=== PATIENT | female | born 2000 | race Caucasian/White ===

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

== ENCOUNTER → 2024-04-28 | Outpatient (CLI) | payer BC, SELFPAY ==
[2024-05-02 03:07] LABS: Alternaria tenuis <0.10 kU/L (Class 0); Ash, White <0.10 kU/L (Class 0); Aspergillus fumigatus <0.10 kU/L (Class 0); Bermuda Grass <0.10 kU/L (Class 0); Birch <0.10 kU/L (Class 0); Black Walnut <0.10 kU/L (Class 0); Cat Hair / Dander,Stand 0.46 kU/L (Class I); Cedar, Mountain <0.10 kU/L (Class 0); Cladosporium herbarum <0.10 kU/L (Class 0); Clam <0.10 kU/L (Class 0); Cockroach, American <0.10 kU/L (Class 0); Codfish <0.10 kU/L (Class 0); Corn <0.10 kU/L (Class 0); Cottonwood <0.10 kU/L (Class 0); Dog Epithelia 2.85 kU/L (Class III); Egg, White <0.10 kU/L (Class 0); Elm, American White <0.10 kU/L (Class 0); Immunoglobulin E 159 IU/mL (6-495); Maple/Box Elder 0.21 kU/L (Class 0/I); Milk (Cow) <0.10 kU/L (Class 0); Mouse Urine <0.10 kU/L (Class 0); Mulberry, White <0.10 kU/L (Class 0); Oak, White 0.17 kU/L (Class 0/I); Peanut <0.10 kU/L (Class 0); Pecan <0.10 kU/L (Class 0); Penicillium Notatum <0.10 kU/L (Class 0); Pigweed, Rough <0.10 kU/L (Class 0); Ragweed, Short/Common <0.10 kU/L (Class 0); Russian Thistle <0.10 kU/L (Class 0); SCALLOP <0.10 kU/L (Class 0); SESAME SEED <0.10 kU/L (Class 0); Sheep Sorrel <0.10 kU/L (Class 0); Shrimp <0.10 kU/L (Class 0); Soybean <0.10 kU/L (Class 0); Sycamore, American <0.10 kU/L (Class 0); Timothy Grass <0.10 kU/L (Class 0); Walnut, (Food) <0.10 kU/L (Class 0); Wheat <0.10 kU/L (Class 0)
== END | disposition home or self-care (01) ==
PROVIDERS: PCP Physician Assistant Medical; Referring Provider Otolaryngology; Visit Provider Otolaryngology
DX: T78.40XA Allergy, unspecified, initial encounter (principal)
CPT/HCPCS: 36415; 82785; 86003

== ENCOUNTER → 2024-09-18 | Outpatient (CLI) | payer BC, SELFPAY ==
[2024-09-18 09:37] LABS: Absolute Lymphocyte Count 4.22 X10^3/uL (0.83-4.51); Absolute Neutrophil Count 5.7 X10^3/uL (2.0-7.7); Basophil# 0.04 X10^3/uL; Basophil% 0.4 % (0-1); Eosinophil# 0.19 X10^3/uL; Eosinophils% 1.7 % (0-5); Hematocrit 37.6 % (37-47); Hemoglobin 12.6 g/dL (12.0-15.0); Lymphocyte # 4.22 X10^3/ul (0.83-4.51); Lymphocyte % 38.2 % (19-41); Mean Corp Hgb Conc 33.5 g/dL (32-36); Mean Corpuscular Hgb 28.1 pg (27.0-32.0); Mean Corpuscular Volume 83.7 fL (81-99); Monocyte# 0.88 X10^3/uL; NRBC Flagged by Analyzer 0 % (0-5); Neutrophil # 5.69 X10^3/uL (2.7-7.7); Neutrophil % 51.3 % (47-70); Platelet Count 573 K/mm3 (150-450); RBC Distribution Width CV 13.2 % (11.6-14.6); RBC Distribution Width SD 40.6 fl (35.1-43.9); Red Blood Count 4.49 M/mm3 (4.2-5.4); White Blood Count 11.1 K/mm3 (4.4-11.0)
[2024-09-18 09:47] LABS: Prothrombin Time (Protime)PT. 13.1 SECONDS (11.7-14.9)
[2024-09-18 09:58] LABS: Erythrocyte Sedimentation Rate 37 mm/hr (0-30)
[2024-09-18 10:10] LABS: ALB/GLOB Ratio 1.4 RATIO (0.9-2.4); AST(SGOT) 22 U/L (<=31); Alanine Aminotransfer ALT/SGPT 22 U/L (<=34); Albumin, Serum 4.3 g/dL (3.5-5.0); Alkaline Phosphatase 82 U/L (35-104); Anion Gap 13 (5-15); BUN 11 mg/dL (4-19); BUN/Creat Ratio 14.8 RATIO (10-20); Calcium,Total 9.1 mg/dL (7.6-11.0); Carbon Dioxide 21.9 mmol/L (21.0-32.0); Chloride 102 mmol/L (98-108); Creatinine, Serum 0.74 mg/dL (0.70-1.20); EST Glomerular Filtration Rate 117 (>60); Globulin 3.1 g/dL (2.2-4.2); Glucose 92 mg/dL (70-99); Potassium 3.6 mmol/L (3.3-5.1); Protein, Total 7.3 g/dL (5.9-8.4); Sodium Level 138 mmol/L (133-145); Total Bilirubin 0.21 mg/dL (0.00-1.30)
[2024-09-18 10:18] LABS: CRP 8.28 mg/L (0.0-3.0); Rheumatoid Factor 11.9 IU/mL (<15)
[2024-09-18 10:30] LABS: LDH 221 U/L (84-246)
[2024-09-23 18:08] LABS: ACCA 41 units (0-90); ALCA 7 units (0-60); AMCA 57 units (0-100); CCP IgG Antibodies 8 units (0-19); Chromogranin A 72.7 ng/mL (0.0-101.8); Cytoplasmic Ab (C-ANCA) <1:20 titer (Neg:<1:20); Endomysial Antibody IgA Negative (Negative); Gastrin, Serum 87 pg/mL (0-115); Immunoglobulin A 273 mg/dL (87-352); Immunoglobulin E 147 IU/mL (6-495); Immunoglobulin G 853 mg/dL (586-1602); Immunoglobulin M 201 mg/dL (26-217); Perinuclear Ab (P-ANCA) <1:20 titer (Neg:<1:20); gASCA 7 units (0-50); t-Transglutaminase IgA <2 U/mL (0-3)
[2024-09-24 13:08] LABS: Anti-Centromere B Ab <0.2 AI (0.0-0.9); Anti-Chromatin <0.2 AI (0.0-0.9); Anti-Jo <0.2 AI (0.0-0.9); Anti-Scleroderma-70 AB <0.2 AI (0.0-0.9); Anti-dsDNA Ab 1 IU/mL (0-9); Beef <0.10 kU/L (Class 0); Clam <0.10 kU/L (Class 0); Codfish <0.10 kU/L (Class 0); Corn <0.10 kU/L (Class 0); Egg, White <0.10 kU/L (Class 0); Egg, Whole <0.10 kU/L (Class 0); Milk (Cow) 0.25 kU/L (Class 0/I); Mussels <0.10 kU/L (Class 0); Peanut <0.10 kU/L (Class 0); Pork <0.10 kU/L (Class 0); RNP Ab <0.2 AI (0.0-0.9); SCALLOP <0.10 kU/L (Class 0); SESAME SEED 0.11 kU/L (Class 0/I); SJOGREN'S Anti-SS-A test < 0.2 AI (0.0-0.9); SJOGREN'S Anti-SS-B test < 0.2 AI (0.0-0.9); Salmon <0.10 kU/L (Class 0); Shrimp <0.10 kU/L (Class 0); Smith Ab <0.2 AI (0.0-0.9); Soybean <0.10 kU/L (Class 0); Tuna <0.10 kU/L (Class 0); Walnut, (Food) <0.10 kU/L (Class 0); Wheat <0.10 kU/L (Class 0)
== END | disposition home or self-care (01) ==
PROVIDERS: PCP Physician Assistant Medical; Referring Provider Internal Medicine Gastroenterology; Visit Provider Internal Medicine Gastroenterology
DX: R10.9 Unspecified abdominal pain (principal)
CPT/HCPCS: 36415; 80053; 82784; 82785; 82941; 83516; 83615; 85025; 85610; 85652; 86003; 86005; 86036; 86037; 86140; 86200; 86225; 86235; 86255; 86316; 86431; 86671

== ENCOUNTER → 2024-10-08 | Outpatient (CLI) | payer BC, SELFPAY ==
--- NOTE | 2024-10-08 12:51 | NM_ITS ---
PROCEDURE: GASTRIC EMPTYING STUDY 10/08/2024 REASON FOR EXAM: ABDOMINAL PAIN TECHNIQUE: The patient ingested a standard meal of oatmeal and 1.1 mCi of technetium labeled sulfur colloid and water. There was no vomiting postprandially. Anterior and posterior planar images of the upper abdomen were obtained for 1 minute immediately following the meal at 1h, 2h and 4h if more than 10% of the activity persisted within the stomach. Regions of interest were drawn, and a geometric mean was used to calculate a [id number]. RADIOPHARMACEUTICAL: Technetium labeled sulfur colloid DOSE 1.1mCi FINDINGS: Percent activity remaining in stomach: 1 hour 42% % (normal 37-90%) NM/Gastric Emptying Study IMPRESSION: Normal gastric emptying study. Reading Location: [place] [id number]
== END | disposition home or self-care (01) ==
LOC: NM 12:50
PROVIDERS: PCP Physician Assistant Medical; Referring Provider Internal Medicine Gastroenterology; Visit Provider Internal Medicine Gastroenterology
DX: R10.9 Unspecified abdominal pain (principal)
CPT/HCPCS: 78264; A9541

== ENCOUNTER 2024-12-01 11:43 | Emergency (ER) | payer BC, SELFPAY ==
[2024-12-01 11:44] VITALS: BP 120/53; PULSE 64; RESP 18; TEMP 36.6; O2SAT 98; BMI 36.7
--- NOTE | 2024-12-01 11:51 | ED.RN ---
PT STARTED A NEW CONTROL MEDICATION PATCH YESTERDAY AND HAS REDNESS TO THE ARM AND FACE, VOMITING THIS MORNING TWICE. DENIES ANY ISSUE WITH THROAT, TONGUE, OR BREATHING. FACE APPEARS TO HAVE SOME PETECHIAE POSSIBLY FROM THE VOMITING
[2024-12-01] MEDS: 0.9% Normal Saline (1000mL) 1,000 ML 1000 ML IV (12:18)
[2024-12-01 12:32] LABS: Hematocrit 39.0 % (37-47); Hemoglobin 12.6 g/dL (12.0-15.0); Immature Granulocytes Count 0.090 X10^3/uL (0.0-0.0); Mean Corp Hgb Conc 32.3 g/dL (32-36); Mean Corpuscular Volume 86.1 fL (81-99); Mean Platelet Vol. 9.3 fl (6.2-12.0); NRBC Flagged by Analyzer 0 % (0-5); Platelet Count 467 K/mm3 (150-450); RBC Distribution Width CV 13.8 % (11.6-14.6); RBC Distribution Width SD 43.1 fl (35.1-43.9); Red Blood Count 4.53 M/mm3 (4.2-5.4); White Blood Count 12.3 K/mm3 (4.4-11.0)
[2024-12-01 13:15] LABS: Anion Gap 12 (5-15); BUN 12 mg/dL (4-19); BUN/Creat Ratio 17.7 RATIO (10-20); Calcium,Total 9.1 mg/dL (7.6-11.0); Carbon Dioxide 22.2 mmol/L (21.0-32.0); Chloride 106 mmol/L (98-108); Estimated Creatinine Clearance 137.04 ml/min (50-250); Glucose 115 mg/dL (70-99); Potassium 3.8 mmol/L (3.3-5.1)
--- NOTE | 2024-12-01 13:42 | EX.ED.DYSGE1 ---
HPI History of Present Illness Chief Complaint: Allergic Reaction Informant: patient and spouse/S.O. Narrative Narrative: Presents to the ED vomiting this morning after starting a new control method patch yesterday. She is followed by Dr. Vega. She has a Mirena is working on taking it out. She was started on Xulane patches. She states its place once a week. Yesterday placed this on. Today nausea and vomiting x 2 heavy retching. This is typical for her. She noted petechia spots on her face and neck secondary to vomiting. No hematemesis. She states with her vomiting this has happened in the past. Denies abdominal pain. Currently nauseated. No anticoagulants or antiplatelets. Prior similar symptoms: Yes PFSH PFSH Medical History Hypercholesteremia Thrombocytosis Low vitamin B12 level Depression Abdominal pain Gallbladder polyp Peptic ulcer MONET (generalized anxiety disorder) GERD (gastroesophageal reflux disease) Home Medications ?Medication ?Instructions ?Recorded ?Last Taken ?Type cholecalciferol (vitamin D3) 25 25 mcg PO QDAY 09/18/24 11/30/24 History mcg (1,000 unit) capsule citalopram 20 mg tablet (Celexa) 20 mg PO QDAY 09/18/24 Unknown History Held on 12/01/24. Instructions: PHARMACY ISSUE fexofenadine 60 mg capsule 60 mg PO Q12H 09/18/24 11/30/24 History mecobalamin (vitamin B12) 1,000 1,000 mcg PO QDAY 09/18/24 11/30/24 History mcg chewable tablet omeprazole 20 mg capsule,delayed 20 mg PO QDAY 09/18/24 Unknown History release Held on 12/01/24. Instructions: PHARMACY ISSUE ondansetron 4 mg disintegrating 4 mg PO Q8H PRN PRN Nausea #10 tabs 12/01/24 Unknown Rx tablet Allergy/AdvReac Type Severity Reaction Status Date / Time peanut (peanuts) Allergy Anaphylaxis Verified 12/01/24 11:52 Family History Mother Cholelithiasis Father Heart disease Hypertension Grandfather Rectal cancer Colon cancer Grandmother Colon cancer Surgical History H/O adenoidectomy Hx laparoscopic cholecystectomy Social History Smoking Status: Never smoker alcohol intake: current alcohol intake frequency: holidays/special occasions only Alcohol type: wine ROS ROS ED Constitutional Constitutional ED: Denies fever(s) Cardiovascular Cardiovascular: Denies chest pain Respiratory/Chest Respiratory/Chest: Denies cough Gastrointestinal Gastrointestinal: Reports nausea and vomiting; Denies diarrhea Musculoskeletal Musculoskeletal: Denies none Integumentary Reports other Details: Petechial lesions face and neck ; Denies rash or wounds Neurologic Neurologic: Denies weakness EXAM Physical Exam Const Vital Signs: 12/01/24 11:44 12/01/24 13:43 Temperature 98 F Temperature Source Oral Pulse Rate 64 59 L Respiratory Rate 18 16 Blood Pressure 120/53 L 123/69 H Blood Pressure Mean 75 87 Pulse Ox 98 96 Oxygen Delivery Method Room Air Room Air Positive well nourished and well developed General Appearance ED: well developed and NAD HEENT Reports moist mucous membranes HEENT Narrative: Scattered petechia to the face anterior neck. normocephalic Eyes Eyes Narrative: No subconjunctival hemorrhage General Eye ED: Yes normal appearance of both eyes Neck full ROM Chest Wall Chest: Negative for tenderness Resp normal respiratory effort and normal air movement Effort and Inspection: symmetric chest movement; Negative for respiratory distress Cardio regular rate, regular rhythm and no murmurs Peripheral Pulses: pulses 2+ throughout GI normal to inspection, nondistended, normoactive bowel sounds and non-tender GI Narrative: Negative Estrada's or McBurney's tenderness. Palpation: Negative for guarding or rebound tenderness present Extremity normal to inspection General Extremety ED: Negative for edema or tenderness General Extremity: Negative for edema Neuro oriented x3 and no sensory deficits noted Sensorium / Orientation: awake and alert Skin Skin Narrative: See above MDM MDM MDM Narrative Medical decision making narrative: Interventions / MDM: Differential diagnosis: Nausea and vomiting, traumatic petechiae Diagnosis considered but do not suspect: N/A My EKG interpretation: N/A Imaging independently reviewed and interpreted by myself: N/A External documents reviewed: N/A Test considered but not ordered:N/A ED course: Patient with petechial lesions after vomiting. No hematemesis. Currently nauseated. She has removed her patch. IV established for fluids will check labs, IV Zofran. Will reevaluate. 1407: Clinically feeling better. Labs stable slight leukocytosis, likely reactive. Electrolytes normal. Platelets normal. Prescription Zofran to her pharmacy. Patient traumatic PTCA, this will resolve with time. She has been through this before. She will discuss with her chief service observer other control options. All questions were answered. Re-evaluation: stable Disposition discussed with patient/family/significant other: Patient and significant other Case discussed with consulting clinician: N/A This note was generated with [employer] dictation software. It may contain incorrect words, spelling, and punctuation that were not noted in checking the note before signing. Lab Data Attestation: I reviewed the patient's lab results. Labs: Laboratory Results - last 24 hr 12/01/24 12:20 WBC 12.3 H RBC 4.53 Hgb 12.6 Hct 39.0 MCV 86.1 MCH 27.8 MCHC 32.3 RDW Std Deviation 43.1 RDW Coeff of Ha 13.8 Plt Count 467 H MPV 9.3 Immature Gran % (Auto) 0.700 Neut % (Auto) 71.0 H Lymph % (Auto) 18.3 L [place] % (Auto) 7.1 Eos % (Auto) 2.2 Baso % (Auto) 0.7 Absolute Neuts (auto) 8.7 H Absolute Lymphs (auto) 2.25 Nucleated RBC % 0 Sodium 140 Potassium 3.8 Chloride 106 Carbon Dioxide 22.2 Anion Gap 12 BUN 12 Creatinine 0.67 L Estim Creat Clear Calc 137.04 Est GFR (MDRD) Non-Af 126 BUN/Creatinine Ratio 17.7 Glucose 115 H Calcium 9.1 Discharge Plan Triage Chief Complaint: Allergic Reaction ED Provider: Phillip Richardson Dx/Rx/DC Orders Clinical Impression: Nausea and vomiting, Traumatic petechiae Instructions: ED Vomiting (Adult), ED Petechiae Prescriptions: New ondansetron 4 mg tablet,disintegrating 4 mg PO Q8H PRN PRN (Reason: Nausea) Qty: 10 0RF No Action citalopram [Celexa] 20 mg tablet 20 mg PO QDAY fexofenadine 60 mg capsule 60 mg PO Q12H mecobalamin (vitamin B12) 1,000 mcg tablet,chewable 1,000 mcg PO QDAY cholecalciferol (vitamin D3) 25 mcg (1,000 unit) capsule 25 mcg PO QDAY omeprazole 20 mg capsule,delayed release(DR/EC) 20 mg PO QDAY Primary Care Provider: Jenni Matthews Referrals: Jenni Matthews, FATIMAH [Primary Care Provider] - Activity Restrictions/Additional Instructions: Your labs and platelets are stable and normal. Your petechiae caused from your vomiting. This will resolve with time. Use Zofran as needed. Continue oral fluids for hydration. Discussed with your chief service observer other control options. Print Language: [place] Leonean Disposition Disposition: Home, Self Care
[2024-12-01 13:43] VITALS: BP 123/69; PULSE 59; RESP 16; O2SAT 96
[2024-12-01 14:18] VITALS: BP 112/59; PULSE 58; RESP 17; TEMP 36.6; O2SAT 98
== END 2024-12-01 14:21 | disposition home or self-care (01) ==
PROVIDERS: Emergency Provider Emergency Medicine; PCP Physician Assistant Medical; Visit Provider Emergency Medicine
DX: R11.2 Nausea with vomiting, unspecified (principal); E78.00 Pure hypercholesterolemia, unspecified; R23.3 Spontaneous ecchymoses; F32.A Depression, unspecified; Z79.899 Other long term (current) drug therapy; K21.9 Gastro-esophageal reflux disease without esophagitis; F41.1 Generalized anxiety disorder; Z90.49 Acquired absence of other specified parts of digestive tract
CPT/HCPCS: 80048; 85025; 96361; 96374; 99283; J2405

== ENCOUNTER 2024-12-02 08:44 | Emergency (ER) | payer BC, SELFPAY ==
[2024-12-02 08:44] VITALS: BP 130/65; PULSE 63; RESP 18; TEMP 37.2; O2SAT 99; BMI 36.5
--- NOTE | 2024-12-02 09:10 | EX.ED.DYSGE1 ---
HPI History of Present Illness Chief Complaint: Nausea/Vomiting Detail of Chief Complaint: Nausea and vomiting since discharge from the emergency room Informant: patient Onset/Context/Timing Onset: Yesterday Context: Sudden Onset Timing: Intermittent and Waxes and wanes Quality: Nausea and vomiting Location: GI Current Severity: Mild Maximum Severity: Moderate Worsened by: Thought yesterday was due to new control patch. She also admits to d Relieved by: Initially Zofran. She states the Zofran and ODT tablets she was prescribed Associated Symptoms Associated Symptoms: Thirst, dry mouth, lightheadedness Narrative Narrative: Patient is a 24-year-old female. She was seen yesterday for presumed adverse reaction to medication. She was treated with IV Zofran. Her symptoms resolved. She was discharged home with prescription for Zofran ODT. She states and spite of taking the Zofran she continues to have nausea and vomiting. She has had several episodes in and I heaves as well. Predominantly dry heaves now. She denies tobacco use however she commented I do not smoke cigarettes . Asked if she smokes marijuana. She does smoke marijuana daily. Last use was 2 days ago. She has had no ill contacts. She denies headache, visual, ocular auditory symptoms. She denies cardiac or respiratory symptoms. She does report diffuse abdominal discomfort with nausea and dry heaves. She states she did have diarrhea the other day. She has had no diarrhea since discharge. She endorses decreased urine output as well. She denies dysuria or hematuria. She did not have a test yesterday. She believes her last normal menstrual period was beginning of this month. She has not noted any rash or lesions on her extremities or torso. Prior similar symptoms: Yes Recent Illness/Hospitalization: Yes [facility] Medical History Hypercholesteremia Thrombocytosis Low vitamin B12 level Depression Abdominal pain Gallbladder polyp Peptic ulcer MONET (generalized anxiety disorder) GERD (gastroesophageal reflux disease) Home Medications ?Medication ?Instructions ?Recorded ?Last Taken ?Type cholecalciferol (vitamin D3) 25 25 mcg PO QDAY 09/18/24 11/30/24 History mcg (1,000 unit) capsule citalopram 20 mg tablet (Celexa) 20 mg PO QDAY 09/18/24 Unknown History Held on 12/01/24. Instructions: PHARMACY ISSUE fexofenadine 60 mg capsule 60 mg PO Q12H 09/18/24 11/30/24 History mecobalamin (vitamin B12) 1,000 1,000 mcg PO QDAY 09/18/24 11/30/24 History mcg chewable tablet omeprazole 20 mg capsule,delayed 20 mg PO QDAY 09/18/24 Unknown History release Held on 12/01/24. Instructions: PHARMACY ISSUE ondansetron 4 mg disintegrating 4 mg PO Q8H PRN PRN Nausea #10 tabs 12/01/24 Unknown Rx tablet Allergy/AdvReac Type Severity Reaction Status Date / Time peanut (peanuts) Allergy Anaphylaxis Verified 12/02/24 08:46 Family History Mother Cholelithiasis Father Heart disease Hypertension Grandfather Rectal cancer Colon cancer Grandmother Colon cancer Surgical History H/O adenoidectomy Hx laparoscopic cholecystectomy Social History Smoking Status: Current every day smoker tobacco type: e-cigarettes alcohol intake: current alcohol intake frequency: holidays/special occasions only Alcohol type: wine ROS ROS ED Constitutional Constitutional ED: Reports sweats; Denies chills, fever(s) or subjective Eyes Eyes: Denies blurry vision, change in vision or diplopia ENT ENT ED: Denies ear pain, rhinorrhea or sore throat Cardiovascular Cardiovascular: Denies chest pain, orthopnea, palpitations, paroxysmal nocturnal dyspnea or racing heartbeat Respiratory/Chest Respiratory/Chest: Denies cough, dyspnea, dyspnea on exertion, orthopnea or paroxysmal nocturnal dyspnea Gastrointestinal Gastrointestinal: Reports abdominal pain, nausea and vomiting; Denies constipation, diarrhea or melena Genitourinary Genitourinary ED: Reports other Details: Decreased urine output ; Denies dysuria, hematuria or urinary frequency Musculoskeletal Musculoskeletal: Denies arthralgias or myalgias Integumentary Denies rash Neurologic Neurologic: Reports weakness; Denies headache(s) or paresthesias Hematologic/Lymphatic Hematologic/Lymphatic: Reports systems reviewed and no addt'l complaints, except as documented EXAM Physical Exam Const Vital Signs: 12/02/24 08:44 Temperature 99.0 F Temperature Source Oral Pulse Rate 63 Respiratory Rate 18 Blood Pressure 130/65 H Blood Pressure Mean 86 Pulse Ox 99 Oxygen Delivery Method Room Air Positive well nourished and well developed Constitutional Narrative: Vital signs reveal slight elevation in blood pressure. She is not tachycardic. She appears ill but nontoxic. General Appearance ED: well developed HEENT Reports dry mucous membranes HEENT Narrative: Head is atraumatic and normocephalic. Ears normal. Nares patent without discharge. Posterior pharynx is normal. Uvula is midline. Mouth ED: Yes dry mucous membranes Mouth: dry mucous membranes Eyes PERRL and EOMs intact bilaterally Eyes Narrative: There is no nystagmus. General Eye ED: Negative for pale conjunctiva or scleral icterus Neck no lymphadenopathy, supple and no JVD Resp normal respiratory effort and clear to auscultation bilaterally Cardio regular rate, regular rhythm, S1 normal heart sound, S2 normal heart sound and no murmurs GI non-distended and no masses; Negative for normal to inspection, nondistended, normoactive bowel sounds, non-tender or hepatosplenomegaly Auscultation: hypoactive bowel sounds Palpation: soft and tender other (Diffuse. Patient has scar secondary to cholecystectomy.); Negative for guarding or splenomegaly Back/Spine no CVA tenderness Extremity normal to inspection General Extremety ED: Negative for edema or tenderness General Extremity: Negative for edema Neuro oriented x3 and CN's II-XII intact bilaterally Sensorium / Orientation: alert Psych Psych Narrative: Affect is flat. MDM MDM MDM Narrative Medical decision making narrative: Clinically patient is dehydrated. 1 L of normal saline was ordered. In light of her admitted marijuana use daily will initiate the cyclic vomiting order set since the Zofran ODT is not helping. Will obtain BMP and assess BUN to creatinine ratio as well as renal function. test was ordered since this was not ordered yesterday or recently. In my opinion imaging is not needed. She does have some tenderness but has medically a benign History & Record Review Additional record(s) reviewed:: Prior ED visit and Prior labs Lab Data Attestation: I reviewed the patient's lab results. Lab results narrative: Serum test is negative. Labs: Laboratory Results - last 24 hr 12/02/24 09:06 Sodium 139 Potassium 3.7 Chloride 104 Carbon Dioxide 22.8 Anion Gap 13 BUN 10 Creatinine 0.79 Estim Creat Clear Calc 115.91 Est GFR (MDRD) Non-Af 109 BUN/Creatinine Ratio 12.5 Glucose 111 H Calcium 9.0 Serum , Qual NEGATIVE Treatment and Re-Evaluation :: Patient was reassessed at 1124. She passed p.o. challenge. She feels better. Will discharge to home. She was informed I believe this is due to cannabis hyperemesis syndrome. Discharge Plan Triage Chief Complaint: Nausea/Vomiting ED Provider: Toby Rodriguez Dx/Rx/DC Orders Clinical Impression: Cannabis hyperemesis syndrome concurrent with and due to cannabis abuse, Abdominal pain, Acute dehydration Instructions: ED Cyclic Vomiting Syndrome Prescriptions: No Action citalopram [Celexa] 20 mg tablet 20 mg PO QDAY fexofenadine 60 mg capsule 60 mg PO Q12H mecobalamin (vitamin B12) 1,000 mcg tablet,chewable 1,000 mcg PO QDAY cholecalciferol (vitamin D3) 25 mcg (1,000 unit) capsule 25 mcg PO QDAY omeprazole 20 mg capsule,delayed release(DR/EC) 20 mg PO QDAY ondansetron 4 mg tablet,disintegrating 4 mg PO Q8H PRN PRN (Reason: Nausea) Qty: 10 0RF Primary Care Provider: Jenni Matthews Referrals: Jenni Matthews, PA [Primary Care Provider] - As Needed Print Language: Tajik Disposition Disposition: Home, Self Care
[2024-12-02] MEDS: Famotidine 200 MG/20 ML MDV 20 MG in 0.9% Normal Saline (Pres. free 8 ML 300 MG IV (09:13)
[2024-12-02] MEDS: Lorazepam 2 MG/ML WCH Syringe 0.5 MG IV (09:13)
[2024-12-02 09:44] LABS: Internal QC Validated? YES +Cl - CLEAR BKGD; Pregnancy, Serum, hCG Quali. NEGATIVE Negative; Record Kit Lot#, Serum Preg. 0000962302
[2024-12-02] MEDS: DiphenhydrAMINE 25 MG, ChlorproMAZINE 25 MG in 0.9% Normal Saline (100mL Bag) 98.5 ML 200 MG IV (09:49)
[2024-12-02 09:53] LABS: Anion Gap 13 (5-15); BUN 10 mg/dL (4-19); BUN/Creat Ratio 12.5 RATIO (10-20); Calcium,Total 9.0 mg/dL (7.6-11.0); Carbon Dioxide 22.8 mmol/L (21.0-32.0); Chloride 104 mmol/L (98-108); Estimated Creatinine Clearance 115.91 ml/min (50-250); Glucose 111 mg/dL (70-99); Potassium 3.7 mmol/L (3.3-5.1)
[2024-12-02 10:44] VITALS: BP 121/47; PULSE 57
[2024-12-02 12:01] VITALS: BP 114/59; PULSE 60; RESP 19; TEMP 36.6; O2SAT 100
== END 2024-12-02 12:02 | disposition home or self-care (01) ==
PROVIDERS: Emergency Provider Emergency Medicine; PCP Physician Assistant Medical; Visit Provider Emergency Medicine
DX: R11.2 Nausea with vomiting, unspecified (principal); F12.188 Cannabis abuse with other cannabis-induced disorder; E86.0 Dehydration; E78.00 Pure hypercholesterolemia, unspecified; R10.9 Unspecified abdominal pain; F41.1 Generalized anxiety disorder; K21.9 Gastro-esophageal reflux disease without esophagitis; Z79.899 Other long term (current) drug therapy; F17.290 Nicotine dependence, other tobacco product, uncomplicated
CPT/HCPCS: 80048; 84703; 96365; 96368; 96375; 99282; J2405

== ENCOUNTER 2025-01-05 08:24 | Emergency (ER) | payer BC, SELFPAY ==
[2025-01-05 08:25] VITALS: BP 134/62; PULSE 53; RESP 16; TEMP 36.4; O2SAT 97; BMI 35.2
--- NOTE | 2025-01-05 08:31 | ED.VIS.GI ---
HPI HPI - GI History of Present Illness Chief Complaint: Nausea/Vomiting Informant: patient Abdominal Pain/Flank Pain Onset: Today Context: Sudden Onset Timing: Continuous Quality: Cramping Location: Epigastric Worsened by: Food Relieved by: Nothing Nausea/Vomiting/Emesis GI Symptom: Positive for Nausea and Vomiting Quality: Positive for Nonbilious; Negative for Blood streaks, Coffee ground or Hematemesis Diarrhea/Melena/Hematochezia GI Symptom: Positive for Diarrhea; Negative for Melena or Hematochezia Associated Symptoms Associated Symptoms: Negative for Dysuria, Frequency or Hematuria LMP: 2 weeks ago Narrative Narrative: Patient presents with abdominal pain, nausea, vomiting, and diarrhea that began this morning. Patient states began rather suddenly this morning. Patient states it has been constant. Patient describes her pain as cramping. Patient states it is over the epigastric area. Patient states her pain radiates up into her chest. Patient states it is worse with eating or drinking anything. Patient states nothing makes it better. Patient denies any hematemesis or coffee-ground emesis. Patient admits to some diarrhea but denies any melena or hematochezia. Patient denies any dysuria, frequency, or hematuria. Patient states her last menstrual period was 2 weeks ago. Patient has a history of cholecystectomy. [facility] Medical History Hypercholesteremia Thrombocytosis Low vitamin B12 level Depression Abdominal pain Gallbladder polyp Peptic ulcer MONET (generalized anxiety disorder) GERD (gastroesophageal reflux disease) Home Medications ?Medication ?Instructions ?Recorded ?Last Taken ?Type citalopram 20 mg tablet (Celexa) 20 mg PO QDAY 09/18/24 01/04/25 History Held on 12/01/24. Instructions: PHARMACY ISSUE omeprazole 20 mg capsule,delayed 20 mg PO QDAY 09/18/24 01/04/25 History release Held on 12/01/24. Instructions: PHARMACY ISSUE scopolamine base 1 mg over 3 days 1 patch transdermal Q72H 30 days 12/19/24 01/05/25 Rx transdermal patch #10 ea amoxicillin 875 mg-potassium 875 mg PO Q12H #20 TABLETS 01/05/25 Unknown Rx clavulanate 125 mg tablet cetirizine 10 mg tablet (24Hour 10 mg PO DAILY PRN allergy symptoms 01/05/25 01/04/25 History Allergy) diphenhydramine HCl 25 mg capsule 50 mg PO Q8H PRN nausea and 01/05/25 01/05/25 History (Aler-Cap) vomiting ferrous sulfate 325 mg (65 mg 325 mg PO QDAY SUPPLEMENT 01/05/25 01/04/25 History iron) tablet (FeroSul) Allergy/AdvReac Type Severity Reaction Status Date / Time peanut (peanuts) Allergy Anaphylaxis Verified 01/05/25 08:25 Family History Mother Cholelithiasis Father Heart disease Hypertension Grandfather Rectal cancer Colon cancer Grandmother Colon cancer Surgical History H/O adenoidectomy Hx laparoscopic cholecystectomy Social History Smoking Status: Current every day smoker tobacco type: e-cigarettes alcohol intake: current alcohol intake frequency: holidays/special occasions only Alcohol type: wine ROS ROS ED Constitutional Constitutional ED: Reports chills, fever(s) and subjective Eyes Eyes: Denies blurry vision or change in vision ENT ENT ED: Reports rhinorrhea and sore throat Cardiovascular Cardiovascular: Reports chest pain; Denies palpitations Respiratory/Chest Respiratory/Chest: Reports cough; Denies dyspnea Gastrointestinal Gastrointestinal: Reports abdominal pain, diarrhea, nausea and vomiting Genitourinary Genitourinary ED: Denies dysuria or hematuria Musculoskeletal Musculoskeletal: Denies back pain or neck pain Integumentary Denies abscess or rash Neurologic Neurologic: Reports headache(s); Denies weakness Allergic/Immunologic Allergic/Immunologic ED: Denies mouth swelling or urticaria EXAM Physical Exam Const Vital Signs: 01/05/25 08:25 01/05/25 10:25 Temperature 97.6 F L Temperature Source Temporal Pulse Rate 53 L 59 L Respiratory Rate 16 Blood Pressure 134/62 H Blood Pressure Mean 86 Pulse Ox 97 96 Oxygen Delivery Method Room Air Positive well nourished and well developed General Appearance ED: well developed and NAD HEENT Reports moist mucous membranes Neck supple and no JVD Resp normal respiratory effort and clear to auscultation bilaterally Cardio regular rate and regular rhythm GI non-distended Palpation: soft and tender epigastric Extremity full ROM General Extremety ED: Negative for edema or tenderness General Extremity: Negative for edema Neuro CN's II-XII intact bilaterally, moves all extremities and no sensory deficits noted Sensorium / Orientation: alert Motor Exam: strength 5/5 throughout Psych mental status grossly normal MDM MDM MDM Narrative Medical decision making narrative: Differential diagnosis includes gastritis, peptic ulcer disease, duodenal ulcer, pancreatitis, gastroesophageal reflux disease, gastroparesis, and gastroenteritis. CBC will be obtained to assess for leukocytosis and anemia. Comprehensive metabolic profile will be obtained to assess for hepatic function, renal function, and electrolyte abnormality. Lipase will be obtained to assess for pancreatitis. Urinalysis will be obtained to assess for urinary tract infection. Serum hCG will be obtained to assess for . History & Record Review Additional record(s) reviewed:: Prior outpatient record, Prior ED visit and Prior labs Lab Data Attestation: I reviewed the patient's lab results. Lab results narrative: CBC was reviewed and showed a leukocytosis of 18.2. This is increased from previous results. Platelets were slightly elevated at 529. This was consistent with previous results. Comprehensive metabolic profile was reviewed and was essentially within normal limits. Serum hCG was reviewed and was negative. Lipase was reviewed and was normal at 23. Urinalysis was reviewed. There is no evidence of urinary tract infection or hematuria. Labs: Laboratory Results - last 24 hr 01/05/25 01/05/25 08:41 08:46 WBC 18.2 H RBC 5.00 Hgb 14.1 Hct 42.7 MCV 85.4 MCH 28.2 MCHC 33.0 RDW Std Deviation 42.5 RDW Coeff of Ha 13.7 Plt Count 529 H MPV 9.4 Immature Gran % (Auto) 0.500 Neut % (Auto) 69.6 Lymph % (Auto) 18.4 L [place] % (Auto) 8.0 Eos % (Auto) 3.1 Baso % (Auto) 0.4 Absolute Neuts (auto) 12.7 H Absolute Lymphs (auto) 3.36 Nucleated RBC % 0 Sodium 140 Potassium 4.1 Chloride 103 Carbon Dioxide 22.2 Anion Gap 15 BUN 8 Creatinine 0.69 L Estim Creat Clear Calc 130.16 Est GFR (MDRD) Non-Af 125 BUN/Creatinine Ratio 12.2 Glucose 103 H Calcium 9.7 Total Bilirubin 0.36 AST 26 ALT 38 H Alkaline Phosphatase 73 Total Protein 7.6 Albumin 4.5 Globulin 3.0 Albumin/Globulin Ratio 1.5 Lipase 23 Serum , Qual NEGATIVE Urine Color Yellow Urine Clarity Sl. Cloudy Urine pH 8.0 Ur Specific [place] 1.015 Urine Protein 15 H Urine Glucose (UA) Normal Urine Ketones Negative Urine Occult Blood 10 H Urine Nitrite Negative Urine Bilirubin Negative Urine Urobilinogen Normal Ur Leukocyte Esterase Negative Urine RBC 0-5 SEEN Urine WBC 0-5 SEEN Ur Squamous Epith Cells 5-10 SEEN Amorphous Sediment 2+ PHOS Urine Bacteria 0 SEEN Urine Mucus 0 SEEN Radiography Diagnostic Testing: Clinical Impression(s) from Imaging Studies Abdomen/Pelvis CT 01/05/25 10:30 IMPRESSION: Submucosal thickening and edema noted in the majority of the colon suggesting a diffuse colitis.. This is likely infectious or inflammatory and can be seen with Crohn's or ulcerative colitis. No pericolonic inflammatory stranding, no perforation or abscess. These changes were not seen on the previous study of 2018 No free intraperitoneal fluid, air, or suspicious adenopathy, normal appendix visualized IUD noted in the uterus, there are physiologic ovarian cysts present, no suspicious enlarged cystic mass or free fluid in the pelvis Reading Location: [facility] Because of the leukocytosis, CT scan of the abdomen and pelvis was obtained. There is colitis noted in the majority of the colon. There is no evidence of perforation or abscess. There is no inflammatory stranding. There is no free air or free fluid. This was interpreted by the radiologist and was also independently reviewed by myself. Treatment and Re-Evaluation :: Patient was given IV fluids, morphine, and Zofran initially. Patient states this made her pain worse. Patient was given Pepcid and Benadryl. Patient was also given a dose of Ativan. Patient was feeling better on reevaluation. Patient was advised of her findings. Patient was started on a course of Augmentin. Patient was instructed to follow-up with her primary care physician in 5 to 7 days. Patient understood and was agreeable with the plan. All questions were answered. Discharge Plan Triage Chief Complaint: Nausea/Vomiting ED Provider: Raza Camacho Dx/Rx/DC Orders Clinical Impression: Colitis, Abdominal pain Instructions: ED Understanding Colitis Prescriptions: New amoxicillin-pot clavulanate 875-125 mg tablet 875 mg PO Q12H Qty: 20 0RF No Action citalopram [Celexa] 20 mg tablet 20 mg PO QDAY omeprazole 20 mg capsule,delayed release(DR/EC) 20 mg PO QDAY scopolamine base 1 mg over 3 days patch 3 day 1 patch transdermal Q72H 30 Days Qty: 10 2RF ferrous sulfate [FeroSul] 325 mg (65 mg iron) tablet 325 mg PO QDAY cetirizine [24Hour Allergy] 10 mg tablet 10 mg PO DAILY PRN (Reason: allergy symptoms) diphenhydramine HCl [Aler-Cap] 25 mg capsule 50 mg PO Q8H PRN (Reason: nausea and vomiting) Primary Care Provider: Jenni Matthews Referrals: Jenni Matthews PA [Primary Care Provider] - 5-7 Days Print Language: Monegasque Disposition Disposition: Home, Self Care
[2025-01-05] MEDS: 0.9% Normal Saline (1000mL) 1,000 ML 999 ML IV (09:04)
[2025-01-05 09:07] LABS: Mucous, Urine 0 SEEN /hpf (<or=2+)
[2025-01-05 09:12] LABS: Hematocrit 42.7 % (37-47); Hemoglobin 14.1 g/dL (12.0-15.0); Immature Granulocytes Count 0.100 X10^3/uL (0.0-0.0); Mean Corp Hgb Conc 33.0 g/dL (32-36); Mean Corpuscular Volume 85.4 fL (81-99); Mean Platelet Vol. 9.4 fl (6.2-12.0); NRBC Flagged by Analyzer 0 % (0-5); Platelet Count 529 K/mm3 (150-450); RBC Distribution Width CV 13.7 % (11.6-14.6); RBC Distribution Width SD 42.5 fl (35.1-43.9); Red Blood Count 5.00 M/mm3 (4.2-5.4); White Blood Count 18.2 K/mm3 (4.4-11.0)
[2025-01-05 09:13] LABS: Color, Urine Yellow (Yellow); Glucose, Dipstick Normal (Normal); Ketone-Dipstick Negative (Negative); Leukocyte Esterase-Dipstick Negative /ul (Negative); Nitrite-Dipstick Negative (Negative); Occult Blood-Urine 10 /ul (Negative); Protein-Dipstick 15 mg/dl (Negative); Specific Gravity, Urine 1.015 (1.002-1.030); Urine Bilirubin Dipstick Negative (Negative)
[2025-01-05 09:21] LABS: Red Blood Cells-Urine 0-5 SEEN /hpf (0-5); Squamous Epithelial Cells - UA 5-10 SEEN /hpf (5-10)
[2025-01-05] MEDS: Famotidine 200 MG/20 ML MDV 20 MG in 0.9% Normal Saline (Pres. free 8 ML 300 MG IV (09:37)
[2025-01-05 09:52] LABS: Internal QC Validated? YES +Cl - CLEAR BKGD; Pregnancy, Serum, hCG Quali. NEGATIVE Negative; Record Kit Lot#, Serum Preg. 0000962302
[2025-01-05 09:58] LABS: AST(SGOT) 26 U/L (<=31); Alanine Aminotransfer ALT/SGPT 38 U/L (<=34); Albumin, Serum 4.5 g/dL (3.5-5.0); Alkaline Phosphatase 73 U/L (35-104); Anion Gap 15 (5-15); BUN 8 mg/dL (4-19); BUN/Creat Ratio 12.2 RATIO (10-20); Calcium,Total 9.7 mg/dL (7.6-11.0); Carbon Dioxide 22.2 mmol/L (21.0-32.0); Chloride 103 mmol/L (98-108); Estimated Creatinine Clearance 130.16 ml/min (50-250); Globulin 3.0 g/dL (2.2-4.2); Glucose 103 mg/dL (70-99); Lipase 23 U/L (13-75); Potassium 4.1 mmol/L (3.3-5.1)
[2025-01-05] MEDS: DiphenhydrAMINE 25 MG, ChlorproMAZINE 25 MG in 0.9% Normal Saline (100mL Bag) 98.5 ML 200 MG IV (10:08)
[2025-01-05 10:25] VITALS: PULSE 59; O2SAT 96
--- NOTE | 2025-01-05 10:30 | CT_ITS ---
PROCEDURE: ABDOMEN/PELVIS W IV CONT ONLY 01/05/2025 REASON FOR EXAM: ABDOMINAL PAIN TECHNIQUE: ABDOMEN/PELVIS W IV CONT ONLY Coronal and Sagittal reconstruction series were provided. CONTRAST: Isovue 370 VOLUME: 100 mL One or more dose reduction techniques were used (e.g., Automated exposure control, adjustment of the mA and/or kV according to patient size, use of iterative reconstruction technique. RADIATION DOSE SUMMARY: CTDlvol: 35.99 mGy DLP: 1080.30 mGycm COMPARISON: 2019 FINDINGS: Lung bases: Clear Liver: Normal size. No suspicious mass there is subtle hypoattenuation along the falciform ligament which I suspect is simply developmental Gallbladder: Surgically absent. Spleen: Normal size. Pancreas: Normal size without evidence of mass surrounding inflammation or ductal dilation. Adrenals: Unremarkable Kidneys: No obstructive uropathy or suspicious solid renal lesion. Bladder: Unremarkable Reproductive Organs: IUD noted within the uterus. Physiologic ovarian cysts are noted, no suspicious enlarged cystic mass or free fluid in the pelvis Bowel: Although the bowel loops are not distended with oral contrast, there is some evidence of submucosal thickening in the transverse and descending colon suggestive of a diffuse colitis. No pericolonic inflammatory stranding, evidence of abscess or perforation. Appendix: Normal appendix seen on coronal recon images 52 through 55. Lymph nodes: No suspicious enlarged mesenteric or retroperitoneal lymph nodes Vasculature: Normal Peritoneum / Retroperitoneum: No free fluid or air Bones: Normal CT/Abdomen/Pelvis W IV Cont ONLY IMPRESSION: Submucosal thickening and edema noted in the majority of the colon suggesting a diffuse colitis.. This is likely infectious or inflammatory and can be seen with Crohn's or ulcerative colitis. No pericoloni c inflammatory stranding, no perforation or abscess. These changes were not seen on the previous study of 2019 No free intraperitoneal fluid, air, or suspicious adenopathy, normal appendix v isualized IUD noted in the uterus, there are physiologic ovarian cysts present, no suspic ious enlarged cystic mass or free fluid in the pelvis Reading Location: [id number]
[2025-01-05 12:31] VITALS: BP 122/74; PULSE 50; RESP 14; TEMP 36.6; O2SAT 100
== END 2025-01-05 12:31 | disposition home or self-care (01) ==
PROVIDERS: Emergency Provider Emergency Medicine; PCP Physician Assistant Medical; Visit Provider Emergency Medicine
DX: K52.9 Noninfective gastroenteritis and colitis, unspecified (principal); E78.00 Pure hypercholesterolemia, unspecified; R11.2 Nausea with vomiting, unspecified; Z79.899 Other long term (current) drug therapy; F41.1 Generalized anxiety disorder; K21.9 Gastro-esophageal reflux disease without esophagitis; Z90.49 Acquired absence of other specified parts of digestive tract; F17.290 Nicotine dependence, other tobacco product, uncomplicated; R10.13 Epigastric pain
CPT/HCPCS: 74177; 80053; 81001; 83690; 84703; 85025; 96365; 96368; 96375; 99283; Q9967; A4216; J2405

== ENCOUNTER → 2025-03-20 | Outpatient (CLI) | payer OTHER, SELFPAY ==
[2025-03-20 15:31] LABS: Hematocrit 43.0 % (37-47); Hemoglobin 13.5 g/dL (12.0-15.0); Immature Granulocytes Count 0.050 X10^3/uL (0.0-0.0); Mean Corp Hgb Conc 31.4 g/dL (32-36); Mean Corpuscular Volume 88.3 fL (81-99); Mean Platelet Vol. 9.9 fl (6.2-12.0); NRBC Flagged by Analyzer 0 % (0-5); Platelet Count 524 K/mm3 (150-450); RBC Distribution Width CV 14.3 % (11.6-14.6); RBC Distribution Width SD 46.1 fl (35.1-43.9); Red Blood Count 4.87 M/mm3 (4.2-5.4); White Blood Count 10.8 K/mm3 (4.4-11.0)
[2025-03-20 16:07] LABS: AST(SGOT) 19 U/L (<=31); Alanine Aminotransfer ALT/SGPT 24 U/L (<=34); Albumin, Serum 4.3 g/dL (3.5-5.0); Alkaline Phosphatase 60 U/L (35-104); Anion Gap 10 (5-15); BUN 8 mg/dL (4-19); BUN/Creat Ratio 10.4 RATIO (10-20); CRP 8.09 mg/L (0.0-3.0); Calcium,Total 9.5 mg/dL (7.6-11.0); Carbon Dioxide 23.9 mmol/L (21.0-32.0); Chloride 105 mmol/L (98-108); Globulin 2.9 g/dL (2.2-4.2); Glucose 97 mg/dL (70-99); Potassium 4.2 mmol/L (3.3-5.1)
== END | disposition home or self-care (01) ==
PROVIDERS: PCP Physician Assistant Medical; Referring Provider Internal Medicine Gastroenterology; Visit Provider Internal Medicine Gastroenterology
DX: R10.9 Unspecified abdominal pain (principal)
CPT/HCPCS: 36415; 80053; 85025; 85652; 86140

== ENCOUNTER 2025-04-25 09:45 | Emergency (ER) | payer OTHER, SELFPAY ==
[2025-04-25 09:46] VITALS: BP 123/90; PULSE 68; RESP 16; TEMP 36.8; O2SAT 100; BMI 32.4
--- NOTE | 2025-04-25 09:52 | EX.ED.DYSGE1 ---
HPI History of Present Illness Chief Complaint: Abd Pain [facility] Medical History Hypercholesteremia Thrombocytosis Low vitamin B12 level Depression Abdominal pain Gallbladder polyp Peptic ulcer MONET (generalized anxiety disorder) GERD (gastroesophageal reflux disease) Home Medications ?Medication ?Instructions ?Recorded ?Last Taken ?Type citalopram 20 mg tablet (Celexa) 20 mg PO QDAY 09/18/24 01/04/25 History Held on 12/01/24. Instructions: PHARMACY ISSUE omeprazole 20 mg capsule,delayed 20 mg PO QDAY 09/18/24 01/04/25 History release Held on 12/01/24. Instructions: PHARMACY ISSUE cetirizine 10 mg tablet (24Hour 10 mg PO DAILY PRN allergy symptoms 01/05/25 01/04/25 History Allergy) diphenhydramine HCl 25 mg capsule 50 mg PO Q8H PRN nausea and 01/05/25 01/05/25 History (Aler-Cap) vomiting ferrous sulfate 325 mg (65 mg 325 mg PO QDAY SUPPLEMENT 01/05/25 01/04/25 History iron) tablet (FeroSul) dicyclomine 20 mg tablet 20 mg PO TID PRN abdominal pain 04/25/25 Unknown Rx #20 tabs ondansetron 4 mg disintegrating 4 mg PO Q8H PRN PRN Nausea #10 tabs 04/25/25 Unknown Rx tablet prednisone 50 mg tablet 50 mg PO DAILY 5 days #5 tabs 04/25/25 Unknown Rx Allergy/AdvReac Type Severity Reaction Status Date / Time peanut (peanuts) Allergy Anaphylaxis Verified 04/25/25 09:48 morphine AdvReac Intermediate Other Verified 04/25/25 10:41 Family History Mother Cholelithiasis Father Heart disease Hypertension Grandfather Rectal cancer Colon cancer Grandmother Colon cancer Surgical History H/O adenoidectomy Hx laparoscopic cholecystectomy Social History Smoking Status: Current every day smoker tobacco type: e-cigarettes alcohol intake: current alcohol intake frequency: holidays/special occasions only Alcohol type: wine EXAM Physical Exam Const Vital Signs: 04/25/25 09:46 04/25/25 10:39 04/25/25 10:45 Temperature 98.2 F 97.8 F Temperature Source Oral Oral Pulse Rate 68 57 L Respiratory Rate 16 16 Blood Pressure 123/90 H 123/72 H Blood Pressure Mean 101 89 Pulse Ox 100 98 Oxygen Delivery Method Room Air Room Air 04/25/25 12:00 Temperature Temperature Source Pulse Rate 90 Respiratory Rate 16 Blood Pressure 140/75 H Blood Pressure Mean 96 Pulse Ox 99 Oxygen Delivery Method [facility] MDM Narrative Medical decision making narrative: HISTORY OF PRESENT ILLNESS: Chief complaint: Abdominal pain 24-year-old female history of GERD, peptic ulcer disease presents concern for colitis. She states she has had nausea vomiting diarrhea. This began overnight. Notes improved pain in the past with Bentyl but note has been full. Notes no association with food. No recent travel or sick contacts. No recent antibiotics. No blood in the vomit or stool. No urinary complaints. Last period was 1 month ago. No vaginal bleeding or discharge. REVIEW OF SYSTEMS: Pertinent positives: Abdominal pain, nausea vomiting and diarrhea Pertinent negatives: Fever, sick contact PHYSICAL EXAM: Nursing triage notes reviewed, Vital signs reviewed Constitutional: please see mdm HENT: MMM Eyes: Pupils equal round and reactive to light, Extraocular muscles intact Neck: No stridor, no JVD, full neck ROM Lungs: Clear to auscultation, No wheezing or rales. No increased work of breathing, no conversational dyspnea, no accessory muscle use, no nasal flaring. No respiratory distress noted Heart: Regular rate and rhythm, No murmurs, No rubs and No gallops, 2+ distal pulses (radial, femoral, posterior tibial) in all extremities Abdomen: [] Soft, there is no tenderness, rigidity, rebound or guarding, no obvious peritoneal signs, no palpable pulsatile abdominal masses, no auscultated abdominal bruit : No CVAT Extremities: No edema Neuro: No new focal neurological deficits, cranial nerves II through XII intact, 5/5 strength in all present extremities. Intact sensation to light touch in all present extremities, 2+ reflexes bilateral patella tendons. Skin: No rash or lesions noted MEDICAL DECISION MAKING: Chief Complaint: please see HPI External records reviewed: Reviewed prior imaging studies: Reviewed CT scan of the abdomen pelvis from December 2024 which showed evidence of colitis. Reviewed recent GI visit from March 2025. Factors affecting care: history of cholecystectomy Social determinants of health: denies illicit drug use, denies marijuana use History obtained from others: none Consults: none MDM Narrative: The patient was initially hemodynamically stable, afebrile and nontoxic-appearing. Exam overall benign. I considered the following differential diagnosis: AAA, small bowel obstruction, abdominal perforation, appendicitis, pancreatitis, hepatobiliary pathology (acute cholecystitis), mesenteric ischemia, pathology (ie nephrolithiasis, pyelonephritis), colitis, , hyperemesis syndrome. I obtained a broad lab evaluation to further determine if the patient was suffering from a life-threatening etiology. Patient's abdominal exam was benign not consistent with acute surgical process such as bowel obstruction, perforation, acute appendicitis. She is status postcholecystectomy. Not concerned about hepatobiliary pathology based on initial exam. Will continue to assess. Initially treated patient IV fluids, Zofran and Bentyl for symptomatic control of pain. ALL IMAGES (IF OBTAINED) HAVE BEEN PERSONALLY REVIEWED AND INTERPRETED BY MYSELF. CBC with leukocytosis suggestive of systemic inflammation, no anemia or thrombocytopenia noted BMP without evidence of significant electrolyte abnormalities, no anion gap, no acute kidney injury. Lipase is wnl indicating no pancreatic inflammation. Urinalysis shows no evidence of urinary inflammation suggestive of UTI Urine After patient continued to have abdominal pain and white blood cell count chemic elevated decided pursue a CT scan CT scan abdomen pelvis showed no evidence of acute surgical abnormalities. Repeat abdominal exam remains benign. The synthesis of the patient's history, physical exam, lab test suggest no acute life-limiting etiology. I suspect possible colitis flare. Will give prescription for Bentyl, steroids and give close GI follow-up. Strict return precautions were discussed. The patient and/or family, caregivers express understanding. The patient and/or family, caregivers agrees with the plan. Shared decision making: I will have a discussion with the patient and or visitors regarding risk/benefits of further testing or admission. They will be made aware of of the risk/benefits inherent in this decision they will be given the opportunity to voice understanding. Total critical care time today provided was at least 0 minutes. This excludes separately billable procedures. Critical care time (if documented) is secondary to the patient having high probability of clinically significant/life threatening deterioration in the patient's condition which required my urgent intervention. Impression: 1. Acute on chronic abdominal pain 2. Nausea vomiting diarrhea Dispo: Discharge This note was generated with [employer] dictation software. It may contain incorrect words, spelling, and punctuation that were not noted in review of the chart prior to signing. Lab Data Labs: Laboratory Results - last 24 hr 04/25/25 04/25/25 04/25/25 10:12 10:13 11:00 WBC 15.6 H RBC 4.33 Hgb 12.1 Hct 38.1 MCV 88.0 MCH 27.9 MCHC 31.8 L RDW Std Deviation 44.1 H RDW Coeff of Ha 13.7 Plt Count 479 H MPV 9.4 Immature Gran % (Auto) 0.400 Neut % (Auto) 71.4 H Lymph % (Auto) 17.9 L [place] % (Auto) 8.0 Eos % (Auto) 2.0 Baso % (Auto) 0.3 Absolute Neuts (auto) 11.1 H Absolute Lymphs (auto) 2.80 Nucleated RBC % 0 Sodium 138 Potassium 3.7 Chloride 101 Carbon Dioxide 24.7 Anion Gap 13 BUN 10 Creatinine 0.83 Estim Creat Clear Calc 103.56 Est GFR (MDRD) Non-Af 101 BUN/Creatinine Ratio 11.7 Glucose 113 H Calcium 9.4 Lipase 28 Urine Color Yellow Urine Clarity Clear Urine pH 6.0 Ur Specific [place] 1.025 Urine Protein 30 H Urine Glucose (UA) Normal Urine Ketones 5 H Urine Occult Blood 25 H Urine Nitrite Negative Urine Bilirubin Negative Urine Urobilinogen Normal Ur Leukocyte Esterase 25 H Urine RBC 0 SEEN Urine WBC 0-5 SEEN Ur Squamous Epith Cells 10-25 SEEN Urine Bacteria 2+ Urine Mucus 0 SEEN Urine Test Negative Radiography Diagnostic Testing: Clinical Impression(s) from Imaging Studies Abdomen/Pelvis CT 04/25/25 11:30 IMPRESSION: No acute abdominopelvic abnormalities. Reading Location: [facility] Discharge Plan Triage Chief Complaint: Abd Pain ED Provider: Brady Nation Dx/Rx/DC Orders Instructions: ED Abdominal Pain Unkn Cause Fem Prescriptions: New dicyclomine 20 mg tablet 20 mg PO TID PRN (Reason: abdominal pain) Qty: 20 0RF prednisone 50 mg tablet 50 mg PO DAILY 5 Days Qty: 5 0RF ondansetron 4 mg tablet,disintegrating 4 mg PO Q8H PRN PRN (Reason: Nausea) Qty: 10 0RF No Action citalopram [Celexa] 20 mg tablet 20 mg PO QDAY omeprazole 20 mg capsule,delayed release(DR/EC) 20 mg PO QDAY ferrous sulfate [FeroSul] 325 mg (65 mg iron) tablet 325 mg PO QDAY cetirizine [24Hour Allergy] 10 mg tablet 10 mg PO DAILY PRN (Reason: allergy symptoms) diphenhydramine HCl [Aler-Cap] 25 mg capsule 50 mg PO Q8H PRN (Reason: nausea and vomiting) Primary Care Provider: Jenni Matthews Referrals: Jenni Matthews PA [Primary Care Provider, Medical] Print Language: New Zealander
[2025-04-25] MEDS: 0.9% Normal Saline (1000mL) 1,000 ML 999 ML IV (10:16)
[2025-04-25 10:21] LABS: Mucous, Urine 0 SEEN /hpf (<or=2+); Red Blood Cells-Urine 0 SEEN /hpf (0-5)
[2025-04-25 10:24] LABS: Color, Urine Yellow (Yellow); Glucose, Dipstick Normal (Normal); Ketone-Dipstick 5 mg/dl (Negative); Leukocyte Esterase-Dipstick 25 /ul (Negative); Nitrite-Dipstick Negative (Negative); Occult Blood-Urine 25 /ul (Negative); Protein-Dipstick 30 mg/dl (Negative); Specific Gravity, Urine 1.025 (1.002-1.030); Urine Bilirubin Dipstick Negative (Negative)
[2025-04-25 10:34] LABS: Internal QC Validated? YES +Cl - CLEAR BKGD; Pregnancy, Urine Negative Negative; Squamous Epithelial Cells - UA 10-25 SEEN /hpf (5-10)
[2025-04-25 10:39] VITALS: BP 123/72; PULSE 57; RESP 16; O2SAT 98
--- NOTE | 2025-04-25 10:40 | NURSING ---
pt called out c/o worsening stomach pain after morphine and overall body redness, vomiting- thinks d/t morphine. pt has had adverse reaction to morphine in past similar. will add to allergy list. vss
[2025-04-25 10:41] LABS: Anion Gap 13 (5-15); BUN 10 mg/dL (4-19); BUN/Creat Ratio 11.7 RATIO (10-20); Calcium,Total 9.4 mg/dL (7.6-11.0); Carbon Dioxide 24.7 mmol/L (21.0-32.0); Chloride 101 mmol/L (98-108); Estimated Creatinine Clearance 103.56 ml/min (50-250); Glucose 113 mg/dL (70-99); Lipase 28 U/L (13-75); Potassium 3.7 mmol/L (3.3-5.1)
[2025-04-25 10:45] VITALS: TEMP 36.6
[2025-04-25 11:06] LABS: Hematocrit 38.1 % (37-47); Hemoglobin 12.1 g/dL (12.0-15.0); Immature Granulocytes Count 0.070 X10^3/uL (0.0-0.0); Mean Corp Hgb Conc 31.8 g/dL (32-36); Mean Corpuscular Volume 88.0 fL (81-99); Mean Platelet Vol. 9.4 fl (6.2-12.0); NRBC Flagged by Analyzer 0 % (0-5); Platelet Count 479 K/mm3 (150-450); RBC Distribution Width CV 13.7 % (11.6-14.6); RBC Distribution Width SD 44.1 fl (35.1-43.9); Red Blood Count 4.33 M/mm3 (4.2-5.4); White Blood Count 15.6 K/mm3 (4.4-11.0)
--- OUTSIDE RECORDS SUMMARY | 2025-04-25 11:26 | XMS RPT_ITS | CCD ---
Author Organization [facility] Care Team Providers Care Handle Rounder Operator Name Role Phone Amor Montalvo Primary Care Provider PROVIDER, UNKNOWN Admitting Unavailable PROVIDER, UNKNOWN Attending Unavailable Amor Montalvo Primary Care Provider [phone] Free, Text Entry Unavailable Unavailable Katiana Mendez Unavailable Unavailable SANGEETA RUANO Primary Care Unavailable Sangeeta Ruano PA-C Primary Care Provider Sangeeta Acuña Primary Care Provider Sangeeta Ruano PA-C Primary Care Provider Carolynn Mendoza MD Unavailable Sangeeta Ruano PA-C Primary Care Provider Sangeeta Acuña Primary Care Provider Sangeeta Acuña Referring Provider Dr. Denton Taylor DO Attending Provider Dr. Denton Taylor DO Referring Provider Dr. Phillip Richardson DO Emergency Provider Dr. Toby Rodriguez MD Emergency Provider Dr. Phillip Richardson DO Attending Provider [phone] Toby Rodriguez MD Attending Provider [phone] SANGEETA RUANO Primary Care Unavaila YASMINE Alfaro Attending Unavailable SANGEETA RUANO Primary Care Unavailnadine Camacho DO, Dr. Person Emergency Provider Bindu SADLER, Sangeeta Agustin Primary Care Provider BINDU SANGEETA B Attending Unavailable BNIDU, SANGEETA B Primary Care Unavailable BINDU, SANGEETA B Attending Unavailable BINDU, SANGEETA B Primary Care Unavailable BINDU, SANGEETA B Attending Unavailable BINDU, SANGEETA B Primary Care Unavailable SIPPEY, CAROLYNN Attending Unavailable BINDU, SANGEETA B Primary Care Unavailable SIPPEY, CAROLYNN Attending Unavailable BINDU, SANGEETA B Primary Care Unavailable BINDU, SANGEETA B Attending Unavailable BINDU, SANGEETA B Primary Care Unavailable Bindualice SADLER, Sangeeta B Primary Care Provider SIPPEDonovan, CAROLYNN Admitting Unavailable SIPPEY, CAROLYNN Attending Unavailable BINDU, SANGEETA B Primary Care Unavailable YASIR SANGEETA S Attending Unavailable BINDU, SANGEETA B Referring Unavailable BINDU, SANGEETA B Primary Care Unavailable YASIR, SANGEETA S Referring Unavailable BINDU, SANGEETA B Primary Care Unavailable YASIR, SANGEETA S Attending Unavailable YASIR, SANGEETA S Referring Unavailable BINDU, SANGEETA B Primary Care Unavailable BINDU, SANGEETA B Primary Care Unavailable YASIR, SANGEETA S Attending Unavailable YASIR, SANGEETA S Referring Unavailable BINDU, SANGEETA B Primary Care Unavailable BINDU, SANGEETA B Primary Care Unavailable YASIR, SANGEETA S Attending Unavailable YASIR, SANGEETA S Referring Unavailable BINDU, SANGEETA B Primary Care Unavailable Bindu PA, Sangeeta Referring Unavailabl e Bindu PA, Sangeeta Primary Care Unavailabl e Friend, Denton Attending Unavailable Friend, Denton Referring Unavailable Jefferson PA, Sangeeta Primary Care Unavailabl e Friend, Denton Attending Unavailable Bindu PA, Sangeeta Primary Care Unavailabl e Amor Lindsay Referring Unavailabl e Amor Lindsay Attending Unavailabl e Bindu PA, Sangeeta Primary Care Unavailabl e Friend, Denton Referring Unavailable Friend, Denton Attending Unavailable Bindu PA, Sangeeta Primary Care Unavailabl e Friend, Denton Referring Unavailable Friend, Denton Attending Unavailable Bindu PA, Sangeeta Primary Care Unavailabl e Schwiger, Raza Attending Unavailable Bindu SHERIDAN, Sangeeta Primary Care Unavailabl e Toby Rodriguez Attending Unavailable Bindu SHERIDAN, Sangeeta Primary Care Unavailabl e Phillip Richardson Attending Unavailable Bindu SHERIDAN, Sangeeta Referring Unavailabl e Sangeeta Acuña Primary Care Unavailabl e Friend, Denton Attending Unavailable Bindu SHERIDAN, Sangeeta Referring Unavailabl e Friend, Denton Attending Unavailable Bindu SHERIDAN, Sangeeta Primary Care Unavailabl e Allergies Allergy Classification Reported Allergen(s) Allergy Type Date of Onset Reaction(s) Facility (1 source) peanut Other [facility] Comment on above: My throat gets itch y (20 sources) peanut allergenic extract; Translations: [PEANUT] Drug Allergy 4 Itching, Hives [facility] Repository (12 sources) house dust allergenic extract; Translations: [HOUSE DUST] Drug Allergy 5 Cough, Hives, Itching, Swelling [facility] Medications Current Medications Medication Drug Class(es) Dates Sig (Normalized) Sig (Original) busPIRone hydrochloride 5 mg oral tablet (20 sources) Start: 12-27-2023 End: 01-14-2026 take 1 tablet by mouth three times daily as needed for anxiety busPIRone (Buspar) 5 mg tablet Indications: MONET (generalized anxiety disorder) Take 1 tablet (5 mg) by mouth 3 times a day as needed (anxiety). 270 tablet 1 01/16/2025 2:17 PM EDT 01/14/2025 01/14/2026 Active cetirizine hydrochloride 10 mg oral tablet (7 sources) Histamine-1 Receptor Antagonist Start: 01-05-2025 take 1 tablet by mouth once daily cetirizine (ZyrTEC) 10 mg tablet Take 1 tablet (10 mg) by mouth once daily. 01/05/2025 Active cetirizine HCl ( ZYRTEC ORAL) Take by mouth. Active cholecalciferol 0.025 mg oral capsule (11 sources) Vitamin D Start: 09-18-2024 take 1 capsule by mouth once daily Cholecalciferol (Vitamin D3) 25 mcg (1,000 unit) capsule Active 25 ug PO daily September 18, 2024 12:00am Start: 09-11-2024 take 1 dose by mouth once daily cholecalciferol, vitamin D3, 25 mcg (1,000 unit) chewable gummy Indications: Vitamin D deficiency Take 1 each (1,000 Units) by mouth once daily. 90 each 3 09/11/2024 Active citalopram 40 mg oral tablet (20 sources) Serotonin Reuptake Inhibitor Start: 01-14-2025 take 1 tablet by mouth once daily in the evening citalopram (CeleXA) 40 mg tablet Indications: MONET (generalized anxiety disorder) , Depression, major, recurrent, mild Take 1 tablet (40 mg) by mouth once daily. 90 tablet 3 01/16/2025 2:17 PM EDT 01/14/2025 Active Start: 12-27-2023 End: 01-14-2025 take 1 tablet by mouth once daily citalopram (CeleXA) 20 mg tablet Indications: MONET (generalized anxiety disorder) , Depression, major, recurrent, mild Take 1 tablet (20 mg) by mouth once daily. 90 tablet 2 11/28/2024 10:53 AM EDT 11/27/2024 01/14/2025 Discontinued (Reorder) dicyclomine hydrochloride 20 mg oral tablet (6 sources) Anticholinergic Start: 01-06-2025 End: 01-06-2025 take 20 mg by mouth once 20 mg, oral, Once, On Sun01/06/25 at 2054, For 1 dose Start: 01-06-2025 End: 01-14-2025 take 1 tablet by mouth four times daily before mealtime dicyclomine (Bentyl) 20 mg tablet Indications: Nausea and vomiting, unspecified vomiting type Take 1 tablet (20 mg) by mouth 4 times a day before meals. 40 tablet 01/16/2025 2:17 PM EDT 01/14/2025 Active 168 hr ethinyl estradiol 0.30417 mg/hr / norelgestromin 0.85006 mg/hr transdermal system (2 sources) Progestin, Estrogen Start: 11-27-2024 apply 1 dose transdermal route every week Ethinyl Estradiol-Norelgestrom 150-35 mcg/24 hr patch Apply 1 patch as directed one time a week. 3 patch 14 11/27/2024 Active ferrous sulfate 325 mg oral tablet (1 source) Start: 01-05-2025 take 1 tablet by mouth once daily Ferrous Sulfate (Ferosul) 325 mg (65 mg iron) tablet Active 325 mg PO daily January 05, 2025 12:00am SUPPLEMENT ibuprofen 200 mg oral tablet (4 sources) Nonsteroidal Anti-inflammato ry Drug take 1 tablet by mouth every six hours as needed ibuprofen (MOTRIN) 200 mg tablet Take 200 mg by mouth every 6 hours as needed. Active levonorgestrel 0.985342 mg/hr intrauterine system (20 sources) Progestin, Progestin-conta ining Intrauterine Device Start: 07-31-2019 levonorgestrel (Mirena) 21 mcg/24 hr (8 yrs) 52 mg IUD by intrauterine route once daily. 07/31/2019 Active Start: 07-31-2019 End: 07-30-2024 levonorgestrel (MIRENA) 20 m cg/24 hours (5 yrs) 52 mg IUD 1 Each by INTRAUTERINE route continuous. 07/31/2019 07/30/2024 Active levonorgestrel ( MIRENA) 21 mcg/24hr (up to 8 yrs) 52 mg IUD 1 each by INTRAUTERINE route one time only. Active levonorgestrel 5 2 mg intrauterine device ; 1 each intrauterine once Quantity: 0 Refills: 0 Ordered: 23-Aug-2021 Karan Lynch Generic Substitution Allowed methylPREDNISolone (1 source) Corticosteroid Start: 04-01-2024 End: 04-08-2024 methylPREDNISolone (Medrol Dospak) 4 mg tablets Indications: Food allergy Take as directed on package. 21 tablet 04/01/2024 04/08/2024 Active naproxen sodium 220 mg oral tablet (1 source) Nonsteroidal Anti-inflammatory Drug take 1 tablet by mouth every twelve hours as needed naproxen sodium 220 mg oral tablet ; 1 tab(s) orally every 12 hours, As Needed Quantity: 0 Refills: 0 Ordered: 23-Aug-2021 Karan Lynch Generic Substitution Allowed omeprazole 20 mg delayed release oral capsule (20 sources) Proton Pump Inhibitor Start: 09-18-2024 take 1 capsule by mouth once daily Omeprazole 20 mg capsule,delayed release(DR/EC) Active 20 mg PO daily September 18, 2024 12:00am On Hold: PHARMACY ISSUE Start: 02-26-2024 End: 03-27-2024 take 1 capsule by mouth twice daily before mealtime omeprazole (PriLOSEC) [address] capsule Indications: Gastroesophageal reflux disease without esophagitis , History of peptic ulcer Take 1 capsule (40 mg) by mouth 2 times a day before meals. 60 capsule 02/26/2024 Active Start: 12-27-2023 End: 02-26-2024 take 1 capsule by mouth once daily before mealtime omeprazole (PriLOSEC) [address] capsule Indications: Gastroesophageal reflux disease without esophagitis , History of peptic ulcer Take 1 capsule (40 mg) by mouth once daily in the morning. Take before meals. 30 capsule 5 12/27/2023 02/26/2024 Discontinued prochlorperazine 5 mg oral tablet (4 sources) Phenothiazine Start: 01-06-2025 take 1 tablet by mouth every six hours for nausea prochlorperazine (Compazine) 5 mg tablet Indications: Nausea and vomiting, unspecified vomiting type Take 1 tablet (5 mg) by mouth every 6 hours if needed for nausea or vomiting for up to 20 doses. 20 tablet 01/06/2025 Active Scopolamine Base 1 mg over 3 days patch 3 day (1 source) Start: 12-19-2024 Scopolamine Base 1 mg over 3 days patch 3 day Active 1 NMA TD Q72H December 19, 2024 12:00am tranexamic acid 650 mg oral tablet (1 source) Antifibrinolytic Agent Start: 03-12-2025 take 2 tablets by mouth three times daily tranexamic acid (Lysteda) 650 mg tablet Indications: Thrombocytosis , Vitamin B12 deficiency , Vitamin D deficiency Take 2 tablets (1,300 mg) by mouth 3 times a day. 60 tablet 1 03/12/2025 Active Completed/Discontinued Medications Medication Drug Class(es) Dates Sig (Normalized) Sig (Original) amoxicillin 875 mg / clavulanate 125 mg oral tablet (4 sources) Penicillin-class Antibacterial Start: 01-05-2025 End: 02-23-2025 take 1 tablet by mouth twice daily amoxicillin-clavul anate (Augmentin) 875-125 mg tablet Take 1 tablet (875 mg of amoxicillin) by mouth 2 times a day. 01/05/2025 02/23/2025 Discontinued (Therapy completed) Start: 01-05-2025 take 1 tablet by simba every twelve hours Amoxicillin-Pot Clavulanate 875-125 mg tablet Active 875 mg PO Q12H 20 0 January 05, 2025 12:00am Start: 07-07-2024 End: 07-14-2024 take 1 tablet by mouth twice daily amoxicillin-clavulanate potassium (AUGMENTIN) 875-125 mg per tablet Take 1 tablet by mouth two times a day for 7 days. 14 tablet 07/07/2024 07/14/2024 Active benzocaine 140 mg/ml / butamben 20 mg/ml / tetracaine 20 mg/ml mucosal spray (2 sources) Fanny Local Anesthetic, Standardized Chemical Allergen Start: 02-26-2024 End: 02-26-2024 Topical, As needed, Starting on Sun02/26/24 at 1541, Intraprocedure cefTRIAXone 1000 mg injection (1 source) Cephalosporin Antibacterial Start: 01-06-2025 End: 01-06-2025 1 g, intravenous, at 100 mL/hr, Administer over 30 Minutes, Once, On Sun01/06/25 at 2220, For 1 dose, premix bag, Suspected Indication (Select all that apply): Urinary Tract Infection, Type of Therapy: Definitive, No Cultures, Type of Urinary Tract Infection: Uncomplicated, Indications: Urinary Tract Infection sugar-free cholestyramine resin 4000 mg powder for oral suspension (5 sources) Bile Acid Sequestrant Start: 12-19-2024 End: 02-23-2025 take 1 dose by mouth once daily Cholestyramine Light 4 gram packet Take 1 packet (4 g) by mouth once daily. 12/19/2024 02/23/2025 Discontinued (Therapy completed) Start: 12-19-2024 End: 01-05-2025 Cholestyramine (Cholestyrami ne Light) 4 gram powder Discontinued 4 g PO daily 239.4 2 December 19, 2024 12:00am January 05, 2025 10:04am administer w/meal; avoid other meds within 1hr before or 4-6hr after dose 1 ml dexamethasone phosphate 10 mg/ml injection (2 sources) Corticosteroid Start: 02-26-2024 End: 02-26-2024 10 mg, intravenous, Once, On Sun02/26/24 at 1530, For 1 dose Start: 02-26-2024 End: 02-26-2024 10 mg, intravenous, Once, On Sun02/26/24 at 1530, For 1 dose diphenhydrAMINE hydrochloride 25 mg oral capsule (2 sources) Histamine-1 Receptor Antagonist Start: 01-05-2025 End: 01-14-2025 take 2 capsules by mouth every four hours as needed diphenhydrAMINE (BENADryl) 25 mg capsule Take 2 capsules (50 mg) by mouth every 4 hours if needed. 01/05/2025 01/14/2025 Discontinued (Med List Cleanup) Start: 01-05-2025 take 2 capsules by m outh every eight hours as needed for nausea and vomiting Diphenhydramine Hcl (Aler-Cap) 25 mg capsule Active 50 mg PO Q8H as needed for nausea and vomiting January 05, 2025 12:00am famotidine 20 mg oral tablet (3 sources) Histamine-2 Receptor Antagonist Start: 01-06-2025 End: 01-06-2025 take 40 mg by mouth once 40 mg, oral, Once, On Sun01/06/25 at 2330, For 1 dose Start: 02-26-2024 End: 02-26-2024 20 mg, intravenous, Administ er over 2 Minutes, Once, On Sun02/26/24 at 1530, For 1 dose, Preprocedure Start: 02-26-2024 End: 02-26-2024 20 mg, intravenous, Administ er over 2 Minutes, Once, On Sun02/26/24 at 1530, For 1 dose, Preprocedure fexofenadine hydrochloride 60 mg oral tablet (20 sources) Histamine-1 Receptor Antagonist Start: 09-18-2024 End: 01-05-2025 take 1 capsule by mouth every twelve hours Fexofenadine 60 mg capsule Discontinued 60 mg PO Q12H September 18, 2024 12:00am January 05, 2025 10:04am take 1 tablet by mouth once jaycob y fexofenadine ODT (Haydee ODT) 30 mg disintegrating tablet Dissolve 1 tablet (30 mg) in the mouth once daily. Active fluconazole 150 mg oral tablet (2 sources) Azole Antifungal Start: 01-14-2025 End: 02-23-2025 take 1 tablet by mouth once in the evening fluconazole (Diflucan) 150 mg tablet Indications: Vulvovaginal candidiasis Take 1 tablet (150 mg) by mouth every 3rd day. 3 tablet 01/16/2025 2:17 PM EDT 01/14/2025 02/23/2025 Discontinued (Therapy completed) iohexol (OMNIPaque) 350 mg iodine/mL solution 69 mL (1 source) Start: 01-06-2025 End: 01-06-2025 69 mL, intravenous, Once in imaging, Starting on Sun01/06/25 at 2138, For 1 dose iohexol (OMNIPaque) 350 mg iodine/mL solution 70 mL (1 source) Start: 09-08-2024 End: 09-08-2024 70 mL, intravenous, Once in imaging, Starting on Sun09/08/24 at 1628, For 1 dose 1 ml ketorolac tromethamine 30 mg/ml injection (1 source) Nonsteroidal Anti-inflammatory Drug, Cyclooxygenase Inhibitor Start: 01-06-2025 End: 01-06-2025 15 mg, intravenous, Once, On Sun01/06/25 at 2045, For 1 dose mecobalamin 1 mg chewable tablet (6 sources) Start: 09-18-2024 End: 01-05-2025 take 1 tablet by mouth once daily Mecobalamin (Vitamin B12) 1,000 mcg tablet,chewable Discontinued 1000 ug PO daily September 18, 2024 12:00am January 05, 2025 10:04am 5 ml midazolam 1 mg/ml injection (2 sources) Benzodiazepine Start: 02-26-2024 End: 02-26-2024 2 mg, intravenous, Once, On Sun02/26/24 at 1530, For 1 dose, Preprocedure nitrofurantoin, macrocrystals 25 mg / nitrofurantoin, monohydrate 75 mg oral capsule (2 sources) Nitrofuran Antibacterial Start: 07-01-2024 End: 08-21-2024 nitrofurantoin, macrocrystal-mono hydrate, (Macrobid) 100 mg capsule 07/01/2024 08/21/2024 Discontinued (Therapy completed) Start: 02-14-2024 End: 02-21-2024 take 1 capsule by mouth twice daily nitrofurantoin, macrocrystal-monohydrate , (Macrobid) 100 mg capsule Indications: Acute UTI Take 1 capsule (100 mg) by mouth 2 times a day for 7 days. 14 capsule 02/14/2024 02/21/2024 Active ondansetron 4 mg disintegrating oral tablet (8 sources) Serotonin-3 Receptor Antagonist Start: 01-06-2025 End: 01-06-2025 take 1 tablet by mouth every eight hours as needed for nausea 4 mg, oral, Once, On Sun01/06/25 at 2330, For 1 dose, Please dispense 2 tablets as a home pack. May take 1 tablet every 8 hours as needed for nausea. Start: 01-06-2025 End: 01-06-2025 4 mg, intravenous, Once, On Sun01/06/25 at 2045, For 1 dose, When administering via IV Push, administer over 3-5 minutes. Start: 12-01-2024 End: 01-05-2025 take 1 tablet by mouth every eight hours as needed for nausea Ondansetron 4 mg tablet,disintegrating Discontinued 4 mg PO EVERY 8 HOURS NEEDED as needed for Nausea 10 0 December 01, 2024 12:00am January 05, 2025 10:04am Start: 02-26-2024 End: 02-26-2024 4 mg, intravenous, Once, On Sun02/26/24 at 1530, For 1 dose, Preprocedure, When administering via IV Push, administer over 3-5 minutes. Start: 02-26-2024 End: 02-26-2024 4 mg, intravenous, Once, On Sun02/26/24 at 1530, For 1 dose, Preprocedure, When administering via IV Push, administer over 3-5 minutes. polymyxin b 34367 unt/ml / trimethoprim 1 mg/ml ophthalmic solution (2 sources) Dihydrofolate Reductase Inhibitor Antibacterial, Polymyxin-class Antibacterial Start: 07-07-2024 End: 08-21-2024 take 1 drop(s) into the eye(s) every four hours polymyxin B sulf-trimethoprim (Polytrim) ophthalmic solution INSTILL 1 DROP INTO EACH EYE EVERY 4 HOURS FOR 7 DAYS 07/07/2024 08/21/2024 Discontinued (Therapy completed) Start: 07-07-2024 End: 07-14-2024 take 1 drop(s) into the eye(s) every four hours polymyxin B-trimethoprim (POLYTRIM) 10,000 unit- 1 mg/mL ophthalmic solution Use 1 Drop in both eyes every 4 hours for 7 days. 5 mL 07/07/2024 07/14/2024 Active promethazine (Phenergan) 12.5 mg in sodium chloride 0.9% 50 mL IV (1 source) Start: 01-06-2025 End: 01-06-2025 12.5 mg, intravenous, Administer over 15 Minutes, Once, On Sun01/06/25 at 2230, For 1 dose 72 hr scopolamine 0.0139 mg/hr transdermal system (4 sources) Anticholinergic Start: 12-19-2024 End: 02-23-2025 scopolamine (Transderm-Scop) 1 mg over 3 days patch [address] 1 patch on the skin every 3rd day. 12/19/2024 02/23/2025 Discontinued (Therapy completed) 1000 ml sodium chloride 9 mg/ml injection (2 sources) Start: 01-06-2025 End: 01-07-2025 1,000 mL, intravenous, at 999 mL/hr, Administer over 1 Hours, Once, On Sun01/06/25 at 2225, For 1 dose sucralfate 1000 mg oral tablet (3 sources) Aluminum Complex Start: 02-26-2024 End: 03-07-2024 take 1 tablet by mouth four times daily at bedtime sucralfate (Carafate) 1 gram tablet Indications: Upper abdominal pain Take 1 tablet (1 g) by mouth 4 times a day before meals for 10 days. Crush tablet and dissolve in small amount of water. Drink the slurry 30-45 minutes before meals and at bedtime. 40 tablet 02/26/2024 03/07/2024 Start: 08-23-2021 take 10 mL by mouth four times daily at bedtime Carafate 1 g/10 mL oral suspension ; 10 milliliter(s) orally 4 times a day (before meals and at bedtime) Quantity: 600 Refills: 0 Ordered: 23-Aug-2021 Katiana Mendez Start: 23-Aug-2021 Generic Substitution Allowed Comments: Do not take dairy products, antacids, or iron preparations within one hour of this medication.It is very important that you take or use this exactly as directed. Do not skip doses or discontinue unless directed by your doctor.Shake well before use.Take medication on an empty stomach 1 hour before or 2 to 3 hours after a meal unless otherwise directed by your doctor. Comment on above: Do not take dairy pr oducts, antacids, or iron preparations within one hour of this medication.It is very important that you take or use this exactly as directed. Do not skip doses or discontinue unless directed by your doctor.Shake well before use.Take medication on an empty stomach 1 hour before or 2 to 3 hours after a meal unless otherwise directed by your doctor. tirzepatide, weight loss, (Zepbound) 2.5 mg/0.5 mL injection (3 sources) Start: 05-19-2024 End: 08-21-2024 tirzepatide, weight loss, (Zepbound) 2.5 mg/0.5 mL injection Indications: Class 2 severe obesity due to excess calories with serious comorbidity and body mass index (BMI) of 35.0 to 35.9 in adult Inject 2.5 mg under the skin every 7 days. 4 each 05/19/2024 08/21/2024 Discontinued (Cost of medication) Start: 05-19-2024 tirzepatide, w eight loss, (Zepbound) 2.5 mg/0.5 mL injection Indications: Class 2 severe obesity due to excess calories with serious comorbidity and body mass index (BMI) of 35.0 to 35.9 in adult Inject 2.5 mg under the skin every 7 days. 4 each 05/19/2024 Active vitamin b12 1 mg oral tablet (16 sources) Vitamin B12 Start: 02-11-2024 End: 11-27-2025 take 1 tablet by mouth once daily cyanocobalamin (Vitamin B-12) 1,000 mcg tablet Indications: Low vitamin B12 level Take 1 tablet (1,000 mcg) by mouth once daily. 90 tablet 3 11/28/2024 10:53 AM EDT 11/27/2024 02/23/2025 Discontinued (Therapy completed) Problems Active Problems Problem Classification Problem Date Documented Date Episodic/Chronic Abdominal pain (20 sources) Abdominal pain; Translations: [Abdominal pain, unspecified site] Onset: 12-27-2023 08-23-2021 Episodic Anxiety disorders (20 sources) Generalized anxiety disorder; Translations: [Generalized anxiety disorder] Onset: 12-27-2023 Chronic Coagulation and hemorrhagic disorders (8 sources) Traumatic petechiae; Translations: [Spontaneous ecchymoses] Onset: 01-14-2025 12-01-2024 Episodic Contraceptive and procreative management (1 source) Encounter for removal of intrauterine contraceptive device; Translations: [Encounter for removal of intrauterine contraceptive device] Onset: 11-27-2024 Episodic Disorders of lipid metabolism (20 sources) Hypercholesterolemia; Translations: [Pure hypercholesterolemia, unspecified] Onset: 02-11-2024 02-11-2024 Chronic Esophageal disorders (20 sources) Gastro-esophageal reflux disease without esophagitis; Translations: [Gastroesophageal reflux disease without esophagitis] Onset: 12-27-2023 Chronic Fluid and electrolyte disorders (7 sources) Dehydration; Translations: [Dehydration] Onset: 01-14-2025 12-02-2024 Episodic Genitourinary symptoms and ill-defined conditions (3 sources) Dysuria; Translations: [Dysuria] Onset: 01-06-2025 02-14-2024 Episodic Immunizations and screening for infectious disease (10 sources) Patient encounter status; Translations: [Encounter for screening for human papillomavirus (HPV)] Onset: 11-27-2024 11-27-2024 Episodic Inflammation; infection of eye (except that caused by tuberculosis or sexually transmitteddisease) (1 source) Acute conjunctivitis of bilateral eyes; Translations: [Unspecified acute conjunctivitis, bilateral] 07-07-2024 Episodic Mood disorders (20 sources) Major depressive disorder, recurrent, mild; Translations: [Recurrent major depressive episodes, mild ] Onset: 12-27-2023 Chronic Mycoses (1 source) Candidal vulvovaginitis; Translations: [Vulvovaginal candidiasis] 01-14-2025 Episodic Nausea and vomiting (16 sources) Nausea and vomiting; Translations: [Nausea with vomiting, unspecified] Onset: 12-08-2024 12-01-2024 Episodic Neoplasms of unspecified nature or uncertain behavior (3 sources) Thrombocytosis 08-21-2024 Chronic Neoplasms of unspecified nature or uncertain behavior (20 sources) Thrombocytosis; Translations: [Thrombocytosis] Onset: 02-11-2024 02-11-2024 Episodic Noninfectious gastroenteritis (5 sources) Colitis; Translations: [Noninfective gastroenteritis and colitis, unspecified] Onset: 01-14-2025 01-05-2025 Episodic Nutritional deficiencies (5 sources) Vitamin D deficiency; Translations: [Vitamin D deficiency, unspecified] Onset: 09-11-2024 09-11-2024 Chronic Other aftercare (1 source) Postoperative visit; Translations: [Encounter for other specified surgical aftercare] 08-14-2024 Episodic Other inflammatory condition of skin (2 sources) Pruritus ani; Translations: [Pruritus ani] 04-01-2024 Episodic Other nutritional; endocrine; and metabolic disorders (2 sources) Morbid (severe) obesity due to excess calories; Translations: [Morbid (severe) obesity due to excess calories (Multi)] Onset: 12-27-2023 Chronic Other nutritional; endocrine; and metabolic disorders (2 sources) Body mass index (BMI) 35.0-35.9, adult; Translations: [Body mass index (BMI) 35.0-35.9, adult] Onset: 12-27-2023 Chronic Other nutritional; endocrine; and metabolic disorders (6 sources) Obesity caused by energy imbalance; Translations: [Class 1 obesity due to excess calories with serious comorbidity and body mass index (BMI) of 34.0 to 34.9 in adult] Onset: 01-14-2025 01-14-2025 Chronic Other upper respiratory infections (1 source) Chronic sinusitis, unspecified; Translations: [Unspecified sinusitis (chronic)] 07-07-2024 Chronic Otitis media and related conditions (1 source) Acute left otitis media; Translations: [Otitis media, unspecified, left ear] 07-07-2024 Episodic Unclassified (2 sources) ABD PAIN., NAUSEA, BLOATED 08-23-2021 Comment on above: ABD PAIN., NAUSEA, B LOATED Unclassified (1 source) Patient encounter status 11-27-2024 Unclassified (2 sources) Thrombocytosis, unspecified; Translations: [Thrombocytosis, unspecified] Onset: 02-11-2024 Unclassified (1 source) Acute candidiasis of vulva and vagina; Translations: [Acute candidiasis of vulva and vagina] Onset: 01-14-2025 Urinary tract infections (4 sources) Acute urinary tract infection; Translations: [Urinary tract infection, site not specified] Onset: 01-06-2025 02-14-2024 Episodic Past or Other Problems Problem Classification Problem Date Documented Date Episodic/Chronic Allergic reactions (5 sources) Allergy to food; Translations: [Allergy to other foods] Onset: 04-01-2024 04-01-2024 Episodic Biliary tract disease (20 sources) Polyp of gallbladder; Translations: [Cholesterolosis of gallbladder] Onset: 12-27-2023 12-27-2023 Episodic Gastroduodenal ulcer (except hemorrhage) (20 sources) Personal history of peptic ulcer disease; Translations: [H/O: peptic ulcer] Onset: 12-27-2023 Episodic Mood disorders (3 sources) Mood disorders Onset: 01-14-2025 01-14-2025 Nonmalignant breast conditions (20 sources) Breasts asymmetrical; Translations: [Other specified disorders of breast] Onset: 08-30-2020 12-27-2023 Episodic Nutritional deficiencies (5 sources) Cobalamin deficiency; Translations: [Deficiency of other specified B group vitamins] Onset: 09-11-2024 09-11-2024 Episodic Other aftercare (2 sources) Encounter for other specified surgical aftercare; Translations: [Encounter for other specified surgical aftercare] Onset: 08-14-2024 Episodic Other disorders of stomach and duodenum (3 sources) 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; Translations: [Cannabis hyperemesis syndrome concurrent with and due to cannabis abuse] Onset: 01-14-2025 Resolved: 01-14-2025 01-14-2025 Episodic Other inflammatory condition of skin (2 sources) Pruritus ani; Translations: [Pruritus ani] Onset: 04-01-2024 Episodic Other nervous system disorders (11 sources) Postoperative pain ; Translations: [Other acute postprocedural pain] Onset: 07-30-2024 07-30-2024 Episodic Other nutritional; endocrine; and metabolic disorders (20 sources) Severe obesity; Translations: [Class 2 severe obesity due to excess calories with serious comorbidity and body mass index (BMI) of 35.0 to 35.9 in adult] Onset: 02-14-2024 Resolved: 01-14-2025 02-14-2024 Chronic Other screening for suspected conditions (not mental disorders or infectious disease) (20 sources) Decreased vitamin B12 level; Translations: [Other specified abnormal findings of blood chemistry] Onset: 02-11-2024 02-11-2024 Episodic Skin and subcutaneous tissue infections (20 sources) Pyoderma; Translations: [Pyoderma] Onset: 09-27-2005 Resolved: 08-21-2024 12-27-2023 Episodic Substance-related disorders (4 sources) 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; Translations: [Cannabis abuse with other cannabis-induced disorder] Onset: 01-14-2025 Resolved: 01-14-2025 12-02-2024 Chronic Unclassified (19 sources) Onset: 02-14-2024 Resolved: 02-23-2025 02-14-2024 Unclassified (2 sources) Thrombocytosis, unspecified; Translations: [Thrombocytosis, unspecified] Onset: 09-01-2024 Unclassified (1 source) Acute candidiasis of vulva and vagina; Translations: [Acute candidiasis of vulva and vagina] Onset: 01-14-2025 Results Test Name Value Interpretation Reference Range Facility CBC W/Diff, Automatedon 11-0 Absolute Lymph 3.56 X10 3/uL Normal 0.83-4.51 [facility] Comment on above: Performed By: #### L 501.2450, L500.4050, L100.0100, L700.6800 #### [facility] [address] [facility] [place], [address] Absolute Neut 5.4 X10 3/uL Normal 2.0-7.7 [facility] Comment on above: Performed By: #### L 501.2450, L500.4050, L100.0100, L700.6800 #### [facility] [address] [place], [address] Basophils/100 WBC (Bld) 0.6 % Normal 0-1 [facility] Comment on above: Performed By: #### L 501.2450, L500.4050, L100.0100, L700.6800 #### [facility] [address] [place], [address] Eosinophils/100 WBC (Bld) 5.0 % Normal 0-5 [facility] Comment on above: Performed By: #### L 501.2450, L500.4050, L100.0100, L700.6800 #### [facility] [address] [place] [place], [address] Erythrocyte distribution width (RBC) [Ratio] 14.3 % Normal 11.6-14.6 [facility] Comment on above: Performed By: #### L 501.2450, L500.4050, L100.0100, L700.6800 #### [facility] [address] [place], [address] Hematocrit (Bld) [Volume fraction] 43.0 % Normal 37-47 [facility] Comment on above: Performed By: #### L 501.2450, L500.4050, L100.0100, L700.6800 #### [facility] [address] [place], [address] Hemoglobin (Bld) [Mass/Vol] 13.5 g/dL Normal 12.0-15.0 [facility] Comment on above: Performed By: #### L 501.2450, L500.4050, L100.0100, L700.6800 #### [facility] [address] [place], [address] IG% 0.500 Normal 0.0-0.9 [facility] Comment on above: Result Comment: IG% - Immature Granulocytes (promyelocytes, myelocytes and metamyelocytes) > 1% indicates that a LEFT SHIFT is Present. Performed By: #### L 501.2450, L500.4050, L100.0100, L700.6800 #### [facility] [address] [place], [address] Lymphocytes/100 WBC (Bld) 33.0 % Normal 19-41 [facility] Comment on above: Performed By: #### L 501.2450, L500.4050, L100.0100, L700.6800 #### [facility] [address] [place], [address] MCH (RBC) [Entitic mass] 27.7 pg Normal 27.0-32.0 [facility] Comment on above: Performed By: #### L 501.2450, L500.4050, L100.0100, L700.6800 #### [facility] [address] [place], [address] MCHC (RBC) [Mass/Vol] 31.4 g/dL Low 32-36 [facility] Comment on above: Performed By: #### L 501.2450, L500.4050, L100.0100, L700.6800 #### [facility] [address] [place], [address] MCV (RBC) [Entitic vol] 88.3 fL Normal 81-99 [facility] Comment on above: Performed By: #### L 501.2450, L500.4050, L100.0100, L700.6800 #### [facility] [address] [place], [address] Monocytes/100 WBC (Bld) 10.6 % High 0-10 [facility] Comment on above: Performed By: #### L 501.2450, L500.4050, L100.0100, L700.6800 #### [facility] [address] [place], [address] Neutrophils/100 WBC (Bld) 50.3 % Normal 47-70 [facility] Comment on above: Performed By: #### L 501.2450, L500.4050, L100.0100, L700.6800 #### [facility] [address] [place], [address] Nucleated RBC (Bld) [#/Vol] 0 10*3/uL Normal 0-5 [facility] Comment on above: Performed By: #### L 501.2450, L500.4050, L100.0100, L700.6800 #### [facility] [address] [place], [address] Platelet mean volume (Bld) [Entitic vol] 9.9 fL Normal 6.2-12.0 [facility] Comment on above: Performed By: #### L 501.2450, L500.4050, L100.0100, L700.6800 #### [facility] [address] [place], [address] Platelets (Bld) [#/Vol] 524 10*3/uL High 150-450 [facility] Comment on above: Performed By: #### L 501.2450, L500.4050, L100.0100, L700.6800 #### [facility] [address] [place], [address] RBC (Bld) [#/Vol] 4.87 10*6/uL Normal 4.2-5.4 [facility] Comment on above: Performed By: #### L 501.2450, L500.4050, L100.0100, L700.6800 #### [facility] [address] [place], [address] RDW SD 46.1 fl High 35.1-43.9 [facility] Comment on above: Performed By: #### L 501.2450, L500.4050, L100.0100, L700.6800 #### [facility] [address] [place], [address] WBC (Bld) [#/Vol] 10.8 10*3/uL Normal 4.4-11.0 [facility] Comment on above: Performed By: #### L 501.2450, L500.4050, L100.0100, L700.6800 #### [facility] [address] [place], [address] CRPon 03-20-2025 C-REACTIVE PROT 8.09 mg/L High 0.0-3.0 [facility] Comment on above: Performed By: #### L 501.2450, L500.4050, L100.0100, L700.6800 #### [facility] [address] [place], [address] Comprehensive Metabolic Prof ilon 03-20-2025 Albumin [Mass/Vol] 4.3 g/dL Normal 3.5-5.0 [facility] Comment on above: Performed By: #### L 501.2450, L500.4050, L100.0100, L700.6800 #### [facility] [address] [place], [address] Albumin/Globulin [Mass ratio] 1.4 {ratio} Normal 0.9-2.4 [facility] Comment on above: Performed By: #### L 501.2450, L500.4050, L100.0100, L700.6800 #### [facility] [address] [place], [address] ALK PHOS 60 U/L Normal 35-104 [facility] Comment on above: Performed By: #### L 501.2450, L500.4050, L100.0100, L700.6800 #### [facility] [address] [place], [address] ALT [Catalytic activity/Vol] 24 U/L Normal <=34 [facility] Comment on above: Performed By: #### L 501.2450, L500.4050, L100.0100, L700.6800 #### [facility] [address] [place], [address] AST [Catalytic activity/Vol] 19 U/L Normal <=31 [facility] Comment on above: Performed By: #### L 501.2450, L500.4050, L100.0100, L700.6800 #### [facility] [address] [place], [address] Bilirubin [Mass/Vol] 0.19 mg/dL Normal 0.00-1.30 [facility] Comment on above: Performed By: #### L 501.2450, L500.4050, L100.0100, L700.6800 #### [facility] [address] [place], [address] BUN/CRE 10.4 RATIO Normal 10-20 [facility] Comment on above: Performed By: #### L 501.2450, L500.4050, L100.0100, L700.6800 #### [facility] [address] [place], [address] Calcium [Mass/Vol] 9.5 mg/dL Normal 7.6-11.0 [facility] Comment on above: Performed By: #### L 501.2450, L500.4050, L100.0100, L700.6800 #### [facility] [address] [place], [address] Chloride [Moles/Vol] 105 mmol/L Normal 98-108 [facility] Comment on above: Performed By: #### L 501.2450, L500.4050, L100.0100, L700.6800 #### [facility] [address] [place], [address] CO2 [Moles/Vol] 23.9 mmol/L Normal 21.0-32.0 [facility] Comment on above: Performed By: #### L 501.2450, L500.4050, L100.0100, L700.6800 #### [facility] [address] [place], [address] Creatinine [Mass/Vol] 0.75 mg/dL Normal 0.70-1.20 [facility] Comment on above: Performed By: #### L 501.2450, L500.4050, L100.0100, L700.6800 #### [facility] [address] [place], [address] GAP 10 Normal 5-15 [facility] Comment on above: Performed By: #### L 501.2450, L500.4050, L100.0100, L700.6800 #### [facility] [address] [place], [address] GFR/1.73 sq M.predicted among non-blacks MDRD (S/P/Bld) [Vol rate/Area] 115 mL/min/{1.73_m2} Normal >60 [facility] Comment on above: Result Comment: mL/m in/1.73m2 CKD-EPI Creatinine Equation (2020) Performed By: #### L 501.2450, L500.4050, L100.0100, L700.6800 #### [facility] [address] [place], [address] Globulin (S) [Mass/Vol] 2.9 g/dL Normal 2.2-4.2 [facility] Comment on above: Performed By: #### L 501.2450, L500.4050, L100.0100, L700.6800 #### [facility] [address] [place], [address] Glucose [Mass/Vol] 97 mg/dL Normal 70-99 [facility] Comment on above: Performed By: #### L 501.2450, L500.4050, L100.0100, L700.6800 #### [facility] [address] [place], [address] Potassium [Moles/Vol] 4.2 mmol/L Normal 3.3-5.1 [facility] Comment on above: Performed By: #### L 501.2450, L500.4050, L100.0100, L700.6800 #### [facility] [address] [place], [address] Sodium [Moles/Vol] 139 mmol/L Normal 133-145 [facility] Comment on above: Performed By: #### L 501.2450, L500.4050, L100.0100, L700.6800 #### [facility] [address] [place], [address] T PROT 7.2 g/dL Normal 5.9-8.4 [facility] Comment on above: Performed By: #### L 501.2450, L500.4050, L100.0100, L700.6800 #### [facility] [address] [place], [address] Urea nitrogen [Mass/Vol] 8 mg/dL Normal 4-19 [facility] Comment on above: Performed By: #### L 501.2450, L500.4050, L100.0100, L700.6800 #### [facility] [address] [place], [address] Erythrocyte Sed Rateon 03-20 SED RATE 31 mm/hr High 0-30 [facility] Comment on above: Performed By: #### L 501.2450, L500.4050, L100.0100, L700.6800 #### [facility] [address] [place], [address] Gastroenterology Visit Repor ton 03-20-2025 Gastroenterology Visit Report [facility] [address] [place] [address] OFFICE VISIT Date of Service: 03/20/25 MR#: [id number] Acct: [id number] Name: YVETTE WADE Rep #: [id number] : 2000 Provider: Denton Taylor DO Age/Sex: 24/F Location: [facility] [place] Status: Signed Intake Vital Signs 12/02/24 08:44 01/05/25 08:25 Height 5 ft 2 in 5 ft 2 in Intake Visit Reasons: 3 M FU Chief Complaint: Abdominal pain Allergies peanut (peanuts) Allergy (Verified 01/05/25 08:25) Anaphylaxis Medications ???Medication ???Instructions ???Recorded ???Confirmed ???Type citalopram 20 mg tablet (Celexa) 20 mg PO QDAY 09/18/24 03/20/25 Hi story Held on 12/01/24. Instructions: PHARMACY ISSUE omeprazole 20 mg capsule,delayed 20 mg PO QDAY 09/18/24 03/20/25 Hi story release Held on 12/01/24. Instructions: PHARMACY ISSUE cetirizine 10 mg tablet (24Hour 10 mg PO DAILY PRN allergy symptom s 01/05/25 03/20/25 History Allergy) diphenhydramine HCl 25 mg capsule 50 mg PO Q8H PRN nausea and 01/0503/20/25 History (Aler-Cap) vomiting ferrous sulfate 325 mg (65 mg 325 mg PO QDAY SUPPLEMENT 01/05/25 03/20/25 History iron) tablet (FeroSul) PFSH Medical History Hypercholesteremia Thrombocytosis Low vitamin B12 level Depression Abdominal pain Gallbladder polyp Peptic ulcer MONET (generalized anxiety disorder) GERD (gastroesophageal reflux disease) Surgical History H/O adenoidectomy Hx laparoscopic cholecystectomy Family History Mother Cholelithiasis Father Heart disease Hypertension Grandfather Rectal cancer Colon cancer Grandmother Colon cancer Social History Smoking Status: Current every day smoker tobacco type: e-cigarettes alcohol intake: current alcohol intake frequency: holidays/special occasions only Alcohol type: wine HPI HPI Chief Complaint: Abdominal pain Details: YVETTE WADE, is a 24 F who presents to the office today for follow up. *I established ..25 PCP referred for abdominal pain. Pt underwent lap cholecystectomy at [facility] 07.30.24 due to a gallbladder polyp. Path report read mild chronic cholecystitis and cholesterol polyp formation. Per referral, pt has hx of bleeding peptic ulcers and is currently taking Omeprazole. Last EGD was performed 02/2024 that showed small area of focal gastritis and a benign gastric polyp. Pt was recently referred to hematology for thrombocytosis. Pt reports intermittent epigastric pain over the last 10 years. States the Omeprazole is somewhat helpful. Denies nausea or vomiting. BM are spondaic and she has occasional diarrhea. GET 5..25 WNL OV 8..25 pt reports continued symptoms from previous visit. Continues to have occasional diarrhea. Pt continues with Omeprazole; states this is effective for her HB. States she is here to follow up. [facility] ED 01.05.25 pt presents with N/V/D abd/pelvis CT 01.05.25 Submucosal thickening and edema noted in the majority of the colon suggesting a diffuse colitis.. This is likely infectious or inflammatory and can be seen with Crohn's or ulcerative colitis. No pericolonic inflammatory stranding, no perforation or abscess. These changes were not seen on the previous study of 2018. No free intraperitoneal fluid, air, or suspicious adenopathy, normal appendix visualized IUD noted in the uterus, there are physiologic ovarian cysts present, no suspicious enlarged cystic mass or free fluid in the pelvis. OV 11.7.25 pt reports that she is feeling well, reports intermittent abd pain. Denies other GI symptoms of concern at this time. States she is here to follow up. ROS Const Constitutional: No fatigue, fever(s) or weight change ENT ENT: No difficulty swallowing Gastro GI: Positive for abdominal pain; No belching, bloating, change in bowel habits, change in stool character, coffee ground emesis, constipation, cramping, diarrhea, heartburn, difficulty swallowing, feeling full early, excessive flatus, incontinent of stools, Vomiting blood/hematemesis, Blood in stool, loose stools, Black,tarry stools, nausea/dyspepsia, pain with swallowing, vomiting or other Musc Musculoskeletal: No joint pain Skin Skin: No yellowing of the eye or itchy eyes Psych Psychiatric: Positive for anxiety and Positive for depression Endo Endocrine: No fatigue or weight change Aller/Imm Allergy/Immunologic: No itchy eyes Buzz/Lymp Hematologic/Lymphatic: No easy bleeding or easy bruising Exam Const General: cooperative, healthy appearing, comfortable and no acute distress Nutritional Appearance: well nourished (more content not included)... Normal [facility] 03-12-2025 Cobalamin (Vitamin B12) [Mass/Vol] 504 pg/mL Normal 211-911 [facility] Comment on above: Performed By: #### 1 988-5 #### RILEY SCHWARTZ ([id number]) [facility] ([facility]) [address] [place] [address] Ferritinon 03-12-2025 Ferritin [Mass/Vol] 98 ng/mL 8 - 150 ng/mL [facility] Ferritin [Mass/Vol] 98 ng/mL Normal 8-150 [facility] Comment on above: Performed By: #### 1 988-5 #### RILEY SCHWARTZ ([id number]) [facility] ([facility]) [address] [place] [address] Ferritin [Mass/Vol]on 2024 Interpretation and review of laboratory results Normal [facility] Folateon 03-12-2025 Folate [Mass/Vol] 4.2 ng/mL Low >5.0 [facility] Comment on above: Order Comment: Low < 3.4Borderline 3.4-5.0Normal >5.0Patients receiving more than 5 mg/day of biotin may have interference in test results. A sample should be taken no sooner than eight hours after previous dose. Contact the testing laboratory for additional information. Performed By: #### 1 988-5 #### RILEY SCHWARTZ ([id number]) [facility] ([facility]) [address] [place] [address] Iron and Iron binding capaci ty panelon 03-12-2025 Interpretation and review of laboratory results Abnormal [facility] Iron [Mass/Vol] 32 ug/dL Low 35 - 150 ug/dL [facility] Comment on above: MILD HEMOLYSIS DETEC JAQUELINE. The result may be falsely elevated due to hemolysis or other interferents. Clinical correlation is recommended. Repeat testing may be considered. Iron binding capacity [Mass/Vol] 296 ug/dL 240 - 445 ug/dL [facility] Iron binding capacity.unsaturated [Mass/Vol] 264 ug/dL 110 - 370 ug/dL [facility] Iron saturation [Mass fraction] 11 % Low 25 - 45 % [facility] Iron [Mass/Vol] 32 ug/dL Low 35-150 [facility] Comment on above: Result Comment: MILD HEMOLYSIS DETECTED. The result may be falsely elevated due to hemolysis or other interferents. Clinical correlation is recommended. Repeat testing may be considered. Performed By: #### 1 988-5 #### RILEY SCHWARTZ ([id number]) [facility] ([facility]) [address] [place] [address] Iron binding capacity [Mass/Vol] 296 ug/dL Normal 240-445 [facility] Comment on above: Performed By: #### 1 988-5 #### RILEY SCHWARTZ ([id number]) [facility] ([facility]) [address] [place] [address] Iron binding capacity.unsaturated [Mass/Vol] 264 ug/dL Normal 110-370 [facility] Comment on above: Performed By: #### 1 988-5 #### RILEY SCHWARTZ ([id number]) [facility] ([facility]) [address] [place] [address] Iron saturation [Mass fraction] 11 % Low 25-45 [facility] Comment on above: Performed By: #### 1 988-5 #### RILEY SCHWARTZ ([id number]) [facility] ([facility]) [address] [place] [address] No Panel Informationon 03-12 [facility] CBC (INCLUDES DIFF/PLT)on Basophils (Bld) [#/Vol] 0.06 10*3/uL Normal 0-200 [facility] Comment on above: Performed By: #### 9 6685, 899, 0670, 5599 #### [facility] of [address], [address] [place] [address] Coupling Machine Operator: Mode Thomas MD Basophils/100 WBC (Bld) 0.6 % Normal [facility] Comment on above: Performed By: #### 9 8085, 899, 7600, 6399 #### [facility] of [address], [address] [place] [address] Coupling Machine Operator: Mode Thomas MD Eosinophils (Bld) [#/Vol] 0.51 10*3/uL High 15-500 [facility] Comment on above: Performed By: #### 9 1465, 899, 7600, 6399 #### [facility] of [address], [address] [place] [address] Coupling Machine Operator: Mode Thomas MD Eosinophils/100 WBC (Bld) 5.1 % Normal [facility] Comment on above: Performed By: #### 9 644, 89, 7600, 6399 #### [facility] of [address], [address] [place] [address] Coupling Machine Operator: Mode Thomas MD Erythrocyte distribution width (RBC) [Ratio] 13.9 % Normal 11.0-15.0 [facility] Comment on above: Performed By: #### 9 7685, 899, 7600, 6399 #### [facility] of [address], [address] [place] [address] Coupling Machine Operator: Mode Thomas MD Hematocrit (Bld) [Volume fraction] 42.0 % Normal 35.0-45.0 [facility] Comment on above: Performed By: #### 9 3775, 899, 7600, 6399 #### [facility] of [address], [address] [place] [address] Coupling Machine Operator: Mode Thomas MD Hemoglobin (Bld) [Mass/Vol] 13.5 g/dL Normal 11.7-15.5 [facility] Comment on above: Performed By: #### 9 7095, 899, 7600, 6399 #### [facility] of [address], [address] [place] [address] Coupling Machine Operator: Mode Thomas MD Lymphocytes (Bld) [#/Vol] 2.86 10*3/uL Normal 850-3900 [facility] Comment on above: Performed By: #### 9 995, 89, 7600, 6399 #### [facility] [address], [address] [place] [address] Coupling Machine Operator: Mode Thomas MD Lymphocytes/100 WBC (Bld) 28.6 % Normal [facility] Comment on above: Performed By: #### 9 837, 89, 7600, 6399 #### [facility] [place] [address] Coupling Machine Operator: Mode Thomas MD MCH (RBC) [Entitic mass] 28.3 pg Normal 27.0-33.0 [facility] Comment on above: Performed By: #### 9 896, 64, 7600, 6399 #### [facility] [address], [address] [place] [address] Coupling Machine Operator: Mode Thomas MD MCHC (RBC) [Mass/Vol] 32.1 g/dL Normal 32.0-36.[address] [facility] Comment on above: Result Comment: For adults, a slight decrease in the calculated MCHC value (in the range of 30 to 32 g/dL) is most likely not clinically significant; however, it should be interpreted with caution in correlation with other red cell parameters and the patient's clinical condition. Performed By: #### 9 920, 89, 7600, 6399 #### [facility] [place] [address] Coupling Machine Operator: Mode Thomas MD MCV (RBC) [Entitic vol] 88.1 fL Normal 80.0-100.0 [facility] Comment on above: Performed By: #### 9 079, 89, 7600, 6399 #### [facility] [address], [address] [place] [address] Coupling Machine Operator: Mode Thomas MD Monocytes (Bld) [#/Vol] 0.84 10*3/uL Normal 200-950 [facility] Comment on above: Performed By: #### 9 266, 89, 7600, 6399 #### [facility] of [address], [address] [place] [address] Coupling Machine Operator: Mode Thomas MD Monocytes/100 WBC (Bld) 8.4 % Normal [facility] Comment on above: Performed By: #### 9 2664, 89, 7600, 6399 #### [facility] of [address], [address] [place] [address] Coupling Machine Operator: Mode Thomas MD Neutrophils (Bld) [#/Vol] 5.73 10*3/uL Normal 1166-1588 [facility] Comment on above: Performed By: #### 9 266, 89, 7600, 6399 #### [facility] of [address], [address] [place] [address] Coupling Machine Operator: Mode Thomas MD Neutrophils/100 WBC (Bld) 57.3 % Normal [facility] Comment on above: Performed By: #### 9 266, 89, 7600, 6399 #### [facility] of [place] [address] Coupling Machine Operator: Mode Thomas MD Platelet mean volume (Bld) [Entitic vol] 9.8 fL Normal 7.5-12.5 [facility] Comment on above: Performed By: #### 9 266, 89, 7600, 6399 #### [facility] of [address], [address] [place] [address] Coupling Machine Operator: Mode Thomas MD Platelets (Bld) [#/Vol] 498 10*3/uL High 140-400 [facility] Comment on above: Performed By: #### 9 266, 899, 7600, 6399 #### [facility] of [address], [address] [place] [address] Coupling Machine Operator: Mode Thomas MD RBC (Bld) [#/Vol] 4.77 10*6/uL Normal 3.80-5.10 [facility] Comment on above: Performed By: #### 9 2665, 899, 7600, 6399 #### [facility] of [address], [address] [place] [address] Coupling Machine Operator: Mode Thomas MD WBC (Bld) [#/Vol] 10.0 10*3/uL Normal 3.8-10.8 [facility] Comment on above: Performed By: #### 9 2665, 899, 7600, 6399 #### [facility] of [address], [address] [place] [address] Coupling Machine Operator: Mode Thomas MD COMPREHENSIVE METABOLIC PANE L W/ANION GAPon 02-21-2025 Albumin [Mass/Vol] 4.3 g/dL Normal 3.6-5.1 [facility] Comment on above: Performed By: #### 9 2665, 89, 7600, 6399 #### [facility] of [address], [address] [place] [address] Coupling Machine Operator: Mode Thomas MD ALP [Catalytic activity/Vol] 60 U/L Normal 31-125 [facility] Comment on above: Performed By: #### 9 2665, 899, 7600, 6399 #### [facility] of [address], [address] [place] [address] Coupling Machine Operator: Mode Thomas MD ALT [Catalytic activity/Vol] 21 U/L Normal 6-29 [facility] Comment on above: Performed By: #### 9 2665, 899, 7600, 6399 #### [facility] of [address], [address] [place] [address] Coupling Machine Operator: Mode Thomas MD AST [Catalytic activity/Vol] 18 U/L Normal 10-30 [facility] Comment on above: Performed By: #### 9 2665, 899, 7600, 6399 #### [facility] of [address], [address] [place] [address] Coupling Machine Operator: Mode Thomas MD Bilirubin [Mass/Vol] 0.4 mg/dL Normal 0.2-1.2 [facility] t [facility] Comment on above: Performed By: #### 9 737, 89, 7600, 6399 #### [facility] of [address], [address] [place] [address] Coupling Machine Operator: Mode Thomas MD Calcium [Mass/Vol] 9.3 mg/dL Normal 8.6-10.2 [facility] Comment on above: Performed By: #### 9 266, 89, 7600, 6399 #### [facility] of [place] [address] Coupling Machine Operator: Mode Thomas MD Chloride [Moles/Vol] 104 mmol/L Normal 98-110 [facility] Comment on above: Performed By: #### 9 266, 99, 7600, 6399 #### [facility] of [place] [address] Coupling Machine Operator: Mode Thomas MD CO2 [Moles/Vol] 24 mmol/L Normal 20-32 [facility] Comment on above: Performed By: #### 9 266, 26, 7600, 6399 #### [facility] of [place] [address] Coupling Machine Operator: Mode Thomas MD Creatinine [Mass/Vol] 0.71 mg/dL Normal 0.50-0.96 [facility], [facility] Comment on above: Performed By: #### 9 266, 62, 7600, 6399 #### [facility] of [place] [address] Coupling Machine Operator: Mode Thomas MD ELECTROLYTE BALANCE 9 mmol/L (calc) Normal 7-17 [facility] Comment on above: Performed By: #### 9 2665, 89, 7600, 6399 #### [facility] of [place] [address] Coupling Machine Operator: Mode Thomas MD GFR/1.73 sq M.predicted among non-blacks MDRD (S/P/Bld) [Vol rate/Area] 122 mL/min/{1.73_m2} Normal > OR = 60 [facility] Comment on above: Performed By: #### 9 662, 89, 7600, 6399 #### [facility] of [address], [address] [place] [address] Coupling Machine Operator: Mode Thomas MD Glucose [Mass/Vol] 83 mg/dL Normal 65-99 [facility] Comment on above: Result Comment: Fasting reference interval Performed By: #### 9 4705, 89, 7600, 6399 #### [facility] of [address], [address] [place] [address] Coupling Machine Operator: Mode Thomas MD Potassium [Moles/Vol] 4.4 mmol/L Normal 3.5-5.3 [facility], [facility] Comment on above: Performed By: #### 9 745, 89, 7600, 6399 #### [facility] of [address], [address] [place] [address] Coupling Machine Operator: Mode Thomas MD Protein [Mass/Vol] 6.9 g/dL Normal 6.1-8.1 [facility] Comment on above: Performed By: #### 9 257, 89, 7600, 6399 #### [facility] of [address], [address] [place] [address] Coupling Machine Operator: Mode Thomas MD Sodium [Moles/Vol] 137 mmol/L Normal 135-146 [facility] Comment on above: Performed By: #### 9 172, 89, 7600, 6399 #### [facility] of [address], [address] [place] [address] Coupling Machine Operator: Mode Thomas MD Urea nitrogen [Mass/Vol] 12 mg/dL Normal 7-25 [facility] Comment on above: Performed By: #### 9 699, 899, 7600, 6399 #### [facility] of [address], [address] [place] [address] Coupling Machine Operator: Mode Thomas MD LIPID PANEL, [facility] 10- Cholesterol [Mass/Vol] 194 mg/dL Normal <200 [facility] Comment on above: Order Comment: FASTI NG:YES FASTING: YES Performed By: #### 9 5845, 899, 7600, 6399 #### [facility] [address], [address] [place] [address] Coupling Machine Operator: Mode Thomas MD Cholesterol in HDL [Mass/Vol] 45 mg/dL Low > OR = 50 [facility] Comment on above: Order Comment: FASTI NG:YES FASTING: YES Performed By: #### 9 0715, 899, 7600, 6399 #### [facility] [address], [address] [place] [address] Coupling Machine Operator: Mode Thomas MD Cholesterol in LDL [Mass/Vol] 131 mg/dL High [facility] Comment on above: Order Comment: FASTI NG:YES FASTING: YES Result Comment: Refe rence range: <100 Desirable range <100 mg/dL for primary prevention; <70 mg/dL for patients with CHD or diabetic patients with > or = 2 CHD risk factors. LDL-C is now calculated using the Emil-Channing calculation, which is a validated novel method providing better accuracy than the Friedewald equation in the estimation of LDL-C. Emil ELLIS et al. JOSEPHINE. 2013;310(19): 3376-8241 (http://education.Sparkbrowser.Wan Shidao management/faq/QHT963) Performed By: #### 9 9375, 899, 7600, 6399 #### [facility] [address], [address] [place] [address] Coupling Machine Operator: Mode Thomas MD Cholesterol.total/Loreta sterol in HDL [Mass ratio] 4.3 {ratio} Normal <5.0 [facility] Comment on above: Order Comment: FASTI NG:YES FASTING: YES Performed By: #### 9 4985, 899, 7600, 6399 #### [facility] [address], [address] [place] [address] Coupling Machine Operator: Mode Thomas MD NON HDL CHOLESTEROL 149 mg/dL (calc) High <130 [facility] Comment on above: Order Comment: FASTI NG:YES FASTING: YES Result Comment: For patients with diabetes plus 1 major ASCVD risk factor, treating to a non-HDL-C goal of <100 mg/dL (LDL-C of <70 mg/dL) is considered a therapeutic option. Performed By: #### 9 3815, 899, 7600, 6399 #### [facility] [address], [address] [place] [address] Coupling Machine Operator: Mode Thomas MD Triglyceride [Mass/Vol] 84 mg/dL Normal <150 [facility] Comment on above: Order Comment: FASTI NG:YES FASTING: YES Performed By: #### 9 3285, 899, 7600, 6399 #### [facility] [place] [address] Coupling Machine Operator: Mode Thomas MD T4, FREEon 02-21-2025 Free T4 [Mass/Vol] 1.2 ng/dL Normal 0.8-1.8 [facility] Comment on above: Performed By: #### 9 4715, 899, 7600, 6399 #### [facility] [place] [address] Coupling Machine Operator: Mode Thomas MD TSHon 02-21-2025 TSH Qn 0.85 m[IU]/L Normal [facility] Comment on above: Result Comment: Refe rence Range > or = 20 Years 0.40-4.50 Ranges First trimester 0.26-2.66 Second trimester 0.55-2.73 Third trimester 0.43-2.91 Performed By: #### 9 9495, 899, 7600, 6399 #### [facility] [place] [address] Coupling Machine Operator: Mode Thomas MD Bacteriaon 01-06-2025 Bacteria identified Cx Nom (U) Test: Urine Culture Specimen Source: Clean Catch/Voided Specimen Type: Urine Specimen Date: 01/06/20252124 Result Date: 01/08/2025 1359 Result Status: Final result Abnormal: No Resulting Lab: [facility] [address] [facility] [address] CULTURE No growth Normal [facility] Comment on above: Performed By: #### 4 537-7 #### LIN EFREN ([id number]) [facility] ([facility]) [address] [place] [address] CBC W Auto Differential pane l (Bld)on 01-06-2025 Basophils (Bld) [#/Vol] 0.07 10*3/uL [facility] Basophils/100 WBC (Bld) 0.4 % 0.0 - 2.0 % [facility] Eosinophils (Bld) [#/Vol] 0.24 10*3/uL [facility] Eosinophils/100 WBC (Bld) 1.5 % 0.0 - 6.0 % [facility] Erythrocyte distribution width (RBC) [Ratio] 13.7 % 11.5 - 14.5 % [facility] Hematocrit (Bld) [Volume fraction] 42.1 % 36.0 - 46.0 % [facility] Hemoglobin (Bld) [Mass/Vol] 13.3 g/dL 12.0 - 16.0 g/dL [facility] Immature granulocytes (Bld) [#/Vol] 0.09 10*3/uL [facility] Immature granulocytes/100 WBC (Bld) 0.6 % 0.0 - 0.9 % [facility] Comment on above: Immature Granulocyte Count (IG) includes promyelocytes, myelocytes and metamyelocytes but does not include bands. Percent differential counts (%) should be interpreted in the context of the absolute cell counts (cells/UL). Interpretation and review of laboratory results Abnormal [facility] Lymphocytes (Bld) [#/Vol] 2.20 10*3/uL [facility] Lymphocytes/100 WBC (Bld) 14.1 % 13.0 - 44.0 % [facility] MCH (RBC) [Entitic mass] 27.7 pg 26.0 - 34.0 pg [facility] MCHC (RBC) [Mass/Vol] 31.6 g/dL Low 32.0 - 36.0 g/dL [facility] MCV (RBC) [Entitic vol] 88 fL 80 - 100 fL [facility] Monocytes (Bld) [#/Vol] 1.03 10*3/uL [facility] Monocytes/100 WBC (Bld) 6.6 % 2.0 - 10.0 % [facility] Neutrophils (Bld) [#/Vol] 11.97 10*3/uL [facility] Comment on above: Percent differential counts (%) should be interpreted in the context of the absolute cell counts (cells/uL). Neutrophils/100 WBC (Bld) 76.8 % 40.0 - 80.0 % [facility] Nucleated RBC/100 WBC (Bld) [Ratio] 0.0 % [facility] Platelets (Bld) [#/Vol] 471 10*3/uL [facility] RBC (Bld) [#/Vol] 4.81 10*6/uL [facility] WBC (Bld) [#/Vol] 15.6 10*3/uL [facility] Basophils (Bld) [#/Vol] 0.07 x10*3/uL Normal 0.00-0.10 [facility] Comment on above: Performed By: #### 5 7021-8 #### RILEY SCHWARTZ ([id number]) [facility] ([facility]) [address] [place] [address] Basophils/100 WBC (Bld) 0.4 % Normal 0.0-2.0 [facility] Comment on above: Performed By: #### 5 7021-8 #### RILEY SCHWARTZ ([id number]) [facility] ([facility]) [address] [place] [address] Eosinophils (Bld) [#/Vol] 0.24 x10*3/uL Normal 0.00-0.70 [facility] Comment on above: Performed By: #### 5 7021-8 #### RILEY SCHWARTZ ([id number]) [facility] ([facility]) [address] [place] [address] Eosinophils/100 WBC (Bld) 1.5 % Normal 0.0-6.0 [facility] Comment on above: Performed By: #### 5 7021-8 #### RILEY SCHWARTZ ([id number]) [facility] ([facility]) [address] [place] [address] Erythrocyte distribution width (RBC) [Ratio] 13.7 % Normal 11.5-14.5 [facility] Comment on above: Performed By: #### 5 7021-8 #### RILEY SCHWARTZ ([id number]) [facility] ([facility]) [address] [place] [address] Hematocrit (Bld) [Volume fraction] 42.1 % Normal 36.0-46.0 [facility] Comment on above: Performed By: #### 5 7021-8 #### RILEY SCHWARTZ ([id number]) [facility] ([facility]) [address] [place], [place] [address] Hemoglobin (Bld) [Mass/Vol] 13.3 g/dL Normal 12.0-16.0 [facility] Comment on above: Performed By: #### 5 7021-8 #### RILEY SCHWARTZ ([id number]) [facility] ([facility]) [address] [place] [address] Immature granulocytes (Bld) [#/Vol] 0.09 x10*3/uL Normal 0.00-0.70 [facility] Comment on above: Performed By: #### 5 7021-8 #### RILEY SCHWARTZ ([id number]) [facility] ([facility]) [address] [place] [address] Immature granulocytes/100 WBC (Bld) 0.6 % Normal 0.0-0.9 [facility] Comment on above: Result Comment: Yeni ture Granulocyte Count (IG) includes promyelocytes, myelocytes and metamyelocytes but does not include bands. Percent differential counts (%) should be interpreted in the context of the absolute cell counts (cells/UL). Performed By: #### 5 7021-8 #### RILEY SCHWARTZ ([id number]) [facility] ([facility]) [address] [place] [address] Lymphocytes (Bld) [#/Vol] 2.20 x10*3/uL Normal 1.20-4.80 [facility] Comment on above: Performed By: #### 5 7021-8 #### RILEY SCHWARTZ ([id number]) [facility] ([facility]) [address] [place] [address] Lymphocytes/100 WBC (Bld) 14.1 % Normal 13.0-44.0 [facility] Comment on above: Performed By: #### 5 7021-8 #### RILEY SCHWARTZ ([id number]) [facility] ([facility]) [address] [place] [address]859 MCH (RBC) [Entitic mass] 27.7 pg Normal 26.0-34.0 [facility] Comment on above: Performed By: #### 5 7021-8 #### RILEY SCHWARTZ ([id number]) [facility] ([facility]) [address] [place] [address] MCHC (RBC) [Mass/Vol] 31.6 g/dL Low 32.0-36.0 [facility] Comment on above: Performed By: #### 5 7021-8 #### RILEY SCHWARTZ ([id number]) [facility] ([facility]) [address] [place] [address] MCV (RBC) [Entitic vol] 88 fL Normal 80-100 U [facility] Comment on above: Performed By: #### 5 7021-8 #### RILEY SCHWARTZ ([id number]) [facility] ([facility]) [address] [place] [address]87 Monocytes (Bld) [#/Vol] 1.03 x10*3/uL High 0.10-1.00 [facility] Comment on above: Performed By: #### 5 7021-8 #### RILEY SCHWARTZ ([id number]) [facility] ([facility]) [address] [place] [address] Monocytes/100 WBC (Bld) 6.6 % Normal 2.0-10.0 [facility] Comment on above: Performed By: #### 5 7021-8 #### RILEY SCHWARTZ ([id number]) [facility] ([facility]) [address] [place] [address]145 Neutrophils (Bld) [#/Vol] 11.97 x10*3/uL High 1.20-7.70 [facility] Comment on above: Result Comment: Perc ent differential counts (%) should be interpreted in the context of the absolute cell counts (cells/uL). Performed By: #### 5 7021-8 #### RILEY SCHWARTZ ([id number]) [facility] ([facility]) [address] [place] [address]70 Neutrophils/100 WBC (Bld) 76.8 % Normal 40.0-80.0 [facility] Comment on above: Performed By: #### 5 7021-8 #### RILEY SCHWARTZ ([id number]) [facility] ([facility]) [address] [place] [address] Nucleated RBC/100 WBC (Bld) [Ratio] 0.0 /100 WBCs Normal 0.0-0.0 [facility] Comment on above: Performed By: #### 5 7021-8 #### RILEY SCHWARTZ ([id number]) [facility] ([facility]) [address] [place] [address] Platelets (Bld) [#/Vol] 471 x10*3/uL High 150-450 [facility] Comment on above: Performed By: #### 5 7021-8 #### RILEY SCHWARTZ ([id number]) [facility] ([facility]) [address] [place] [address]22 RBC (Bld) [#/Vol] 4.81 x10*6/uL Normal 4.00-5.20 [facility] Comment on above: Performed By: #### 5 7021-8 #### RILEY SCHWARTZ ([id number]) [facility] ([facility]) [address] [place] [address] WBC (Bld) [#/Vol] 15.6 x10*3/uL High 4.4-11.3 [facility] Comment on above: Performed By: #### 5 7021-8 #### LIN EFREN ([id number]) [facility] ([facility]) [facility] [place] [address] CT ABDOMEN PELVIS W IV CONTR Svetlana 01-06-2025 CT ABDOMEN PELVIS W IV CONTRAST Interpreted By: Constantin Falcon, STUDY: CT ABDOMEN PELVIS W IV CONTRAST; 01/06/2025 9:38 pm INDICATION: Signs/Symptoms:upper abd pain. COMPARISON: 09/08/2024 CT abdomen and pelvis ACCESSION NUMBER(S): [id number] ORDERING CLINICIAN: ANALY JAVIER TECHNIQUE: CT of the abdomen and pelvis was performed. Standard contiguous axial images were obtained at 3 mm slice thickness through the abdomen and pelvis. Coronal and sagittal reconstructions at 3 mm slice thickness were performed. 69 ML of Omnipaque 350 was administered intravenously without immediate complication. FINDINGS: LOWER CHEST: The visualized lung base is unremarkable. The heart is normal in size without pericardial effusion. No pleural effusion is present. Visualized distal esophagus appears normal. ABDOMEN: LIVER: The liver is normal in size without evidence of focal liver lesions. BILE DUCTS: The intrahepatic and extrahepatic ducts are not dilated. GALLBLADDER: Cholecystectomy PANCREAS: The pancreas appears unremarkable without evidence of ductal dilatation or masses. SPLEEN: The spleen is normal in size. ADRENAL GLANDS: Bilateral adrenal glands appear normal. KIDNEYS AND URETERS: The kidneys are normal in size and enhance symmetrically. No hydroureteronephrosis or nephroureterolithiasis is identified. PELVIS: BLADDER: Decompressed and not well evaluated. REPRODUCTIVE ORGANS: Normal uterus. IUD in place. Physiologic cystic ovarian changes. BOWEL: The stomach is unremarkable. The small and large bowel are normal in caliber and demonstrate no wall thickening. The appendix appears normal. VESSELS: There is no aneurysmal dilatation of the abdominal aorta. The IVC appears normal. PERITONEUM/RETROPERITON EUM/LYMPH NODES: There is no free or loculated fluid collection, no free intraperitoneal air. The retroperitoneum appears normal. No abdominopelvic lymphadenopathy is present. BONES AND ABDOMINAL WALL: No suspicious osseous lesions are identified. The abdominal wall soft tissues appear normal. IMPRESSION: 1. No acute intra-abdominal findings. MACRO: None Signed by: Constantin Falcon 01/06/2025 9:45 PM Dictation workstation: [id number] [facility] CT Abdomen and Pelvis W cont rast Izabela 01-06-2025 1. No acute intra-abdominal findings. MACRO: None Signed by: Constantin Falcon 01/06/2025 9:45 PM Dictation workstation: [id number] MMODAL Interpreted By: Constantin Falcon, STUDY: CT ABDOMEN PELVIS W IV CONTRAST; 01/06/2025 9:38 pm INDICATION: Signs/Symptoms:upper abd pain. COMPARISON: 09/08/2024 CT abdomen and pelvis ACCESSION NUMBER(S): [id number] ORDERING CLINICIAN: ANALY JAVIER TECHNIQUE: CT of the abdomen and pelvis was performed. Standard contiguous axial images were obtained at 3 mm slice thickness through the abdomen and pelvis. Coronal and sagittal reconstructions at 3 mm slice thickness were performed. 69 ML of Omnipaque 350 was administered intravenously without immediate complication. FINDINGS: LOWER CHEST: The visualized lung base is unremarkable. The heart is normal in size without pericardial effusion. No pleural effusion is present. Visualized distal esophagus appears normal. ABDOMEN: LIVER: The liver is normal in size without evidence of focal liver lesions. BILE DUCTS: The intrahepatic and extrahepatic ducts are not dilated. GALLBLADDER: Cholecystectomy PANCREAS: The pancreas appears unremarkable without evidence of ductal dilatation or masses. SPLEEN: The spleen is normal in size. ADRENAL GLANDS: Bilateral adrenal glands appear normal. KIDNEYS AND URETERS: The kidneys are normal in size and enhance symmetrically. No hydroureteronephrosis or nephroureterolithiasis is identified. PELVIS: BLADDER: Decompressed and not well evaluated. REPRODUCTIVE ORGANS: Normal uterus. IUD in place. Physiologic cystic ovarian changes. BOWEL: The stomach is unremarkable. The small and large bowel are normal in caliber and demonstrate no wall thickening. The appendix appears normal. VESSELS: There is no aneurysmal dilatation of the abdominal aorta. The IVC appears normal. PERITONEUM/RETROPERITON EUM/LYMPH NODES: There is no free or loculated fluid collection, no free intraperitoneal air. The retroperitoneum appears normal. No abdominopelvic lymphadenopathy is present. BONES AND ABDOMINAL WALL: No suspicious osseous lesions are identified. The abdominal wall soft tissues appear normal. [facility]AL Constantin Falcon , DO - 01/06/2025 Interpreted By: Constantin Falcon, STUDY: CT ABDOMEN PELVIS W IV CONTRAST; 01/06/2025 9:38 pm INDICATION: Signs/Symptoms:upper abd pain. COMPARISON: 09/08/2024 CT abdomen and pelvis ACCESSION NUMBER(S): [id number] ORDERING CLINICIAN: ANALY JAVIER TECHNIQUE: CT of the abdomen and pelvis was performed. Standard contiguous axial images were obtained at 3 mm slice thickness through the abdomen and pelvis. Coronal and sagittal reconstructions at 3 mm slice thickness were performed. 69 ML of Omnipaque 350 was administered intravenously without immediate complication. FINDINGS: LOWER CHEST: The visualized lung base is unremarkable. The heart is normal in size without pericardial effusion. No pleural effusion is present. Visualized distal esophagus appears normal. ABDOMEN: LIVER: The liver is normal in size without evidence of focal liver lesions. BILE DUCTS: The intrahepatic and extrahepatic ducts are not dilated. GALLBLADDER: Cholecystectomy PANCREAS: The pancreas appears unremarkable without evidence of ductal dilatation or masses. SPLEEN: The spleen is normal in size. ADRENAL GLANDS: Bilateral adrenal glands appear normal. KIDNEYS AND URETERS: The kidneys are normal in size and enhance symmetrically. No hydroureteronephrosis or nephroureterolithiasis is identified. PELVIS: BLADDER: Decompressed and not well evaluated. REPRODUCTIVE ORGANS: Normal uterus. IUD in place. Physiologic cystic ovarian changes. BOWEL: The stomach is unremarkable. The small and large bowel are normal in caliber and demonstrate no wall thickening. The appendix appears normal. VESSELS: There is no aneurysmal dilatation of the abdominal aorta. The IVC appears normal. PERITONEUM/RETROPERITON EUM/LYMPH NODES: There is no free or loculated fluid collection, no free intraperitoneal air. The retroperitoneum appears normal. No abdominopelvic lymphadenopathy is present. BONES AND ABDOMINAL WALL: No suspicious osseous lesions are identified. The abdominal wall soft tissues appear normal. IMPRESSION: 1. No acute intra-abdominal findings. MACRO: None Signed by: Constantin Falcon 01/06/2025 9:45 PM Dictation workstation: [id number] [facility] Work Phone: [facility] Work Phone: Radiology Study observation (narrative) [facility] Work Phone: Comprehensive metabolic 2000 panelon 01-06-2025 Albumin BCP dye [Mass/Vol] 4.6 g/dL 3.4 - 5.0 g/dL [facility] ALP [Catalytic activity/Vol] 62 U/L 33 - 110 U/L [facility] ALT With P-5'-P [Catalytic activity/Vol] 41 U/L 7 - 45 U/L [facility] Comment on above: Patients treated wit h Sulfasalazine may generate falsely decreased results for ALT. Anion gap [Moles/Vol] 15 mmol/L 10 - 2 0 mmol/L [facility] AST With P-5'-P [Catalytic activity/Vol] 28 U/L 9 - 39 U/L [facility] Bilirubin [Mass/Vol] 0.5 mg/dL 0.0 - 1 .2 mg/dL [facility] Calcium [Mass/Vol] 9.5 mg/dL 8.6 - 10. 3 mg/dL [facility] Chloride [Moles/Vol] 103 mmol/L 98 - 10 7 mmol/L [facility] CO2 [Moles/Vol] 22 mmol/L 21 - 32 mmol/L [facility] Creatinine [Mass/Vol] 0.70 mg/dL 0.50 - 1.05 mg/dL [facility] eGFR - PINF [facility] Comment on above: Calculations of elizabeth mated GFR are performed using the 2020 CKD-EPI Study Refit equation without the race variable for the IDMS-Traceable creatinine methods. https://jasn.asnjournals.org/content/early//ASN.2020 277282 Glucose [Mass/Vol] 94 mg/dL 74 - 99 mg/dL [facility] Interpretation and review of laboratory results Abnormal [facility] Potassium [Moles/Vol] 3.4 mmol/L Low 3.5 - 5.3 mmol/L [facility] Protein [Mass/Vol] 7.4 g/dL 6.4 - 8.2 g/dL [facility] Sodium [Moles/Vol] 137 mmol/L 136 - 145 mmol/L [facility] Urea nitrogen [Mass/Vol] 12 mg/dL 6 - 23 mg/dL [facility] Albumin BCP dye [Mass/Vol] 4.6 g/dL Normal 3.4-5.0 [facility] Comment on above: Performed By: #### 4 537-7 #### RILEY SCHWARTZ ([id number]) [facility] ([facility]) [address] [place] [address] ALP [Catalytic activity/Vol] 62 U/L Normal 33-110 [facility] Comment on above: Performed By: #### 4 537-7 #### RILEY SCHWARTZ ([id number]) [facility] ([facility]) [address] [place] [address] ALT With P-5'-P [Catalytic activity/Vol] 41 U/L Normal 7-45 [facility] Comment on above: Result Comment: Deloris ents treated with Sulfasalazine may generate falsely decreased results for ALT. Performed By: #### 4 537-7 #### RILEY SCHWARTZ ([id number]) [facility] ([facility]) [address] [place] [address] Anion gap [Moles/Vol] 15 mmol/L Normal 10-20 [facility] Comment on above: Performed By: #### 4 537-7 #### RILEY SCHWARTZ ([id number]) [facility] ([facility]) [address] [place] [address] AST With P-5'-P [Catalytic activity/Vol] 28 U/L Normal 9-39 [facility] Comment on above: Performed By: #### 4 537-7 #### RILEY SCHWARTZ ([id number]) [facility] ([facility]) [address] [place] [address] Bilirubin [Mass/Vol] 0.5 mg/dL Normal 0.0-1.2 [facility] Comment on above: Performed By: #### 4 537-7 #### RILEY SCHWARTZ ([id number]) [facility] ([facility]) [address] [place] [address] Calcium [Mass/Vol] 9.5 mg/dL Normal 8.6-10.3 [facility] Comment on above: Performed By: #### 4 537-7 #### RILEY SCHWARTZ ([id number]) [facility] ([facility]) [address] [place] [address] Chloride [Moles/Vol] 103 mmol/L Normal 98-107 [facility] Comment on above: Performed By: #### 4 537-7 #### RILEY SCHAWRTZ ([id number]) [facility] ([facility]) [address] [place] [address] CO2 [Moles/Vol] 22 mmol/L Normal 21-32 [facility] Comment on above: Performed By: #### 4 537-7 #### RILEY SCHWARTZ ([id number]) [facility] ([facility]) [address] [place] [address] 90285 Creatinine [Mass/Vol] 0.70 mg/dL Normal 0.50-1.05 [facility] Comment on above: Performed By: #### 4 537-7 #### RILEY SCHWARTZ ([id number]) [facility] ([facility]) [address] [place] [address] 07169 Glomerular filtration rate >90 Normal >60 [facility] Comment on above: Result Comment: Calc ulations of estimated GFR are performed using the 2020 CKD-EPI Study Refit equation without the race variable for the IDMS-Traceable creatinine methods. https://jasn.asnjournals.org/content/early//ASN.2020 959994 Performed By: #### 4 537-7 #### RILEY SCHWARTZ ([id number]) [facility] ([facility]) [address] [place] [address] Glucose [Mass/Vol] 94 mg/dL Normal 74-99 [facility] Comment on above: Performed By: #### 4 537-7 #### RILEY SCHWARTZ ([id number]) [facility] ([facility]) [address] [place] [address] 10472 Potassium [Moles/Vol] 3.4 mmol/L Low 3.5-5.3 [facility] Comment on above: Performed By: #### 4 537-7 #### RILEY SCHWARTZ ([id number]) [facility] ([facility]) [address] [place] [address] 57672 Protein [Mass/Vol] 7.4 g/dL Normal 6.4-8.2 [facility] Comment on above: Performed By: #### 4 537-7 #### RILEY SCHWARTZ ([id number]) [facility] ([facility]) [address] [place] [address] Sodium [Moles/Vol] 137 mmol/L Normal 136-145 [facility] Comment on above: Performed By: #### 4 537-7 #### RILEY SCHWARTZ ([id number]) [facility] ([facility]) [address] [place] [address] Urea nitrogen [Mass/Vol] 12 mg/dL Normal 6-23 [facility] Comment on above: Performed By: #### 4 537-7 #### RILEY SCHWARTZ ([id number]) [facility] ([facility]) [address] [place] [address] ECG 12-LEADon 01-06-2025 ECG 12-LEAD Ventricular Rate 59 Atrial Rate 59 P-R Interval 134 QRS Duration 94 Q-T Interval 418 QTC Calculation(Bazett) 413 P Dallas 65 R Dallas 53 T Dallas 33 QRS Count 10 Q Onset 215 P Onset 148 P Offset 202 T Offset 424 QTC Fredericia 415 Diagnosis Sinus bradycardia Nonspecific ST abnormality Abnormal ECG No previous ECGs available See ED provider note for full interpretation and clinical correlation Confirmed by Lynda Polanco ([id number]) on 01/08/2025 5:01:15 PM Normal [facility] HCG ( test) Kiersten rodriguez Ql (U)Ordered By: Greg Lim on 01-06-2025 HCG ( test) Ql (U) Negative NEGATIVE [facility] Interpretation and review of laboratory results Normal [facility] HCG ( test) IAgermán d Ql (U)on 01-06-2025 HCG ( test) Ql (U) Negative Normal NEGATIVE [facility] Comment on above: Performed By: #### 4 537-7 #### RILEY SCHWARTZ ([id number]) [facility] ([facility]) [address] [place] [address] Lactateon 01-06-2025 Lactate [Moles/Vol] 1.5 mmol/L 0.4 - 2. 0 mmol/L [facility] Lactate [Moles/Vol] 1.5 mmol/L Normal 0.4-2.0 [facility] Comment on above: Order Comment: Venip uncture immediately after or during the administration of Metamizole may lead to falsely low results. Testing should be performed immediately prior to Metamizole dosing. Performed By: #### 4 537-7 #### RILEY SCHWARTZ ([id number]) [facility] ([facility]) [address] [place] [address] Lactate [Moles/Vol]on 2024 Interpretation and review of laboratory results Normal [facility] Venipuncture immediately after or during the administration of Metamizole may lead to falsely low results. Testing should be performed immediately prior to Metamizole dosing. [facility] Lipaseon 01-06-2025 Lipase [Catalytic activity/Vol] 16 U/L 9 - 82 U/L [facility] Lipase [Catalytic activity/V ol]on 01-06-2025 Interpretation and review of laboratory results Normal [facility] Venipuncture immediately after or during the administration of Metamizole may lead to falsely low results. Testing should be performed immediately prior to Metamizole dosing. [facility] No Panel Informationon 01-06 Interpretation and review of laboratory results Abnormal [facility] Triacylglycerol lipaseon Lipase [Catalytic activity/Vol] 16 U/L Normal 9-82 [facility] Comment on above: Order Comment: Venip uncture immediately after or during the administration of Metamizole may lead to falsely low results. Testing should be performed immediately prior to Metamizole dosing. Performed By: #### 4 537-7 #### LIN EFREN ([id number]) [facility] ([facility]) [facility] [place] [address] Tropinin I.cardiac panel Hig h sensitivity methodon 01-06-2025 Interpretation and review of laboratory results Normal [facility] Less than 99th percentile of normal range cutoff- Female and children under 18 years old <14 ng/L; Male <21 ng/L: Negative Repeat testing should be performed if clinically indicated. Female and children under 18 years old 14-50 ng/L; Male 21-50 ng/L: Consistent with possible cardiac damage and possible increased clinical risk. Serial measurements may help to assess extent of myocardial damage. >50 ng/L: Consistent with cardiac damage, increased clinical risk and myocardial infarction. Serial measurements may help assess extent of myocardial damage. NOTE: Children less than 1 year old may have higher baseline troponin levels and results should be interpreted in conjunction with the overall clinical context. NOTE: Troponin I testing is performed using a different testing methodology at [facility] than at other [facility]. Direct result comparisons should only be made within the same method. [facility] Troponin I, High Sensitivity on 01-06-2025 Tropinin I.cardiac panel High sensitivity method 3 ng/L 0 - 13 ng/L [facility] Troponin I.cardiac panelon 0 01-06-2025 Tropinin I.cardiac panel High sensitivity method 3 ng/L Normal 0-13 [facility] Comment on above: Order Comment: Less than 99th percentile of normal range cutoff-Female and children under 18 years old <14 ng/L; Male <21 ng/L: NegativeRepeat testing should be performed if clinically indicated.Female and children under 18 years old 14-50 ng/L; Male 21-50 ng/L:Consistent with possible cardiac damage and possible increased clinicalrisk. Serial measurements may help to assess extent of myocardial damage.>50 ng/L: Consistent with cardiac damage, increased clinical risk andmyocardial infarction. Serial measurements may help assess extent ofmyocardial damage.NOTE: Children less than 1 year old may have higher baseline troponinlevels and results should be interpreted in conjunction with the overallclinical context.NOTE: Troponin I testing is performed using a differenttesting methodology at [facility] than at [facility]. Direct result comparisons should onlybe made within the same method. Performed By: #### 4 537-7 #### RILEY SCHWARTZ ([id number]) [facility] ([facility]) [address] [place] [address] Urinalysis complete W Reflex Culture panel (U)on 01-06-2025 Appearance (U) Turbid Abnormal Clear [facility] Bilirubin (U) [Mass/Vol] Negative NEGATIVE mg/dL [facility] Color (U) Yellow Light-Yellow , Yellow, Dark-Yellow [facility] Glucose Auto test strip (U) [Mass/Vol] Normal Normal mg/dL [facility] Ketones (U) [Mass/Vol] OVER (4+) Abnormal NEGAT KELLEY mg/dL [facility] Leukocyte esterase Auto test strip Ql (U) 250 Kalee/uL Abnormal NEGATIVE [facility] Nitrite Auto test strip Ql (U) Negative NEGATIVE [facility] pH (U) 6.0 [pH] 5.0, 5.5, 6.0, 6.5, 7.0, 7.5, 8.0 [facility] Protein (U) [Mass/Vol] 30 (1+) Abnormal NEGAT KELLEY, 10 (TRACE), 20 (TRACE) mg/dL [facility] RBC (U) [#/Vol] 0.2 (2+) Abnormal NEGATIVE mg/dL [facility] Specific gravity (U) [Rel density] 1.033 1.005 - 1.035 [facility] Urobilinogen (U) [Mass/Vol] 3 (1+) Abnormal Normal mg/dL [facility] Comment on above: Some pigments and me dications may cause a false positive urobilinogen. OVER is reported whe n the result is greater than the clinically reportable range. [facility] Appearance (U) Turbid Normal Clear [facility] Comment on above: Order Comment: OVER is reported when the result is greater than the clinically reportable range. Performed By: #### 4 537-7 #### RILEY SCHWARTZ ([id number]) [facility] ([facility]) [address] [place] [address] Bilirubin (U) [Mass/Vol] Negative Normal NEGATIVE [facility] Comment on above: Order Comment: OVER is reported when the result is greater than the clinically reportable range. Performed By: #### 4 537-7 #### RILEY SCHWARTZ ([id number]) [facility] ([facility]) [address] [place] [address] Color (U) Yellow Normal Light-Yellow , Yellow, Dark-Yellow [facility] Comment on above: Order Comment: OVER is reported when the result is greater than the clinically reportable range. Performed By: #### 4 537-7 #### RILEY SCHWARTZ ([id number]) [facility] ([facility]) [address] [place] [address] Glucose Auto test strip (U) [Mass/Vol] Normal Normal Normal [facility] Comment on above: Order Comment: OVER is reported when the result is greater than the clinically reportable range. Performed By: #### 4 537-7 #### RILEY SCHWARTZ ([id number]) [facility] ([facility]) [address] [place] [address] Ketones (U) [Mass/Vol] OVER (4+) Abnormal NEGATIVE [facility] Comment on above: Order Comment: OVER is reported when the result is greater than the clinically reportable range. Performed By: #### 4 537-7 #### RILEY SCHWARTZ ([id number]) [facility] ([facility]) [address] [place], [place] [address] Leukocyte esterase Auto test strip Ql (U) 250 Kalee/uL Abnormal NEGATIVE [facility] Comment on above: Order Comment: OVER is reported when the result is greater than the clinically reportable range. Performed By: #### 4 537-7 #### RILEY SCHWARTZ ([id number]) [facility] ([facility]) [address] [place] [address] 42150 Nitrite Auto test strip Ql (U) Negative Normal NEGATIVE [facility] Comment on above: Order Comment: OVER is reported when the result is greater than the clinically reportable range. Performed By: #### 4 537-7 #### RILEY SCHWARTZ ([id number]) [facility] ([facility]) [address] [place] [address] 31899 pH (U) 6.0 [pH] Normal 5.0, 5.5, 6.0, 6.5, 7.0, 7.5, 8.0 [facility] Comment on above: Order Comment: OVER is reported when the result is greater than the clinically reportable range. Performed By: #### 4 537-7 #### RILEY SCHWARTZ ([id number]) [facility] ([facility]) [address] [place] [address] Protein (U) [Mass/Vol] 30 (1+) Abnormal NEGAT KELLEY, 10 (TRACE), 20 (TRACE) [facility] Comment on above: Order Comment: OVER is reported when the result is greater than the clinically reportable range. Performed By: #### 4 537-7 #### RILEY SCHWARTZ ([id number]) [facility] ([facility]) [address] [place] [address] RBC (U) [#/Vol] 0.2 (2+) Abnormal NEGATIVE [facility] Comment on above: Order Comment: OVER is reported when the result is greater than the clinically reportable range. Performed By: #### 4 537-7 #### RILEY SCHWARTZ ([id number]) [facility] ([facility]) [address] [place] [address] Specific gravity (U) [Rel density] 1.033 Normal 1.005-1.035 [facility] Comment on above: Order Comment: OVER is reported when the result is greater than the clinically reportable range. Performed By: #### 4 537-7 #### RILEY SCHWARTZ ([id number]) [facility] ([facility]) [address] [place], [place] [address] Urobilinogen (U) [Mass/Vol] 3 (1+) Abnormal Normal [facility] Comment on above: Order Comment: OVER is reported when the result is greater than the clinically reportable range. Result Comment: Some pigments and medications may cause a false positive urobilinogen. Performed By: #### 4 537-7 #### RILEY SCHWARTZ ([id number]) [facility]) [facility] [place] [address] Urinalysis microscopic panel Auto Ql (U)on 01-06-2025 Bacteria Auto (Urine sed) [#/Area] 1+ Abnormal NONE SEEN /HPF [facility] Epithelial cells.squamous Auto (Urine sed) [#/Area] 10-25 (FEW) Reference range not established. /HPF [facility] Mucus Auto (Urine sed) [#/Area] FEW Reference range not established. /LPF [facility] RBC Auto (Urine sed) [#/Area] 3-5 NONE, 1-2, 3-5 /HPF [facility] WBC Auto (Urine sed) [#/Area] 11-20 Abnormal 1-5, NONE /HPF [facility] Bacteria Auto (Urine sed) [#/Area] 1+ /HPF Abnormal NONE SEEN [facility] Comment on above: Performed By: #### 4 537-7 #### RILEY SCHWARTZ ([id number]) [facility] ([facility]) [address] [place] [address] Epithelial cells.squamous Auto (Urine sed) [#/Area] 10-25 (FEW) Normal Reference range not established. [facility] Comment on above: Performed By: #### 4 537-7 #### RILEY SCHWARTZ ([id number]) [facility]) [address] [place] [address] Mucus Auto (Urine sed) [#/Area] FEW Normal Reference range not established. [facility] Comment on above: Performed By: #### 4 537-7 #### RILEY SCHWARTZ ([id number]) [facility]) [address] [place] [address] RBC Auto (Urine sed) [#/Area] 3-5 Normal NONE, 1-2, 3-5 [facility] Comment on above: Performed By: #### 4 537-7 #### RILEY SCHWARTZ ([id number]) [facility]) [address] [place] [address] WBC Auto (Urine sed) [#/Area] 11-20 Abnormal 1-5, NONE [facility] Comment on above: Performed By: #### 4 537-7 #### LIN EFREN ([id number]) [facility]) [address] [place] [address] XR CHEST 1 VIEWon 01-06-2025 XR CHEST 1 VIEW Interpreted By: Constantin Falcon, STUDY: XR CHEST 1 VIEW; 01/06/2025 9:25 pm INDICATION: Signs/Symptoms:chest pain/abd pain. COMPARISON: None. ACCESSION NUMBER(S): [id number] ORDERING CLINICIAN: ANALY JAVIER FINDINGS: AP radiograph of the chest was provided. CARDIOMEDIASTINAL SILHOUETTE: Cardiomediastinal silhouette is normal in size and configuration. LUNGS: Lungs are clear. ABDOMEN: No remarkable upper abdominal findings. BONES: No acute osseous changes. IMPRESSION: 1. No evidence of acute cardiopulmonary process. MACRO: None Signed by: Constantin Falcon 01/06/2025 9:43 PM Dictation workstation: [id number] Normal [facility] XR Chest Single viewon 01-06 1. No evidence of ac [place] cardiopulmonary process. MACRO: None Signed by: Constantin Falcon 01/06/2025 9:43 PM Dictation workstation: [id number] MMODAL Interpreted By: Constantin Falcon, STUDY: XR CHEST 1 VIEW; 01/06/2025 9:25 pm INDICATION: Signs/Symptoms:chest pain/abd pain. COMPARISON: None. ACCESSION NUMBER(S): [id number] ORDERING CLINICIAN: ANALY JAVIER FINDINGS: AP radiograph of the chest was provided. CARDIOMEDIASTINAL SILHOUETTE: Cardiomediastinal silhouette is normal in size and configuration. LUNGS: Lungs are clear. ABDOMEN: No remarkable upper abdominal findings. BONES: No acute osseous changes. [facility] MMODAL Constantin Falcon , DO - 01/06/2025 Interpreted By: Constantin Falcon, STUDY: XR CHEST 1 VIEW; 01/06/2025 9:25 pm INDICATION: Signs/Symptoms:chest pain/abd pain. COMPARISON: None. ACCESSION NUMBER(S): [id number] ORDERING CLINICIAN: ANALY JAVIER FINDINGS: AP radiograph of the chest was provided. CARDIOMEDIASTINAL SILHOUETTE: Cardiomediastinal silhouette is normal in size and configuration. LUNGS: Lungs are clear. ABDOMEN: No remarkable upper abdominal findings. BONES: No acute osseous changes. IMPRESSION: 1. No evidence of acute cardiopulmonary process. MACRO: None Signed by: Constantin Falcon 01/06/2025 9:43 PM Dictation workstation: [id number] [facility] Work Phone: Radiology Study observation (narrative) [facility] Work Phone: XR Chest Single viewOrdered By: Constantin Falcon on 01-06-2025 [facility] Work Phone: Abdomen/Pelvis W IV Cont ONL Yon 01-05-2025 Abdomen/Pelvis W IV Cont ONLY [facility] Imaging Services [address] [place] [address] [id number] Abdomen/Pelvis W IV Cont ONLY MR#: [id number] Acct: [id number] Name: YVETTE WADE Rep #: [id number] : 2000 F 24 From: Guy Ely MD PCP: FATIMAH Corbett Status: REG ER Study: Abdomen/Pelvis W IV Cont ONLY Date of Exam: Exam# [id number] Ordering Dr: Raza Camacho DO PROCEDURE: ABDOMEN/PELVIS W IV CONT ONLY 01/05/2025 REASON FOR EXAM: ABDOMINAL PAIN TECHNIQUE: ABDOMEN/PELVIS W IV CONT ONLY Coronal and Sagittal reconstruction series were provided. CONTRAST: Isovue 370 VOLUME: 100 mL One or more dose reduction techniques were used (e.g., Automated exposure control, adjustment of the mA and/or kV according to patient size, use of iterative reconstruction technique. RADIATION DOSE SUMMARY: CTDlvol: 35.99 mGy DLP: 1080.30 mGycm COMPARISON: 2019 FINDINGS: Lung bases: Clear Liver: Normal size. No suspicious mass there is subtle hypoattenuation along the falciform ligament which I suspect is simply developmental Gallbladder: Surgically absent. Spleen: Normal size. Pancreas: Normal size without evidence of mass surrounding inflammation or ductal dilation. Adrenals: Unremarkable Kidneys: No obstructive uropathy or suspicious solid renal lesion. Bladder: Unremarkable Reproductive Organs: IUD noted within the uterus. Physiologic ovarian cysts are noted, no suspicious enlarged cystic mass or free fluid in the pelvis Bowel: Although the bowel loops are not distended with oral contrast, there is some evidence of submucosal thickening in the transverse and descending colon suggestive of a diffuse colitis. No pericolonic inflammatory stranding, evidence of abscess or perforation. Appendix: Normal appendix seen on coronal recon images 52 through 55. Lymph nodes: No suspicious enlarged mesenteric or retroperitoneal lymph nodes Vasculature: Normal Peritoneum / Retroperitoneum: No free fluid or air Bones: Normal CT/Abdomen/Pelvis W IV Cont ONLY IMPRESSION: Submucosal thickening and edema noted in the majority of the colon suggesting a diffuse colitis.. This is likely infectious or inflammatory and can be seen with Crohn's or ulcerative colitis. No pericolonic inflammatory stranding, no perforation or abscess. These changes were not seen on the previous study of 2019 No free intraperitoneal fluid, air, or suspicious adenopathy, normal appendix visualized IUD noted in the uterus, there are physiologic ovarian cysts present, no suspicious enlarged cystic mass or free fluid in the pelvis Reading Location: [facility] CC: Dr. Raza Camacho, DO; FATIMAH Corbett [employer] [place] Type: Signed Normal [facility] Absolute lymphocyte countOrd ered By: Raza Camacho on 01-05-2025 Lymphocytes Auto (Unsp spec) [#/Vol] 3.36 10*3/uL 0.83-4.51 [facility] Absolute neutrophil countOrd ered By: Raza Camacho on 01-05-2025 Neutrophils (Bld) [#/Vol] 12.7 10*3/uL High 2.0-7.7 [facility] Amorphous sediment detection in urine sediment by light microscopyOrdered By: Raza Camacho on 01-05-2025 Amorphous sediment LM Ql (Urine sed) 2+ PHOS [facility] Anion gap in Serum or Plasma Ordered By: Raza Camacho on 01-05-2025 Anion gap [Moles/Vol] 15 mmol/L 5-15 [facility] Automated lymphocyte count a s percentage of total leukocytesOrdered By: Raza Camacho on 01-05-2025 Lymphocytes/100 WBC Auto (Unsp spec) 18.4 % Low 19-41 [facility] BUN/creatinine ratioOrdered By: Raza Camacho on 01-05-2025 Urea nitrogen/Creatinine [Mass ratio] 12.2 mg/mg 10-20 [facility] Basophil percentageOrdered B y: Raza Camacho on 01-05-2025 Basophils/100 WBC (Bld) 0.4 % 0-1 [facility] Bilirubin Test strip Ql (U)O rdered By: Raza Camacho on 01-05-2025 Bilirubin Ql (U) Negative Negative [facility] Bilirubin, totalOrdered By: Raza Camacho on 01-05-2025 Bilirubin [Mass/Vol] 0.36 mg/dL 0.00-1.30 [facility] CBC W/Diff, Automatedon 12-13 Absolute Lymph 3.36 X10 3/uL Normal 0.83-4.51 [facility] Comment on above: Performed By: #### L 501.2450, L500.4050, L100.0100, L700.6800 #### [facility] [address] [place], [address] Absolute Neut 12.7 X10 3/uL High 2.0-7.7 [facility] Comment on above: Performed By: #### L 501.2450, L500.4050, L100.0100, L700.6800 #### [facility] [address] [place], [address] Basophils/100 WBC (Bld) 0.4 % Normal 0-1 [facility] Comment on above: Performed By: #### L 501.2450, L500.4050, L100.0100, L700.6800 #### [facility] [address] [place], [address] Eosinophils/100 WBC (Bld) 3.1 % Normal 0-5 [facility] Comment on above: Performed By: #### L 501.2450, L500.4050, L100.0100, L700.6800 #### [facility] [address] [place], [address] Erythrocyte distribution width (RBC) [Ratio] 13.7 % Normal 11.6-14.6 [facility] Comment on above: Performed By: #### L 501.2450, L500.4050, L100.0100, L700.6800 #### [facility] [address] [place], [address] Hematocrit (Bld) [Volume fraction] 42.7 % Normal 37-47 [facility] Comment on above: Performed By: #### L 501.2450, L500.4050, L100.0100, L700.6800 #### [facility] [address] [place], [address] Hemoglobin (Bld) [Mass/Vol] 14.1 g/dL Normal 12.0-15.0 [facility] Comment on above: Performed By: #### L 501.2450, L500.4050, L100.0100, L700.6800 #### [facility] [address] [place], [address] IG% 0.500 Normal 0.0-0.9 [facility] Comment on above: Result Comment: IG% - Immature Granulocytes (promyelocytes, myelocytes and metamyelocytes) > 1% indicates that a LEFT SHIFT is Present. Performed By: #### L 501.2450, L500.4050, L100.0100, L700.6800 #### [facility] [address] [place], [address] Lymphocytes/100 WBC (Bld) 18.4 % Low 19-41 [facility] Comment on above: Performed By: #### L 501.2450, L500.4050, L100.0100, L700.6800 #### [facility] [address] [place], [address] MCH (RBC) [Entitic mass] 28.2 pg Normal 27.0-32.0 [facility] Comment on above: Performed By: #### L 501.2450, L500.4050, L100.0100, L700.6800 #### [facility] [address] [place], [address] MCHC (RBC) [Mass/Vol] 33.0 g/dL Normal 32-36 [facility] Comment on above: Performed By: #### L 501.2450, L500.4050, L100.0100, L700.6800 #### [facility] [address] [place], [address] MCV (RBC) [Entitic vol] 85.4 fL Normal 81-99 [facility] Comment on above: Performed By: #### L 501.2450, L500.4050, L100.0100, L700.6800 #### [facility] [address] [place], [address] Monocytes/100 WBC (Bld) 8.0 % Normal 0-10 [facility] Comment on above: Performed By: #### L 501.2450, L500.4050, L100.0100, L700.6800 #### [facility] [address] [place], [address] Neutrophils/100 WBC (Bld) 69.6 % Normal 47-70 [facility] Comment on above: Performed By: #### L 501.2450, L500.4050, L100.0100, L700.6800 #### [facility] [address] [place], [address] Nucleated RBC (Bld) [#/Vol] 0 10*3/uL Normal 0-5 [facility] Comment on above: Performed By: #### L 501.2450, L500.4050, L100.0100, L700.6800 #### [facility] [address] [place], [address] Platelet mean volume (Bld) [Entitic vol] 9.4 fL Normal 6.2-12.0 [facility] Comment on above: Performed By: #### L 501.2450, L500.4050, L100.0100, L700.6800 #### [facility] [address] [place], [address] Platelets (Bld) [#/Vol] 529 10*3/uL High 150-450 [facility] Comment on above: Performed By: #### L 501.2450, L500.4050, L100.0100, L700.6800 #### [facility] [address] [place], [address] RBC (Bld) [#/Vol] 5.00 10*6/uL Normal 4.2-5.4 [facility] Comment on above: Performed By: #### L 501.2450, L500.4050, L100.0100, L700.6800 #### [facility] [address] [place], [address] RDW SD 42.5 fl Normal 35.1-43.9 [facility] Comment on above: Performed By: #### L 501.2450, L500.4050, L100.0100, L700.6800 #### [facility] [address] [place], [address] WBC (Bld) [#/Vol] 18.2 10*3/uL High 4.4-11.0 [facility] Comment on above: Performed By: #### L 501.2450, L500.4050, L100.0100, L700.6800 #### [facility] [address] [place], [address] Carbon dioxide, total [Moles /volume] in Central venous bloodOrdered By: Raza Camacho on 01-05-2025 CO2 [Moles/Vol] 22.2 mmol/L 21.0-32.0 [facility] Chloride assayOrdered By: Huang Camacho on 01-05-2025 Chloride [Moles/Vol] 103 mmol/L 98-108 [facility] Comprehensive Metabolic Prof ilon 01-05-2025 Albumin [Mass/Vol] 4.5 g/dL Normal 3.5-5.0 [facility] Comment on above: Performed By: #### L 501.2450, L500.4050, L100.0100, L700.6800 #### [facility] [address] [place], [address] Albumin/Globulin [Mass ratio] 1.5 {ratio} Normal 0.9-2.4 [facility] Comment on above: Performed By: #### L 501.2450, L500.4050, L100.0100, L700.6800 #### [facility] [address] [place], [address] ALK PHOS 73 U/L Normal 35-104 [facility] Comment on above: Performed By: #### L 501.2450, L500.4050, L100.0100, L700.6800 #### [facility] [address] [place], [address] ALT [Catalytic activity/Vol] 38 U/L High <=34 [facility] Comment on above: Performed By: #### L 501.2450, L500.4050, L100.0100, L700.6800 #### [facility] [address] [place], [address] AST [Catalytic activity/Vol] 26 U/L Normal <=31 [facility] Comment on above: Performed By: #### L 501.2450, L500.4050, L100.0100, L700.6800 #### [facility] [address] [place], [address] Bilirubin [Mass/Vol] 0.36 mg/dL Normal 0.00-1.30 [facility] Comment on above: Performed By: #### L 501.2450, L500.4050, L100.0100, L700.6800 #### [facility] [address] [place], [address] BUN/CRE 12.2 RATIO Normal 10-20 [facility] Comment on above: Performed By: #### L 501.2450, L500.4050, L100.0100, L700.6800 #### [facility] [address] [place], [address] Calcium [Mass/Vol] 9.7 mg/dL Normal 7.6-11.0 [facility] Comment on above: Performed By: #### L 501.2450, L500.4050, L100.0100, L700.6800 #### [facility] [address] [place], [address] Chloride [Moles/Vol] 103 mmol/L Normal 98-108 [facility] Comment on above: Performed By: #### L 501.2450, L500.4050, L100.0100, L700.6800 #### [facility] [address] [place], [address] CO2 [Moles/Vol] 22.2 mmol/L Normal 21.0-32.0 [facility] Comment on above: Performed By: #### L 501.2450, L500.4050, L100.0100, L700.6800 #### [facility] [address] [place], [address] Creatinine [Mass/Vol] 0.69 mg/dL Low 0.70-1.20 [facility] Comment on above: Performed By: #### L 501.2450, L500.4050, L100.0100, L700.6800 #### [facility] [address] [place], [address] ECRCL 130.16 ml/min Normal 50-250 [facility] Comment on above: Performed By: #### L 501.2450, L500.4050, L100.0100, L700.6800 #### [facility] [address] [place], [address] GAP 15 Normal 5-15 [facility] Comment on above: Performed By: #### L 501.2450, L500.4050, L100.0100, L700.6800 #### [facility] [address] [place], [address] GFR/1.73 sq M.predicted among non-blacks MDRD (S/P/Bld) [Vol rate/Area] 125 mL/min/{1.73_m2} Normal >60 [facility] Comment on above: Result Comment: mL/m in/1.73m2 CKD-EPI Creatinine Equation (2020) Performed By: #### L 501.2450, L500.4050, L100.0100, L700.6800 #### [facility] [address] [place], [address] Globulin (S) [Mass/Vol] 3.0 g/dL Normal 2.2-4.2 [facility] Comment on above: Performed By: #### L 501.2450, L500.4050, L100.0100, L700.6800 #### [facility] [address] [place], [address] Glucose [Mass/Vol] 103 mg/dL High 70-99 [facility] Comment on above: Performed By: #### L 501.2450, L500.4050, L100.0100, L700.6800 #### [facility] [address] [place], [address] Potassium [Moles/Vol] 4.1 mmol/L Normal 3.3-5.1 [facility] Comment on above: Performed By: #### L 501.2450, L500.4050, L100.0100, L700.6800 #### [facility] [address] [place], [address] Sodium [Moles/Vol] 140 mmol/L Normal 133-145 [facility] Comment on above: Performed By: #### L 501.2450, L500.4050, L100.0100, L700.6800 #### [facility] [address] [place], [address] T PROT 7.6 g/dL Normal 5.9-8.4 [facility] Comment on above: Performed By: #### L 501.2450, L500.4050, L100.0100, L700.6800 #### [facility] [address] [place], [address] Urea nitrogen [Mass/Vol] 8 mg/dL Normal 4-19 [facility] Comment on above: Performed By: #### L 501.2450, L500.4050, L100.0100, L700.6800 #### [facility] [address] [place], [address] Emergency Department Summary on 01-05-2025 Emergency Department Summary [facility] Medical Records Department [address] [place] [address] Emergency Department Summary 01/05/25 MR#: [id number] Acct: [id number] Name: MAUROYVETTE HINKLEYLEIGH Rep #: [id number] : 2000 24 From: Raza Camacho DO PCP: FATIMAH Corbett Status:DEP ER Location: ED HPI HPI - GI History of Present Illness Chief Complaint: Nausea/Vomiting Informant: patient Abdominal Pain/Flank Pain Onset: Today Context: Sudden Onset Timing: Continuous Quality: Cramping Location: Epigastric Worsened by: Food Relieved by: Nothing Nausea/Vomiting/Emesis GI Symptom: Positive for Nausea and Vomiting Quality: Positive for Nonbilious; Negative for Blood streaks, Coffee ground or Hematemesis Diarrhea/Melena/Hematoc hezia GI Symptom: Positive for Diarrhea; Negative for Melena or Hematochezia Associated Symptoms Associated Symptoms: Negative for Dysuria, Frequency or Hematuria LMP: 2 weeks ago Narrative Narrative: Patient presents with abdominal pain, nausea, vomiting, and diarrhea that began this morning. Patient states began rather suddenly this morning. Patient states it has been constant. Patient describes her pain as cramping. Patient states it is over the epigastric area. Patient states her pain radiates up into her chest. Patient states it is worse with eating or drinking anything. Patient states nothing makes it better. Patient denies any hematemesis or coffee-ground emesis. Patient admits to some diarrhea but denies any melena or hematochezia. Patient denies any dysuria, frequency, or hematuria. Patient states her last menstrual period was 2 weeks ago. Patient has a history of cholecystectomy. [facility] Medical History Hypercholesteremia Thrombocytosis Low vitamin B12 level Depression Abdominal pain Gallbladder polyp Peptic ulcer MONET (generalized anxiety disorder) GERD (gastroesophageal reflux disease) Home Medications ???Medication ???Instructions ???Recorded ???Last Taken ???Type citalopram 20 mg tablet (Celexa) 20 mg PO QDAY 09/18/24 01/04/25 Hi story Held on 12/01/24. Instructions: PHARMACY ISSUE omeprazole 20 mg capsule,delayed 20 mg PO QDAY 09/18/24 01/04/25 Hi story release Held on 12/01/24. Instructions: PHARMACY ISSUE scopolamine base 1 mg over 3 days 1 patch transdermal Q72H 30 days 12/19/24 01/05/25 Rx transdermal patch #10 ea amoxicillin 875 mg-potassium 875 mg PO Q12H #20 TABLETS 5 Unknown Rx clavulanate 125 mg tablet cetirizine 10 mg tablet (24Hour 10 mg PO DAILY PRN allergy symptom s 01/05/25 01/04/25 History Allergy) diphenhydramine HCl 25 mg capsule 50 mg PO Q8H PRN nausea and 01/0501/05/25 History (Aler-Cap) vomiting ferrous sulfate 325 mg (65 mg 325 mg PO QDAY SUPPLEMENT 01/05/25 01/04/25 History iron) tablet (FeroSul) Allergy/AdvReac Type Severity Reaction Status Date / Time peanut (peanuts) Allergy Anaphylaxis Verified 01/05/25 08:25 Family History Mother Cholelithiasis Father Heart disease Hypertension Grandfather Rectal cancer Colon cancer Grandmother Colon cancer Surgical History H/O adenoidectomy Hx laparoscopic cholecystectomy Social History Smoking Status: Current every day smoker tobacco type: e-cigarettes alcohol intake: current alcohol intake frequency: holidays/special occasions only Alcohol type: wine ROS ROS ED Constitutional Constitutional ED: Reports chills, fever(s) and subjective Eyes Eyes: Denies blurry vision or change in vision ENT ENT ED: Reports rhinorrhea and sore throat Cardiovascular Cardiovascular: Reports chest pain; Denies palpitations Respiratory/Chest Respiratory/Chest: Reports cough; Denies dyspnea Gastrointestinal Gastrointestinal: Reports abdominal pain, diarrhea, nausea and vomiting Genitourinary Genitourinary ED: Denies dysuria or hematuria Musculoskeletal Musculoskeletal: Denies back pain or neck pain Integumentary Denies abscess or rash Neurologic Neurologic: Reports headache(s); Denies weakness Allergic/Immunologic Allergic/Immunologic ED: Denies mouth swelling or urticaria EXAM Physical Exam Const Vital Signs: 01/05/25 08:25 01/05/25 10:25 Temperature 97.6 F L Temperature Source Temporal Pulse Rate 53 L 59 L Respiratory Rate 16 Blood Pressure 134/62 H Blood Pressure Mean 86 Pulse Ox 97 96 Oxygen Delivery Method Room Air Positive well nourished and well developed General Appearance ED: well developed and NAD HEENT Reports moist mucous membranes Neck supple and no JVD Resp normal respiratory eff (more content not included)... Normal [facility] Eosinophil percentageOrdered By: Raza Camacho on 01-05-2025 Eosinophils/100 WBC (Bld) 3.1 % 0-5 [facility] Erythrocyte distribution wid th ratioOrdered By: Raza Camacho on 01-05-2025 Erythrocyte distribution width (RBC) [Ratio] 13.7 % 11.6-14.6 [facility] Erythrocyte distribution wid th standard deviationOrdered By: Raza Camacho on 01-05-2025 Erythrocyte distribution width (RBC) [Ratio] 42.5 fl 35.1-43.9 [facility] Glomerular filtration rate ( GFR) estimation/1.73 sq m using serum, plasma, or whole bOrdered By: Raza Camacho on 01-05-2025 GFR/1.73 sq M.predicted among non-blacks MDRD (S/P/Bld) [Vol rate/Area] 125 mL/min/{1.73_m2} >60 [facility] Comment on above: mL/min/1.73m2 CKD-EP I Creatinine Equation (2020) Hematocrit Auto (Bld) [Volum e fraction]Ordered By: Raza Camacho on 01-05-2025 Hematocrit (Bld) [Volume fraction] 42.7 % 37-47 [facility] Hemoglobin measurementOrdere d By: Raza Camacho on 01-05-2025 Hemoglobin (Bld) [Mass/Vol] 14.1 g/dL 12.0-15.0 [facility] Immature granulocytes/100 WB C Auto (Bld)Ordered By: Raza Camacho on 01-05-2025 Immature granulocytes/100 WBC (Bld) 0.500 % 0.0-0.9 [facility] Comment on above: IG% - Immature Granu locytes (promyelocytes, myelocytes and metamyelocytes) > 1% indicates that a LEFT SHIFT is Present. Ketones Test strip Ql (U)Ord ered By: Raza Camacho on 01-05-2025 Ketones Ql (U) Negative Negative [facility] - Chemistry and C hemistry - challengeOrdered By: Raza Camacho on 01-05-2025 AST [Catalytic activity/Vol] 26 U/L <32 [facility] Lipaseon 01-05-2025 Lipase [Catalytic activity/Vol] 23 U/L Normal 13-75 [facility] Comment on above: Result Comment: Jada cedillo note: LIPASE revised reference range effective 22. New Lipase methodology. Expected to produce lower values than the previous assay method. NEW Reference Range: 13 - 75 U/L Performed By: #### L 501.2450, L500.4050, L100.0100, L700.6800 #### [facility] [address] [place], [address] Lipase measurementOrdered By : Raza Camacho on 01-05-2025 Lipase [Catalytic activity/Vol] 23 U/L 13-75 [facility] Comment on above: Please note:LIPASE r evised reference range effective 22. New Lipase methodology. Expected to produce lower values than the previous assay method. NEW Reference Range: 13 - 75 U/L MCV (mean corpuscular volume ) determinationOrdered By: Raza Camacho on 01-05-2025 MCV (RBC) [Entitic vol] 85.4 fL 81-99 [facility] Mean corpuscular hemoglobin (MCH) determinationOrdered By: Raza Camacho on 01-05-2025 MCH (RBC) [Entitic mass] 28.2 pg 27.0-32.0 [facility] Mean corpuscular hemoglobin concentration (MCHC) determinationOrdered By: Raza Camacho on 01-05-2025 MCHC (RBC) [Mass/Vol] 33.0 g/dL 32-36 [facility] Mean platelet volume determi nationOrdered By: Raza Camacho on 01-05-2025 Platelet mean volume (Bld) [Entitic vol] 9.4 fL 6.2-12.0 [facility] Microscopic analysis of urin e for red blood cells (RBC)Ordered By: Raza Camacho on 01-05-2025 Microscopic analysis of urine for red blood cells (RBC) 0-5 SEEN /hpf 0-5 [facility] Monocyte percentageOrdered B y: Raza Camacho on 01-05-2025 Monocytes/100 WBC (Bld) 8.0 % 0-10 [facility] Mucus LM Ql (Urine sed)Order ed By: Raza Camacho on 01-05-2025 Mucus Ql (Urine sed) 0 SEEN /hpf [facility] Neutrophil percentageOrdered By: Raza Camacho on 01-05-2025 Neutrophils/100 WBC (Bld) 69.6 % 47-70 [facility] Nitrite Test strip Ql (U)Ord ered By: Raza Camacho on 01-05-2025 Nitrite Ql (U) Negative Negative [facility] Nucleated red blood cell per centageOrdered By: Raza Camacho on 01-05-2025 Nucleated RBC/100 WBC (Bld) [Ratio] 0 % 0-5 [facility] Platelet countOrdered By: Huang Camacho on 01-05-2025 Platelets (Bld) [#/Vol] 529 10*3/uL High 150-450 [facility] Potassium measurement (mass/ volume)Ordered By: Raza Camacho on 01-05-2025 Potassium (Unsp spec) [Mass/Vol] 4.1 mmol/L 3.3-5.1 [facility] ,Serum,hCG Quali.on 01-05-2025 HCG, SERUM QUAL Negative Normal [facility] Comment on above: Performed By: #### L 501.2450, L500.4050, L100.0100, L700.6800 #### [facility] [address] [place] [address], [address] Protein Test strip Ql (U)Ord ered By: Raza Camacho on 01-05-2025 Protein Ql (U) 15 mg/dl High Negative [facility] RBC Auto (Bld) [#/Vol]Ordere d By: Raza Camacho on 01-05-2025 RBC (Bld) [#/Vol] 5.00 10*6/uL 4.2-5.4 [facility] Serum beta-hCG test, qualita tiveOrdered By: Raza Camacho on 01-05-2025 Beta HCG ( test) Ql Negative [facility] Serum creatinine measurement (mass/volume)Ordered By: Raza Camacho on 01-05-2025 Creatinine [Mass/Vol] 0.69 mg/dL Low 0.70-1.20 [facility] Serum globulin measurementOr dered By: Raza Camacho on 01-05-2025 Globulin (S) [Mass/Vol] 3.0 g/dL 2.2-4.2 [facility] Serum glucose measurement (m ass/volume)Ordered By: Raza Camacho on 01-05-2025 Glucose [Mass/Vol] 103 mg/dL High 70-99 [facility] Serum or plasma alanine glez otransferase (ALT) measurementOrdered By: Raza Camacho on 01-05-2025 ALT [Catalytic activity/Vol] 38 U/L High <35 [facility] Serum or plasma albumin fatuma urement (mass/volume)Ordered By: Raza Camacho on 01-05-2025 Albumin [Mass/Vol] 4.5 g/dL 3.5-5.0 [facility] Serum or plasma albumin/glob ulin mass ratioOrdered By: Raza Camacho on 01-05-2025 Albumin/Globulin [Mass ratio] 1.5 {ratio} 0.9-2.4 [facility] Serum or plasma alkaline adeline sphatase measurementOrdered By: Raza Camacho on 01-05-2025 ALP [Catalytic activity/Vol] 73 U/L 35-104 [facility] Serum or plasma calcium fatuma urement (mass/volume)Ordered By: Raza Camacho on 01-05-2025 Calcium [Mass/Vol] 9.7 mg/dL 7.6-11.0 [facility] Serum or plasma urea nitroge n measurement (mass/volume)Ordered By: Raza Camacho on 01-05-2025 Urea nitrogen [Mass/Vol] 8 mg/dL 4-19 [facility] Sodium levelOrdered By: Raza Camacho on 01-05-2025 Sodium [Moles/Vol] 140 mmol/L 133-145 [facility] Squamous epithelial cells de tection in urine sediment by light microscopyOrdered By: Raza Camacho on 01-05-2025 Epithelial cells.squamous LM Ql (Urine sed) 5-10 SEEN /hpf 5-10 [facility] Total proteinOrdered By: Chika Camacho on 01-05-2025 Protein [Mass/Vol] 7.6 g/dL 5.9-8.4 [facility] Urinalysis, Completeon 01-05 AMORPHOUS 2+ PHOS Normal [facility] Comment on above: Order Comment: ADILIA CTOR TO SPECIFY Performed By: #### L 501.2450, L500.4050, L100.0100, L700.6800 #### [facility] [address] [place], [address] EPI,SQUAMOUS 5-10 SEEN Normal 5-10 [facility] Comment on above: Order Comment: ADILIA CTOR TO SPECIFY Performed By: #### L 501.2450, L500.4050, L100.0100, L700.6800 #### [facility] [address] [place], [address] RBC 0-5 SEEN Normal 0-5 [facility] Comment on above: Order Comment: ADILIA CTOR TO SPECIFY Performed By: #### L 501.2450, L500.4050, L100.0100, L700.6800 #### [facility] [address] [place], [address] WBC 0-5 SEEN Normal 0-5 [facility] Comment on above: Order Comment: ADILIA CTOR TO SPECIFY Performed By: #### L 501.2450, L500.4050, L100.0100, L700.6800 #### [facility] [address] [place], [address] BACTERIA 0 SEEN Normal None Seen [facility] Comment on above: Order Comment: ADILIA CTOR TO SPECIFY Performed By: #### L 501.2450, L500.4050, L100.0100, L700.6800 #### [facility] [address] [place], [address] Mucus Ql (Urine sed) 0 SEEN Normal [facility] Comment on above: Order Comment: ADILIA CTOR TO SPECIFY Performed By: #### L 501.2450, L500.4050, L100.0100, L700.6800 #### [facility] [place], [address] Urine clarityOrdered By: Chika Camacho on 01-05-2025 Clarity (U) Sl. Cloudy Clear [facility] Urine color determinationOrd ered By: Raza Camacho on 01-05-2025 Color (U) Yellow Yellow [facility] Urine glucose detectionOrder ed By: Raza Camacho on 01-05-2025 Glucose Ql (U) Normal mg/dl Normal [facility] Urine leukocyte esterase det ection by dipstickOrdered By: Raza Camacho on 01-05-2025 Leukocyte esterase Test strip Ql (U) Negative Negative [facility] Urine pHOrdered By: Raza mcgovern on 01-05-2025 pH (U) 8.0 [pH] 5.0 - 8.0 [facility] Urine sediment bacteria coun t by microscopy (number/high power field)Ordered By: Raza Camacho on 01-05-2025 Bacteria LM.HPF (Urine sed) [#/Area] 0 /[HPF] None Seen [facility] Urine specific gravity measu rementOrdered By: Raza Cmaacho on 01-05-2025 Specific gravity (U) [Rel density] 1.015 1.002-1.030 [facility] Urine urobilinogen measureme ntOrdered By: Raza Camacho on 01-05-2025 Urobilinogen Ql (U) Normal mg/dl Normal [facility] White blood cell (WBC) count Ordered By: Raza Camacho on 01-05-2025 WBC (Bld) [#/Vol] 18.2 10*3/uL High 4.4-11.0 [facility] White blood cell countOrdere d By: Raza Camacho on 01-05-2025 White blood cell count 0-5 SEEN /hpf 0-5 [facility] CBC W Auto Differential pane l (Bld)on 12-23-2024 Basophils (Bld) [#/Vol] 0.05 x10*3/uL Normal 0.00-0.10 [facility] Comment on above: Performed By: #### 5 7021-8 #### RILEY SCHWARTZ ([id number]) [facility] ([facility]) [address] [place] [address] 58323 Basophils/100 WBC (Bld) 0.6 % Normal 0.0-2.0 [facility] Comment on above: Performed By: #### 5 7021-8 #### RILEY SCHWARTZ ([id number]) [facility] ([facility]) [address] [place] [address] 52445 Eosinophils (Bld) [#/Vol] 0.26 x10*3/uL Normal 0.00-0.70 [facility] Comment on above: Performed By: #### 5 7021-8 #### RILEY SCHWARTZ ([id number]) [facility] ([facility]) [address] [place] [address] 64998 Eosinophils/100 WBC (Bld) 2.9 % Normal 0.0-6.0 [facility] Comment on above: Performed By: #### 7021-8 #### RILEY SCHWARTZ ([id number]) [facility] ([facility]) [address] [place] [address] 49708 Erythrocyte distribution width (RBC) [Ratio] 13.4 % Normal 11.5-14.5 [facility] Comment on above: Performed By: #### 5 7021-8 #### RILEY SCHWARTZ ([id number]) [facility] ([facility]) [address] [place] [address] 85283 Hematocrit (Bld) [Volume fraction] 41.4 % Normal 36.0-46.0 [facility] Comment on above: Performed By: #### 5 7021-8 #### RILEY SCHWARTZ ([id number]) [facility] ([facility]) [address] [place] [address] 60390 Hemoglobin (Bld) [Mass/Vol] 13.1 g/dL Normal 12.0-16.0 [facility] Comment on above: Performed By: #### 5 7021-8 #### RILEY SCHWARTZ ([id number]) [facility] ([facility]) [address] [place] [address] 30326 Immature granulocytes (Bld) [#/Vol] 0.08 x10*3/uL Normal 0.00-0.70 [facility] Comment on above: Performed By: #### 5 7021-8 #### RILEY SCHWARTZ ([id number]) [facility] ([facility]) [address] [place] [address] 94506 Immature granulocytes/100 WBC (Bld) 0.9 % Normal 0.0-0.9 [facility] Comment on above: Result Comment: Yeni ture Granulocyte Count (IG) includes promyelocytes, myelocytes and metamyelocytes but does not include bands. Percent differential counts (%) should be interpreted in the context of the absolute cell counts (cells/UL). Performed By: #### 5 7021-8 #### RILEY SCHWARTZ ([id number]) [facility] ([facility]) [address] [place] [address] 17507 Lymphocytes (Bld) [#/Vol] 3.01 x10*3/uL Normal 1.20-4.80 [facility] Comment on above: Performed By: #### 5 7021-8 #### RILEY SCHWARTZ ([id number]) [facility] ([facility]) [address] [place] [address] 92684 Lymphocytes/100 WBC (Bld) 33.7 % Normal 13.0-44.0 [facility] Comment on above: Performed By: #### 5 7021-8 #### RILEY SCHWARTZ ([id number]) [facility] ([facility]) [address] [place] [address] 26112 MCH (RBC) [Entitic mass] 27.8 pg Normal 26.0-34.0 [facility] Comment on above: Performed By: #### 5 7021-8 #### RILEY SCHWARTZ ([id number]) [facility] ([facility]) [address] [place] [address] 93191 MCHC (RBC) [Mass/Vol] 31.6 g/dL Low 32.0-36.0 [facility] Comment on above: Performed By: #### 5 7021-8 #### RILEY SCHWARTZ ([id number]) [facility] ([facility]) [address] [place] [address] 52027 MCV (RBC) [Entitic vol] 88 fL Normal 80-100 [facility] Comment on above: Performed By: #### 5 7021-8 #### RILEY SCHWARTZ ([id number]) [facility] ([facility]) [address] [place] [address] 22381 Monocytes (Bld) [#/Vol] 0.94 x10*3/uL Normal 0.10-1.00 [facility] Comment on above: Performed By: #### 5 7021-8 #### RILEY SCHWARTZ ([id number]) [facility] ([facility]) [address] [place] [address] 71721 Monocytes/100 WBC (Bld) 10.5 % Normal 2.0-10.0 [facility] Comment on above: Performed By: #### 5 7021-8 #### RILEY SCHWARTZ ([id number]) [facility] ([facility]) [address] [place] [address] 26861 Neutrophils (Bld) [#/Vol] 4.59 x10*3/uL Normal 1.20-7.70 [facility] Comment on above: Result Comment: Perc ent differential counts (%) should be interpreted in the context of the absolute cell counts (cells/uL). Performed By: #### 5 7021-8 #### RILEY SCHWARTZ ([id number]) [facility] ([facility]) [address] [place] [address] 07030 Neutrophils/100 WBC (Bld) 51.4 % Normal 40.0-80.0 [facility] Comment on above: Performed By: #### 5 7021-8 #### RILEY SCHWARTZ ([id number]) [facility] ([facility]) [address] [place] [address] 54840 Nucleated RBC/100 WBC (Bld) [Ratio] 0.0 /100 WBCs Normal 0.0-0.0 [facility] Comment on above: Performed By: #### 5 7021-8 #### RILEY SCHWARTZ ([id number]) [facility] ([facility]) [address] [place] [address] 12254 Platelets (Bld) [#/Vol] 561 x10*3/uL High 150-450 [facility] Comment on above: Performed By: #### 5 7021-8 #### RILEY SCHWARTZ ([id number]) [facility] ([facility]) [address] [place], [place] [address] RBC (Bld) [#/Vol] 4.72 x10*6/uL Normal 4.00-5.20 [facility] Comment on above: Performed By: #### 5 7021-8 #### RILEY SCHWARTZ ([id number]) [facility] ([facility]) [address] [place] [address] WBC (Bld) [#/Vol] 8.9 x10*3/uL Normal 4.4-11.3 [facility] Comment on above: Performed By: #### 5 7021-8 #### RILEY SCHWARTZ ([id number]) [facility] ([facility]) [address] [place] [address] Calcidiolon 12-23-2024 25-hydroxyvitamin D3 [Mass/Vol] 35 ng/mL Normal 30-100 [facility] Comment on above: Order Comment: Defic iency: < 20 ng/mlInsufficiency: 20-29 ng/mlSufficiency: 30-100 ng/mlThis assay accurately quantifies the sum of Vitamin D3, 25-Hydroxy and Vitamin D2,25-Hydroxy. Performed By: #### 5 7021-8 #### RILEY SCHWARTZ ([id number]) [facility] ([facility]) [address] [place] [address] Cobalaminson 12-23-2024 Cobalamin (Vitamin B12) [Mass/Vol] 1183 pg/mL High 211-911 [facility] Comment on above: Performed By: #### 5 7021-8 #### RILEY SCHWARTZ ([id number]) [facility] ([facility]) [address] [place] [address] Comprehensive metabolic 2000 panelon 12-23-2024 Albumin BCP dye [Mass/Vol] 4.4 g/dL Normal 3.4-5.0 [facility] Comment on above: Performed By: #### 5 7021-8 #### RILEY SCHWARTZ ([id number]) [facility] ([facility]) [address] [place] [address] ALP [Catalytic activity/Vol] 63 U/L Normal 33-110 [facility] Comment on above: Performed By: #### 5 7021-8 #### RILEY SCHWARTZ ([id number]) [facility] ([facility]) [address] [place] [address] ALT With P-5'-P [Catalytic activity/Vol] 28 U/L Normal 7-45 [facility] Comment on above: Result Comment: Deloris ents treated with Sulfasalazine may generate falsely decreased results for ALT. Performed By: #### 5 7021-8 #### RILEY SCHWARTZ ([id number]) [facility] ([facility]) [address] [place] [address] Anion gap [Moles/Vol] 15 mmol/L Normal 10-20 [facility] Comment on above: Performed By: #### 5 7021-8 #### RILEY SCHWARTZ ([id number]) [facility] ([facility]) [address] [place] [address] AST With P-5'-P [Catalytic activity/Vol] 20 U/L Normal 9-39 [facility] Comment on above: Performed By: #### 5 7021-8 #### RILEY SCHWARTZ ([id number]) [facility] ([facility]) [address] [place] [address] Bilirubin [Mass/Vol] 0.3 mg/dL Normal 0.0-1.2 [facility] Comment on above: Performed By: #### 5 7021-8 #### RILEY SCHWARTZ ([id number]) [facility] ([facility]) [address] [place] [address] Calcium [Mass/Vol] 9.3 mg/dL Normal 8.6-10.3 [facility] Comment on above: Performed By: #### 5 7021-8 #### RILEY SCHWARTZ ([id number]) [facility] ([facility]) [facility] [place] [address] Chloride [Moles/Vol] 102 mmol/L Normal 98-107 [facility] Comment on above: Performed By: #### 5 7021-8 #### RILEY SCHWARTZ ([id number]) [facility] ([facility]) [address] [place] [address] 37778 CO2 [Moles/Vol] 26 mmol/L Normal 21-32 [facility] Comment on above: Performed By: #### 5 7021-8 #### RILEY SCHWARTZ ([id number]) [facility] ([facility]) [address] [place] [address] 96719 Creatinine [Mass/Vol] 0.81 mg/dL Normal 0.50-1.05 [facility] Comment on above: Performed By: #### 5 7021-8 #### RILEY SCHWARTZ ([id number]) [facility] ([facility]) [address] [place] [address] 52357 Glomerular filtration rate >90 Normal >60 [facility] Comment on above: Result Comment: Calc ulations of estimated GFR are performed using the 2020 CKD-EPI Study Refit equation without the race variable for the IDMS-Traceable creatinine methods. https://jasn.asnjournals.org/content/early//ASN.2020 108757 Performed By: #### 5 7021-8 #### RILEY SCHWARTZ ([id number]) [facility] ([facility]) [address] [place] [address] 80815 Glucose [Mass/Vol] 89 mg/dL Normal 74-99 [facility] Comment on above: Performed By: #### 5 7021-8 #### RILEY SCHWARTZ ([id number]) [facility] ([facility]) [address] [place] [address] 24179 Potassium [Moles/Vol] 3.7 mmol/L Normal 3.5-5.3 [facility] Comment on above: Performed By: #### 5 7021-8 #### RILEY SCHWARTZ ([id number]) [facility] ([facility]) [address] [place] [address] 67107 Protein [Mass/Vol] 6.7 g/dL Normal 6.4-8.2 [facility] Comment on above: Performed By: #### 5 7021-8 #### RILEY SCHWARTZ ([id number]) [facility] ([facility]) [address] [place] [address] 00464 Sodium [Moles/Vol] 139 mmol/L Normal 136-145 [facility] Comment on above: Performed By: #### 5 7021-8 #### RILEY SCHWARTZ ([id number]) [facility] ([facility]) [address] [place] [address] 35072 Urea nitrogen [Mass/Vol] 8 mg/dL Normal 6-23 [facility] Comment on above: Performed By: #### 5 7021-8 #### RILEY SCHWARTZ ([id number]) [facility] ([facility]) [address] [place] [address] 50787 Ferritinon 12-23-2024 Ferritin [Mass/Vol] 117 ng/mL Normal 8-150 [facility] Comment on above: Performed By: #### 5 7021-8 #### RILEY SCHWARTZ ([id number]) [facility] ([facility]) [address] [place] [address] 34676 Iron and Iron binding capaci ty panelon 12-23-2024 Iron [Mass/Vol] 22 ug/dL Low 35-150 [facility] Comment on above: Performed By: #### 5 7021-8 #### RILEY SCHWARTZ ([id number]) [facility] ([facility]) [address] [place] [address] 97361 Iron binding capacity [Mass/Vol] 284 ug/dL Normal 240-445 [facility] Comment on above: Performed By: #### 5 7021-8 #### RILEY SCHWARTZ ([id number]) [facility] ([facility]) [address] [place] [address] 82061 Iron binding capacity.unsaturated [Mass/Vol] 262 ug/dL Normal 110-370 [facility] Comment on above: Performed By: #### 5 7021-8 #### RILEY SCHWARTZ ([id number]) [facility] ([facility]) [address] [place], [place] [address] Iron saturation [Mass fraction] 8 % Low 25-45 [facility] Comment on above: Performed By: #### 5 7021-8 #### RILEY SCHWARTZ ([id number]) [facility] ([facility]) [address] [place], [place] [address] Reticulocytes panel (Bld)on 12-23-2024 Hemoglobin (Reticulocytes) [Entitic mass] 30 pg Normal 28-38 [facility] Comment on above: Performed By: #### 5 7021-8 #### RILEY SCHWARTZ ([id number]) [facility] ([facility]) [address] [place] [address] IMMATURE RETIC FRACTION 13.6 % Normal <=16.0 [facility] Comment on above: Result Comment: Reti culocytes are measured based on a fluorescent technique. The IRF, or immature reticulocyte fraction, is the percent of reticulocytes that show medium (MFR) or high (HFR) fluorescence. This value can be used to assess the relative maturity of the reticulocyte population in response to anemia. The shift reticulocytes are not measured by this technique, eliminating the need for their correction in the reticulocyte index. Performed By: #### 5 7021-8 #### RILEY SCHWARTZ ([id number]) [facility] ([facility]) [address] [place] [address] 71357 Reticulocytes (Bld) [#/Vol] 0.064 x10*6/uL Normal 0.018-0.083 [facility] Comment on above: Performed By: #### 5 7021-8 #### RILEY SCHWARTZ ([id number]) [facility] ([facility]) [address] [place] [address] 17875 Reticulocytes/100 RBC (Bld) 1.4 % Normal 0.5-2.0 [facility] Comment on above: Performed By: #### 5 7021-8 #### LIN EFREN ([id number]) [facility] ([facility]) [address] [place] [address] Gastroenterology Visit Repor ton 12-19-2024 Gastroenterology Visit Report [facility] [address] [place] [address] OFFICE VISIT Date of Service: 12/19/24 MR#: [id number] Acct: [id number] Name: YVETTE WADE Rep #: [id number] : 2000 Provider: Denton Taylor DO Age/Sex: 24/F Location: [facility] [place] Status: Signed Intake Vital Signs 12/02/24 08:44 Height 5 ft 2 in Intake Visit Reasons: 3 M FU Allergies peanut (peanuts) Allergy (Verified 12/02/24 08:46) Anaphylaxis Medications ???Medication ???Instructions ???Recorded ???Confirmed ???Type cholecalciferol (vitamin D3) 25 25 mcg PO QDAY 09/18/24 12/19/24 H istory mcg (1,000 unit) capsule citalopram 20 mg tablet (Celexa) 20 mg PO QDAY 09/18/24 12/19/24 Hi story Held on 12/01/24. Instructions: PHARMACY ISSUE fexofenadine 60 mg capsule 60 mg PO Q12H 09/18/24 12/19/24 Hi story mecobalamin (vitamin B12) 1,000 1,000 mcg PO QDAY 09/18/24 5 History mcg chewable tablet omeprazole 20 mg capsule,delayed 20 mg PO QDAY 09/18/24 12/19/24 Hi story release Held on 12/01/24. Instructions: PHARMACY ISSUE ondansetron 4 mg disintegrating 4 mg PO Q8H PRN PRN Nausea #10 tab s 12/01/24 12/19/24 Rx tablet cholestyramine 4 gram oral powder 4 g PO QDAY #239.4 grams 12/19/24 12/19/24 Rx (Cholestyramine Light) scopolamine base 1 mg over 3 days 1 patch transdermal Q72H 30 days 12/19/24 12/19/24 Rx transdermal patch #10 ea PFSH Medical History Hypercholesteremia Thrombocytosis Low vitamin B12 level Depression Abdominal pain Gallbladder polyp Peptic ulcer MONET (generalized anxiety disorder) GERD (gastroesophageal reflux disease) Surgical History H/O adenoidectomy Hx laparoscopic cholecystectomy Family History Mother Cholelithiasis Father Heart disease Hypertension Grandfather Rectal cancer Colon cancer Grandmother Colon cancer Social History Smoking Status: Current every day smoker tobacco type: e-cigarettes alcohol intake: current alcohol intake frequency: holidays/special occasions only Alcohol type: wine HPI HPI Details: YVETTE WADE, is a 24 F who presents to the office today for follow up. *BGI established 5.8.25 PCP referred for abdominal pain. Pt underwent lap cholecystectomy at [facility] 07.30.24 due to a gallbladder polyp. Path report read mild chronic cholecystitis and cholesterol polyp formation. Per referral, pt has hx of bleeding peptic ulcers and is currently taking Omeprazole. Last EGD was performed 02/2024 that showed small area of focal gastritis and a benign gastric polyp. Pt was recently referred to hematology for thrombocytosis. Pt reports intermittent epigastric pain over the last 10 years. States the Omeprazole is somewhat helpful. Denies nausea or vomiting. BM are spondaic and she has occasional diarrhea. GET 5.28.25 WNL OV 8.8.25 pt reports continued symptoms from previous visit. Continues to have occasional diarrhea. Pt continues with Omeprazole; states this is effective for her HB. States she is here to follow up. ROS Const Constitutional: Positive for fatigue, headache(s) and weight change (weight gain); No fever(s) ENT ENT: Positive for headache(s); No difficulty swallowing Gastro GI: Positive for abdominal pain, bloating, constipation, diarrhea, heartburn, excessive flatus, nausea/dyspepsia and vomiting; No belching, change in bowel habits, change in stool character, coffee ground emesis, cramping, difficulty swallowing, feeling full early, incontinent of stools, Vomiting blood/hematemesis, Blood in stool, loose stools, Black,tarry stools, pain with swallowing or other Musc Musculoskeletal: Positive for joint pain, back pain and muscle cramps Skin Skin: No yellowing of the eye or itchy eyes Neuro Neurology: Positive for headache(s) Psych Psychiatric: Positive for anxiety and Positive for depression Endo Endocrine: Positive for fatigue and weight change (weight gain) Aller/Imm Allergy/Immunologic: No itchy eyes Buzz/Lymp Hematologic/Lymphatic: Positive for easy bruising; No easy bleeding Exam Const General: cooperative, healthy appearing, comfortable and no acute distress Nutritional Appearance: well nourished Orientation: oriented x3 HENMT Ears: hearing grossly normal bilaterally Eyes Eyelids: eyelids normal Sclera: sclerae normal Neck Neck: normal visual inspection Chest Chest palpation inspection: normal inspection of the chest Resp Effort Inspection: normal respiratory effort Auscultation: Bilateral: Clear to Auscultation Cardio Rate: regular rate Rhythm: regular rhythm GI (more content not included)... Normal [facility] Anion gap in Serum or Plasma Ordered By: Toby Rodriguez on 12-02-2024 Anion gap [Moles/Vol] 13 mmol/L 09-25 [facility] BUN/creatinine ratioOrdered By: Toby Rodriguez on 12-02-2024 Urea nitrogen/Creatinine [Mass ratio] 12.5 mg/mg 03-02 [facility] Basic Metabolic Profile (BMP )on 12-02-2024 BUN/CRE 12.5 RATIO Normal 03-02 [facility] Comment on above: Performed By: #### L 700.6800, L500.2500 #### [facility] [address] [place], [address] Calcium [Mass/Vol] 9.0 mg/dL Normal 7.6-11.0 [facility] Comment on above: Performed By: #### L 700.6800, L500.2500 #### [facility] [address] [place], [address] Chloride [Moles/Vol] 104 mmol/L Normal 98-108 [facility] Comment on above: Performed By: #### L 700.6800, L500.2500 #### [facility] [address] [place], [address] CO2 [Moles/Vol] 22.8 mmol/L Normal 21.0-32.0 [facility] Comment on above: Performed By: #### L 700.6800, L500.2500 #### [facility] [address] [place], [address] Creatinine [Mass/Vol] 0.79 mg/dL Normal 0.70-1.20 [facility] Comment on above: Performed By: #### L 700.6800, L500.2500 #### [facility] [address] [place], [address] ECRCL 115.91 ml/min Normal 50-250 [facility] Comment on above: Performed By: #### L 700.6800, L500.2500 #### [facility] [address] [place], [address] GAP 13 Normal 5-15 [facility] Comment on above: Performed By: #### L 700.6800, L500.2500 #### [facility] [address] [place], [address] GFR/1.73 sq M.predicted among non-blacks MDRD (S/P/Bld) [Vol rate/Area] 109 mL/min/{1.73_m2} Normal >60 [facility] Comment on above: Result Comment: mL/m in/1.73m2 CKD-EPI Creatinine Equation (2020) Performed By: #### L 700.6800, L500.2500 #### [facility] [address] [place], [address] Glucose [Mass/Vol] 111 mg/dL High 70-99 [facility] Comment on above: Performed By: #### L 700.6800, L500.2500 #### [facility] [address] [place], [address] Potassium [Moles/Vol] 3.7 mmol/L Normal 3.3-5.1 [facility] Comment on above: Performed By: #### L 700.6800, L500.2500 #### [facility] [address] [place], [address] Sodium [Moles/Vol] 139 mmol/L Normal 133-145 [facility] Comment on above: Performed By: #### L 700.6800, L500.2500 #### [facility] [address] [place], [address] Urea nitrogen [Mass/Vol] 10 mg/dL Normal 4-19 [facility] Comment on above: Performed By: #### L 700.6800, L500.2500 #### [facility] [address] [place], [address] Carbon dioxide, total [Moles /volume] in Central venous bloodOrdered By: Toby Rodriguez on 12-02-2024 CO2 [Moles/Vol] 22.8 mmol/L 21.0-32.0 [facility] Chloride assayOrdered By: Laurel Rodriguez on 12-02-2024 Chloride [Moles/Vol] 104 mmol/L 98-108 [facility] Emergency Department Summary on 12-02-2024 Emergency Department Summary [facility] Medical Records Department [address] [place] [address] Emergency Department Summary 12/02/24 MR#: [id number] Acct: [id number] Name: YVETTE WADE Rep #: [id number] : 2000 24 From: Toby Rodriguez MD PCP: FATIMAH Corbett Status:REG ER Location: ED HPI History of Present Illness Chief Complaint: Nausea/Vomiting Detail of Chief Complaint: Nausea and vomiting since discharge from the emergency room Informant: patient Onset/Context/Timing Onset: Yesterday Context: Sudden Onset Timing: Intermittent and Waxes and wanes Quality: Nausea and vomiting Location: GI Current Severity: Mild Maximum Severity: Moderate Worsened by: Thought yesterday was due to new control patch. She also admits to d Relieved by: Initially Zofran. She states the Zofran and ODT tablets she was prescribed Associated Symptoms Associated Symptoms: Thirst, dry mouth, lightheadedness Narrative Narrative: Patient is a 24-year-old female. She was seen yesterday for presumed adverse reaction to medication. She was treated with IV Zofran. Her symptoms resolved. She was discharged home with prescription for Zofran ODT. She states and spite of taking the Zofran she continues to have nausea and vomiting. She has had several episodes in and I heaves as well. Predominantly dry heaves now. She denies tobacco use however she commented I do not smoke cigarettes . Asked if she smokes marijuana. She does smoke marijuana daily. Last use was 2 days ago. She has had no ill contacts. She denies headache, visual, ocular auditory symptoms. She denies cardiac or respiratory symptoms. She does report diffuse abdominal discomfort with nausea and dry heaves. She states she did have diarrhea the other day. She has had no diarrhea since discharge. She endorses decreased urine output as well. She denies dysuria or hematuria. She did not have a test yesterday. She believes her last normal menstrual period was beginning of this month. She has not noted any rash or lesions on her extremities or torso. Prior similar symptoms: Yes Recent Illness/Hospitalization : Yes [facility] Medical History Hypercholesteremia Thrombocytosis Low vitamin B12 level Depression Abdominal pain Gallbladder polyp Peptic ulcer MONET (generalized anxiety disorder) GERD (gastroesophageal reflux disease) Home Medications ???Medication ???Instructions ???Recorded ???Last Taken ???Type cholecalciferol (vitamin D3) 25 25 mcg PO QDAY 09/18/24 11/30/24 H istory mcg (1,000 unit) capsule citalopram 20 mg tablet (Celexa) 20 mg PO QDAY 09/18/24 Unknown His tory Held on 12/01/24. Instructions: PHARMACY ISSUE fexofenadine 60 mg capsule 60 mg PO Q12H 09/18/24 11/30/24 Hi story mecobalamin (vitamin B12) 1,000 1,000 mcg PO QDAY 09/18/24 5 History mcg chewable tablet omeprazole 20 mg capsule,delayed 20 mg PO QDAY 09/18/24 Unknown His tory release Held on 12/01/24. Instructions: PHARMACY ISSUE ondansetron 4 mg disintegrating 4 mg PO Q8H PRN PRN Nausea #10 tab s 12/01/24 Unknown Rx tablet Allergy/AdvReac Type Severity Reaction Status Date / Time peanut (peanuts) Allergy Anaphylaxis Verified 12/02/24 08:46 Family History Mother Cholelithiasis Father Heart disease Hypertension Grandfather Rectal cancer Colon cancer Grandmother Colon cancer Surgical History H/O adenoidectomy Hx laparoscopic cholecystectomy Social History Smoking Status: Current every day smoker tobacco type: e-cigarettes alcohol intake: current alcohol intake frequency: holidays/special occasions only Alcohol type: wine ROS ROS ED Constitutional Constitutional ED: Reports sweats; Denies chills, fever(s) or subjective Eyes Eyes: Denies blurry vision, change in vision or diplopia ENT ENT ED: Denies ear pain, rhinorrhea or sore throat Cardiovascular Cardiovascular: Denies chest pain, orthopnea, palpitations, paroxysmal nocturnal dyspnea or racing heartbeat Respiratory/Chest Respiratory/Chest: Denies cough, dyspnea, dyspnea on exertion, orthopnea or paroxysmal nocturnal dyspnea Gastrointestinal Gastrointestinal: Reports abdominal pain, nausea and vomiting; Denies constipation, diarrhea or melena Genitourinary Genitourinary ED: Reports other Details: Decreased urine output ; Denies dysuria, hematuria or urinary frequency Musculoskeletal Musculoskeletal: Denies arthralgias or myalgias Integumentary Denies rash Neurologic Neurologic: Reports weakness; Denies headache(s) or paresthesias Hematologic/Lymphatic Hematologic/Lymphatic: Reports systems rev (more content not included)... Normal [facility] Glomerular filtration rate ( GFR) estimation/1.73 sq m using serum, plasma, or whole bOrdered By: Toby Rodriguez on 12-02-2024 GFR/1.73 sq M.predicted among non-blacks MDRD (S/P/Bld) [Vol rate/Area] 109 mL/min/{1.73_m2} >60 [facility] Comment on above: mL/min/1.73m2 CKD-EP I Creatinine Equation (2020) Potassium measurement (mass/ volume)Ordered By: Toby Rodriguez on 12-02-2024 Potassium (Unsp spec) [Mass/Vol] 3.7 mmol/L 3.3-5.1 [facility] ,Serum,hCG Quali.on 12-02-2024 HCG, SERUM QUAL Negative Normal [facility] Comment on above: Performed By: #### L 700.6800, L500.2500 #### [facility] [address] [place], [address] Serum beta-hCG test, qualita tiveOrdered By: Toby Rodriguez on 12-02-2024 Beta HCG ( test) Ql Negative [facility] Serum creatinine measurement (mass/volume)Ordered By: Toby Rodriguez on 12-02-2024 Creatinine [Mass/Vol] 0.79 mg/dL 0.70-1.20 [facility] Serum glucose measurement (m ass/volume)Ordered By: Toby Rodriguez on 12-02-2024 Glucose [Mass/Vol] 111 mg/dL High 70-99 [facility] Serum or plasma calcium fatuma urement (mass/volume)Ordered By: Tobyearlene Rodriguez on 12-02-2024 Calcium [Mass/Vol] 9.0 mg/dL 7.6-11.0 [facility] Serum or plasma urea nitroge n measurement (mass/volume)Ordered By: Tobyearlene Rodriguez on 12-02-2024 Urea nitrogen [Mass/Vol] 10 mg/dL 4-19 [facility] Sodium levelOrdered By: Tobyearlene Rodriguez on 12-02-2024 Sodium [Moles/Vol] 139 mmol/L 133-145 [facility] Absolute lymphocyte countOrd ered By: Phillip Richardson on 12-01-2024 Lymphocytes Auto (Unsp spec) [#/Vol] 2.25 10*3/uL 0.83-4.51 [facility] Absolute neutrophil countOrd ered By: Phillip Richardson on 12-01-2024 Neutrophils (Bld) [#/Vol] 8.7 10*3/uL High 2.0-7.7 [facility] Anion gap in Serum or Plasma Ordered By: Phillip Richardson on 12-01-2024 Anion gap [Moles/Vol] 12 mmol/L 5-15 [facility] Automated lymphocyte count a s percentage of total leukocytesOrdered By: Phillip Richardson on 12-01-2024 Lymphocytes/100 WBC Auto (Unsp spec) 18.3 % Low 19- [facility] BUN/creatinine ratioOrdered By: Phillip Richardson on 12-01-2024 Urea nitrogen/Creatinine [Mass ratio] 17.7 mg/mg - [facility] Basic Metabolic Profile (BMP )on 12-01-2024 BUN/CRE 17.7 RATIO Normal - [facility] Comment on above: Performed By: #### L 501.2450, L500.4050, L100.0100, L700.6800 #### [facility] [address] [place], [address] Calcium [Mass/Vol] 9.1 mg/dL Normal 7.6-11.0 [facility] Comment on above: Performed By: #### L 501.2450, L500.4050, L100.0100, L700.6800 #### [facility] [address] [place], [address] Chloride [Moles/Vol] 106 mmol/L Normal 98-108 [facility] Comment on above: Performed By: #### L 501.2450, L500.4050, L100.0100, L700.6800 #### [facility] [address] [place], [address] CO2 [Moles/Vol] 22.2 mmol/L Normal 21.0-32.0 [facility] Comment on above: Performed By: #### L 501.2450, L500.4050, L100.0100, L700.6800 #### [facility] [address] [place], [address] Creatinine [Mass/Vol] 0.67 mg/dL Low 0.70-1.20 [facility] Comment on above: Performed By: #### L 501.2450, L500.4050, L100.0100, L700.6800 #### [facility] [address] [place], [address] ECRCL 137.04 ml/min Normal 50-250 [facility] Comment on above: Performed By: #### L 501.2450, L500.4050, L100.0100, L700.6800 #### [facility] [address] [place], [address] GAP 12 Normal 5-15 [facility] Comment on above: Performed By: #### L 501.2450, L500.4050, L100.0100, L700.6800 #### [facility] [address] [place], [address] GFR/1.73 sq M.predicted among non-blacks MDRD (S/P/Bld) [Vol rate/Area] 126 mL/min/{1.73_m2} Normal >60 [facility] Comment on above: Result Comment: mL/m in/1.73m2 CKD-EPI Creatinine Equation (2020) Performed By: #### L 501.2450, L500.4050, L100.0100, L700.6800 #### [facility] [address] [place], [address] Glucose [Mass/Vol] 115 mg/dL High 70-99 [facility] Comment on above: Performed By: #### L 501.2450, L500.4050, L100.0100, L700.6800 #### [facility] [address] [place], [address] Potassium [Moles/Vol] 3.8 mmol/L Normal 3.3-5.1 [facility] Comment on above: Performed By: #### L 501.2450, L500.4050, L100.0100, L700.6800 #### [facility] [address] [place], [address] Sodium [Moles/Vol] 140 mmol/L Normal 133-145 [facility] Comment on above: Performed By: #### L 501.2450, L500.4050, L100.0100, L700.6800 #### [facility] [address] [place], [address] Urea nitrogen [Mass/Vol] 12 mg/dL Normal 4-19 [facility] Comment on above: Performed By: #### L 501.2450, L500.4050, L100.0100, L700.6800 #### [facility] [address] [place], [address] Basophil percentageOrdered B y: Phillip Richardson on 12-01-2024 Basophils/100 WBC (Bld) 0.7 % 0-1 [facility] CBC W/Diff, Automatedon 11-12 Absolute Lymph 2.25 X10 3/uL Normal 0.83-4.51 [facility] Comment on above: Performed By: #### L 501.2450, L500.4050, L100.0100, L700.6800 #### [facility] [address] [place], [address] Absolute Neut 8.7 X10 3/uL High 2.0-7.7 [facility] Comment on above: Performed By: #### L 501.2450, L500.4050, L100.0100, L700.6800 #### [facility] [address] [place], [address] Basophils/100 WBC (Bld) 0.7 % Normal 0-1 [facility] Comment on above: Performed By: #### L 501.2450, L500.4050, L100.0100, L700.6800 #### [facility] [address] [place], [address] Eosinophils/100 WBC (Bld) 2.2 % Normal 0-5 [facility] Comment on above: Performed By: #### L 501.2450, L500.4050, L100.0100, L700.6800 #### [facility] [address] [place] [place], [address] Erythrocyte distribution width (RBC) [Ratio] 13.8 % Normal 11.6-14.6 [facility] Comment on above: Performed By: #### L 501.2450, L500.4050, L100.0100, L700.6800 #### [facility] [address] [place], [address] Hematocrit (Bld) [Volume fraction] 39.0 % Normal 37-47 [facility] Comment on above: Performed By: #### L 501.2450, L500.4050, L100.0100, L700.6800 #### [facility] [address] [place], [address] Hemoglobin (Bld) [Mass/Vol] 12.6 g/dL Normal 12.0-15.0 [facility] Comment on above: Performed By: #### L 501.2450, L500.4050, L100.0100, L700.6800 #### [facility] [address] [place], [address] IG% 0.700 Normal 0.0-0.9 [facility] Comment on above: Result Comment: IG% - Immature Granulocytes (promyelocytes, myelocytes and metamyelocytes) > 1% indicates that a LEFT SHIFT is Present. Performed By: #### L 501.2450, L500.4050, L100.0100, L700.6800 #### [facility] [address] [place], [address] Lymphocytes/100 WBC (Bld) 18.3 % Low 19-41 [facility] Comment on above: Performed By: #### L 501.2450, L500.4050, L100.0100, L700.6800 #### [facility] [address] [place], [address] MCH (RBC) [Entitic mass] 27.8 pg Normal 27.0-32.0 [facility] Comment on above: Performed By: #### L 501.2450, L500.4050, L100.0100, L700.6800 #### [facility] [address] [place], [address] MCHC (RBC) [Mass/Vol] 32.3 g/dL Normal 32-36 [facility] Comment on above: Performed By: #### L 501.2450, L500.4050, L100.0100, L700.6800 #### [facility] [address] [place], [address] MCV (RBC) [Entitic vol] 86.1 fL Normal 81-99 [facility] Comment on above: Performed By: #### L 501.2450, L500.4050, L100.0100, L700.6800 #### [facility] [address] [place], [address] Monocytes/100 WBC (Bld) 7.1 % Normal 0-10 [facility] Comment on above: Performed By: #### L 501.2450, L500.4050, L100.0100, L700.6800 #### [facility] [address] [place], [address] Neutrophils/100 WBC (Bld) 71.0 % High 47-70 [facility] Comment on above: Performed By: #### L 501.2450, L500.4050, L100.0100, L700.6800 #### [facility] [address] [place], [address] Nucleated RBC (Bld) [#/Vol] 0 10*3/uL Normal 0-5 [facility] Comment on above: Performed By: #### L 501.2450, L500.4050, L100.0100, L700.6800 #### [facility] [address] [place], [address] Platelet mean volume (Bld) [Entitic vol] 9.3 fL Normal 6.2-12.0 [facility] Comment on above: Performed By: #### L 501.2450, L500.4050, L100.0100, L700.6800 #### [facility] [address] [place], [address] Platelets (Bld) [#/Vol] 467 10*3/uL High 150-450 [facility] Comment on above: Performed By: #### L 501.2450, L500.4050, L100.0100, L700.6800 #### [facility] [address] [place], [address] RBC (Bld) [#/Vol] 4.53 10*6/uL Normal 4.2-5.4 [facility] Comment on above: Performed By: #### L 501.2450, L500.4050, L100.0100, L700.6800 #### [facility] [address] [place], [address] RDW SD 43.1 fl Normal 35.1-43.9 [facility] Comment on above: Performed By: #### L 501.2450, L500.4050, L100.0100, L700.6800 #### [facility] [address] [place], [address] WBC (Bld) [#/Vol] 12.3 10*3/uL High 4.4-11.0 [facility] Comment on above: Performed By: #### L 501.2450, L500.4050, L100.0100, L700.6800 #### [facility] [address] [place] [place], [address] Carbon dioxide, total [Moles /volume] in Central venous bloodOrdered By: Phillip Richardson on 12-01-2024 CO2 [Moles/Vol] 22.2 mmol/L 21.0-32.0 [facility] Chloride assayOrdered By: Jonah Richardson on 12-01-2024 Chloride [Moles/Vol] 106 mmol/L 98-108 [facility] Emergency Department Summary on 12-01-2024 Emergency Department Summary [facility] Medical Records Department [address] [place] [address] Emergency Department Summary 12/01/24 MR#: [id number] Acct: [id number] Name: YVETTE WADE Rep #: [id number] : 2000 24 From: Phillip Lares PCP: FATIMAH Corbett Status:REG ER Location: ED HPI History of Present Illness Chief Complaint: Allergic Reaction Informant: patient and spouse/S.O. Narrative Narrative: Presents to the ED vomiting this morning after starting a new control method patch yesterday. She is followed by Dr. Cordova. She has a Mirena is working on taking it out. She was started on Xulane patches. She states its place once a week. Yesterday placed this on. Today nausea and vomiting x 2 heavy retching. This is typical for her. She noted petechia spots on her face and neck secondary to vomiting. No hematemesis. She states with her vomiting this has happened in the past. Denies abdominal pain. Currently nauseated. No anticoagulants or antiplatelets. Prior similar symptoms: Yes PFSH PFS Medical History Hypercholesteremia Thrombocytosis Low vitamin B12 level Depression Abdominal pain Gallbladder polyp Peptic ulcer MONET (generalized anxiety disorder) GERD (gastroesophageal reflux disease) Home Medications ???Medication ???Instructions ???Recorded ???Last Taken ???Type cholecalciferol (vitamin D3) 25 25 mcg PO QDAY 09/18/24 11/30/24 H istory mcg (1,000 unit) capsule citalopram 20 mg tablet (Celexa) 20 mg PO QDAY 09/18/24 Unknown His tory Held on 12/01/24. Instructions: PHARMACY ISSUE fexofenadine 60 mg capsule 60 mg PO Q12H 09/18/24 11/30/24 Hi story mecobalamin (vitamin B12) 1,000 1,000 mcg PO QDAY 09/18/24 5 History mcg chewable tablet omeprazole 20 mg capsule,delayed 20 mg PO QDAY 09/18/24 Unknown His tory release Held on 12/01/24. Instructions: PHARMACY ISSUE ondansetron 4 mg disintegrating 4 mg PO Q8H PRN PRN Nausea #10 tab s 12/01/24 Unknown Rx tablet Allergy/AdvReac Type Severity Reaction Status Date / Time peanut (peanuts) Allergy Anaphylaxis Verified 12/01/24 11:52 Family History Mother Cholelithiasis Father Heart disease Hypertension Grandfather Rectal cancer Colon cancer Grandmother Colon cancer Surgical History H/O adenoidectomy Hx laparoscopic cholecystectomy Social History Smoking Status: Never smoker alcohol intake: current alcohol intake frequency: holidays/special occasions only Alcohol type: wine ROS ROS ED Constitutional Constitutional ED: Denies fever(s) Cardiovascular Cardiovascular: Denies chest pain Respiratory/Chest Respiratory/Chest: Denies cough Gastrointestinal Gastrointestinal: Reports nausea and vomiting; Denies diarrhea Musculoskeletal Musculoskeletal: Denies none Integumentary Reports other Details: Petechial lesions face and neck ; Denies rash or wounds Neurologic Neurologic: Denies weakness EXAM Physical Exam Const Vital Signs: 12/01/24 11:44 12/01/24 13:43 Temperature 98 F Temperature Source Oral Pulse Rate 64 59 L Respiratory Rate 18 16 Blood Pressure 120/53 L 123/69 H Blood Pressure Mean 75 87 Pulse Ox 98 96 Oxygen Delivery Method Room Air Room Air Positive well nourished and well developed General Appearance ED: well developed and NAD HEENT Reports moist mucous membranes HEENT Narrative: Scattered petechia to the face anterior neck. normocephalic Eyes Eyes Narrative: No subconjunctival hemorrhage General Eye ED: Yes normal appearance of both eyes Neck full ROM Chest Wall Chest: Negative for tenderness Resp normal respiratory effort and normal air movement Effort and Inspection: symmetric chest movement; Negative for respiratory distress Cardio regular rate, regular rhythm and no murmurs Peripheral Pulses: pulses 2+ throughout GI normal to inspection, nondistended, normoactive bowel sounds and non-tender GI Narrative: Negative Estrada's or McBurney's tenderness. Palpation: Negative for guarding or rebound tenderness present Extremity normal to inspection General Extremety ED: Negative for edema or tenderness General Extremity: Negative for edema Neuro oriented x3 and no sensory deficits noted Sensorium / Orientation: awake and alert Skin Skin Narrative: See above MDM MDM MDM Narrative Medical decision making narrative: Interventions / MDM: Differential diagnosis: Nausea and vomiting, traumatic petechiae Diagnosis considered but do not suspect: N/A My EKG interpretation: N/A Imaging independently reviewed and interpreted (more content not included)... Normal [facility] Eosinophil percentageOrdered By: Phillip Richardson on 12-01-2024 Eosinophils/100 WBC (Bld) 2.2 % 0-5 [facility] Erythrocyte distribution wid th ratioOrdered By: Phillip Richardson on 12-01-2024 Erythrocyte distribution width (RBC) [Ratio] 13.8 % 11.6-14.6 [facility] Erythrocyte distribution wid th standard deviationOrdered By: Phillip Richardson on 12-01-2024 Erythrocyte distribution width (RBC) [Ratio] 43.1 fl 35.1-43.9 [facility] Glomerular filtration rate ( GFR) estimation/1.73 sq m using serum, plasma, or whole bOrdered By: Phillip Richardson on 12-01-2024 GFR/1.73 sq M.predicted among non-blacks MDRD (S/P/Bld) [Vol rate/Area] 126 mL/min/{1.73_m2} >60 [facility] Comment on above: mL/min/1.73m2 CKD-EP I Creatinine Equation (2020) Hematocrit Auto (Bld) [Volum e fraction]Ordered By: Phillip Richardson on 12-01-2024 Hematocrit (Bld) [Volume fraction] 39.0 % 37-47 [facility] Hemoglobin measurementOrdere d By: Phillip Richardson on 12-01-2024 Hemoglobin (Bld) [Mass/Vol] 12.6 g/dL 12.0-15.0 [facility] Immature granulocytes/100 WB C Auto (Bld)Ordered By: Phillip Richardson on 12-01-2024 Immature granulocytes/100 WBC (Bld) 0.700 % 0.0-0.9 [facility] Comment on above: IG% - Immature Granu locytes (promyelocytes, myelocytes and metamyelocytes) > 1% indicates that a LEFT SHIFT is Present. MCV (mean corpuscular volume ) determinationOrdered By: Phillip Richardson on 12-01-2024 MCV (RBC) [Entitic vol] 86.1 fL 81-99 [facility] Mean corpuscular hemoglobin (MCH) determinationOrdered By: Phililp Richardson on 12-01-2024 MCH (RBC) [Entitic mass] 27.8 pg 27.0-32.0 [facility] Mean corpuscular hemoglobin concentration (MCHC) determinationOrdered By: Phillip Richardson on 12-01-2024 MCHC (RBC) [Mass/Vol] 32.3 g/dL 32-36 [facility] Mean platelet volume determi nationOrdered By: Phillip Richardson on 12-01-2024 Platelet mean volume (Bld) [Entitic vol] 9.3 fL 6.2-12.0 [facility] Monocyte percentageOrdered B y: Phillip Richardson on 12-01-2024 Monocytes/100 WBC (Bld) 7.1 % 0-10 [facility] Neutrophil percentageOrdered By: Phillip Richardson on 12-01-2024 Neutrophils/100 WBC (Bld) 71.0 % High 47-70 [facility] Nucleated red blood cell per centageOrdered By: Phillip Richardson on 12-01-2024 Nucleated RBC/100 WBC (Bld) [Ratio] 0 % 0-5 [facility] Platelet countOrdered By: Jonah Richardson on 12-01-2024 Platelets (Bld) [#/Vol] 467 10*3/uL High 150-450 [facility] Potassium measurement (mass/ volume)Ordered By: Phillip Richardson on 12-01-2024 Potassium (Unsp spec) [Mass/Vol] 3.8 mmol/L 3.3-5.1 [facility] RBC Auto (Bld) [#/Vol]Ordere d By: Phillip Le on 12-01-2024 RBC (Bld) [#/Vol] 4.53 10*6/uL 4.2-5.4 [facility] Serum creatinine measurement (mass/volume)Ordered By: Phillip Richardson on 12-01-2024 Creatinine [Mass/Vol] 0.67 mg/dL Low 0.70-1.20 [facility] Serum glucose measurement (m ass/volume)Ordered By: Phillip Richardson on 12-01-2024 Glucose [Mass/Vol] 115 mg/dL High 70-99 [facility] Serum or plasma calcium fatuma urement (mass/volume)Ordered By: Phillip Richardson on 12-01-2024 Calcium [Mass/Vol] 9.1 mg/dL 7.6-11.0 [facility] Serum or plasma urea nitroge n measurement (mass/volume)Ordered By: Phillip Richardson on 12-01-2024 Urea nitrogen [Mass/Vol] 12 mg/dL 4-19 [facility] Sodium levelOrdered By: Phillip Richardson on 12-01-2024 Sodium [Moles/Vol] 140 mmol/L 133-145 [facility] White blood cell (WBC) count Ordered By: Phillip Richardson on 12-01-2024 WBC (Bld) [#/Vol] 12.3 10*3/uL High 4.4-11.0 [facility] CNOVon 11-27-2024 CNOV Office Visit (OBGYWM ) YVETTE WADE ([id number]) 2 F Date Time Provider Department 11/27/24 2:00 PM YASMINE CORDOVA [id number] During your visit today, we recorded the following information about you: Blood pressure Weight Height 100/64 89.2 kg 1.575 m Yasmine Cordova MD 11/27/2024 2:36 PM Signed Round Cutter Operator offered: Patient declinesBaron Crawford is a 24 year old who presents for an annual gynecologic exam with complaints, ovarian cyst on x-ray, 2.1cm. Age at Menarche: 11 Still get period: irregular, due to iud. Menses have become heavier over the past few months. Menses: no menses - Mirena IUD Menstrual flow: N/A Bleeding amount bothersome: N/A Bleeding between periods: N/A Period symptoms: Acne, Breast tenderness, Cramps, and Mood change Sexually active: Yes Time with current partner: 5 years Contraception: IUD Contraception frequency: Always HPV vaccine: Yes HPV:N/A Last pap smear: never History of abnormal pap: No Colposcopy: No. Leep: No. Cone biopsy: No. Bothersome pelvic pain: No Last mammogram: never OB History Gravida0 Para0 Term0 Preterm0 AB0 Living0 SAB0 IAB0 Ectopic0 Multiple0 Live Births0 Director Of User Experience History LMP: 08/17/2020 (Exact Date), IUD Age at Menarche: Age at First : Age at Menopause: Director Of User Experience History Comments: Sexual Activity: Yes; Male Contraception: I.U.D. History reviewed. No pertinent past medical history. PAST SURGICAL HISTORY Procedure Laterality Date REMOVAL GALLBLADDER 07/2024 TONSILLECTOMY AND ADENOIDECTOMY FAMILY HISTORY Problem Relation Age of Onset No Known Problems Mother No Known Problems Father No Known Problems Sister No Known Problems Brother No Known Problems Maternal Grandmother No Known Problems Maternal Grandfather No Known Problems Paternal Grandmother No Known Problems Paternal Grandfather SOCIAL HISTORY Social History Tobacco Use Smoking status: Never Smokeless tobacco: Never Vaping Use Vaping status: current everyday user Substances: Nicotine Devices: Pre-filled pod Substance Use Topics Alcohol use: Yes Comment: Socially Drug use: Never REVIEW OF SYSTEMS Abdomen: No abdominal pain, nausea, vomiting, diarrhea, or constipation. No bloating, early satiety, indigestion, or increased flatulence. Bladder: No dysuria, gross hematuria, urinary frequency, urinary urgency, or incontinence. Breast: No breast lumps, nipple d/c, overlying skin changes, redness or skin retraction. Allergies and current medication updated:Yes SENSITIVE EXAM: The sensitive examination was discussed with the Patient or Patient's Authorized Flower Buncher Or Picker. As applicable, any other physician, advance practice provider, medical student, or other health professional student that will be observing or involved in the sensitive examination for educational or training purposes was discussed with the Patient or Authorized Flower Buncher Or Picker. The Patient or Authorized Flower Buncher Or Picker has agreed to proceed with the sensitive examination. (Sensitive examination includes inspection and/or palpation of the breasts, pelvis, prostate and anorectal regions). EXAM: BP 100/64 Ht 5' 2 (1.58m) Wt 196 lb 9.6 oz (89.2kg) LMP 08/17/2020 BMI 35.95 kg/(m2). GENERAL: pleasant, female in no apparent distress BREAST: soft, non-tender, no dominant mass, normal nipple-areolar complex, no lymphadenopathy, and no nipple discharge CHEST: Normal inspiratory effort ABDOMEN: soft, non-tender, and no masses PELVIC: external genitalia normal, normal Bartholin's glands, urethra, Bazine's glands, no vulvar lesions, no cervical lesions, good vaginal support, physiologic discharge present, normal appearing perineal body and perianal region BIMANUAL: uterus normal size, shape and consistency, no adnexal masses, and non-tender RECTOVAGINAL: deferred. NEURO: alert and oriented x3,exam grossly non-focal EXTREMITIES: normal ASSESSMENT/PLAN: 1) Health maintenance: Pap done with reflex HPV. Nutrition, exercise and routine health maintenance exams reviewed. HPV vaccine: patient reports getting vaccine series but will double check 2) Contraception: follow up for IUD removal. Contraceptive options reviewed and information provided. Leonor sent to pharmacy. 3) STD screening: Declined STD check. 4) Follow up one year or sooner as needed MD Gary Baez Karmon, MD 11/27/2024 2:46 PM Signed Addended by: YASMINE CORDOVA on: 11/27/2024 02:46 PM Modules accepted: Orders Allergies As of Date: 11/27/2024 (No Known Allergies) Date Reviewed: 11/27/2024 Reviewed by: Nivia Kaba MA - Fully Assessed Reason for Visit: Well Woman [[id number]] Primary Visit Diagnosis:Encounter for gynecological examination (general) (routine) without abnormal findings [Z01.419] Other Visit Diagnoses:Screening for cervical cancer [Z12.4] Encounter for scre (more content not included)... [facility]OBGYWM[facility] YVETTE WADE ([id number]) 2 F Date Time Provider Department 11/27/24 YASMINE CORDOVA OBYAZMINWJasbir During your visit today, we recorded the following information about you: Ambika Cabrera 11/27/2024 2:38 PM Signed Patient is requesting an IUD removal. Please assist in advice. Need an order to attach to an appt. Yasmine Cordova MD 11/27/2024 2:46 PM Signed Placed in visit today. MD Ronal Baez Trisha, RN 11/27/2024 2:49 PM Signed Order that was placed is the incorrect one. Please file. Miya Mc RN Allergies As of Date: 11/27/2024 (No Known Allergies) Date Reviewed: 11/27/2024 Reviewed by: Nivia Kaba MA - Fully Assessed Reason for Visit: Orders [681] Primary Visit Diagnosis:Encounter for IUD removal [Z30.432] Order(s):REMOVE INTRAUTERINE DEVICE [[id number]] Order #: [id number] Prescriptions as of 11/27/2024 - levonorgestrel (MIRENA) 21 mcg/24hr (up to 8 yrs) 52 mg IUD 1 each by INTRAUTERINE route one time only. - Ethinyl Estradiol-Norelgestrom 150-35 mcg/24 hr patch Apply 1 patch as directed one time a week. - citalopram (CELEXA) 20 mg tablet Take 1 tablet by mouth every afternoon. - cetirizine HCl (ZYRTEC ORAL) Take by mouth. - omeprazole (PRILOSEC) 40 mg capsule Take 40 mg by mouth. - ibuprofen (MOTRIN) 200 mg tablet Take 200 mg by mouth every 6 hours as needed. Problem List As Of Date 11/27/2024 Noted Resolved PYODERMA NOS [L08.0] 09/27/2005 Breasts asymmetrical [N64.89] 08/30/2020 Encounter Status:Closed by MIYA MC on 11/27/24 Normal [facility] PAP TESTon 11-27-2024 ADEQUACY Normal [facility] Comment on above: Order Comment: Speci men Type: FLUID SPECIMEN Ordering Facility: [facility] Address: [address] [place] [address] Result Comment: Sati sfactory for interpretation. Transformation zone present Performed By: #### L [id number] #### [facility] CLIA [id number] [address] [place] [address] [place] CASE REPORT Normal [facility] Comment on above: Order Comment: Speci men Type: FLUID SPECIMEN Ordering Facility: [facility] Address: [address] [place] [address] Result Comment: Gyne cologic Cytology Report Case: [id number] Authorizing Provider: Yasmine Cordova MD Collected: 11/27/2024 02:34 PM Ordering Location: OB/Gynecology Received: 11/27/2024 04:37 PM First Screen: Gladkaya, Velia, CT, ASCP Rescreen: Elvin, Ifeoma, CT, ASCP Specimen: Pap Test, ThinPrep, Cervix Performed By: #### L [id number] #### [facility] CLIA [id number] [address] [place] [address] [place] CLINICAL HISTORY, CYTOLOGY, SANITARIAN AIDE Intra Uterine Device, No Menses Normal [facility] Comment on above: Order Comment: Speci men Type: FLUID SPECIMEN Ordering Facility: [facility] Address: [address] [place] [address] Performed By: #### L [id number] #### [facility] CLIA [id number] [address] [place] [address] [place] FINAL PERFORMING LAB Normal [facility] Comment on above: Order Comment: Speci men Type: FLUID SPECIMEN Ordering Facility: [facility] Address: [address] [place] [address] Result Comment: Tech nical component, refrigerating engineer screening performed at: [facility], [address] [place] [address] [place] [address] CLIA: [id number] Diagnostic interpretation performed at: [facility], [address] [place], [place] [id number] CLIA# [id number] Associate Director Finance: Curly Felix MD Performed By: #### L [id number] #### [facility] CLIA [id number] [address] [place] [address] [place] INTERPRETATION, CYTOLOGY, SANITARIAN AIDE Normal [facility] Comment on above: Order Comment: Speci men Type: FLUID SPECIMEN Ordering Facility: [facility] Address: [address] [place] [address] Result Comment: Nega tive for intraepithelial lesion or malignancy. at 0741 EDT Performed By: #### L [id number] #### [facility] CLIA [id number] [address] [place], [place] [id number] [place] PAP DISCLAIMER COMMENT The Pap Smear is a screening test for cervical cancer. False negative results occur with all screening tests, emphasizing the need for rescreening at recommended intervals, and clinical correlation. Normal [facility] Comment on above: Order Comment: Speci men Type: FLUID SPECIMEN Ordering Facility: [facility] Address: [address] [place] [address] Performed By: #### L [id number] #### [facility] CLIA [id number] [address] [place], [place] [id number] [place] PAP DIRECTOR OF CLINICAL EDUCATION COMMENT This specimen has be en analyzed by the FDA-approved [employer] [place] System, which uses digital imaging and an enhanced artificial intelligence image analysis algorithm to identify orona of interest on the microscopic slide, to assist the university intern and pathologist in evaluating cells on ThinPrep Pap tests. Following analysis, orona of interest on the microscopic slide selected by the algorithm are reviewed by a university intern. If a sample requires hierarchical review, the pathologist will review the same orona of interest selected by the algorithm prior to final interpretation. Normal [facility] Comment on above: Order Comment: Speci men Type: FLUID SPECIMEN Ordering Facility: [facility] Address: [address] [place] [address] Performed By: #### L [id number] #### [facility] [place] [id number] [address] [place], [place] [id number] [place] Porphobilinogen, 24 Hr URon 11-10-2024 PBG,URINE REF LAB Normal [facility] Comment on above: Result Comment: TEST RESULTS LIMITS Porphobilinogen, Qn, 24-Hr Ur Porphobilinogen,Qn,U, 0.9 mg/L 0.0-2.0 Porphobilinogen, 24U 0.9 mg/24 hr 0.0-1.5 TESTING PERFORMED AT [facility]. ORIGINAL REPORT ON FILE IN LAB CONTAINS ADDITIONAL TEST SITE INFORMATION. Performed By: #### L 501.2450, L500.4050, L100.0100, L700.6800 #### [facility] [address] [place], [place], [address] Gastric Emptying Studyon Gastric Emptying Study [facility] Imaging Services [address] [place], [place] [address] Gastric Emptying Study MR#: [id number] Acct: [id number] Name: YVETTE WADE Rep #: [id number] : 2000 F 24 From: John starr MD PCP: FATIMAH Corbett Status: REG CLI Study: Gastric Emptying Study Date of Exam: 10/08/24 Exam# [id number] Ordering Dr: Denton Taylor DO PROCEDURE: GASTRIC EMPTYING STUDY 10/08/2024 REASON FOR EXAM: ABDOMINAL PAIN TECHNIQUE: The patient ingested a standard meal of oatmeal and 1.1 mCi of technetium labeled sulfur colloid and water. There was no vomiting postprandially. Anterior and posterior planar images of the upper abdomen were obtained for 1 minute immediately following the meal at 1h, 2h and 4h if more than 10% of the activity persisted within the stomach. Regions of interest were drawn, and a geometric mean was used to calculate a [id number]. RADIOPHARMACEUTICAL: Technetium labeled sulfur colloid DOSE 1.1mCi FINDINGS: Percent activity remaining in stomach: 1 hour 42% % (normal 37-90%) NM/Gastric Emptying Study IMPRESSION: Normal gastric emptying study. Reading Location: [place] [address] CC: FATIMAH Corbett; Denton Taylor DO Screw Machine Operator [place] Type: Signed Normal [facility] 24 hour urine porphobilinoge n measurement (mass/time)Ordered By: Denton Taylor on 09-27-2024 Porphobilinogen (24H U) [Mass/Time] REF LAB [facility] Comment on above: TEST RESULTS LIMITSP orphobilinogen, Qn, 24-Hr Ur Porphobilinogen,Qn,U, 0.9 mg/L 0.0-2.0 Porphobilinogen, 24U 0.9 mg/24 hr 0.0-1.5 TESTING PERFORMED AT [facility]. ORIGINAL REPORT ON FILE IN LAB CONTAINS ADDITIONAL TEST SITE INFORMATION. VIKY Comprehensive Panelon ANTI-DNA (DS)AB 1 IU/mL Normal 0-9 [facility] Comment on above: Result Comment: Nega tive <5 Equivocal 5 - 9 Positive >9 Performed By: #### L 700.6800, L500.2500 #### [facility] [address] [place], [address] Allergen, Food Profileon CLAM <0.10 Normal Class 0 [facility] Comment on above: Performed By: #### L 501.2450, L500.4050, L100.0100, L700.6800 #### [facility] [address] [place], [address] CODFISH <0.10 Normal Class 0 [facility] Comment on above: Performed By: #### L 501.2450, L500.4050, L100.0100, L700.6800 #### [facility] [address] [place], [address] COMMENT Comment Normal . [facility] Comment on above: Result Comment: Juan Manuel fernandez of Specific IgE Class Description of Class ----- < 0.10 0 Negative 0.10 - 0.31 0/I Equivocal/Low 0.32 - 0.55 I Low 0.56 - 1.40 II Moderate 1.41 - 3.90 III High 3.91 - 19.00 IV Very High 19.01 - 100.00 V Very High >100.00 Very High Performed By: #### L 501.2450, L500.4050, L100.0100, L700.6800 #### [facility] [address] [place], [address] CORN <0.10 Normal Class 0 [facility] Comment on above: Performed By: #### L 501.2450, L500.4050, L100.0100, L700.6800 #### [facility] [address] [place], [address] EGG, WHITE <0.10 Normal Class 0 [facility] Comment on above: Performed By: #### L 501.2450, L500.4050, L100.0100, L700.6800 #### [facility] [address] [place], [address] MILK (COW) 0.25 kU/L Abnormal Class 0/I [facility] Comment on above: Performed By: #### L 501.2450, L500.4050, L100.0100, L700.6800 #### [facility] [address] [place], [address] PEANUT <0.10 Normal Class 0 [facility] Comment on above: Performed By: #### L 501.2450, L500.4050, L100.0100, L700.6800 #### [facility] [address] [place], [address] SCALLOP <0.10 Normal Class 0 [facility] Comment on above: Performed By: #### L 501.2450, L500.4050, L100.0100, L700.6800 #### [facility] [address] [place], [address] SESAME SEED 0.11 kU/L Abnormal Class 0/I [facility] Comment on above: Result Comment: Perf ormed at: - [facility] [id number] Director Post: Pete Garcia PhD, Phone: [phone] Performed at: - [facility] [id number] Director Post: Glenda Leon MD, Phone: [phone] Performed By: #### L 501.2450, L500.4050, L100.0100, L700.6800 #### [facility] [address] [place], [address] SHRIMP <0.10 Normal Class 0 [facility] Comment on above: Performed By: #### L 501.2450, L500.4050, L100.0100, L700.6800 #### [facility] [address] [place], [address] SOYBEAN <0.10 Normal Class 0 [facility] Comment on above: Performed By: #### L 501.2450, L500.4050, L100.0100, L700.6800 #### [facility] [address] [place], [address] WALNUT,(Food) <0.10 Normal Class 0 [facility] Comment on above: Performed By: #### L 501.2450, L500.4050, L100.0100, L700.6800 #### [facility] [address] [place], [address] WHEAT <0.10 Normal Class 0 [facility] Comment on above: Performed By: #### L 501.2450, L500.4050, L100.0100, L700.6800 #### [facility] [address] [place], [address] L5500.0550on 09-24-2024 BEEF <0.10 Normal Class 0 [facility] Comment on above: Performed By: #### L 501.2450, L500.4050, L100.0100, L700.6800 #### [facility] [address] [place], [address] CHOCOLATE 0.10 kU/L Abnormal Class 0/I [facility] Comment on above: Performed By: #### L 501.2450, L500.4050, L100.0100, L700.6800 #### [facility] [address] [place], [address] EGG, WHOLE <0.10 Normal Class 0 [facility] Comment on above: Performed By: #### L 501.2450, L500.4050, L100.0100, L700.6800 #### [facility] [address] [place], [address] MUSSELS <0.10 Normal Class 0 [facility] Comment on above: Performed By: #### L 501.2450, L500.4050, L100.0100, L700.6800 #### [facility] [address] [place], [address] PORK <0.10 Normal Class 0 [facility] Comment on above: Performed By: #### L 501.2450, L500.4050, L100.0100, L700.6800 #### [facility] [address] [place], [address] SALMON <0.10 Normal Class 0 [facility] Comment on above: Performed By: #### L 501.2450, L500.4050, L100.0100, L700.6800 #### [facility] [address] [place], [address] TUNA <0.10 Normal Class 0 [facility] Comment on above: Performed By: #### L 501.2450, L500.4050, L100.0100, L700.6800 #### [facility] [address] [place], [address] ANCAon 09-23-2024 Atypical pANCA <1:20 Normal Neg:<1:20 [facility] Comment on above: Result Comment: The atypical pANCA pattern has been observed in a significant percentage of patients with ulcerative colitis, primary sclerosing cholangitis and autoimmune hepatitis. Performed By: #### L 501.2450, L500.4050, L100.0100, L700.6800 #### [facility] [address] [place], [address] Cytoplasmic Ab <1:20 Normal Neg:<1:20 [facility] Comment on above: Performed By: #### L 501.2450, L500.4050, L100.0100, L700.6800 #### [facility] [address] [place], [address] Perinuclear Ab. <1:20 Normal Neg:<1:20 [facility] Comment on above: Result Comment: The presence of positive fluorescence exhibiting P-ANCA or C-ANCA patterns alone is not specific for the diagnosis of Dacia's Granulomatosis (WG) or microscopic polyangiitis. Decisions about treatment should not be based solely on ANCA IFA results. The International ANCA Group Consensus recommends follow up testing of positive sera with both NJ- 3 and MPO-ANCA enzyme immunoassays. As many as 5% serum samples are positive only by EIA. Ref. AM J Clin Pathol 1999;111:507-513. Performed By: #### L 501.2450, L500.4050, L100.0100, L700.6800 #### [facility] [address] [place], [address] CCP IgG Antibodieson 025 CCP IgG Ab. 8 units Normal 0-19 [facility] Comment on above: Result Comment: Nega tive <20 Weak positive 20 - 39 Moderate positive 40 - 59 Strong positive >59 Performed at: - [facility] [address] [place] [id number] Director Post: Pete Garcia PhD, Phone: [phone] Performed at: - [facility] [id number] Director Post: Glenda Leon MD, Phone: [phone] Performed By: #### L 501.2450, L500.4050, L100.0100, L700.6800 #### [facility] [address] [place], [address] Celiac Disease Profileon ENDOMYSIAL IGA Negative Normal Negative [facility] Comment on above: Performed By: #### L 501.2450, L500.4050, L100.0100, L700.6800 #### [facility] [address] [place], [address] tTG IGA <2 Normal 0-3 [facility] Comment on above: Result Comment: Nega tive 0 - 3 Weak Positive 4 - 10 Positive >10 Tissue Transglutaminase (tTG) has been identified as the endomysial antigen. Studies have demonstr- ated that endomysial IgA antibodies have over 99% specificity for gluten sensitive enteropathy. Performed By: #### L 501.2450, L500.4050, L100.0100, L700.6800 #### [facility] [address] [place], [address] Gastrin, Serumon 09-23-2024 GASTRIN 87 pg/mL Normal 0-115 [facility] Comment on above: Result Comment: Siem banner Gini & Jonyulite 2000 Immunochemiluminometric assay (ICMA) Values obtained with different assay methods or kits cannot be used interchangeably. Results cannot be interpreted as absolute evidence of the presence or absence of malignant disease. Performed By: #### L 501.2450, L500.4050, L100.0100, L700.6800 #### [facility] [address] [place], [address] Immunoglobulins G/A/M/Miki IMMUNOGLOB A QN 273 mg/dL Normal 87-352 [facility] Comment on above: Order Comment: N Performed By: #### L 700.6800, L500.2500 #### [facility] [address] [place], [address] IMMUNOGLOB E QN 147 IU/mL Normal 6-495 [facility] Comment on above: Order Comment: N Performed By: #### L 700.6800, L500.2500 #### [facility] [address] [place], [address] IMMUNOGLOB G QN 853 mg/dL Normal 586-1602 [facility] Comment on above: Order Comment: N Performed By: #### L 700.6800, L500.2500 #### [facility] [address] [place], [address] IMMUNOGLOB M QN 201 mg/dL Normal 26-217 [facility] Comment on above: Order Comment: N Performed By: #### L 700.6800, L500.2500 #### [facility] [address] [place], [address] L2100.0000on 09-23-2024 ACCA 41 units Normal 0-90 [facility] Comment on above: Result Comment: Nega tive: <80 Equivocal: 80-90 Positive: >90 Performed By: #### L 700.6800, L500.2500 #### [facility] [address] [place], [address] ALCA 7 units Normal 0-60 [facility] Comment on above: Result Comment: Nega tive:<55 Equivocal: 55-60 Positive: >60 Performed By: #### L 700.6800, L500.2500 #### [facility] [address] [place], [address] AMCA 57 units Normal 0-100 [facility] Comment on above: Result Comment: Nega tive: <90 Equivocal: 90-100 Positive: >100 This test was developed and its performance characteristics determined by [employer]. It has not been cleared or approved by the Food and Drug Administration. The FDA has determined that such clearance or approval is not necessary. Performed By: #### L 700.6800, L500.2500 #### [facility] [address] [place], [address] Atypical pANCA Negative Normal Negative [facility] Comment on above: Performed By: #### L 700.6800, L500.2500 #### [facility] [address] [place], [address] COMMENT Comment Normal . [facility] Comment on above: Result Comment: Miriam jose martin is not suggestive of Inflammatory Bowel Disease Performed By: #### L 700.6800, L500.2500 #### [facility] [address] [place], [address] Onesimo 7 units Normal 0-50 [facility] Comment on above: Result Comment: Nega tive: <45 Equivocal: 45-50 Positive: >50 Performed By: #### L 700.6800, L500.2500 #### [facility] [address] [place], [address] L3100.4810on 09-23-2024 Chromogranin A 72.7 ng/mL Normal 0.0-101.8 [facility] Comment on above: Result Comment: Eyeglass Lens Generator mogranin A performed by [employer] methodology Values obtained with different assay methods or kits cannot be used interchangeably. Performed By: #### L 700.6800, L500.2500 #### [facility] [address] [place], [address] Absolute lymphocyte countOrd ered By: Denton Taylor on 09-18-2024 Lymphocytes Auto (Unsp spec) [#/Vol] 4.22 10*3/uL 0.83-4.51 [facility] Absolute neutrophil countOrd ered By: Denton Taylor on 09-18-2024 Neutrophils (Bld) [#/Vol] 5.7 10*3/uL 2.0-7.7 [facility] Anion gap in Serum or Plasma Ordered By: Denton Taylor on 09-18-2024 Anion gap [Moles/Vol] 13 mmol/L 5-15 [facility] Automated lymphocyte count a s percentage of total leukocytesOrdered By: Denton Taylor on 09-18-2024 Lymphocytes/100 WBC Auto (Unsp spec) 38.2 % 19- [facility] BUN/creatinine ratioOrdered By: Dentonbecky Taylor on 09-18-2024 Urea nitrogen/Creatinine [Mass ratio] 14.8 mg/mg 10- [facility] Basophil percentageOrdered B y: Denton Taylor on 09-18-2024 Basophils/100 WBC (Bld) 0.4 % 0-1 [facility] Bilirubin, totalOrdered By: Denton Taylor on 09-18-2024 Bilirubin [Mass/Vol] 0.21 mg/dL 0.00-1.30 [facility] CBC W/Diff, Automatedon Absolute Lymph 4.22 X10 3/uL Normal 0.83-4.51 [facility] Comment on above: Performed By: #### L 3100.5440, L4600.0100, L3410.2400, L100.0100, L5500.0410, L3200.1100, L500.4050, L2100.0000, L501.6710, L3300.1800, L300.3900, L505.7010, L101.9900, L504.2610, L3300.1200, L5500.0550, L3100.4810 #### [facility] [address] [place], [place], [address] Absolute Neut 5.7 X10 3/uL Normal 2.0-7.7 [facility] Comment on above: Performed By: #### L 3100.5440, L4600.0100, L3410.2400, L100.0100, L5500.0410, L3200.1100, L500.4050, L2100.0000, L501.6710, L3300.1800, L300.3900, L505.7010, L101.9900, L504.2610, L3300.1200, L5500.0550, L3100.4810 #### [facility] [address] [facility] [place], [address] (759) Basophils/100 WBC (Bld) 0.4 % Normal 0-1 [facility] Comment on above: Performed By: #### L 3100.5440, L4600.0100, L3410.2400, L100.0100, L5500.0410, L3200.1100, L500.4050, L2100.0000, L501.6710, L3300.1800, L300.3900, L505.7010, L101.9900, L504.2610, L3300.1200, L5500.0550, L3100.4810 #### [facility] [address] [facility] [place], [address] ([address] Eosinophils/100 WBC (Bld) 1.7 % Normal 0-5 [facility] Comment on above: Performed By: #### L 3100.5440, L4600.0100, L3410.2400, L100.0100, L5500.0410, L3200.1100, L500.4050, L2100.0000, L501.6710, L3300.1800, L300.3900, L505.7010, L101.9900, L504.2610, L3300.1200, L5500.0550, L3100.4810 #### [facility] [address] [facility] [place], [address] (776) Erythrocyte distribution width (RBC) [Ratio] 13.2 % Normal 11.6-14.6 [facility] Comment on above: Performed By: #### L 3100.5440, L4600.0100, L3410.2400, L100.0100, L5500.0410, L3200.1100, L500.4050, L2100.0000, L501.6710, L3300.1800, L300.3900, L505.7010, L101.9900, L504.2610, L3300.1200, L5500.0550, L3100.4810 #### [facility] [address] [place], [place], [address] Hematocrit (Bld) [Volume fraction] 37.6 % Normal 37-47 [facility] Comment on above: Performed By: #### L 3100.5440, L4600.0100, L3410.2400, L100.0100, L5500.0410, L3200.1100, L500.4050, L2100.0000, L501.6710, L3300.1800, L300.3900, L505.7010, L101.9900, L504.2610, L3300.1200, L5500.0550, L3100.4810 #### [facility] [address] [place], [address] Hemoglobin (Bld) [Mass/Vol] 12.6 g/dL Normal 12.0-15.0 [facility] Comment on above: Performed By: #### L 3100.5440, L4600.0100, L3410.2400, L100.0100, L5500.0410, L3200.1100, L500.4050, L2100.0000, L501.6710, L3300.1800, L300.3900, L505.7010, L101.9900, L504.2610, L3300.1200, L5500.0550, L3100.4810 #### [facility] [address] [place], [address] IG% 0.400 Normal 0.0-0.9 [facility] Comment on above: Result Comment: IG% - Immature Granulocytes (promyelocytes, myelocytes and metamyelocytes) > 1% indicates that a LEFT SHIFT is Present. Performed By: #### L 3100.5440, L4600.0100, L3410.2400, L100.0100, L5500.0410, L3200.1100, L500.4050, L2100.0000, L501.6710, L3300.1800, L300.3900, L505.7010, L101.9900, L504.2610, L3300.1200, L5500.0550, L3100.4810 #### [facility] [address] [place], [address] Lymphocytes/100 WBC (Bld) 38.2 % Normal 19-41 [facility] Comment on above: Performed By: #### L 3100.5440, L4600.0100, L3410.2400, L100.0100, L5500.0410, L3200.1100, L500.4050, L2100.0000, L501.6710, L3300.1800, L300.3900, L505.7010, L101.9900, L504.2610, L3300.1200, L5500.0550, L3100.4810 #### [facility] [address] [facility] [place], [address] MCH (RBC) [Entitic mass] 28.1 pg Normal 27.0-32.0 [facility] Comment on above: Performed By: #### L 3100.5440, L4600.0100, L3410.2400, L100.0100, L5500.0410, L3200.1100, L500.4050, L2100.0000, L501.6710, L3300.1800, L300.3900, L505.7010, L101.9900, L504.2610, L3300.1200, L5500.0550, L3100.4810 #### [facility] [address] [facility] [place], [address] MCHC (RBC) [Mass/Vol] 33.5 g/dL Normal 32-36 [facility] Comment on above: Performed By: #### L 3100.5440, L4600.0100, L3410.2400, L100.0100, L5500.0410, L3200.1100, L500.4050, L2100.0000, L501.6710, L3300.1800, L300.3900, L505.7010, L101.9900, L504.2610, L3300.1200, L5500.0550, L3100.4810 #### [facility] [address] [place], [address] MCV (RBC) [Entitic vol] 83.7 fL Normal 81-99 [facility] Comment on above: Performed By: #### L 3100.5440, L4600.0100, L3410.2400, L100.0100, L5500.0410, L3200.1100, L500.4050, L2100.0000, L501.6710, L3300.1800, L300.3900, L505.7010, L101.9900, L504.2610, L3300.1200, L5500.0550, L3100.4810 #### [facility] [address] [place], [address] Monocytes/100 WBC (Bld) 8.0 % Normal 0-10 [facility] Comment on above: Performed By: #### L 3100.5440, L4600.0100, L3410.2400, L100.0100, L5500.0410, L3200.1100, L500.4050, L2100.0000, L501.6710, L3300.1800, L300.3900, L505.7010, L101.9900, L504.2610, L3300.1200, L5500.0550, L3100.4810 #### [facility] [address] [place], [address] Neutrophils/100 WBC (Bld) 51.3 % Normal 47-70 [facility] Comment on above: Performed By: #### L 3100.5440, L4600.0100, L3410.2400, L100.0100, L5500.0410, L3200.1100, L500.4050, L2100.0000, L501.6710, L3300.1800, L300.3900, L505.7010, L101.9900, L504.2610, L3300.1200, L5500.0550, L3100.4810 #### [facility] [address] [place], [address] Nucleated RBC (Bld) [#/Vol] 0 10*3/uL Normal 0-5 [facility] Comment on above: Performed By: #### L 3100.5440, L4600.0100, L3410.2400, L100.0100, L5500.0410, L3200.1100, L500.4050, L2100.0000, L501.6710, L3300.1800, L300.3900, L505.7010, L101.9900, L504.2610, L3300.1200, L5500.0550, L3100.4810 #### [facility] [address] [facility] [place], [address] Platelet mean volume (Bld) [Entitic vol] 9.0 fL Normal 6.2-12.0 [facility] Comment on above: Performed By: #### L 3100.5440, L4600.0100, L3410.2400, L100.0100, L5500.0410, L3200.1100, L500.4050, L2100.0000, L501.6710, L3300.1800, L300.3900, L505.7010, L101.9900, L504.2610, L3300.1200, L5500.0550, L3100.4810 #### [facility] [address] [place], [address] Platelets (Bld) [#/Vol] 573 10*3/uL High 150-450 [facility] Comment on above: Performed By: #### L 3100.5440, L4600.0100, L3410.2400, L100.0100, L5500.0410, L3200.1100, L500.4050, L2100.0000, L501.6710, L3300.1800, L300.3900, L505.7010, L101.9900, L504.2610, L3300.1200, L5500.0550, L3100.4810 #### [facility] [address] [place], [address] RBC (Bld) [#/Vol] 4.49 10*6/uL Normal 4.2-5.4 [facility] Comment on above: Performed By: #### L 3100.5440, L4600.0100, L3410.2400, L100.0100, L5500.0410, L3200.1100, L500.4050, L2100.0000, L501.6710, L3300.1800, L300.3900, L505.7010, L101.9900, L504.2610, L3300.1200, L5500.0550, L3100.4810 #### [facility] [address] [place], [address] RDW SD 40.6 fl Normal 35.1-43.9 [facility] Comment on above: Performed By: #### L 3100.5440, L4600.0100, L3410.2400, L100.0100, L5500.0410, L3200.1100, L500.4050, L2100.0000, L501.6710, L3300.1800, L300.3900, L505.7010, L101.9900, L504.2610, L3300.1200, L5500.0550, L3100.4810 #### [facility] [address] [place], [place], [id number] (211) WBC (Bld) [#/Vol] 11.1 10*3/uL High 4.4-11.0 [facility] Comment on above: Performed By: #### L 3100.5440, L4600.0100, L3410.2400, L100.0100, L5500.0410, L3200.1100, L500.4050, L2100.0000, L501.6710, L3300.1800, L300.3900, L505.7010, L101.9900, L504.2610, L3300.1200, L5500.0550, L3100.4810 #### [facility] [address] [place], [address] CRPon 09-18-2024 C-REACTIVE PROT 8.28 mg/L High 0.0-3.0 [facility] Comment on above: Performed By: #### L 700.6800, L500.2500 #### [facility] [address] [place], [address] Carbon dioxide, total [Moles /volume] in Central venous bloodOrdered By: Denton Taylor on 09-18-2024 CO2 [Moles/Vol] 21.9 mmol/L 21.0-32.0 [facility] Chitobioside IgA antibody as sayOrdered By: Denton Taylor on 09-18-2024 Chitobioside IgA IA Qn 41 units 0-90 [facility] Comment on above: Negative: <80 Equivo jagruti: 80-90 Positive: >90 Chloride assayOrdered By: Ra cora Taylor on 09-18-2024 Chloride [Moles/Vol] 102 mmol/L 98-108 [facility] Comprehensive Metabolic Prof ilon 09-18-2024 Albumin [Mass/Vol] 4.3 g/dL Normal 3.5-5.0 [facility] Comment on above: Performed By: #### L 700.6800, L500.2500 #### [facility] [address] [place], [address] Albumin/Globulin [Mass ratio] 1.4 {ratio} Normal 0.9-2.4 [facility] Comment on above: Performed By: #### L 700.6800, L500.2500 #### [facility] [address] [place], [address] ALK PHOS 82 U/L Normal 35-104 [facility] Comment on above: Performed By: #### L 700.6800, L500.2500 #### [facility] [address] [place], [address] ALT [Catalytic activity/Vol] 22 U/L Normal <=34 [facility] Comment on above: Performed By: #### L 700.6800, L500.2500 #### [facility] [address] [place], [address] AST [Catalytic activity/Vol] 22 U/L Normal <=31 [facility] Comment on above: Performed By: #### L 700.6800, L500.2500 #### [facility] [address] [place], [address] Bilirubin [Mass/Vol] 0.21 mg/dL Normal 0.00-1.30 [facility] Comment on above: Performed By: #### L 700.6800, L500.2500 #### [facility] [address] [place], [address] BUN/CRE 14.8 RATIO Normal 10-20 [facility] Comment on above: Performed By: #### L 700.6800, L500.2500 #### [facility] [address] [place], [address] Calcium [Mass/Vol] 9.1 mg/dL Normal 7.6-11.0 [facility] Comment on above: Performed By: #### L 700.6800, L500.2500 #### [facility] [address] [place], [address] Chloride [Moles/Vol] 102 mmol/L Normal 98-108 [facility] Comment on above: Performed By: #### L 700.6800, L500.2500 #### [facility] [address] [place], [address] CO2 [Moles/Vol] 21.9 mmol/L Normal 21.0-32.0 [facility] Comment on above: Performed By: #### L 700.6800, L500.2500 #### [facility] [address] [place], [address] Creatinine [Mass/Vol] 0.74 mg/dL Normal 0.70-1.20 [facility] Comment on above: Performed By: #### L 700.6800, L500.2500 #### [facility] [address] [place], [address] GAP 13 Normal 5-15 [facility] Comment on above: Performed By: #### L 700.6800, L500.2500 #### [facility] [address] [place], [address] GFR/1.73 sq M.predicted among non-blacks MDRD (S/P/Bld) [Vol rate/Area] 117 mL/min/{1.73_m2} Normal >60 [facility] Comment on above: Result Comment: mL/m in/1.73m2 CKD-EPI Creatinine Equation (2020) Performed By: #### L 700.6800, L500.2500 #### [facility] [address] [place], [address] Globulin (S) [Mass/Vol] 3.1 g/dL Normal 2.2-4.2 [facility] Comment on above: Performed By: #### L 700.6800, L500.2500 #### [facility] [address] [place], [address] Glucose [Mass/Vol] 92 mg/dL Normal 70-99 [facility] Comment on above: Performed By: #### L 700.6800, L500.2500 #### [facility] [address] [place], [address] Potassium [Moles/Vol] 3.6 mmol/L Normal 3.3-5.1 [facility] Comment on above: Performed By: #### L 700.6800, L500.2500 #### [facility] [address] [place], [address] Sodium [Moles/Vol] 138 mmol/L Normal 133-145 [facility] Comment on above: Performed By: #### L 700.6800, L500.2500 #### [facility] [address] [place], [address] T PROT 7.3 g/dL Normal 5.9-8.4 [facility] Comment on above: Performed By: #### L 700.6800, L500.2500 #### [facility] [address] [place], [address] Urea nitrogen [Mass/Vol] 11 mg/dL Normal 4-19 [facility] Comment on above: Performed By: #### L 700.6800, L500.2500 #### [facility] [address] [place], [address] Eosinophil percentageOrdered By: Denton Taylor on 09-18-2024 Eosinophils/100 WBC (Bld) 1.7 % 0-5 [facility] Erythrocyte Sed Rateon 09-18 SED RATE 37 mm/hr High 0-30 [facility] Comment on above: Performed By: #### L 700.6800, L500.2500 #### [facility] [address] [place], [address] Erythrocyte distribution wid th ratioOrdered By: Denton Taylor on 09-18-2024 Erythrocyte distribution width (RBC) [Ratio] 13.2 % 11.6-14.6 [facility] Erythrocyte distribution wid th standard deviationOrdered By: Denton Taylor on 09-18-2024 Erythrocyte distribution width (RBC) [Ratio] 40.6 fl 35.1-43.9 [facility] Erythrocyte sedimentation ra teOrdered By: Denton Taylor on 09-18-2024 ESR (Bld) [Velocity] 37 mm/h High 0-30 [facility] Gastrin, serumOrdered By: Ra shepherd Friend on 09-18-2024 Gastrin [Mass/Vol] 87 pg/mL 0-115 [facility] Comment on above: Siemens Immulite 200 0 Immunochemiluminometric assay (ICMA)Values obtained with different assay methods or kits cannotbe used interchangeably. Results cannot be interpreted asabsolute evidence of the presence or absence of malignantdisease. Gastroenterology Visit Repor ton 09-18-2024 Gastroenterology Visit Report [facility] [address] [place] [address] OFFICE VISIT Date of Service: 09/18/24 MR#: [id number] Acct: [id number] Name: YVETTE WADE Rep #: [id number] : 2000 Provider: Denton Taylor DO Age/Sex: 24/F Location: [facility] [place] Status: Signed Intake Intake Visit Reasons: Abd Pain Allergies No Known Allergies Allergy (Verified 09/18/24 07:46) Medications ???Medication ???Instructions ???Recorded ???Confirmed ???Type cholecalciferol (vitamin D3) 25 25 mcg PO QDAY 09/18/24 09/18/24 H istory mcg (1,000 unit) capsule citalopram 20 mg tablet (Celexa) 20 mg PO QDAY 09/18/24 09/18/24 Hi story fexofenadine 60 mg capsule 60 mg PO Q12H 09/18/24 09/18/24 Hi story mecobalamin (vitamin B12) 1,000 1,000 mcg PO QDAY 09/18/24 5 History mcg chewable tablet omeprazole 20 mg capsule,delayed 20 mg PO QDAY 09/18/24 09/18/24 Hi story release PFSH Medical History (Updated 09/18/24 @ 08:[address] Denton Taylor DO) Hypercholesteremia Thrombocytosis Low vitamin B12 level Depression Abdominal pain Gallbladder polyp Peptic ulcer MONET (generalized anxiety disorder) GERD (gastroesophageal reflux disease) Surgical History H/O adenoidectomy Hx laparoscopic cholecystectomy Family History Mother Cholelithiasis Father Heart disease Hypertension Grandfather Rectal cancer Colon cancer Grandmother Colon cancer Social History Smoking Status: Never smoker alcohol intake: current alcohol intake frequency: holidays/special occasions only Alcohol type: wine HPI HPI Details: YVETTE WADE, is a 24 F who presents to the office today for initial consult. PCP referred for abdominal pain. Pt underwent lap cholecystectomy at [facility] 07.30.24 due to a gallbladder polyp. Path report read mild chronic cholecystitis and cholesterol polyp formation. Per referral, pt has hx of bleeding peptic ulcers and is currently taking Omeprazole. Last EGD was performed 02/2024 that showed small area of focal gastritis and a benign gastric polyp. Pt was recently referred to hematology for thrombocytosis. Pt reports intermittent epigastric pain over the last 10 years. States the Omeprazole is somewhat helpful. Denies nausea or vomiting. BM are sportaic and she has occasional diarrhea. ROS Const Constitutional: No fatigue, fever(s) or weight change ENT ENT: No difficulty swallowing Gastro GI: Positive for abdominal pain, constipation, diarrhea and heartburn; No belching, bloating, change in bowel habits, change in stool character, coffee ground emesis, cramping, difficulty swallowing, feeling full early, excessive flatus, incontinent of stools, Vomiting blood/hematemesis, Blood in stool, loose stools, Black,tarry stools, nausea/dyspepsia, pain with swallowing, vomiting or other Musc Musculoskeletal: No joint pain Skin Skin: No yellowing of the eye or itchy eyes Psych Psychiatric: No anxiety and No depression Endo Endocrine: No fatigue or weight change Aller/Imm Allergy/Immunologic: No itchy eyes Buzz/Lymp Hematologic/Lymphatic: No easy bleeding or easy bruising Assessment and Plan Assessment and Plan (1) Abdominal pain: Status: Acute Plan: Very pleasant 24-year-old with long history of abdominal pain with nausea and intermittent vomiting. She is status post cholecystectomy as she was experiencing abdominal pain and the working theory was she had chronic cholecystitis. She has not gotten any better. She does treat her pain with TAC. That is the only thing that really helps her pain. She also has some mild depression which is controlled with 20 mg of Celexa. She also has a B12 deficiency for which she takes B12. She is on omeprazole for atypical reflux symptoms and she is not sure it is working. The differential diagnosis for symptoms does include IBS, exocrine pancreatic insufficiency, gastroparesis secondary to marijuana hyperemesis syndrome, food allergy, acute intermittent porphyria, none celiac gluten sensitivity. She will undergo gastric emptying study along with biochemical workup for autoimmune disease. When she has all her studies back then she will follow-up for further recommendations. Orders: Orders ANCA Today R10.9 - Unspecified abdominal pain Celiac Disease Profile Today R10.9 - Unspecified abdominal pain CBC W/Diff, Automated Today R10.9 - Unspecified abdominal pain CRP Today R10.9 - Unspecified abdominal pain Erythrocyte Sed Rate Today R10.9 - Unspecified abdominal pain Immunoglobulins G/A/M/E Today R10.9 - Unspecified abdominal pain Comprehensive Metabolic Profil Today R10.9 - Unspecified abdominal pain (more content not included)... Normal [facility] Glomerular filtration rate ( GFR) estimation/1.73 sq m using serum, plasma, or whole bOrdered By: Denton Taylor on 09-18-2024 GFR/1.73 sq M.predicted among non-blacks MDRD (S/P/Bld) [Vol rate/Area] 117 mL/min/{1.73_m2} >60 [facility] Comment on above: mL/min/1.73m2 CKD-EP I Creatinine Equation (2020) Hematocrit Auto (Bld) [Volum e fraction]Ordered By: Denton Taylor on 09-18-2024 Hematocrit (Bld) [Volume fraction] 37.6 % 37-47 [facility] Hemoglobin measurementOrdere d By: Denton Taylor on 09-18-2024 Hemoglobin (Bld) [Mass/Vol] 12.6 g/dL 12.0-15.0 [facility] IgEOrdered By: Denton rodriguez on 09-18-2024 IgE 147 IU/mL 6-495 [facility] Immature granulocytes/100 WB C Auto (Bld)Ordered By: Denton Taylor on 09-18-2024 Immature granulocytes/100 WBC (Bld) 0.400 % 0.0-0.9 [facility] Comment on above: IG% - Immature Granu locytes (promyelocytes, myelocytes and metamyelocytes) > 1% indicates that a LEFT SHIFT is Present. International normalized rat io (INR) calculationOrdered By: Denton Taylor on 09-18-2024 INR Coag (Bld) [Relative time] 1.0 {INR} [facility] LDHon 09-18-2024 LDH 221 U/L Normal 84-246 [facility] Comment on above: Order Comment: 1 Performed By: #### L 700.6800, L500.2500 #### [facility] [address] [place], [place], [address] Laboratory - Chemistry and C hemistry - challengeOrdered By: Denton Taylor on 09-18-2024 AST [Catalytic activity/Vol] 22 U/L <32 [facility] - Miscellaneous t estsOrdered By: Denton Taylor on 09-18-2024 Laboratory comment Bello (Report) Comment . [facility] Comment on above: Pattern is not sugge stive of Inflammatory Bowel Disease Service comment (Unsp spec) [Interp] Comment . [facility] Comment on above: Levels of Specific I gE Class Description of Class ----- < 0.10 0 Negative 0.10 - 0.31 0/I Equivocal/Low 0.32 - 0.55 I Low 0.56 - 1.40 II Moderate 1.41 - 3.90 III High 3.91 - 19.00 IV Very High 19.01 - 100.00 V Very High >100.00 Very High Lactate dehydrogenase (LDH) measurementOrdered By: Denton Taylor on 09-18-2024 LDH [Catalytic activity/Vol] 221 U/L 84-246 [facility] Laminaribioside carbohydrate IgG antibody assayOrdered By: Denton Taylor on 09-18-2024 Laminaribioside IgG IA Qn 7 units 0-60 [facility] Comment on above: Negative:<55 Equivoc al: 55-60 Positive: >60 MCV (mean corpuscular volume ) determinationOrdered By: Denton Taylor on 09-18-2024 MCV (RBC) [Entitic vol] 83.7 fL 81-99 [facility] Mean corpuscular hemoglobin (MCH) determinationOrdered By: Denton Taylor on 09-18-2024 MCH (RBC) [Entitic mass] 28.1 pg 27.0-32.0 [facility] Mean corpuscular hemoglobin concentration (MCHC) determinationOrdered By: Denton Taylor on 09-18-2024 MCHC (RBC) [Mass/Vol] 33.5 g/dL 32-36 [facility] Mean platelet volume determi nationOrdered By: Denton Taylor on 09-18-2024 Platelet mean volume (Bld) [Entitic vol] 9.0 fL 6.2-12.0 [facility] Monocyte percentageOrdered B y: Denton Taylor on 09-18-2024 Monocytes/100 WBC (Bld) 8.0 % 0-10 [facility] Neutrophil percentageOrdered By: Denton Taylor on 09-18-2024 Neutrophils/100 WBC (Bld) 51.3 % 47-70 [facility] Nucleated red blood cell per centageOrdered By: Denton Taylor on 09-18-2024 Nucleated RBC/100 WBC (Bld) [Ratio] 0 % 0-5 [facility] Platelet countOrdered By: Ra cora Taylor on 09-18-2024 Platelets (Bld) [#/Vol] 573 10*3/uL High 150-450 [facility] Potassium measurement (mass/ volume)Ordered By: Denton Taylor on 09-18-2024 Potassium (Unsp spec) [Mass/Vol] 3.6 mmol/L 3.3-5.1 [facility] Prothrombin Time w/INRon INR Coag (PPP) [Relative time] 1.0 {INR} Normal [facility] Comment on above: Performed By: #### L 700.6800, L500.2500 #### [facility] [address] [place], [address] PT Coag (PPP) [Time] 13.1 s Normal 11.7-14.9 [facility] Comment on above: Performed By: #### L 700.6800, L500.2500 #### [facility] [address] [place], [place], [address] Prothrombin timeOrdered By: Denton Taylor on 09-18-2024 PT Coag (PPP) [Time] 13.1 s 11.7-14.9 [facility] RBC Auto (Bld) [#/Vol]Ordere d By: Denton Taylor on 09-18-2024 RBC (Bld) [#/Vol] 4.49 10*6/uL 4.2-5.4 [facility] Rheumatoid Factoron 09-19-19 25 RHEUMATOID FAC 11.9 IU/mL Normal <15 [facility] Comment on above: Performed By: #### L 700.6800, L500.2500 #### [facility] [address] [place], [place], [address] Serum DNA double strand anti body assay (units/volume)Ordered By: Denton Taylor on 09-18-2024 DNA double strand Ab Qn (S) 1 [IU]/mL 0-9 [facility] Comment on above: Negative <5 Equivoca l 5 - 9 Positive >9 Serum Scl-70 antibody assay (units/volume)Ordered By: Denton Taylor on 09-18-2024 SCL-70 extractable nuclear Ab Qn (S) TNP [facility] Comment on above: Test not performed SCL-70 extractable nuclear Ab Qn (S) <0.2 AI 0.0-0.9 [facility] Comment on above: Previous reported re sult: TNP AIEdited by: ELENI on 09/24/24:1308 AMENDED REPORT 09/24/24 1308 ANTISCLER previously reported as: Test not performed Serum beef IgE antibody assa y (units/volume)Ordered By: Denton Taylor on 09-18-2024 Beef IgE Qn (S) <0.10 kU/L Class 0 [facility] Serum black walnut IgE antib brent assay (units/volume)Ordered By: Denton Taylor on 09-18-2024 Black [place] IgE Qn (S) <0.10 kU/L Class 0 [facility] Serum chromogranin A measure mentOrdered By: Denton Taylor on 09-18-2024 Serum chromogranin A measurement 72.7 ng/mL 0.0-101.8 [facility] Comment on above: Chromogranin A perfo rmed by [employer] KRYPTORmethodologyValues obtained with different assay methods or kits cannotbe used interchangeably. Serum clam IgE antibody assa y (units/volume)Ordered By: Denton Taylor on 09-18-2024 Clam IgE Qn (S) <0.10 kU/L Class 0 [facility] Serum classic neutrophil cyt oplasmic antibody assay (units/volume)Ordered By: Denton Taylor on 09-18-2024 Neutrophil cytoplasmic Ab.classic Qn (S) <1:20 titer Neg:<1:20 [facility] Serum codfish IgE antibody a ssay (units/volume)Ordered By: Denton Taylor on 09-18-2024 Codfish IgE Qn (S) <0.10 kU/L Class 0 [facility] Serum corn IgE antibody assa y (units/volume)Ordered By: Denton Taylor on 09-18-2024 [place] IgE Qn (S) <0.10 kU/L Class 0 [facility] Serum cow milk IgE antibody assay (units/volume)Ordered By: Denton Taylor on 09-18-2024 Cow milk IgE Qn (S) 0.25 kU/L High Class 0/I [facility] Serum creatinine measurement (mass/volume)Ordered By: Denton Taylor on 09-18-2024 Creatinine [Mass/Vol] 0.74 mg/dL 0.70-1.20 [facility] Serum egg white IgE antibody assay (units/volume)Ordered By: Denton Taylor on 09-18-2024 Egg white IgE Qn (S) <0.10 kU/L Class 0 [facility] Serum globulin measurementOr dered By: Denton Taylor on 09-18-2024 Globulin (S) [Mass/Vol] 3.1 g/dL 2.2-4.2 [facility] Serum glucose measurement (m ass/volume)Ordered By: Denton Taylor on 09-18-2024 Glucose [Mass/Vol] 92 mg/dL 70-99 [facility] Serum or plasma C reactive p rotein measurement (mass/volume)Ordered By: Denton Taylor on 09-18-2024 CRP [Mass/Vol] 8.28 mg/L High 0.0-3.0 [facility] Serum or plasma IgA measurem ent (mass/volume)Ordered By: Denton Taylor on 09-18-2024 IgA [Mass/Vol] 273 mg/dL 87-352 [facility] Serum or plasma IgG measurem ent (mass/volume)Ordered By: Denton Taylor on 09-18-2024 IgG [Mass/Vol] 853 mg/dL 586-1602 [facility] Serum or plasma alanine glez otransferase (ALT) measurementOrdered By: Denton Taylor on 09-18-2024 ALT [Catalytic activity/Vol] 22 U/L <35 [facility] Serum or plasma albumin fatuma urement (mass/volume)Ordered By: Denton Taylor on 09-18-2024 Albumin [Mass/Vol] 4.3 g/dL 3.5-5.0 [facility] Serum or plasma albumin/glob ulin mass ratioOrdered By: Denton Taylor on 09-18-2024 Albumin/Globulin [Mass ratio] 1.4 {ratio} 0.9-2.4 [facility] Serum or plasma alkaline adeline sphatase measurementOrdered By: Denton Taylor on 09-18-2024 ALP [Catalytic activity/Vol] 82 U/L 35-104 [facility] Serum or plasma calcium fatuma urement (mass/volume)Ordered By: Denton Taylor on 09-18-2024 Calcium [Mass/Vol] 9.1 mg/dL 7.6-11.0 [facility] Serum or plasma cyclic citru llinated peptide IgG antibody assay (units/volume)Ordered By: Denton Taylor on 09-18-2024 Cyclic citrullinated peptide IgG Qn 8 units 0-19 [facility] Comment on above: Negative <20 Weak po sitive 20 - 39 Moderate positive 40 - 59 Strong positive >59Performed at: [address] [id number] Director: Pete Garcia PhD, Phone: [phone] at: [address] [id number] Director: lGenda Leon MD, Phone: [phone] Serum or plasma mannobioside IgG antibody assay by immunoassay (units/volume)Ordered By: Denton Taylor on 09-18-2024 Mannobioside IgG IA Qn 57 units 0-100 [facility] Comment on above: Negative: <90 Equivo jagruti: 90-100 Positive: >100 This test was developed and its performance characteristics determined by [employer]. It has not been cleared or approved by the Food and Drug Administration. The FDA has determined that such clearance or approval is not necessary. Serum or plasma urea nitroge n measurement (mass/volume)Ordered By: Denton Taylor on 09-18-2024 Urea nitrogen [Mass/Vol] 11 mg/dL 4-19 [facility] Serum peanut IgE antibody as say (units/volume)Ordered By: Denton Taylor on 09-18-2024 Peanut IgE Qn (S) <0.10 kU/L Class 0 [facility] Serum perinuclear neutrophil cytoplasmic antibody titer by immunofluorescenceOrdered By: Denton Taylor on 09-18-2024 Neutrophil cytoplasmic Ab.perinuclear IF (S) [Titer] <1:20 titer Neg:<1:20 [facility] Comment on above: The presence of posi tive fluorescence exhibiting P-ANCA orC-ANCA patterns alone is not specific for the diagnosis ofWegener's Granulomatosis (WG) or microscopic polyangiitis.Decisions about treatment should not be based solely onANCA IFA results. The International ANCA Group Consensusrecommends follow up testing of positive sera with both NJ-3 and MPO-ANCA enzyme immunoassays. As many as 5% serumsamples are positive only by EIA. Ref. AM J Clin Ogixty7210;111:507-513. Serum pork IgE antibody assa y (units/volume)Ordered By: Denton Taylor on 09-18-2024 Pork IgE Qn (S) <0.10 kU/L Class 0 [facility] Serum rheumatoid factor dete ctionOrdered By: Denton Taylor on 09-18-2024 Rheumatoid factor Ql (S) 11.9 IU/mL <15 [facility] Serum salmon IgE antibody as say (units/volume)Ordered By: Denton Taylor on 09-18-2024 [place] IgE Qn (S) <0.10 kU/L Class 0 [facility] Serum soybean IgE antibody a ssay (units/volume)Ordered By: Denton Taylor on 09-18-2024 Soybean IgE Qn (S) <0.10 kU/L Class 0 [facility] Serum tissue transglutaminas e (tTG) IgA antibody assay (units/volume)Ordered By: Denton Taylor on 09-18-2024 tTG IgA Qn (S) <2 U/mL 0-3 [facility] Comment on above: Negative 0 - 3 Weak Positive 4 - 10 Positive >10 Tissue Transglutaminase (tTG) has been identified as the endomysial antigen. Studies have demonstr- ated that endomysial IgA antibodies have over 99% specificity for gluten sensitive enteropathy. Serum tuna IgE antibody assa y (units/volume)Ordered By: Denton Talyor on 09-18-2024 Tuna IgE Qn (S) <0.10 kU/L Class 0 [facility] Serum wheat IgE antibody ass ay (units/volume)Ordered By: Denton Taylor on 09-18-2024 Wheat IgE Qn (S) <0.10 kU/L Class 0 [facility] Serum whole egg IgE antibody assay (units/volume)Ordered By: Denton Taylor on 09-18-2024 Whole Egg IgE Qn (S) <0.10 kU/L Class 0 [facility] Sodium levelOrdered By: Kong Holloway on 09-18-2024 Sodium [Moles/Vol] 138 mmol/L 133-145 [facility] Total proteinOrdered By: Hipolito Taylor on 09-18-2024 Protein [Mass/Vol] 7.3 g/dL 5.9-8.4 [facility] White blood cell (WBC) count Ordered By: Dentonbecky Taylor on 09-18-2024 WBC (Bld) [#/Vol] 11.1 10*3/uL High 4.4-11.0 [facility] CT ABDOMEN PELVIS W IV CONTR Svetlana 09-08-2024 CT ABDOMEN PELVIS W IV CONTRAST Interpreted By: Mynor Deluna and Liller Gregory STUDY: CT ABDOMEN PELVIS W IV CONTRAST; 09/08/2024 4:27 pm INDICATION: Signs/Symptoms:Abdomina l Pain. COMPARISON: Ultrasound abdomen 12/31/2023, ultrasound gallbladder 08/23/2021 ACCESSION NUMBER(S): [id number] ORDERING CLINICIAN: SANGEETA COOLEY TECHNIQUE: Contiguous axial images of the abdomen and pelvis were obtained after the intravenous administration of 70 ML mL Omnipaque 350 contrast. Coronal and sagittal reformatted images were reconstructed from the axial data. FINDINGS: LOWER CHEST: No acute abnormality. ABDOMEN/PELVIS: ABDOMINAL WALL: Small fat containing umbilical hernia. LIVER: No significant parenchymal abnormality. BILE DUCTS: No significant intrahepatic or extrahepatic dilatation. GALLBLADDER: Surgically absent. PANCREAS: No significant abnormality. SPLEEN: No significant abnormality. ADRENALS: No significant abnormality. KIDNEYS, URETERS, BLADDER: Bilateral kidneys enhance symmetrically. There is no hydronephrosis or obstructing radiopaque stone. The bladder is unremarkable. REPRODUCTIVE ORGANS: Within the left adnexa/left ovary, there is a rim enhancing cystic structure measuring 2.1 cm (series 3, image 122) with low internal density. Intrauterine device is noted and appears appropriately positioned within the uterine fundus. VESSELS: No significant abnormality. RETROPERITONEUM/LYMPH NODES: No mesenteric or retroperitoneal lymphadenopathy by CT size criteria. BOWEL/MESENTERY/PERITON EUM: The stomach is unremarkable. The large and small bowel are normal caliber without bowel wall thickening or dilation. The appendix is normal. No ascites, free air, or fluid collection. MUSCULOSKELETAL: No suspicious osseous lesion or acute osseous injury. No significant degenerative changes. IMPRESSION: Rim enhancing cystic structure noted within the left ovary/adnexa measuring 2.1 cm with low internal density favored to represent corpus luteum/functional cyst. Otherwise, there is no acute abdominopelvic abnormality. I personally reviewed the images/study and I agree with the findings as stated above by resident physician, Dr. Edd Painting. MACRO: none Signed by: Mynor Deluna 09/10/2024 6:07 AM Dictation workstation: [id number] Normal [facility] Cobalamin (Vitamin B12) [Mas s/Vol]on 09-03-2024 Interpretation and review of laboratory results Normal [facility] Folateon 09-03-2024 Folate [Mass/Vol] 6 ng/mL 5.0 - PINF ng/mL [facility] Folate [Mass/Vol]on 09-04-19 Interpretation and review of laboratory results Normal [facility] Low <3.4 Borderline 3.4-5.0 Normal >5.0 Patients receiving more than 5 mg/day of biotin may have interference in test results. A sample should be taken no sooner than eight hours after previous dose. Contact the testing laboratory for additional information. [facility] Pathologist review Pathologi st comment (Bld) [Interp]Ordered By: Venkata Campos on 09-03-2024 Pathologist Review-CBC Differential Many pelgeroid neutrophils present, possible true Pelger-Hu t anomaly. Cannot exclude drug effect. Note thrombocytosis. [facility] Work Phone: Comment on above: Electronically carlin d out by Venkata Campos MD on 09/03/24 at 2:59 PM. By the signature on this report, the individual or group listed as making the Final Interpretation/Diagnosis certifies that they have reviewed this case. [facility] Work Phone: Vitamin B12on 09-03-2024 Cobalamin (Vitamin B12) [Mass/Vol] 708 pg/mL 211 - 911 pg/mL [facility] 25-hydroxyvitamin D3 [Mass/V ol]on 09-02-2024 Interpretation and review of laboratory results Abnormal [facility] Deficiency: < 20 ng/ ml Insufficiency: 20-29 ng/ml Sufficiency: 30-100 ng/ml This assay accurately quantifies the sum of Vitamin D3, 25-Hydroxy and Vitamin D2,25-Hydroxy. [facility] VIKY with Reflex to ENAOrdere d By: Paul An on 09-02-2024 Nuclear Ab Hep2 substrate Ql (S) Negative Negative [facility] Comment on above: The Antinuclear Anti body (VIKY) test was performed using indirect immunofluorescence assay with HEp-2 cells slide. Ferritinon 09-02-2024 Ferritin [Mass/Vol] 117 ng/mL 8 - 150 ng/mL [facility] Ferritin [Mass/Vol]on 2024 Interpretation and review of laboratory results Normal [facility] Iron and Iron binding capaci ty panelon 09-02-2024 Interpretation and review of laboratory results Abnormal [facility] Iron [Mass/Vol] 57 ug/dL 35 - 150 ug/dL [facility] Iron binding capacity [Mass/Vol] 345 ug/dL 240 - 445 ug/dL [facility] Iron binding capacity.unsaturated [Mass/Vol] 288 ug/dL 110 - 370 ug/dL [facility] Iron saturation [Mass fraction] 17 % Low 25 - 45 % [facility] No Panel Informationon 09-02 [facility] Nuclear Ab Hep2 substrate Ql (S)Ordered By: Paul An on 09-02-2024 Interpretation and review of laboratory results Normal [facility] Vitamin D 25-Hydroxy,Total ( for eval of Vitamin D levels)on 09-02-2024 25-hydroxyvitamin D3 [Mass/Vol] 16 ng/mL Low 30 - 100 ng/mL [facility] C reactive proteinon 025 CRP [Mass/Vol] 0.84 mg/dL Normal <1.00 [facility] Comment on above: Performed By: #### 1 988-5 #### LIN EFREN ([id number]) [facility] ([facility]) [address] [place] [address] C-Reactive Proteinon 025 CRP [Mass/Vol] 0.84 mg/dL NINF - 1.00 mg/dL [facility] CBC W Auto Differential pane l (Bld)on 09-01-2024 Basophils (Bld) [#/Vol] 0.06 10*3/uL [facility] Work Phone: Basophils/100 WBC (Bld) 0.5 % 0.0 - 2.0 % [facility] Work Phone: )[phone] Eosinophils (Bld) [#/Vol] 0.28 10*3/uL [facility] Work Phone: Eosinophils/100 WBC (Bld) 2.6 % 0.0 - 6.0 % [facility] Work Phone: Erythrocyte distribution width (RBC) [Ratio] 13.3 % 11.5 - 14.5 % [facility] Work Phone: Hematocrit (Bld) [Volume fraction] 41.9 % 36.0 - 46.0 % [facility] Work Phone: Hemoglobin (Bld) [Mass/Vol] 12.9 g/dL 12.0 - 16.0 g/dL [facility] Work Phone: )[phone] Immature granulocytes (Bld) [#/Vol] 0.05 10*3/uL [facility] Work Phone: Immature granulocytes/100 WBC (Bld) 0.5 % 0.0 - 0.9 % [facility] Work Phone: [phone] Comment on above: Immature Granulocyte Count (IG) includes promyelocytes, myelocytes and metamyelocytes but does not include bands. Percent differential counts (%) should be interpreted in the context of the absolute cell counts (cells/UL). Interpretation and review of laboratory results Abnormal [facility] Work Phone: [phone] Lymphocytes (Bld) [#/Vol] 3.7 10*3/uL [facility] Work Phone: )[phone] Lymphocytes/100 WBC (Bld) 33.9 % 13.0 - 44.0 % [facility] Work Phone: [phone] MCH (RBC) [Entitic mass] 27.3 pg 26.0 - 34.0 pg [facility] Work Phone: [phone] MCHC (RBC) [Mass/Vol] 30.8 g/dL Low 32.0 - 36.0 g/dL [facility] Work Phone: [phone] MCV (RBC) [Entitic vol] 89 fL 80 - 100 fL [facility] Work Phone: 1 Monocytes (Bld) [#/Vol] 0.95 10*3/uL [facility] Work Phone: 1 Monocytes/100 WBC (Bld) 8.7 % 2.0 - 10.0 % [facility] Work Phone: Neutrophils (Bld) [#/Vol] 5.89 10*3/uL [facility] Work Phone: 1 Comment on above: Percent differential counts (%) should be interpreted in the context of the absolute cell counts (cells/uL). Neutrophils/100 WBC (Bld) 53.8 % 40.0 - 80.0 % [facility] Work Phone: 1 Nucleated RBC/100 WBC (Bld) [Ratio] 0 % [facility] Work Phone: Platelets (Bld) [#/Vol] 515 10*3/uL High [facility] Work Phone: 1 RBC (Bld) [#/Vol] 4.73 10*6/uL [facility] Work Phone: WBC (Bld) [#/Vol] 10.9 10*3/uL [facility] Work Phone: )[phone] [facility] Work Phone: 1 Basophils (Bld) [#/Vol] 0.06 x10*3/uL Normal 0.00-0.10 [facility] Comment on above: Performed By: #### 5 7021-8 #### LIN EFREN ([id number]) [facility] ([facility]) [address] [place] [address] Basophils/100 WBC (Bld) 0.5 % Normal 0.0-2.0 [facility] Comment on above: Performed By: #### 5 7021-8 #### RILEY SCHWARTZ ([id number]) [facility] ([facility]) [address] [place] [address] 16283 Eosinophils (Bld) [#/Vol] 0.28 x10*3/uL Normal 0.00-0.70 [facility] Comment on above: Performed By: #### 5 7021-8 #### RILEY SCHWARTZ ([id number]) [facility] ([facility]) [address] [place] [address] 12309 Eosinophils/100 WBC (Bld) 2.6 % Normal 0.0-6.0 [facility] Comment on above: Performed By: #### 5 7021-8 #### RILEY SCHWARTZ ([id number]) [facility] ([facility]) [address] [place] [address] 98138 Erythrocyte distribution width (RBC) [Ratio] 13.3 % Normal 11.5-14.5 [facility] Comment on above: Performed By: #### 5 7021-8 #### RILEY SCHWARTZ ([id number]) [facility] ([facility]) [address] [place] [address] 01679 Hematocrit (Bld) [Volume fraction] 41.9 % Normal 36.0-46.0 [facility] Comment on above: Performed By: #### 5 7021-8 #### RILEY SCHWARTZ ([id number]) [facility] ([facility]) [address] [place] [address] 79821 Hemoglobin (Bld) [Mass/Vol] 12.9 g/dL Normal 12.0-16.0 [facility] Comment on above: Performed By: #### 5 7021-8 #### RILEY SCHWARTZ ([id number]) [facility] ([facility]) [address] [place] [address] 95752 Immature granulocytes (Bld) [#/Vol] 0.05 x10*3/uL Normal 0.00-0.70 [facility] Comment on above: Performed By: #### 5 7021-8 #### RILEY SCHWARTZ ([id number]) [facility] ([facility]) [address] [place] [address] 59091 Immature granulocytes/100 WBC (Bld) 0.5 % Normal 0.0-0.9 [facility] Comment on above: Result Comment: Yeni ture Granulocyte Count (IG) includes promyelocytes, myelocytes and metamyelocytes but does not include bands. Percent differential counts (%) should be interpreted in the context of the absolute cell counts (cells/UL). Performed By: #### 5 7021-8 #### RILEY SCHWARTZ ([id number]) [facility] ([facility]) [address] [place] [address] 06943 Lymphocytes (Bld) [#/Vol] 3.70 x10*3/uL Normal 1.20-4.80 [facility] Comment on above: Performed By: #### 5 7021-8 #### RILEY SCHWARTZ ([id number]) [facility] ([facility]) [address] [place] [address] 61291 Lymphocytes/100 WBC (Bld) 33.9 % Normal 13.0-44.0 [facility] Comment on above: Performed By: #### 5 7021-8 #### RILEY SCHWARTZ ([id number]) [facility] ([facility]) [address] [place] [address] 60269 MCH (RBC) [Entitic mass] 27.3 pg Normal 26.0-34.0 [facility] Comment on above: Performed By: #### 5 7021-8 #### RILEY SCHWARTZ ([id number]) [facility] ([facility]) [address] [place] [address] 67153 MCHC (RBC) [Mass/Vol] 30.8 g/dL Low 32.0-36.0 [facility] Comment on above: Performed By: #### 5 7021-8 #### RILEY SCHWARTZ ([id number]) [facility] ([facility]) [address] [place] [address] 35199 MCV (RBC) [Entitic vol] 89 fL Normal 80-100 [facility] Comment on above: Performed By: #### 5 7021-8 #### RILEY SCHWARTZ ([id number]) [facility] ([facility]) [address] [place] [address] 26619 Monocytes (Bld) [#/Vol] 0.95 x10*3/uL Normal 0.10-1.00 [facility] Comment on above: Performed By: #### 5 7021-8 #### RILEY SCHWARTZ ([id number]) [facility] ([facility]) [address] [place] [address] 26537 Monocytes/100 WBC (Bld) 8.7 % Normal 2.0-10.0 [facility] Comment on above: Performed By: #### 5 7021-8 #### RILEY SCHWARTZ ([id number]) [facility] ([facility]) [address] [place] [address] 29878 Neutrophils (Bld) [#/Vol] 5.89 x10*3/uL Normal 1.20-7.70 [facility] Comment on above: Result Comment: Perc ent differential counts (%) should be interpreted in the context of the absolute cell counts (cells/uL). Performed By: #### 5 7021-8 #### RILEY SCHWARTZ ([id number]) [facility] ([facility]) [address] [place] [address] 17863 Neutrophils/100 WBC (Bld) 53.8 % Normal 40.0-80.0 [facility] Comment on above: Performed By: #### 5 7021-8 #### RILEY SCHWARTZ ([id number]) [facility] ([facility]) [address] [place] [address] 45757 Nucleated RBC/100 WBC (Bld) [Ratio] 0.0 /100 WBCs Normal 0.0-0.0 [facility] Comment on above: Performed By: #### 5 7021-8 #### RILEY SCHWARTZ ([id number]) [facility] ([facility]) [address] [place] [address] 41130 Platelets (Bld) [#/Vol] 515 x10*3/uL High 150-450 [facility] Comment on above: Performed By: #### 5 7021-8 #### RILEY SCHWARTZ ([id number]) [facility] ([facility]) [facility] [place] [address] RBC (Bld) [#/Vol] 4.73 x10*6/uL Normal 4.00-5.20 [facility] Comment on above: Performed By: #### 5 7021-8 #### RILEY SCHWARTZ ([id number]) [facility] ([facility]) [address] [place] [address] 04291 WBC (Bld) [#/Vol] 10.9 x10*3/uL Normal 4.4-11.3 [facility] Comment on above: Performed By: #### 5 7021-8 #### RILEY SCHWARTZ ([id number]) [facility] ([facility]) [address] [place] [address] 40798 CRP [Mass/Vol]on 09-01-2024 Interpretation and review of laboratory results Normal [facility] Calcidiolon 09-01-2024 25-hydroxyvitamin D3 [Mass/Vol] 16 ng/mL Low 30-100 [facility] Comment on above: Order Comment: Defic iency: < 20 ng/ml Insufficiency: 20-29 ng/ml Sufficiency: 30-100 ng/ml This assay accurately quantifies the sum of Vitamin D3, 25-Hydroxy and Vitamin D2,25-Hydroxy. Performed By: #### 1 989-3 #### ANTONIETTA Vale ([id number]) [facility] ([facility]) [address] [place] [address] Cobalaminson 09-01-2024 Cobalamin (Vitamin B12) [Mass/Vol] 708 pg/mL Normal 211-911 [facility] Comment on above: Performed By: #### 2 132-9 #### ANTONIETTA Vale ([id number]) [facility] ([facility]) [address] [place] [address] 71916 ESR Westergren method (Bld) [Velocity]on 09-01-2024 ESR (Bld) [Velocity] 52 mm/h High 0 - 20 mm/h [facility] Interpretation and review of laboratory results Abnormal [facility] ESR (Bld) [Velocity] 52 mm/h High 0-20 [facility] Comment on above: Performed By: #### 4 537-7 #### RILEY SCHWARTZ ([id number]) [facility] ([facility]) [address] [place] [address] Ferritinon 09-01-2024 Ferritin [Mass/Vol] 117 ng/mL Normal 8-150 [facility] Comment on above: Performed By: #### 2 276-4 #### RILEY SCHWARTZ ([id number]) [facility] ([facility]) [address] [place] [address] 99379 Folateon 09-01-2024 Folate [Mass/Vol] 6.0 ng/mL Normal >5.0 [facility] Comment on above: Order Comment: Low < 3.4 Borderline 3.4-5.0 Normal >5.0 Patients receiving more than 5 mg/day of biotin may have interference in test results. A sample should be taken no sooner than eight hours after previous dose. Contact the testing laboratory for additional information. Performed By: #### 2 284-8 #### ANTONIETTA Vale ([id number]) [facility] ([facility]) [address] [place] [address] 05695 Iron and Iron binding capaci ty panelon 09-01-2024 Iron [Mass/Vol] 57 ug/dL Normal 35-150 [facility] Comment on above: Performed By: #### 5 0190-8 #### RILEY SCHWARTZ ([id number]) [facility] ([facility]) [address] [place] [address] Iron binding capacity [Mass/Vol] 345 ug/dL Normal 240-445 [facility] Comment on above: Performed By: #### 5 0190-8 #### RILEY SCHWARTZ ([id number]) [facility] ([facility]) [facility] [place] [address] Iron binding capacity.unsaturated [Mass/Vol] 288 ug/dL Normal 110-370 [facility] Comment on above: Performed By: #### 5 0190-8 #### RILEY SCHWARTZ ([id number]) [facility] ([facility]) [address] [place] [address] 39659 Iron saturation [Mass fraction] 17 % Low 25-45 [facility] Comment on above: Performed By: #### 5 0190-8 #### RILEY SCHWARTZ ([id number]) [facility] ([facility]) [address] [place] [address] 98777 Nuclear Abon 09-01-2024 Nuclear Ab Hep2 substrate Ql (S) Negative Normal Negative [facility] Comment on above: Result Comment: The Antinuclear Antibody (VIKY) test was performed using indirect immunofluorescence assay with HEp-2 cells slide. Performed By: #### 5 9069-5 #### ANTONIETTA Vale ([id number]) [facility] ([facility]) [address] [place] [address] comment (Bld) [Interp]on 09-01-2024 PATH REVIEW-CBC DIFFERENTIAL Many pelgeroid neutrophils present, possible true Pelger-Hu???t anomaly. Cannot exclude drug effect. Note thrombocytosis. Normal [facility] Comment on above: Result Comment: Elec tronically signed out by Venkata Campos MD on 09/03/24 at 2:59 PM. By the signature on this report, the individual or group listed as making the Final Interpretation/Diagnosis certifies that they have reviewed this case. Performed By: #### 5 7021-8 #### RILEY SCHWARTZ ([id number]) [facility] ([facility]) [address] [place] [address] 51429 CBC (INCLUDES DIFF/PLT)on Basophils (Bld) [#/Vol] 0.05 10*3/uL Normal 0-200 [facility] Comment on above: Performed By: #### 9 9842, 2680, 9499 #### [facility] [address], [address] [place] [address] Coupling Machine Operator: Mode Thomas MD Basophils/100 WBC (Bld) 0.5 % Normal [facility] Comment on above: Performed By: #### 9 2664, 7599, 6399 #### [facility] of [address], [address] [place] [address] Coupling Machine Operator: Mode Thomas MD Eosinophils (Bld) [#/Vol] 0.505 10*3/uL High 15-500 [facility] Comment on above: Performed By: #### 9 2664, 0, 6399 #### [facility] of [address], [address] [place] [address] Coupling Machine Operator: Mode Thomas MD Eosinophils/100 WBC (Bld) 5.1 % Normal [facility] Comment on above: Performed By: #### 9 2664, 7599, 6399 #### [facility] of [address], [address] [place] [address] Coupling Machine Operator: Mode Thomas MD Erythrocyte distribution width (RBC) [Ratio] 13.0 % Normal 11.0-15.0 [facility] Comment on above: Performed By: #### 9 2664, 7599, 6399 #### [facility] of [address], [address] [place] [address] Coupling Machine Operator: Mode Thomas MD Hematocrit (Bld) [Volume fraction] 40.0 % Normal 35.0-45.0 [facility] Comment on above: Performed By: #### 9 226, 7599, 6399 #### [facility] of [place] [address] Coupling Machine Operator: Mode Thomas MD Hemoglobin (Bld) [Mass/Vol] 12.8 g/dL Normal 11.7-15.5 [facility] Comment on above: Performed By: #### 9 2664, 7600, 6399 #### [facility] of [address], [address] [place] [address] Coupling Machine Operator: Mode Thomas MD Lymphocytes (Bld) [#/Vol] 3.742 10*3/uL Normal 850-3900 [facility] Comment on above: Performed By: #### 9 939, 7600, 6399 #### [facility] of [address], [address] [place] [address] Coupling Machine Operator: Mode Thomas MD Lymphocytes/100 WBC (Bld) 37.8 % Normal [facility] Comment on above: Performed By: #### 9 610, 7600, 6399 #### [facility] of [address], [address] [place] [address] Coupling Machine Operator: Mode Thomas MD MCH (RBC) [Entitic mass] 27.9 pg Normal 27.0-33.0 [facility] Comment on above: Performed By: #### 9 448, 760, 6399 #### [facility] of [place] [address] Coupling Machine Operator: Mode Thomas MD MCHC (RBC) [Mass/Vol] 32.0 g/dL Normal 32.0-36.[address] [facility] Comment on above: Result Comment: For adults, a slight decrease in the calculated MCHC value (in the range of 30 to 32 g/dL) is most likely not clinically significant; however, it should be interpreted with caution in correlation with other red cell parameters and the patient's clinical condition. Performed By: #### 9 405, 7600, 6399 #### [facility] of [place] [address] Coupling Machine Operator: Mode Thomas MD MCV (RBC) [Entitic vol] 87.3 fL Normal 80.0-100.0 [facility] Comment on above: Performed By: #### 9 258, 7600, 6399 #### [facility] [place] [address] Coupling Machine Operator: Mode Thomas MD Monocytes (Bld) [#/Vol] 0.693 10*3/uL Normal 200-950 [facility] Comment on above: Performed By: #### 9 350, 7600, 6399 #### [facility] of [place] [address] Coupling Machine Operator: Mode Thomas MD Monocytes/100 WBC (Bld) 7.0 % Normal [facility] Comment on above: Performed By: #### 9 5, 7600, 6399 #### [facility] of [address], [address] [place] [address] Coupling Machine Operator: Mode Thomas MD Neutrophils (Bld) [#/Vol] 4.91 10*3/uL Normal 6665-8364 [facility] Comment on above: Performed By: #### 9 2664, 0, 6399 #### [facility] of [address], [address] [place] [address] Coupling Machine Operator: Mode Thomas MD Neutrophils/100 WBC (Bld) 49.6 % Normal [facility] Comment on above: Performed By: #### 9 2664, 760, 6399 #### [facility] of [place] [address] Coupling Machine Operator: Mode Thomas MD Platelet mean volume (Bld) [Entitic vol] 9.3 fL Normal 7.5-12.5 [facility] Comment on above: Performed By: #### 9 2664, 7599, 6399 #### [facility] of [place] [address] Coupling Machine Operator: Mode Thomas MD Platelets (Bld) [#/Vol] 581 10*3/uL High 140-400 [facility] Comment on above: Performed By: #### 9 060, 7599, 6399 #### [facility] of [place] [address] Coupling Machine Operator: Mode Thomas MD RBC (Bld) [#/Vol] 4.58 10*6/uL Normal 3.80-5.10 [facility] Comment on above: Performed By: #### 9 174, 7600, 6399 #### [facility] of [address], [address] [place] [address] Coupling Machine Operator: Mode Thomas MD WBC (Bld) [#/Vol] 9.9 10*3/uL Normal 3.8-10.8 [facility] Comment on above: Performed By: #### 9 0495, 7600, 6399 #### [facility] [address], [address] [place] [address] Coupling Machine Operator: Mode Thomas MD COMPREHENSIVE METABOLIC PANE L W/ANION GAPon 08-14-2024 Albumin [Mass/Vol] 4.5 g/dL Normal 3.6-5.1 [facility] Comment on above: Performed By: #### 9 3685, 7600, 6399 #### [facility] [address], [address] [place] [address] Coupling Machine Operator: Mode Thomas MD ALP [Catalytic activity/Vol] 74 U/L Normal 31-125 [facility] Comment on above: Performed By: #### 9 4015, 7600, 6399 #### [facility] of [place] [address] Coupling Machine Operator: Mode Thomas MD ALT [Catalytic activity/Vol] 26 U/L Normal 6-29 [facility] Comment on above: Performed By: #### 9 4535, 7600, 6399 #### [facility] [place] [address] Coupling Machine Operator: Mode Thomas MD AST [Catalytic activity/Vol] 16 U/L Normal 10-30 [facility] Comment on above: Performed By: #### 9 1035, 7600, 6399 #### [facility] [place] [address] Coupling Machine Operator: Mode Thomas MD Bilirubin [Mass/Vol] 0.4 mg/dL Normal 0.2-1.2 [facility] Comment on above: Performed By: #### 9 0335, 7600, 6399 #### [facility] [place] [address] Coupling Machine Operator: Mode Thomas MD Calcium [Mass/Vol] 9.7 mg/dL Normal 8.6-10.2 [facility] Comment on above: Performed By: #### 9 6675, 7600, 6399 #### [facility] [address], [address] [place] [address] Coupling Machine Operator: Mode Thomas MD Chloride [Moles/Vol] 105 mmol/L Normal 98-110 [facility] Comment on above: Performed By: #### 9 1205, 7600, 6399 #### [facility] [address], [address] [place] [address] Coupling Machine Operator: Mode Thomas MD CO2 [Moles/Vol] 26 mmol/L Normal 20-32 [facility] Comment on above: Performed By: #### 9 0275, 7600, 6399 #### [facility] [address], [address] [place] [address] Coupling Machine Operator: Mode Thomas MD Creatinine [Mass/Vol] 0.72 mg/dL Normal 0.50-0.96 [facility], [facility] Comment on above: Performed By: #### 9 768, 7600, 6399 #### [facility] [address], [address] [place] [address] Coupling Machine Operator: Mode Thomas MD ELECTROLYTE BALANCE 10 mmol/L (calc) Normal 7-17 [facility] Comment on above: Performed By: #### 9 604, 7600, 6399 #### [facility] [place] [address] Coupling Machine Operator: Mode Thomas MD GFR/1.73 sq M.predicted among non-blacks MDRD (S/P/Bld) [Vol rate/Area] 120 mL/min/{1.73_m2} Normal > OR = 60 [facility] Comment on above: Performed By: #### 9 6765, 7600, 6399 #### [facility] [place] [address] Coupling Machine Operator: Mode Thomas MD Glucose [Mass/Vol] 89 mg/dL Normal 65-99 [facility] Comment on above: Result Comment: Fasting reference interval Performed By: #### 9 2725, 7600, 6399 #### [facility] [address], [address] [place] [address] Coupling Machine Operator: Mode Thomas MD Potassium [Moles/Vol] 4.4 mmol/L Normal 3.5-5.3 [facility], [facility] Comment on above: Performed By: #### 9 5585, 7600, 6399 #### [facility] [address], [address] [place] [address] Coupling Machine Operator: Mode Thomas MD Protein [Mass/Vol] 7.3 g/dL Normal 6.1-8.1 [facility] Comment on above: Performed By: #### 9 2955, 7600, 6399 #### [facility] [address], [address] [place] [address] Coupling Machine Operator: Mode Thomas MD Sodium [Moles/Vol] 141 mmol/L Normal 135-146 [facility] Comment on above: Performed By: #### 9 441, 7600, 6399 #### [facility] [place] [address] Coupling Machine Operator: Mode Thomas MD Urea nitrogen [Mass/Vol] 18 mg/dL Normal 7-25 [facility] Comment on above: Performed By: #### 9 367, 7600, 6399 #### [facility] [place] [address] Coupling Machine Operator: Mode Thomas MD LIPID PANEL, [facility] 04-0 Cholesterol [Mass/Vol] 231 mg/dL High <200 [facility] Comment on above: Order Comment: FASTI NG:YES FASTING: YES Performed By: #### 9 2035, 7600, 6399 #### [facility] [place] [address] Coupling Machine Operator: Mode Thomas MD Cholesterol in HDL [Mass/Vol] 62 mg/dL Normal > OR = 50 [facility] Comment on above: Order Comment: FASTI NG:YES FASTING: YES Performed By: #### 9 8375, 7600, 6399 #### [facility] [address], [address] [place] [address] Coupling Machine Operator: Mode Thomas MD Cholesterol in LDL [Mass/Vol] 146 mg/dL High [facility] Comment on above: Order Comment: FASTI NG:YES FASTING: YES Result Comment: Refe rence range: <100 Desirable range <100 mg/dL for primary prevention; <70 mg/dL for patients with CHD or diabetic patients with > or = 2 CHD risk factors. LDL-C is now calculated using the No calculation, which is a validated novel method providing better accuracy than the Friedewald equation in the estimation of LDL-C. Emil SS et al. JOSEPHINE. 2013;310(19): 2879-6525 (http://education.Sparkbrowser.Wan Shidao management/faq/TLX442) Performed By: #### 9 0151, 7580, 9499 #### [facility] [address], [address] [place] [address] Coupling Machine Operator: Mode Thomas MD Cholesterol.total/Loreta sterol in HDL [Mass ratio] 3.7 {ratio} Normal <5.0 [facility] Comment on above: Order Comment: FASTI NG:YES FASTING: YES Performed By: #### 9 9084, 9500, 6399 #### [facility] [address], [address] [place] [address] Coupling Machine Operator: Mode Thomas MD NON HDL CHOLESTEROL 169 mg/dL (calc) High <130 [facility] Comment on above: Order Comment: FASTI NG:YES FASTING: YES Result Comment: For patients with diabetes plus 1 major ASCVD risk factor, treating to a non-HDL-C goal of <100 mg/dL (LDL-C of <70 mg/dL) is considered a therapeutic option. Performed By: #### 9 5774, 3860, 6399 #### [facility] [address], [address] [place] [address] Coupling Machine Operator: Mode Thomas MD Triglyceride [Mass/Vol] 117 mg/dL Normal <150 [facility] Comment on above: Order Comment: FASTI NG:YES FASTING: YES Performed By: #### 9 3955, 7600, 6399 #### [facility] [address], [address] [place] [address] Coupling Machine Operator: Mode Thomas MD VITAMIN B12on 08-14-2024 Cobalamin (Vitamin B12) [Mass/Vol] 693 pg/mL Normal 200-1100 [facility] Comment on above: Performed By: #### 9 2665, 7600, 6399 #### [facility] [address], [address] [place] [address] Coupling Machine Operator: Mode Thomas MD Surgical pathology studyon 0 07-30-2024 Surgical pathology study Pathology report.total SEE COMMENT Surgical Pathology Case: [id number] Authorizing Provider: Carolynn Mendoza MD Collected: 07/30/2024 1506 Ordering Location: [facility] Received: 07/30/2024 1651 Center OR Pathologist: Laure Yadav MD Specimen: GALLBLADDER CHOLECYSTECTOMY, gallbladder Path report.final diagnosis SEE COMMENT A. Gallbladder, cholecystectomy: - Gallbladder parenchyma with mild chronic cholecystitis and cholesterol polyp formation. Laboratory comment By the signature on this report, the individual or group listed as making the Final Interpretation/Diagnosi s certifies that they have reviewed this case. Path report.relevant Hx SEE COMMENT Pre-op diagnosis: Gallbladder polyp [K82.4] Path report.gross observation SEE COMMENT A: Received in formalin, labeled with the patient's name and hospital number and gallbladder, is an intact gallbladder, opened for fixation, measuring 5.7 x 2.4 x 2.2 cm. The serosal surface is smooth and glistening. There are no transmural defects grossly identified. The hepatic surface is inked black. The wall measures up to 0.3 cm in greatest thickness. The lumen contains bile. Upon filtering of the formalin, calculi are not identified. The mucosal surface is bile-stained, velvety, demonstrates longitudinally yellow streaks and multiple yellow clusters ranging from 0.2 cm to 0.5 cm in greatest dimension. Flower Buncher Or Picker sections consisting of the cystic duct margin and gallbladder wall are submitted in one cassette. [facility] Comment on above: Order Comment: Pre-o p diagnosis: Gallbladder polyp [K82.4] CNOVon 07-07-2024 CNOV Office Visit (UCWSTR ) YVETTE WADE ([id number]) 2 F Date Time Provider Department 07/07/24 10:15 AM [facility] During your visit today, we recorded the following information about you: Temperature Pulse Respiration Blood pressure 98.5 degrees 82/minute 16/minute 128/78 Weight 96.4 kg Kellie Fonseca APRN.OUTREACH COORDINATOR 07/07/2024 10:45 AM Signed This note was created using NoteWriter. Subjective Yvette Wade is a 23 year old female. 23 year old female with PMH acid reflux presents for illness Acute onset 2 weeks ago +nasal congestion +post nasal drainage +sinus pain +sinus pressure +sore throat Mild cough Denies SOB Denies dyspnea Denies abdominal pain Denies N/V/D Used Tylenol Used nasal decongestant +vapes The history is provided by the patient. No language and literature division chair was used. Nasal Congestion This is a new problem. The current episode started 1 to 4 weeks ago. The problem has been gradually worsening since onset. There has been no fever. Her pain is at a severity of 5/10. The pain is moderate. Associated symptoms include congestion, coughing, ear pain, headaches, sinus pressure, sneezing, a sore throat and swollen glands. Pertinent negatives include no chills, diaphoresis, hoarse voice, neck pain or shortness of breath. Past treatments include oral decongestants and acetaminophen. The treatment provided no relief. No past medical history on file. PAST SURGICAL HISTORY Procedure Laterality Date REMOVE TONSILS/ADENOIDS,<12 Y/O ALLERGIES Patient has no known allergies. MEDICATIONS citalopram (CELEXA) 20 mg tablet Take 1 tablet by mouth every afternoon. omeprazole (PRILOSEC) 40 mg capsule Take 40 mg by mouth. levonorgestrel (MIRENA) 20 mcg/24 hours (5 yrs) 52 mg IUD 1 Each by INTRAUTERINE route continuous. ibuprofen (MOTRIN) 200 mg tablet Take 200 mg by mouth every 6 hours as needed. cetirizine HCl (ZYRTEC ORAL) Take by mouth. amoxicillin-clavulanate potassium (AUGMENTIN) 875-125 mg per tablet Take 1 tablet by mouth two times a day for 7 days. polymyxin B-trimethoprim (POLYTRIM) 10,000 unit- 1 mg/mL ophthalmic solution Use 1 Drop in both eyes every 4 hours for 7 days. FAMILY HISTORY Problem Relation Age of Onset No Known Problems Mother No Known Problems Father No Known Problems Sister No Known Problems Brother No Known Problems Maternal Grandmother No Known Problems Maternal Grandfather No Known Problems Paternal Grandmother No Known Problems Paternal Grandfather Social History Tobacco Use Smoking status: Never Smokeless tobacco: Never Vaping Use Vaping status: current everyday user Substance Use Topics Alcohol use: Yes Comment: Socially Drug use: Never Review of Systems Constitutional: Negative for chills and diaphoresis. HENT: Positive for congestion, ear pain, postnasal drip, rhinorrhea, sinus pressure, sinus pain, sneezing and sore throat. Negative for hoarse voice. Eyes: Negative for pain, discharge, redness and itching. Respiratory: Positive for cough. Negative for shortness of breath. Cardiovascular: Negative for chest pain, palpitations and leg swelling. Gastrointestinal: Negative for abdominal pain, diarrhea, nausea and vomiting. Musculoskeletal: Negative for neck pain. Skin: Negative for color change, pallor and rash. Allergic/Immunologic: Negative for environmental allergies, food allergies and immunocompromised state. Neurological: Positive for headaches. Hematological: Positive for adenopathy. Does not bruise/bleed easily. Psychiatric/Behavioral: Negative for agitation and behavioral problems. Objective BP 128/78 Pulse 82 Temp 36.9 ?C (98.5 ?F) Resp 16 Wt 96.4 kg (212 lb 8.4 oz) LMP 08/17/2020 (Exact Date) SpO2 100% BMI 38.87 kg/m? Physical Exam Vitals and nursing note reviewed. Constitutional: General: She is not in acute distress. Appearance: Normal appearance. She is normal weight. She is not ill-appearing, toxic-appearing or diaphoretic. HENT: Head: Normocephalic and atraumatic. Comments: +frontal sinus pressure +maxillary sinus pressure Right Ear: Ear canal and external ear normal. Left Ear: Ear canal and external ear normal. Ears: Comments: B/L TMs mild erythema, Left greater than right Nose: Rhinorrhea present. No congestion. Mouth/Throat: Mouth: Mucous membranes are moist. Pharynx: Posterior oropharyngeal erythema present. No oropharyngeal exudate. Eyes: General: Right eye: No discharge. Left eye: No discharge. Extraocular Movements: Extraocular movements intact. Pupils: Pupils are equal, round, and reactive to light. Comments: Vision grossly intact Bilateral conjunctiva mildly injected Marginal eyelid debris +red reflex bilateral Cardiovascular: Rate and Rhythm: Normal rate and regular rhythm. Pulses: Normal pulses. Heart sounds: Normal he (more content not included)... Normal [facility] STREP A MOLECULAR (POC)on Procedural Control Valid [facility] Strep A (POCT) Negative Negative [facility] Allergen Resp. Area 5 04-14 ALTERNARIA TEN <0.10 Normal Class 0 [facility] Comment on above: Performed By: #### L 5500.0410, L5500.0700, L801.1541 #### [facility] [address] [place], [address] CINDY, WHITE <0.10 Normal Class 0 [facility] Comment on above: Performed By: #### L 5500.0410, L5500.0700, L801.1541 #### [facility] [address] [place], [address] ASPERGILLUS FUM <0.10 Normal Class 0 [facility] Comment on above: Performed By: #### L 5500.0410, L5500.0700, L801.1541 #### [facility] [address] [place], [address] BERMUDA GRASS <0.10 Normal Class 0 [facility] Comment on above: Performed By: #### L 5500.0410, L5500.0700, L801.1541 #### [facility] [address] [place], [address] BIRCH <0.10 Normal Class 0 [facility] Comment on above: Performed By: #### L 5500.0410, L5500.0700, L801.1541 #### [facility] [address] [place], [address] BLACK WALNUT <0.10 Normal Class 0 [facility] Comment on above: Performed By: #### L 5500.0410, L5500.0700, L801.1541 #### [facility] [address] [place], [address] CAT HAIR/DANDER 0.46 kU/L Abnormal Class I [facility] Comment on above: Performed By: #### L 5500.0410, L5500.0700, L801.1541 #### [facility] [address] [place], [address] CLADOSPOR HERB <0.10 Normal Class 0 [facility] Comment on above: Performed By: #### L 5500.0410, L5500.0700, L801.1541 #### [facility] [address] [place], [address] COCKROACH,AMER <0.10 Normal Class 0 [facility] Comment on above: Performed By: #### L 5500.0410, L5500.0700, L801.1541 #### [facility] [address] [place], [address] COTTONWOOD <0.10 Normal Class 0 [facility] Comment on above: Performed By: #### L 5500.0410, L5500.0700, L801.1541 #### [facility] [address] [place], [address] D FARINAE MITE 43.70 kU/L Abnormal Class V [facility] Comment on above: Performed By: #### L 5500.0410, L5500.0700, L801.1541 #### [facility] [address] [place], [address] D PTERONYSSINUS 34.80 kU/L Abnormal Class V [facility] Comment on above: Performed By: #### L 5500.0410, L5500.0700, L801.1541 #### [facility] [address] [place], [address] DOG EPITHELIA 2.85 kU/L Abnormal Class III [facility] Comment on above: Performed By: #### L 5500.0410, L5500.0700, L801.1541 #### [facility] [address] [place], [address] ELM,AMER WHITE <0.10 Normal Class 0 [facility] Comment on above: Performed By: #### L 5500.0410, L5500.0700, L801.1541 #### [facility] [address] [place], [address] IMMUNOGLOB E 159 IU/mL Normal 6-495 [facility] Comment on above: Performed By: #### L 5500.0410, L5500.0700, L801.1541 #### [facility] [address] [place], [address] MAPLE/BOX ELDER 0.21 kU/L Abnormal Class 0/I [facility] Comment on above: Performed By: #### L 5500.0410, L5500.0700, L801.1541 #### [facility] [address] [place], [address] MOUNTAIN CEDAR <0.10 Normal Class 0 [facility] Comment on above: Performed By: #### L 5500.0410, L5500.0700, L801.1541 #### [facility] [address] [place], [address] Mouse Urine <0.10 Normal Class 0 [facility] Comment on above: Performed By: #### L 5500.0410, L5500.0700, L801.1541 #### [facility] [address] [place], [address] MULBERRY,WHITE <0.10 Normal Class 0 [facility] Comment on above: Performed By: #### L 5500.0410, L5500.0700, L801.1541 #### [facility] [address] [place], [address] OAK, WHITE 0.17 kU/L Abnormal Class 0/I [facility] Comment on above: Performed By: #### L 5500.0410, L5500.0700, L801.1541 #### [facility] [address] [place], [address] PECAN <0.10 Normal Class 0 [facility] Comment on above: Performed By: #### L 5500.0410, L5500.0700, L801.1541 #### [facility] [address] [place], [address] PEN NOTATUM <0.10 Normal Class 0 [facility] Comment on above: Performed By: #### L 5500.0410, L5500.0700, L801.1541 #### [facility] [address] [place], [address] PIGWEED, ROUGH <0.10 Normal Class 0 [facility] Comment on above: Performed By: #### L 5500.0410, L5500.0700, L801.1541 #### [facility] [address] [place], [address] RAGWEED SH/COM <0.10 Normal Class 0 [facility] Comment on above: Performed By: #### L 5500.0410, L5500.0700, L801.1541 #### [facility] [address] [place], [address] BARBADIAN THISTLE <0.10 Normal Class 0 [facility] Comment on above: Performed By: #### L 5500.0410, L5500.0700, L801.1541 #### [facility] [address] [place], [address] SHEEP SORREL <0.10 Normal Class 0 [facility] Comment on above: Performed By: #### L 5500.0410, L5500.0700, L801.1541 #### [facility] [address] [place], [address] SYCAMORE, AMER <0.10 Normal Class 0 [facility] Comment on above: Performed By: #### L 5500.0410, L5500.0700, L801.1541 #### [facility] [address] [place], [address] RAISA GRASS <0.10 Normal Class 0 [facility] Comment on above: Performed By: #### L 5500.0410, L5500.0700, L801.1541 #### [facility] [address] [place], [address] Allergen, Food Profileon CLAM <0.10 Normal Class 0 [facility] Comment on above: Performed By: #### L 5500.0410, L5500.0700, L801.1541 #### [facility] [address] [place], [address] CODFISH <0.10 Normal Class 0 [facility] Comment on above: Performed By: #### L 5500.0410, L5500.0700, L801.1541 #### [facility] [address] [place], [place], [address] COMMENT Comment Normal . [facility] Comment on above: Result Comment: Juan Manuel fernandez of Specific IgE Class Description of Class ----- < 0.10 0 Negative 0.10 - 0.31 0/I Equivocal/Low 0.32 - 0.55 I Low 0.56 - 1.40 II Moderate 1.41 - 3.90 III High 3.91 - 19.00 IV Very High 19.01 - 100.00 V Very High >100.00 Very High Performed By: #### L 5500.0410, L5500.0700, L801.1541 #### [facility] [address] [place], [address] CORN <0.10 Normal Class 0 [facility] Comment on above: Performed By: #### L 5500.0410, L5500.0700, L801.1541 #### [facility] [address] [place], [address] EGG, WHITE <0.10 Normal Class 0 [facility] Comment on above: Performed By: #### L 5500.0410, L5500.0700, L801.1541 #### [facility] [address] [place], [address] MILK (COW) <0.10 Normal Class 0 [facility] Comment on above: Performed By: #### L 5500.0410, L5500.0700, L801.1541 #### [facility] [address] [place], [address] PEANUT <0.10 Normal Class 0 [facility] Comment on above: Performed By: #### L 5500.0410, L5500.0700, L801.1541 #### [facility] [address] [place], [address] SCALLOP <0.10 Normal Class 0 [facility] Comment on above: Performed By: #### L 5500.0410, L5500.0700, L801.1541 #### [facility] [address] [place], [address] SESAME SEED <0.10 Normal Class 0 [facility] Comment on above: Result Comment: Perf ormed at: - [facility] [address] [id number] Director Post: Glenda Leon MD, Phone: [phone] Performed By: #### L 5500.0410, L5500.0700, L801.1541 #### [facility] [address] [place], [address] SHRIMP <0.10 Normal Class 0 [facility] Comment on above: Performed By: #### L 5500.0410, L5500.0700, L801.1541 #### [facility] [address] [place], [address] SOYBEAN <0.10 Normal Class 0 [facility] Comment on above: Performed By: #### L 5500.0410, L5500.0700, L801.1541 #### [facility] [address] [place], [address] WALNUT,(Food) <0.10 Normal Class 0 [facility] Comment on above: Performed By: #### L 5500.0410, L5500.0700, L801.1541 #### [facility] [address] [place], [address] WHEAT <0.10 Normal Class 0 [facility] Comment on above: Performed By: #### L 5500.0410, L5500.0700, L801.1541 #### [facility] [address] [place], [address] [facility] Lab Procedureo n 05-01-2024 [facility] LAB TEST Normal [facility] Comment on above: Order Comment: serum rt [id number] peanut profile Result Comment: TEST RESULTS LIMITS Class Description: Levels of Specific IgE Class Description of Class ----- < 0.10 0 Negative 0.10 - 0.31 0/I Equivocal/Low 0.32 - 0.55 I Low 0.56 - 1.40 II Moderate 1.41 - 3.90 III High 3.91 - 19.00 IV Very High 19.01 - 100.00 V Very High >100.00 Very High I424-EbE Hazelnut (Filbert) <0.10 kU/L Class 0 V103-LmM [place] <0.10 kU/L Class 0 V417-YxU Cashew Nut <0.10 kU/L Class 0 Y335-YcJ [place] Nut <0.10 kU/L Class 0 A898-WsJ Peanut <0.10 kU/L Class 0 *M673-QbB Macadamia Nut <0.10 kU/L Class 0 V133-HcR Pecan Nut <0.10 kU/L Class 0 M399-QxU Pistachio Nut <0.10 kU/L Class 0 G834-YqB [place] <0.10 kU/L Class 0 TESTING PERFORMED AT [facility]. ORIGINAL REPORT ON FILE IN LAB CONTAINS ADDITIONAL TEST SITE INFORMATION. Performed By: #### L 5500.0410, L5500.0700, L801.1541 #### [facility] [address] [place], [address] Surgical pathology studyOrde red By: Bladimir Nova on 03-06-2024 Laboratory comment Bello (Report) d2yyyHQsLEZui5qwGOCmbWK uZzEwMzNcZnRuYmpcdWMxIH fbbgKxRVnvd4FcY1AnTwClY FxhbnNpXGRlZmxhbmcxMDMz SWS7bzJpYFYdCKkwDVHfMUn dDm4wmJDucPlnTxHyNMMqr3 ksbmPEGMlrXNXIVWl2k8orI KLyXqN3xTNrIAtaD5hbgjVz yHMwF6Wky0TfMSa2sU37CFL cnE7ilMUyQXozzvGmVhP6JN ztWWJlQkD3OPMehBVeHAPlK 1xyZWQwXGdyZWVuMFxibHVl CLT1aNkhr8I9sNJneSYwuUg fDpItRrLyJdUJq7EpHFr7wL xeO3ZpYROtZeJ0eWWiRNGwG OdqMBPkUKIhcyU0zN37IPwb peG8gQXep5Obm92fy562mH9 crXDrYVK4LKEhMUSinSQwIL XpKSD9IXEklGEoR3fnIvHxb PUlO7KtLoBsdWPyG1BbTpUj yJLpM1XqScDvnSIuUEVhbTN 7XXlmt275GEQ8MtZoNW5cR1 Nkx7F3lB9mrCSbMEKxfWXwD kMbUWKunp9fmVEtJCnoh0Gr BWN5viD1mWOapEIcUMTfQW2 4Wtmqz0XhRcnfFDH1JDMgtp Dxf9Qln9jcVrChztGrP9hiN 2JyZHJoZWFkXHBnYnJkcmZv c4Ovf5KobCZvoWm6k5saXIA bTMNtbDxoh7dvAUT9LJEgV3 Z9kAMht9tqCVzmVVLncMV2a jR4KScbYMXedyR6hhX9PIsr CLFcyDU1vxU9DElrXFRxYkN 1abX7QRxfJFHdSWH0LgVcHV Seo5UmammuVrKzq1EyoQIxP HyaT16jn256QIBxdcXkJ9kj bGFpblxwbGFpblxmMFxmczI 0XHFsXHBsYWluXGYxXGZzMj BcbGFuZzEwMzNcaGljaFxmM QonVrOlQUZeGEouU3gwTjNr TeOsTDCAjEX4jMEnr1mwmkN 5tIPjVH8dHCUcuLPostFrq6 L4UCN6nBGbuH1duIJwVRNfy DMwkzWuyt33gPIffJA1LPWw ZEYebLIcaH5gEFLlPMZOsI8 hbCBJbnRlcnByZXRhdGlvbi 7LuUOrvn2mbSNpS3TxjXraz WVzIHRoYXQgdGhleSBoYXZl PHCtejjrh6JfFUGoyWMaX8Y bIU8nLSUlmi72 [facility] Work Phone: Pathology report Cancer Narrative Surgical Pathology Case: [id number] Authorizing Provider: Carolynn Mendoza MD Collected: 02/26/2024 1547 Ordering Location: [facility] Received: 02/26/2024 1643 Center OR Pathologist: Bladimir Nova MD Specimens: A) - STOMACH ANTRUM BIOPSY, ANTRUM BIOPSY B) - STOMACH BODY/CORPUS POLYPECTOMY, GASTRIC POLYP [facility] Work Phone: Pathology report final diagnosis Narrative n7fylBWqCCIjaXOxEThjObi vjnXmVKSqwXNuU0YsuwwfPI vpLT9vGM5yjLgydZJqzZTrJ NIeJfYqo2tof397bRTqf6oq WMUHgmquwBx5bBaeP46ph3K 3RmbjS47vsUMoRBW8VOVtGN JsgECjRQScUEK3MFQymMEvY 3dcKBZxNC1eepzbYTnoFEzo UIIcuIQ1SXVwhWKrX0HcIJR zCLyxHFZvasu5LgIaUt2gkF OvtPodOSaxL8homS8bHzD6G XlhE3nejH7cUTh9PTweIJHl vHQ3vbV4QXKrwJPxT1UcsL6 kXDIqKF0tttv9x6ssYIZ6WC nmTGRqNbD1euO5XFTznKWvD SsdbYItrgzuHVXoAmFcHF6i R1ERNWOKPNgoBQ7KSwIUTBF WPU9RJ6n3ORZimkxvCBSaWK XyaMJvnRBsvbHdz0y9gxFzP uOrhULjp0Tfo3y9oRJwlfRk gUquwNRdA8YygTTpLl4lil7 ycFd5sQ2ymDXeJN0gXxDqZP GlgkUaXn9mDUzmoSyqq3CxK 3Kluo9zlYGwXGLoevfsWHAx RDJZS94WX0nvAVXSYVjxQ80 KMIHGDVIPT1fDMSbfDR2SDR VKF1JQKGg6PWMrljibGNOhB IL9xzZaRxObaKDmVIKkp8e4 vE6nnUFcDA2sVdBuNDRjdhZ yZv5hMGJ9d5ToRJWlKK0oyJ FyXHBhcn0= [facility] Work Phone: Pathology report gross observation Narrative p4dsgDIyDMRjiZLtZPmxZhh ddmYoRAByjPLiE1UggvqzAH wuVG8pKB8iyXqwuALbeGDrN MDjMbBzc7zgb480dHEuh3vy DZTIpsipnTo9sHkzU59kj6S 0NgarP75srVMaGBD7VXUrQC HipWPqCPVeABI6QACrhANiS 0xkXAPeIH6wvtxbSBpkVRmd DKNqfAH1KSLxgIDnX8ZqUUQ eNVokYOMsshb3ExLhAe7liY TniDmzWVfmCovolEyep2Tth CBcXGlkIDUxMDAwIFxcbmgg VRr8ILQnVNmndXCsHW9ckPb gHckdwZbfi3HosXJrRCrtMY XmYREkMDpyCBXuW4ERDDMwH Zc2JzLbRByvFRs6EPg4VX5S IxKjSGGjDOS1UvO0VILtVWe 4RMdmON5ZYTOsIMXtRKq6CK IuATN5RXNiFTvvfCUyNFQgX iPfTNSpZHSlRVdgnJSlBA8n aYidZBQiPKVtDeEyDEAsM4j zYjMwXHBsYWluXGZzMjAgQT plBbOgOEa6UJRdsZ8zXb3ob XTlgR3jOJonVsAiZVYyk7j5 vRE8kEIaoZL0tHGbkBueYY8 etJUeYJ3tPRzft6JesXAtRS 38tCKhocDwjdCxXnNvHSE5m 70cQ0ltAW94wbBrHLKnb3Db eSIsIGFyZSAyIGZyYWdtZW5 5wjBgMcD2KR6cKUMyOmIyeI rki3TmRQRdV6WiR0P0kT3bW RIvNNPrBcG5SVWwKyR1XAVf YyDjyV8aFJjdNQInLWToqUF qDNoyLQZ4Ja5tjMVlIBQshg H9e7ScPUrnPP2aXWZyEVPmX XO2QV0wqXSpEXFrnkWze3Wi WSuhiDhcMPByAtGbRzDRC0D AE1apHHKxH8PjZ2PijzN0OQ HwjzseQliplAlwh9HitOCpE VfoMLQpXTGfZPpoOAGgZ0JC PYGtADo4AmTwPSznULs7LGf 1WB5QAeVaDEPhGJO0WbG5Ui KrBJv6OHkqIA6GWIDrXCKlX Zy8BNElFJD4CLQvLCfuuEWr XHQgMiBcXHNzIDMgXFxmbCB sHR5yqRbeEWCnLEDmITK2RF VflEVSz7QiHcKjuEwiaS4zC nMyMCBCOiBSZWNlaXZlZCBp ttTvv6SyYUeyihngrOSpTOs eWHK2iETiJNQbGQXdNNZcZG 19D2NfueDvUTLhnmAigU4ao Gr9PBkofgFyOxImFSMkKUFu Mbfke6BnnWSaeKUos5W2CAJ vbHlwIiwgaXMgMSBmcmFnbW MnfQQyTxA6VX8xPDDxLnUgk Oozc5PjJQYbP2GdW3C8qF2k NTIcZEOjEtA7ZHRyBtF4IAE yRmHceJ5tDCzlRWIjRAWruM EcELweNKE1Fq6dgFOeKOTcv pG6p5VuFQvyZD7sJSQzWMBe OHO0OT6soGGhLRIdswWxh6F zMFxlcGljWHNhMzAgSkVLL1 OPE5bbUCKhZ6AhF1IilzU5y 9zemFhze9JypNThAT4zmVFf fQ== [facility] Work Phone: [facility] Work Phone: EGD Study observation Narrat aguila 02-26-2024 Table formatting fro m the original result was not included. Impression The esophagus appeared normal. Very small area of focal gastritis in the stomach. Benign appearing gastric polyp. The duodenum appeared normal. Findings The esophagus appeared normal. Z-line was regular and located 34 cm from the incisors. Tiny focal area of mild gastritis in the pre-pyloric region. Antral biopsy obtained. One benign-appearing polyp measuring smaller than 5 mm in the body of the stomach; performed cold forceps biopsy with complete en bloc removal. The duodenum appeared normal. Recommendation Await pathology results Can treat with PPI and Carafate, although given how minimal this small focal area of gastritis is, it is unclear whether or not this is the etiology of her upper abdominal pain. Continue to avoid spicy and acidic foods. If no improvement, would recommend cholecystectomy as this would be an alternative and suspected more likely etiology of her symptoms. Indication Upper abdominal pain Medications See Anesthesia Record. Preprocedure A history and physical has been performed, and patient medication allergies have been reviewed. The patient's tolerance of previous anesthesia has been reviewed. The risks and benefits of the procedure and the sedation options and risks were discussed with the patient. All questions were answered and informed consent obtained. Details of the Procedure The patient underwent monitored anesthesia care, which was administered by an anesthesia professional. The patient's blood pressure, ECG, ETCO2, heart rate, level of consciousness, oxygen and respirations were monitored throughout the procedure. The scope was introduced through the mouth and advanced to the fourth part of the duodenum. Retroflexion was performed in the cardia. Prior to the procedure, the patient's H. Pylori status was unknown. The patient's estimated blood loss was minimal (<5 mL). The procedure was not difficult. The patient tolerated the procedure well. There were no apparent adverse events. Events Procedure Events Event Event Time ENDO SCOPE IN TIME 02/26/2024 3:46 PM ENDO SCOPE OUT TIME 02/26/2024 3:52 PM Specimens ID Type Source Tests Collected by Time 1 : ANTRUM BIOPSY Tissue STOMACH ANTRUM BIOPSY SURGICAL PATHOLOGY EXAM Antonietta Daigle RN 02/26/2024 1547 2 : GASTRIC POLYP Tissue STOMACH BODY/CORPUS POLYPECTOMY SURGICAL PATHOLOGY EXAM Antonietta Daigle RN 02/26/2024 1550 Procedure Location [facility] [place] [address] [place] [id number] Referring Provider Sangeeta Ruano PA-C Procedure Provider Carolynn Mendoza MD [facility] Work Phone: [facility] Work Phone: Radiology Study observation (narrative) [facility] Work Phone: HCG ( test) IA.rapi d Ql (U)Ordered By: Analy Alegria on 02-26-2024 HCG ( test) Ql (U) Negative NEGATIVE [facility] Interpretation and review of laboratory results Normal [facility] POCT UA Automated manually r esultedOrdered By: Oliver Mariscal on 02-14-2024 Appearance (U) Clear Clear [facility] Glucose Test strip (U) [Mass/Vol] 100 (1+) Abnormal NEGATIVE mg/dl [facility] Hemoglobin Ql (U) Negative NEGATIVE [facility] Interpretation and review of laboratory results Abnormal [facility] Leukocyte esterase Test strip Ql (U) TRACE Abnormal NEGATIVE [facility] Nitrite Ql (U) Positive Abnormal NEGATIVE [facility] pH (U) 6.0 [pH] No Reference Range Established [facility] POC Bilirubin, Urine Negative NEGATIVE [facility] POC Color, Urine [place] Abnormal Straw, Yellow, Light-Yellow [facility] POC Ketones, Urine Negative NEGATIVE mg/dl [facility] POC Protein, Urine Negative NEGATIVE, 30 (1+) mg/dl [facility] POC Specific [place], Urine 1.015 1.005 - 1.035 [facility] POC Urobilinogen, Urine 1.0 0.2, 1.0 EU/DL [facility] CBC W Auto Differential pane l (Bld)on 12-27-2023 Basophils (Bld) [#/Vol] 0.04 x10*3/uL Normal 0.00-0.10 [facility] Comment on above: Performed By: #### 5 7021-8 #### RILEY SCHWARTZ ([id number]) [facility] ([facility]) [address] [place] [address] 10288 Basophils/100 WBC (Bld) 0.4 % Normal 0.0-2.0 [facility] Comment on above: Performed By: #### 5 7021-8 #### RILEY SCHWARTZ ([id number]) [facility] ([facility]) [address] [place] [address] 93356 Eosinophils (Bld) [#/Vol] 0.10 x10*3/uL Normal 0.00-0.70 [facility] Comment on above: Performed By: #### 5 7021-8 #### RILEY SCHWARTZ ([id number]) [facility] ([facility]) [address] [place] [address] 11485 Eosinophils/100 WBC (Bld) 1.0 % Normal 0.0-6.0 [facility] Comment on above: Performed By: #### 5 7021-8 #### RILEY SCHWARTZ ([id number]) [facility] ([facility]) [address] [place] [address] 85257 Erythrocyte distribution width (RBC) [Ratio] 13.2 % Normal 11.5-14.5 [facility] Comment on above: Performed By: #### 5 7021-8 #### RILEY SCHWARTZ ([id number]) [facility] ([facility]) [address] [place] [address] 63079 Hematocrit (Bld) [Volume fraction] 45.9 % Normal 36.0-46.0 [facility] Comment on above: Performed By: #### 5 7021-8 #### RILEY SCHWARTZ ([id number]) [facility] ([facility]) [address] [place] [address] 94532 Hemoglobin (Bld) [Mass/Vol] 14.0 g/dL Normal 12.0-16.0 [facility] Comment on above: Performed By: #### 5 7021-8 #### RILEY SCHWARTZ ([id number]) [facility] ([facility]) [address] [place] [address] 31349 Immature granulocytes (Bld) [#/Vol] 0.05 x10*3/uL Normal 0.00-0.70 [facility] Comment on above: Performed By: #### 5 7021-8 #### RILEY SCHWARTZ ([id number]) [facility] ([facility]) [address] [place] [address] 85048 Immature granulocytes/100 WBC (Bld) 0.5 % Normal 0.0-0.9 [facility] Comment on above: Result Comment: Yeni ture Granulocyte Count (IG) includes promyelocytes, myelocytes and metamyelocytes but does not include bands. Percent differential counts (%) should be interpreted in the context of the absolute cell counts (cells/UL). Performed By: #### 5 7021-8 #### RILEY SCHWARTZ ([id number]) [facility] ([facility]) [address] [place] [address] 74655 Lymphocytes (Bld) [#/Vol] 3.13 x10*3/uL Normal 1.20-4.80 [facility] Comment on above: Performed By: #### 5 7021-8 #### RILEY SCHWARTZ ([id number]) [facility] ([facility]) [address] [place] [address] 53581 Lymphocytes/100 WBC (Bld) 32.5 % Normal 13.0-44.0 [facility] Comment on above: Performed By: #### 5 7021-8 #### RILEY SCHWARTZ ([id number]) [facility] ([facility]) [address] [place] [address] 77219 MCH (RBC) [Entitic mass] 27.7 pg Normal 26.0-34.0 [facility] Comment on above: Performed By: #### 5 7021-8 #### RILEY SCHWARTZ ([id number]) [facility] ([facility]) [address] [place] [address] 26788 MCHC (RBC) [Mass/Vol] 30.5 g/dL Low 32.0-36.0 [facility] Comment on above: Performed By: #### 5 7021-8 #### RILEY SCHWARTZ ([id number]) [facility] ([facility]) [address] [place] [address] 72322 MCV (RBC) [Entitic vol] 91 fL Normal 80-100 U [facility] Comment on above: Performed By: #### 5 7021-8 #### RILEY SCHWARTZ ([id number]) [facility] ([facility]) [address] [place] [address] 16157 Monocytes (Bld) [#/Vol] 0.93 x10*3/uL Normal 0.10-1.00 [facility] Comment on above: Performed By: #### 5 7021-8 #### RILEY SCHWARTZ ([id number]) [facility] ([facility]) [facility] [place] [address] Monocytes/100 WBC (Bld) 9.6 % Normal 2.0-10.0 [facility] Comment on above: Performed By: #### 5 7021-8 #### RILEY SCHWARTZ ([id number]) [facility] ([facility]) [address] [place] [address] 41201 Neutrophils (Bld) [#/Vol] 5.39 x10*3/uL Normal 1.20-7.70 [facility] Comment on above: Result Comment: Perc ent differential counts (%) should be interpreted in the context of the absolute cell counts (cells/uL). Performed By: #### 5 7021-8 #### RILEY SCHWARTZ ([id number]) [facility] ([facility]) [address] [place] [address] 89447 Neutrophils/100 WBC (Bld) 56.0 % Normal 40.0-80.0 [facility] Comment on above: Performed By: #### 5 7021-8 #### RILEY SCHWARTZ ([id number]) [facility] ([facility]) [address] [place] [address] 76142 Nucleated RBC/100 WBC (Bld) [Ratio] 0.0 /100 WBCs Normal 0.0-0.0 [facility] Comment on above: Performed By: #### 5 7021-8 #### RILEY SCHWARTZ ([id number]) [facility] ([facility]) [address] [place] [address] 93733 Platelets (Bld) [#/Vol] 571 x10*3/uL High 150-450 [facility] Comment on above: Performed By: #### 5 7021-8 #### RILEY SCHWARTZ ([id number]) [facility] ([facility]) [address] [place] [address] 76429 RBC (Bld) [#/Vol] 5.06 x10*6/uL Normal 4.00-5.20 [facility] Comment on above: Performed By: #### 5 7021-8 #### RILEY SCHWARTZ ([id number]) [facility] ([facility]) [address] [place] [address] 35181 WBC (Bld) [#/Vol] 9.6 x10*3/uL Normal 4.4-11.3 [facility] Comment on above: Performed By: #### 5 7021-8 #### RILEY SCHWARTZ ([id number]) [facility] ([facility]) [address] [place] [address] Cobalaminson 12-27-2023 Cobalamin (Vitamin B12) [Mass/Vol] 268 pg/mL Normal 211-911 [facility] Comment on above: Performed By: #### 2 132-9 #### RILEY SCHWARTZ ([id number]) [facility] ([facility]) [address] [place] [address] Comprehensive metabolic 2000 panelon 12-27-2023 Albumin BCP dye [Mass/Vol] 4.6 g/dL Normal 3.4-5.0 [facility] Comment on above: Performed By: #### 2 4323-8 #### RILEY SCHWARTZ ([id number]) [facility] ([facility]) [address] [place] [address] 09442 ALP [Catalytic activity/Vol] 65 U/L Normal 33-110 [facility] Comment on above: Performed By: #### 2 4323-8 #### RILEY SCHWARTZ ([id number]) [facility] ([facility]) [address] [place] [address] 76694 ALT With P-5'-P [Catalytic activity/Vol] 22 U/L Normal 7-45 [facility] Comment on above: Result Comment: Deloris ents treated with Sulfasalazine may generate falsely decreased results for ALT. Performed By: #### 2 4323-8 #### RILEY SCHWARTZ ([id number]) [facility] ([facility]) [address] [place] [address] 65128 Anion gap [Moles/Vol] 11 mmol/L Normal 10-20 [facility] Comment on above: Performed By: #### 2 4323-8 #### RIELY SCHWARTZ ([id number]) [facility] ([facility]) [address] [place] [address] AST With P-5'-P [Catalytic activity/Vol] 17 U/L Normal 9-39 [facility] Comment on above: Performed By: #### 2 4323-8 #### RILEY SCHWARTZ ([id number]) [facility] ([facility]) [address] [place] [address] Bilirubin [Mass/Vol] 0.3 mg/dL Normal 0.0-1.2 [facility] Comment on above: Performed By: #### 2 432-8 #### RILEY SCHWARTZ ([id number]) [facility] ([facility]) [address] [place] [address] 02993 Calcium [Mass/Vol] 9.4 mg/dL Normal 8.6-10.3 [facility] Comment on above: Performed By: #### 2 4322-8 #### RILEY SCHWARTZ ([id number]) [facility] ([facility]) [address] [place] [address] 68156 Chloride [Moles/Vol] 106 mmol/L Normal 98-107 [facility] Comment on above: Performed By: #### 2 4323-8 #### RILEY SCHWARTZ ([id number]) [facility] ([facility]) [facility] [place] [address] CO2 [Moles/Vol] 27 mmol/L Normal 21-32 [facility] Comment on above: Performed By: #### 2 4323-8 #### RILEY SCHWARTZ ([id number]) [facility] ([facility]) [address] [place] [address] 70722 Creatinine [Mass/Vol] 0.77 mg/dL Normal 0.50-1.05 [facility] Comment on above: Performed By: #### 2 432-8 #### RILEY SCHWARTZ ([id number]) [facility] ([facility]) [address] [place] [address] 00093 GFR/1.73 sq M.predicted MDRD (S/P/Bld) [Vol rate/Area] mL/min/{1.73_m2} Normal >60 [facility] Comment on above: Result Comment: Calc ulations of estimated GFR are performed using the 2020 CKD-EPI Study Refit equation without the race variable for the IDMS-Traceable creatinine methods. https://jasn.asnjournals.org/content/early//ASN.2020 056416 Performed By: #### 2 4323-8 #### RILEY SCHWARTZ ([id number]) [facility] ([facility]) [address] [place] [address] 11446 Glucose [Mass/Vol] 97 mg/dL Normal 74-99 [facility] Comment on above: Performed By: #### 2 4323-8 #### RILEY SCHWARTZ ([id number]) [facility] ([facility]) [address] [place] [address] 35794 Potassium [Moles/Vol] 4.7 mmol/L Normal 3.5-5.3 [facility] Comment on above: Performed By: #### 2 4323-8 #### RILEY SCHWARTZ ([id number]) [facility] ([facility]) [address] [place] [address] 85289 Protein [Mass/Vol] 7.1 g/dL Normal 6.4-8.2 [facility] Comment on above: Performed By: #### 2 4323-8 #### RILEY SCHWARTZ ([id number]) [facility] ([facility]) [address] [place] [address] 89421 Sodium [Moles/Vol] 139 mmol/L Normal 136-145 [facility] Comment on above: Performed By: #### 2 4323-8 #### RILEY SCHWARTZ ([id number]) [facility] ([facility]) [address] [place] [address] 45149 Urea nitrogen [Mass/Vol] 9 mg/dL Normal 6-23 [facility] Comment on above: Performed By: #### 2 4323-8 #### RILEY SCHWARTZ ([id number]) [facility] ([facility]) [address] [place] [address] 68606 Ferritinon 12-27-2023 Ferritin [Mass/Vol] 137 ng/mL Normal 8-150 [facility] Comment on above: Performed By: #### 2 276-4 #### RILEY SCHWARTZ ([id number]) [facility]) [facility] [place] [address] Iron and Iron binding capaci ty panelon 12-27-2023 Iron [Mass/Vol] 81 ug/dL Normal 35-150 [facility] Comment on above: Performed By: #### 5 0190-8 #### RILEY SCHWARTZ ([id number]) [facility] ([facility]) [address] [place] [address] Iron binding capacity [Mass/Vol] 333 ug/dL Normal 240-445 [facility] Comment on above: Performed By: #### 5 0190-8 #### RILEY SCHWARTZ ([id number]) [facility] ([facility]) [address] [place] [address] 26109 Iron binding capacity.unsaturated [Mass/Vol] 252 ug/dL Normal 110-370 [facility] Comment on above: Performed By: #### 5 0190-8 #### RILEY SCHWARTZ ([id number]) [facility]) [facility] [place] [address] Iron saturation [Mass fraction] 24 % Low 25-45 [facility] Comment on above: Performed By: #### 5 0190-8 #### RILEY SCHWARTZ ([id number]) [facility] ([facility]) [address] [place] [address] 15515 Lipid 1996 panelon 4 Cholesterol [Mass/Vol] 235 mg/dL High 0-199 [facility] Comment on above: Result Comment: Age Desirable Borderline High High 0-19 Y 0 - 169 170 - 199 >/= 200 20-24 Y 0 - 189 190 - 224 >/= 225 >24 Y 0 - 199 200 - 239 >/= 240 All ranges are based on fasting samples. Specific therapeutic targets will vary based on patient-specific cardiac risk. Pediatric guidelines reference:Pediatrics 2011, 128(S5).Adult guidelines reference: NCEP ATPIII Guidelines,JOSEPHINE 2001, 258:2486-97 Venipuncture immediately after or during the administration of Metamizole may lead to falsely low results. Testing should be performed immediately prior to Metamizole dosing. Performed By: #### 2 4331-1 #### RILEY SCHWARTZ ([id number]) [facility] ([facility]) [address] [place] [address] 37317 Cholesterol in HDL [Mass/Vol] 53.0 mg/dL Normal [facility] Comment on above: Result Comment: Age Very Low Low Normal High 0-19 Y < 35 < 40 40-45 ---- 20-24 Y ---- < 40 >45 ---- >24 Y ---- < 40 40-60 >60 Performed By: #### 2 4331-1 #### RILEY SCHWARTZ ([id number]) [facility] ([facility]) [address] [place] [address] 16201 Cholesterol in LDL [Mass/Vol] 150 mg/dL High <=119 [facility] Comment on above: Result Comment: Near Borderline AGE Desirable Optimal High High Very High 0-19 Y 0 - 109 --- 110-129 >/= 130 ---- 20-24 Y 0 - 119 --- 120-159 >/= 160 ---- >24 Y 0 - 99 100-129 130-159 160-189 >/=190 Performed By: #### 2 4331-1 #### RILEY SCHWARTZ ([id number]) [facility] ([facility]) [address] [place] [address] 18189 Cholesterol in VLDL [Mass/Vol] 32 mg/dL Normal 0-40 [facility] Comment on above: Performed By: #### 2 4331-1 #### RILEY SCHWARTZ ([id number]) [facility] ([facility]) [address] [place] [address] 05360 CHOLESTEROL/HDL RATIO 4.4 Normal [facility] Comment on above: Result Comment: Ref Values Desirable < 3.4 High Risk > 5.0 Performed By: #### 2 4331-1 #### RILEY SCHWARTZ ([id number]) [facility] ([facility]) [address] [place] [address] 54751 NON HDL CHOLESTEROL 182 mg/dL High 0-149 [facility] Comment on above: Result Comment: Age Desirable Borderline High High Very High 0-19 Y 0 - 119 120 - 144 >/= 145 >/= 160 20-24 Y 0 - 149 150 - 189 >/= 190 ---- >24 Y 30 mg/dL above LDL Cholesterol goal Performed By: #### 2 4331-1 #### RILEY SCHWARTZ ([id number]) [facility] ([facility]) [address] [place] [address] 48166 Triglyceride [Mass/Vol] 160 mg/dL High 0-149 [facility] Comment on above: Result Comment: Age Desirable Borderline High High Very High 0 D-90 D 19 - 174 ---- ---- ---- 91 D- 9 Y 0 - 74 75 - 99 >/= 100 ---- 10-19 Y 0 - 89 90 - 129 >/= 130 ---- 20-24 Y 0 - 114 115 - 149 >/= 150 ---- >24 Y 0 - 149 150 - 199 200- 499 >/= 500 Venipuncture immediately after or during the administration of Metamizole may lead to falsely low results. Testing should be performed immediately prior to Metamizole dosing. Performed By: #### 2 4331-1 #### RILEY SCHWARTZ ([id number]) [facility] ([facility]) [address] [place] [address] 30952 Magnesiumon 12-27-2023 Magnesium [Mass/Vol] 2.12 mg/dL Normal 1.60-2.40 [facility] Comment on above: Performed By: #### 1 9123-9 #### RILEY SCHWARTZ ([id number]) [facility] ([facility]) [address] [place] [address] 29674 Thyrotropinon 12-27-2023 TSH Qn 3.76 m[IU]/L Normal 0.44-3.98 [facility] Comment on above: Order Comment: TSH t esting is performed using different testing methodology at [facility] than at other [facility]. Direct result comparisons should only be made within the same method. Performed By: #### 3 016-3 #### RILEY SCHWARTZ ([id number]) [facility] ([facility]) [address] [place] [address] 76346 Thyroxine.freeon 12-27-2023 Free T4 [Mass/Vol] 1.03 ng/dL Normal 0.61-1.12 [facility] Comment on above: Order Comment: Thyro xine Free testing is performed using different testing methodology at [facility] than at other [facility]. Direct result comparisons should only be made within the same method. Biotin can cause falsely elevated free T4 results. Patients taking a Biotin dose of up to 10 mg/day should refrain from taking Biotin for 24 hours before sample collection. Patient taking a Biotin dose of >10 mg/day should consult with their physician or the laboratory before the blood draw. Performed By: #### 3 024-7 #### RILEY SCHWARTZ ([id number]) [facility] ([facility]) [address] [place] [id number] CBC AND DIFFERENTIALon 08-23 Basophils (Bld) [#/Vol] 0.00 10*3/uL Normal 0.00 - 0.1 0 [facility] Comment on above: Performed By: #### C BCDF #### [address] [address] Basophils/100 WBC (Bld) 0.3 % Normal 0.0 - 2.0 [facility] Comment on above: Performed By: #### C BCDF #### [address] [address] Eosinophils (Bld) [#/Vol] 0.20 10*3/uL Normal 0.00 - 0.70 [facility] Comment on above: Performed By: #### C BCDF #### [address] [address] Eosinophils/100 WBC (Bld) 1.1 % Normal 0.0 - 6.0 [facility] Comment on above: Performed By: #### C BCDF #### [address] [address] Erythrocyte distribution width (RBC) [Ratio] 13.5 % Normal 11.5 - 14.5 [facility] Comment on above: Performed By: #### C BCDF #### [address] [address] Hematocrit (Bld) [Volume fraction] 41.5 % Normal 36.0 - 46.0 [facility] Comment on above: Performed By: #### C BCDF #### [address] [address] Hemoglobin (Bld) [Mass/Vol] 13.9 g/dL Normal 12.0 - 16.0 [facility] Comment on above: Performed By: #### C BCDF #### [address] [address] Lymphocytes (Bld) [#/Vol] 4.40 10*3/uL Normal 1.20 - 4.80 [facility] Comment on above: Performed By: #### C BCDF #### [address] [address] Lymphocytes/100 WBC (Bld) 32.4 % Normal 13.0 - 44.0 [facility] Comment on above: Performed By: #### C BCDF #### [address] [address] MCHC (RBC) [Mass/Vol] 33.5 g/dL Normal 32.0 - 36.0 [facility] Comment on above: Performed By: #### C BCDF #### [address] [address] MCV (RBC) [Entitic vol] 84 fL Normal 80 - 100 [facility] Comment on above: Performed By: #### C BCDF #### [address] [address] Monocytes (Bld) [#/Vol] 1.20 10*3/uL High 0.10 - 1.0 0 [facility] Comment on above: Performed By: #### C BCDF #### [address] [address] Monocytes/100 WBC (Bld) 8.7 % Normal 2.0 - 10.0 [facility] Comment on above: Performed By: #### C BCDF #### [address] [address] Neutrophils (Bld) [#/Vol] 7.80 10*3/uL High 1.20 - 7.70 [facility] Comment on above: Result Comment: Perc ent differential counts (%) should be interpreted in the context of the absolute cell counts (cells/L). Performed By: #### C BCDF #### [address] [address] Neutrophils/100 WBC (Bld) 57.5 % Normal 40.0 - 80.0 [facility] Comment on above: Performed By: #### C BCDF #### [address] [address] Platelets (Bld) [#/Vol] 567 10*3/uL High 150 - 450 [facility] Comment on above: Performed By: #### C BCDF #### [address] [address] RBC 4.92 x10E12/L Normal 4.00 - 5.20 [facility] Comment on above: Performed By: #### C BCDF #### [address] [address] WBC (Bld) [#/Vol] 13.6 10*3/uL High 4.4 - 11.3 [facility] Comment on above: Performed By: #### C BCDF #### [address] [address] COMPREHENSIVE PANELon 2021 Albumin [Mass/Vol] 4.5 g/dL Normal 3.4 - 5.0 [facility] Comment on above: Performed By: #### C MP #### [address] [address] ALP [Catalytic activity/Vol] 78 U/L Normal 33 - 110 [facility] Comment on above: Performed By: #### C MP #### [address] [address] ALT [Catalytic activity/Vol] 17 U/L Normal 7 - 45 [facility] Comment on above: Result Comment: Deloris ents treated with Sulfasalazine may generate falsely decreased results for ALT. Performed By: #### C MP #### [address] [address] Anion gap [Moles/Vol] 13 mmol/L Normal 10 - 20 [facility] Comment on above: Performed By: #### C MP #### [address] [address] AST [Catalytic activity/Vol] 16 U/L Normal 9 - 39 [facility] Comment on above: Performed By: #### C MP #### [address] [address] Bilirubin [Mass/Vol] 0.2 mg/dL Normal 0.0 - 1.2 [facility] Comment on above: Performed By: #### C MP #### [address] [address] Calcium [Mass/Vol] 9.3 mg/dL Normal 8.6 - 10.3 [facility] Comment on above: Performed By: #### C MP #### [address] [address] Chloride [Moles/Vol] 105 mmol/L Normal 98 - 107 [facility] Comment on above: Performed By: #### C MP #### [address] [address] Creatinine [Mass/Vol] 0.74 mg/dL Normal 0.50 - 1.05 [facility] Comment on above: Performed By: #### C MP #### [address] [address] eGFR FEMALE >90 Normal >90 [facility] Comment on above: Result Comment: CALC ULATIONS OF ESTIMATED GFR ARE PERFORMED USING THE 2020 CKD-EPI STUDY REFIT EQUATION WITHOUT THE RACE VARIABLE FOR THE IDMS-TRACEABLE CREATININE METHODS. https://jasn.asnjournals.org/content/early/ASN.2020 156804 Performed By: #### C MP #### [address] [address] Glucose [Mass/Vol] 92 mg/dL Normal 74 - 99 [facility] Comment on above: Performed By: #### C MP #### [address] [address] HCO3 (Bld) [Moles/Vol] 26 mmol/L Normal 21 - 32 [facility] Comment on above: Performed By: #### C MP #### [address] [address] Potassium [Moles/Vol] 3.7 mmol/L Normal 3.5 - 5.3 [facility] Comment on above: Performed By: #### C MP #### [address] [address] Protein [Mass/Vol] 7.5 g/dL Normal 6.4 - 8.2 [facility] Comment on above: Performed By: #### C MP #### [address] [address] Sodium [Moles/Vol] 140 mmol/L Normal 136 - 145 [facility] Comment on above: Performed By: #### C MP #### [address] [address] Urea nitrogen [Mass/Vol] 10 mg/dL Normal 6 - 23 [facility] Comment on above: Performed By: #### C MP #### [address] [address] HCG,SERUM QUALITATIVEon 08-12 HCG,SERUM QUALITATIVE Negative Normal Negative [facility] Comment on above: Performed By: #### H CGS #### [address] [address] LACTATEon 08-23-2021 Lactate [Moles/Vol] 1.4 mmol/L Normal 0.4 - 2.0 [facility] Comment on above: Result Comment: Cinthia puncture immediately after or during the administration of Metamizole may lead to falsely low results. Testing should be performed immediately prior to Metamizole dosing. Performed By: #### L ACT #### [address] [address] LIPASEon 08-23-2021 Lipase [Catalytic activity/Vol] 28 U/L Normal 9 - 82 [facility] Comment on above: Result Comment: Cinthia puncture immediately after or during the administration of Metamizole may lead to falsely low results. Testing should be performed immediately prior to Metamizole dosing. L-trzfeo-r-benzoquinone imine (metabolite of Acetaminophen) will generate erroneously low results in samples for patients that have taken toxic doses of acetaminophen. Performed By: #### L IPAS #### [place] [id number] Provider Note - ED v3on 08-12 Provider Note - ED v3 Provider Note: Chart Review: ED NOTES ED NOTES: Source of Information: Patient. EMR was reviewed for previous records. HPI: Right upper quadrant abdominal pain. This 21-year-old white female presents to the ED with complaint of right upper quadrant abdominal pain that began at 1 PM this afternoon has been constant since then. She states that she has associated nausea without vomiting. Patient states that last time she had a pain in the right upper quadrant was around 6 months ago states that she had a HIDA scan performed proxy 2 years ago that revealed a polyp in her gallbladder. Last meal was 7:30 in the morning which consisted of a donut and coffee. She states that nothing makes her symptoms better or worse. PMH: GERD PSH: Tonsillectomy Social Hx: The patient admits to vaping nicotine, occasional use of alcohol. Denies any illegal drug use. Fam: MEDS: Omeprazole ALLERGIES: NKDA PHYSICAL EXAM: General: Patient alert, awake, oriented X3, appears be no obvious distress, nontoxic, cooperative Skin: Warm. Dry. Intact. No rash. Eyes: PEARTLA, EOMIs intact, sclera white, conjunctiva clear HEENT: Atraumatic. Normo-cephalic. Oral nasal mucosa pink and moist. Neck: Supple without meningismus, no lymphadenopathy. CV: Regular rate and rhythm without murmurs, heaves, lifts or thrills. Respiratory: Nonlabored breathing. There are no retractions or tachypnea. Lungs are clear to auscultation bilaterally. GI: Abdomen is soft with focal tenderness in the right upper quadrant with positive Estrada sign. Bowel sounds are present all 4 quadrants. There is no pulsatile masses. There is no CVA tenderness. There is no rebound or rigidity there is voluntary guarding. MUSC: There is no joint swelling or bony tenderness on exam. Neuro: Cranial nerves II - XII grossly intact. Speech is fluent. No focal neurologic deficits are noted on exam. Lower extremities: There is no peripheral edema bilaterally, negative Homans sign. No palpable cords. Distal pulses are present in both lower extremities. Psych: Maintains eye contact. Cooperative. ED course: Patient was seen and evaluated due to complaint of right upper quadrant abdominal pain with previous HIDA scan approxi-4 years ago she also had previous EGD and was started on omeprazole which she takes 40 mg daily. Patient had lab work and gallbladder ultrasound performed the ED. Lab work was unremarkable except for bacteria in the urine patient's gallbladder revealed evidence of a polyp without any acute inflammatory changes. At this point time I do not feel the patient is having acute bladder issue he will be discharged home with a prescription for Carafate for treatment of her stomach I also referred the patient to follow-up with a side puller and/or surgeon for any outpatient EGD. This chart was dictated with the use of iCrimefighter software within the framework of the current electronic medical records software. Attempts were made to edit in real time, given time constraints there is the potential for inaccuracies in my dictation. Katiana Mendez, DO HISTORY OF PRESENTING ILLNESS YVETTE is a 21 year old Female and was seen by me at 23-Aug-2021 15:38 for a chief complaint of abdominal pain (c/o ruq pain and nausea x 2 hrs denies v/d, denies any urinary problems)(1). Triage Information: Most recent Vital Sign Value Date Temp (F): 97.6 08-23-2021 15:38 Temp (C): 36.4 08-23-2021 15:38 Heart Rate (beats/min): 67 08-23-2021 15:38 Respirations (breaths/min): 16 08-23-2021 15:38 SpO2 (%): 95 08-23-2021 15:38 BP Systolic (mm Hg): 130 08-23-2021 15:38 BP Diastolic (mm Hg): 80 08-23-2021 15:38 PAST MEDICAL HISTORY CURRENT OR FORMER SUBSTANCE USE: Tobacco/Nicotine Use: light user (uses <10 cig/day, OR <0.5 ppd, OR 1 can/pouch loose leaf tobacco per week, OR <0.5 vape pods per day) Alcohol Use: occasionally Drug Use: denies,ALLERGIES/INTOLE RANCES: Allergy Allergen: NKDA Type: Reaction: Allergen: Peanuts Type: Food Reaction: Other HEALTH HISTORY: No documented data. OUTPATIENT MEDICATIONS: Home Medications Review Status for Reconciliation: Complete Med Status: Patient Currently Takes Medications Drug Name: levonorgestrel 52 mg intrauterine device Instructions: 1 each intrauterine once Drug Name: ibuprofen 200 mg oral tablet (more content not included)... Normal [facility] Risk Screen - Adult Emergenc yon 08-23-2021 Risk Screen - Adult Emergency Preferred Language: Preferred Language: Preferred Language for Discussing Health Care (patient/designee)Alba maloney Advanced Directives: Advance Directive/DNRno Family Violence Adult: Abuse Screen: Are you or have you been threatened or abused physically, emotionally, or sexually by anyoneno Learning Assessment (Patient): Learning Assessment (Patient): Patient is Able to be Assessed for Learningyes Factors Influencing Readiness to Learnn/a Factors that Impact Ability to Learnnone Devices/Methods Used to Communicatenone Learning Preferencesverbal instruction; written material Cultural Considerationsnone Developmental Considerationsnone Bahai Considerationsnone Learning Assessment (Other Learner): Learning Assessment (Other Learner): Other learner availableno Pressure Injury/TB/Substance: Pressure Injury: Do you have a coughno Smoking Statuslight user (uses <10 cig/day, OR <0.5 ppd, OR 1 can/pouch loose leaf tobacco per week, OR <0.5 vape pods per day) Tobacco Cessation Education (provide if tobacco use within the last 12 mos) patient declined Alcohol Useoccasionally Drug Usedenies Admission Risk Screen: Significant IndicatorsComplete CAGE: CAGE: Is this an injured patient at a Trauma Center ([facility] [place]/[facility]/[place]): no Electronic Signatures: Janiya Tan) (Signed 23-Aug-2021 15:47) Authored: Preferred Language, Advanced Directives, Family Violence Adult, Learning Assessment (Patient), Learning Assessment (Other Learner), Pressure Injury/TB/Substance, Pressure Injury, CAGE Last Updated: 23-Aug-2021 15:47 by Janiya Tan (RN) [facility] Triage - EDon 08-23-2021 Triage - ED Quick Triage: Are You no Have You Given In The Last 6 Weeksno Are You Currently Breastfeedingno Chart Review: PRIMARY ASSESSMENT ABCD Normal Findings: airway open and patent, circulation normal and alert and oriented ARRIVAL INFORMATION Means of Arrival: Ambulatory Mode of Arrival: private vehicle Arrival From: home Accompanied By: self Language: Spoken Language Preferred: Croatian Reading Language Preferred: Croatian Present on Arrival: Device Present on Arrival to ED: no CHIEF COMPLAINT YVETTE WADE is a Female patient with a chief complaint of abdominal pain (c/o ruq pain and nausea x 2 hrs denies v/d, denies any urinary problems). Triage Date/Time: 23-Aug-2021 15:30 [place]: 3 Pain Rating (0-10): 7 = Severe Pain location: abd Vital Signs: Temperature: 97.6F ( 36.4C) taken temporal Blood Pressure: 130/80 Mean: Heart Rate: 67 Respiratory Rate: 16 Pulse Oximetry: 95% on room air, no respiratory support. Height: 5 feet 1.00 inches. 154.9 CM Weight: 180.7 pounds. Calculated 82.0 kg. (stated) Calculated BMI (kg/m2): 34.175 Calculated BSA (m2) 1.88 Debbie Coma Scale: Best Eye Response: (E4) spontaneous Best Motor Response: (M6) obeys commands Best Verbal Response: (V5) oriented [place] Score: 15 Allergies: no Last menstrual period: 18-Aug-2021 Patient has homicidal thoughts: no Symptoms Are POSITIVE For: nausea. Symptoms Are Negative For: diarrhea, fever and vomiting. Risk Screens Suicide Risk Screen In the Past Month: Have you wished you were or wished you could go to sleep and not wake up no In the Past Month: Have you had any actual thoughts of killing yourself no In Your Lifetime: Have you ever done anything, started to do anything, or prepared to do anything to end your life no Eden Fall Scale Screening Has the patient fallen before (or is the patient in the ED as a result of a fall) has not had a fall Does the patient have an impaired gait does not have impaired gait Is the patient cognitively impaired not cognitively impaired Interventions: Eden Fall Interventions: LOW INTERVENTIONS: *patient oriented to surroundings and call system, * patient/family falls education completed and documented, *patients fall status communicated during bedside handoff, *whiteboard updated, *mode of toileting discussed with patient, *bed in low position with brakes locked, *call light in reach, * non-skid footwear TRAVEL HISTORY Travel History Coronavirus Screening: no exposure or symptoms Travel Exposure History: NO travel to International locations in the past 30 days PAIN Pain Scale Used: SALMA Pain Rating (0-10): 7 = Severe Past Medical History: Past Medical History Reviewedyes Electronic Signatures: Janiya Tan (DICK) (Signed 23-Aug-2021 15:46) Entered: Risk Screens, Pain, Arrival, ABCD, Travel History, Chart Review, Scores, Past Medical History Authored: Quick Triage, Risk Screens, Pain, Arrival, ABCD, Travel History, Chart Review, Scores, Past Medical History Last Updated: 23-Aug-2021 15:46 by Janiya Tan (DICK) Normal [facility] UA MICROSCOPICon 08-23-2021 BACTERIA 1+ /HPF Abnormal [facility] Comment on above: Performed By: #### U AMIC ####[address] [address] RBC 1 /HPF Normal 0-5 [facility] Comment on above: Performed By: #### U AMIC ####[place] [id number] SQUAMOUS EPITH. CELLS 2 /HPF Normal [facility] Comment on above: Performed By: #### U AMIC ####[address] [address] WBC 4 /HPF Normal 0-5 [facility] Comment on above: Performed By: #### U AMIC ####[address] [address] URINALYSIS WITH CULTURE IF I NDICATEDon 08-23-2021 Appearance (U) CLEAR Normal CLEAR [facility] Comment on above: Performed By: #### U ARFX #### [place] [address] Bilirubin Ql (U) Negative Normal NEGATIVE [facility] Comment on above: Performed By: #### U ARFX #### [place] [address] Color (U) Straw Normal STRAW,YELLOW [facility] Comment on above: Performed By: #### U ARFX #### [place] [address] Glucose Ql (U) Negative Normal NEGATIVE [facility] Comment on above: Performed By: #### U ARFX #### [place] [address] Hemoglobin Ql (U) SMALL(1+) Abnormal NEGATIVE [facility] Comment on above: Performed By: #### U ARFX #### [place] [address] Ketones Ql (U) Negative Normal NEGATIVE [facility] Comment on above: Performed By: #### U ARFX #### [place] [address] Leukocyte esterase Test strip Ql (U) SMALL(1+) Abnormal NEGATIVE [facility] Comment on above: Performed By: #### U ARFX #### [place] [address] Nitrite Ql (U) Negative Normal NEGATIVE [facility] Comment on above: Performed By: #### U ARFX #### [place] [address] pH (U) 6.0 [pH] Normal 5.0 - 8.0 [facility] Comment on above: Performed By: #### U ARFX #### [place] [address] Protein Ql (U) Negative Normal NEGATIVE [facility] Comment on above: Performed By: #### U ARFX #### [place] [address] Specific gravity (U) [Rel density] 1.005 Normal 1.005 - 1.035 [facility] Comment on above: Performed By: #### U ARFX #### [address] [address] Urobilinogen (U) [Mass/Vol] mg/dL Normal 0.0 - 1.9 [facility] Comment on above: Performed By: #### U ARFX #### [address] [address] URINE CULTURE,BACTERIALon URINE CULTURE,BACTERIAL PATIENT: Nikole WADE LOCATION: [facility]#: [id number] : [birth year] AGE: SEX: F ORDERED BY: KATIANA MENDEZ SOURCE: URINE COLLECTED: 08/23/21 16:04 ANTIBIOTICS AT [facility].: RECEIVED : 08/23/21 23:02 SITE: R E S U L T S URINE CULTURE,BACTERIAL FINAL 08/24/21 15:23 NO SIGNIFICANT GROWTH. Normal [facility] Comment on above: Performed By: #### U RINC ####[id number] [place] [address] US GALLBLADDERon 08-23-2021 US GALLBLADDER Patient Name: YVETTE WADE STUDY: US GALLBLADDER; 08/23/2021 4:50 pm INDICATION: RUQ abdominal pain . COMPARISON: None. ACCESSION NUMBER(S): [id number] ORDERING CLINICIAN: KATIANA MENDEZ TECHNIQUE: Multiple images of the right upper quadrant were obtained. FINDINGS: LIVER: The visualized portions of the liver are grossly unremarkable and free of any focal lesions. GALLBLADDER: 4 mm nonmobile rounded echogenic structure along the non dependent gallbladder suggestive of polyp. No significant gallbladder wall thickening. Negative sonographic Estrada sign reported by grease renderer. BILIARY TREE: No intra or extrahepatic biliary dilatation is identified. The common bile duct measures 2.4 mm. PANCREAS: The visualized pancreas is unremarkable in appearance. RIGHT KIDNEY: The right kidney is normal in size, measuring 10.4 cm in craniocaudal dimension. The renal cortical echogenicity and thickness are within normal limits. No hydronephrosis or renal calculi are seen. IMPRESSION: 4 mm probable gallbladder polyp. This likely represents a benign polyp and no further evaluation is advised. Journal of the [place] [employer]/Vol. 10 No. 24 April 2013 Electronically signed by: LACEY CHAN MD [facility] Basic Metabolic Panelon - Calcium [Mass/Vol] 9.7 mg/dL Normal 8.4-10.4 [facility] Comment on above: Performed By: #### H EMDF, LFT3, BMP3 #### [facility] [address] [place] [address] #### GGT3 #### [facility] [address] [place] [address] Glucose [Mass/Vol] 86 mg/dL Normal 70-100 [facility] Comment on above: Performed By: #### H EMDF, LFT3, BMP3 #### [facility] [address] [place] [address] #### GGT3 #### [facility] [address] [place] [address] Urea nitrogen [Mass/Vol] 12 mg/dL Normal 7-20 [facility] Comment on above: Performed By: #### H EMDF, LFT3, BMP3 #### [facility] [address] [place] [address] #### GGT3 #### [facility] [address] [place] [address] Anion gap [Moles/Vol] 11 Normal [facility] Comment on above: Performed By: #### H EMDF, LFT3, BMP3 #### [facility] [address] [place] [address] #### GGT3 #### [facility] [address] [place] [address] CO2 [Moles/Vol] 26 mmol/L Normal 22-30 [facility] Comment on above: Performed By: #### H EMDF, LFT3, BMP3 #### [facility] [address] [place] [address] #### GGT3 #### [facility] [address] [place] [address] Creatinine [Mass/Vol] 0.75 mg/dL Normal 0.52-1.25 [facility] Comment on above: Performed By: #### H EMDF, LFT3, BMP3 #### [facility] [address] [place] [address] #### GGT3 #### [facility] [address] [facility] [address] GFR/1.73 sq M predicted among blacks MDRD (S/P/Bld) [Vol rate/Area] mL/min/{1.73_m2} Normal >60 [facility] Comment on above: Performed By: #### H EMDF, LFT3, BMP3 #### [facility] [address] [place] [address] #### GGT3 #### [facility] [address] [place] [address] GFR/1.73 sq M predicted among non-blacks MDRD (S/P/Bld) [Vol rate/Area] mL/min/{1.73_m2} Normal >60 [facility] Comment on above: Result Comment: KDIG O guidelines provide the following GFR categories: Stage GFR(ml/min/1.73 m2) Terms G1 >=90 Normal or high G2 60-89 Mildly decreased* G3a 45-59 Mildly to moderately decreased G3b 30-44 Moderately to severely decreased G4 15-29 Severely decreased G5 <15 Kidney failure *Relative to young adult level. In the absence of evidence of kidney damage, neither GFR category G1 nor G2 fulfill the criteria for CKD. The CKD-EPI equation is validated in individuals 18 years of age and older. Currently the best equation for estimating glomerular filtration rate (GFR) from serum creatinine in children is the Bedside Kruger equation. It is less accurate in patients with extremes of muscle mass, restriction of dietary protein, ingestion of creatine, extra-renal metabolism of creatinine, or treatment with medications that affect renal tubular creatinine secretion. Performed By: #### H EMDF, LFT3, BMP3 #### [facility] [address] [place] [address] #### GGT3 #### [facility] [address] [place] [facility] [address] Chloride [Moles/Vol] 103 mmol/L Normal 98-107 [facility] Comment on above: Performed By: #### H EMDF, LFT3, BMP3 #### [facility] [address] [place] [address] #### GGT3 #### [facility] [address] [place] [address] Potassium [Moles/Vol] 4.3 mmol/L Normal 3.5-5.1 [facility] Comment on above: Performed By: #### H EMDF, LFT3, BMP3 #### [facility] [address] [place] [address] #### GGT3 #### [facility] [address] [place] [address] Sodium [Moles/Vol] 140 mmol/L Normal 135-145 [facility] Comment on above: Performed By: #### H EMDF, LFT3, BMP3 #### [facility] [address] [place] [address] #### GGT3 #### [facility] [address] [place] [address] Anion gap [Moles/Vol] 11 mmol/L [place], [place] Calcium [Mass/Vol] 9.7 mg/dL 8.4 - 10. 4 mg/dL [place] Chloride [Moles/Vol] 103 mmol/L 98 - 10 7 mmol/L [place] CO2 [Moles/Vol] 26 mmol/L 22 - 30 mmol/L [place] Creatinine [Mass/Vol] 0.75 mg/dL 0.52 - 1.25 mg/dL [place] EGFR IF NonAfrican [place] >90.0 >60 mL/min [place], [place] Comment on above: KDIGO guidelines pro vide the following GFR categories: Stage GFR(ml/min/1.73 m2) Terms G1 >=90 Normal or high G2 60-89 Mildly decreased* G3a 45-59 Mildly to moderately decreased G3b 30-44 Moderately to severely decreased G4 15-29 Severely decreased G5 <15 Kidney failure *Relative to young adult level. In the absence of evidence of kidney damage, neither GFR category G1 nor G2 fulfill the criteria for CKD. The CKD-EPI equation is validated in individuals 18 years of age and older. Currently the best equation for estimating glomerular filtration rate (GFR) from serum creatinine in children is the Bedside Kruger equation. It is less accurate in patients with extremes of muscle mass, restriction of dietary protein, ingestion of creatine, extra-renal metabolism of creatinine, or treatment with medications that affect renal tubular creatinine secretion. GFR/1.73 sq M predicted among blacks MDRD (S/P/Bld) [Vol rate/Area] mL/min/{1.73_m2} >60 mL/min [place] Glucose [Mass/Vol] 86 mg/dL 70 - 100 mg/dL [place] Potassium [Moles/Vol] 4.3 mmol/L 3.5 - 5.1 mmol/L [place] Sodium [Moles/Vol] 140 mmol/L 135 - 145 mmol/L [place] Urea nitrogen [Mass/Vol] 12 mg/dL 7 - 20 mg/dL [place] CBC Auto Differentialon 12-13 Absolute Baso # 0.0 10*3/uL 0 - 0.2 10*3/uL [place] Absolute Neut # 6.8 10*3/uL 1.8 - 7 10*3/uL [place] Basophils/100 WBC (Bld) 0.3 % 0 - 2 % [place] Eosinophils (Bld) [#/Vol] 0.2 10*3/uL 0 - 0.5 10*3/uL [place] Eosinophils/100 WBC (Bld) 1.4 % 1 - 6 % [place] Erythrocyte distribution width (RBC) [Ratio] 13.9 % 11.5 - 14.5 % [place] Granulocytes/100 WBC (Bld) 51.7 % 40 - 80 % [place] Hematocrit (Bld) [Volume fraction] 40.6 % 35 - 47 % [place] Hemoglobin (Bld) [Mass/Vol] 13.5 g/dL 11.7 - 16 g/dL [place] Interpretation and review of laboratory results Abnormal [place] Lymphocytes (Bld) [#/Vol] 5.0 10*3/uL High 1 - 4.3 10*3/uL [place] Lymphocytes/100 WBC (Bld) 38.2 % 20 - 40 % [place] MCH (RBC) [Entitic mass] 28.3 pg 26 - 34 pg [place] MCHC (RBC) [Mass/Vol] 33.3 % 32 - 36 % [place], [place] MCV (RBC) [Entitic vol] 84.9 fL 79 - 98 fL [place], [place] Monocytes (Bld) [#/Vol] 1.1 10*3/uL High 0 - 0.8 10*3/uL [place] Monocytes/100 WBC (Bld) 8.4 % 2 - 10 % [place] Platelet mean volume (Bld) [Entitic vol] 7.6 fL 7.4 - 10.4 fL [place] Platelets (Bld) [#/Vol] 519 10*3/uL High 140 - 440 10*3/uL [place] RBC (Bld) [#/Vol] 4.78 10*6/uL 3.8 - 5.2 10*6/uL [place] WBC (Bld) [#/Vol] 13.2 10*3/uL High 3.6 - 10.7 10*3/uL [place] Test Performed by [facility], [address] , [place], [place] [id number] [place] [address] GGTon 01-08-2020 Gamma glutamyl transferase [Catalytic activity/Vol] 32 U/L Normal 12-58 [facility] Comment on above: Performed By: #### H EMDF, LFT3, BMP3 #### [facility] [address] [place] [address] #### GGT3 #### [facility] [address] [place] [address] Gamma GTon 01-08-2020 Gamma glutamyl transferase [Catalytic activity/Vol] 32 U/L 12 - 58 U/L [place] Test Performed by [facility], [address] [place] [address] [facility] [place], [place] Hemogram w/ Autodiffon 01-07 Abs Baso Cnt 0.0 10*3/uL Normal 0.0-0.2 [facility] Comment on above: Performed By: #### H EMDF, LFT3, BMP3 #### [facility] [address] [place] [address] #### GGT3 #### [facility] [address] [place] [address] Abs Neutrophile Cnt 6.8 10*3/uL Normal 1.8-7.0 [facility] Comment on above: Performed By: #### H EMDF, LFT3, BMP3 #### [facility] [address] [place] [address] #### GGT3 #### [place] [address] [place] [address] Basophils/100 WBC (Bld) 0.3 % Normal 0.0-2.0 [facility] Comment on above: Performed By: #### H EMDF, LFT3, BMP3 #### [facility] [address] [place] [address] #### GGT3 #### [place] [address] [place] [address] Eosinophils (Bld) [#/Vol] 0.2 10*3/uL Normal 0.0-0.5 [facility] Comment on above: Performed By: #### H EMDF, LFT3, BMP3 #### [facility] [address] [place] [address] #### GGT3 #### [place] [address] [place] [address] Eosinophils/100 WBC (Bld) 1.4 % Normal 1.0-6.0 [facility] Comment on above: Performed By: #### H EMDF, LFT3, BMP3 #### [facility] [address] [place] [address] #### GGT3 #### [facility] [address] [place] [address] Erythrocyte distribution width (RBC) [Ratio] 13.9 % Normal 11.5-14.5 [facility] Comment on above: Performed By: #### H EMDF, LFT3, BMP3 #### [facility] [address] [place] [address] #### GGT3 #### [facility] [address] [place] [address] Granulocytes/100 WBC (Bld) 51.7 % Normal 40.0-80.0 [facility] Comment on above: Performed By: #### H EMDF, LFT3, BMP3 #### [facility] [address] [place] [address] #### GGT3 #### [facility] [address] [place] [address] Hematocrit (Bld) [Volume fraction] 40.6 % Normal 35.0-47.0 [facility] Comment on above: Performed By: #### H EMDF, LFT3, BMP3 #### [facility] [address] [place] [address] #### GGT3 #### [facility] [address] [place] [address] Hemoglobin (Bld) [Mass/Vol] 13.5 g/dL Normal 11.7-16.0 [facility] Comment on above: Performed By: #### H EMDF, LFT3, BMP3 #### [facility] [address] [place] [address] #### GGT3 #### [facility] [address] [place] [address] Lymphocytes (Bld) [#/Vol] 5.0 10*3/uL High 1.0-4.3 [facility] Comment on above: Performed By: #### H EMDF, LFT3, BMP3 #### [facility] [address] [place] [address] #### GGT3 #### [facility] [address] [place] [address] Lymphocytes/100 WBC (Bld) 38.2 % Normal 20.0-40.0 [facility] Comment on above: Performed By: #### H EMDF, LFT3, BMP3 #### [facility] [address] [place] [address] #### GGT3 #### [facility] [address] [place] [address] MCH (RBC) [Entitic mass] 28.3 pg Normal 26.0-34.0 [facility] Comment on above: Performed By: #### H EMDF, LFT3, BMP3 #### [facility] [address] [place] [address] #### GGT3 #### [place] [address] [place] [address] MCHC (RBC) [Mass/Vol] 33.3 % Normal 32.0-36.0 [facility] Comment on above: Performed By: #### H EMDF, LFT3, BMP3 #### [facility] [place] [address] #### GGT3 #### [place] [address] [place] [address] MCV (RBC) [Entitic vol] 84.9 fL Normal 79.0-98.0 [facility] Comment on above: Performed By: #### H EMDF, LFT3, BMP3 #### [facility] [place] [address] #### GGT3 #### [place] [address] [place] [address] Monocytes (Bld) [#/Vol] 1.1 10*3/uL High 0.0-0.8 [facility] Comment on above: Performed By: #### H EMDF, LFT3, BMP3 #### [facility] [address] [place] [address] #### GGT3 #### [place] [address] [place] [address] Monocytes/100 WBC (Bld) 8.4 % Normal 2.0-10.0 [facility] Comment on above: Performed By: #### H EMDF, LFT3, BMP3 #### [facility] [address] [place] [address] #### GGT3 #### [facility] [address] [place] [address] Platelet mean volume (Bld) [Entitic vol] 7.6 fL Normal 7.4-10.4 [facility] Comment on above: Performed By: #### H EMDF, LFT3, BMP3 #### [facility] [address] [place] [address] #### GGT3 #### [facility] [address] [place] [address] Platelets (Bld) [#/Vol] 519 10*3/uL High 140-440 [facility] Comment on above: Performed By: #### H EMDF, LFT3, BMP3 #### [facility] [address] [place] [address] #### GGT3 #### [facility] [address] [place] [address] RBC (Bld) [#/Vol] 4.78 10*6/uL Normal 3.80-5.20 [facility] Comment on above: Performed By: #### H EMDF, LFT3, BMP3 #### [facility] [address] [place] [address] #### GGT3 #### [facility] [address] [place] [address] WBC (Bld) [#/Vol] 13.2 10*3/uL High 3.6-10.7 [facility] Comment on above: Performed By: #### H EMDF, LFT3, BMP3 #### [facility] [address] [place] [address] #### GGT3 #### [facility] [address] [place] [address] Hepatic Functionon 0 ALP [Catalytic activity/Vol] 84 U/L Normal 38-126 [facility] Comment on above: Performed By: #### H EMDF, LFT3, BMP3 #### [facility] [address] [place] [address] #### GGT3 #### [facility] [address] [place] [address] ALT [Catalytic activity/Vol] 18 U/L Normal 0-34 [facility] Comment on above: Result Comment: The ALT test is performed by an updated assay method. Please note that the reference intervals have been changed and are now sex specific. Performed By: #### H EMDF, LFT3, BMP3 #### [facility] [address] [place] [address] #### GGT3 #### [facility] [address] [place] [address] AST [Catalytic activity/Vol] 24 U/L Normal 15-46 [facility] Comment on above: Performed By: #### H EMDF, LFT3, BMP3 #### [facility] [address] [place] [address] #### GGT3 #### [place] [address] [place] [address] Bilirubin [Mass/Vol] 0.6 mg/dL Normal 0.2-1.3 [facility] Comment on above: Performed By: #### H EMDF, LFT3, BMP3 #### [facility] [address] [place] [address] #### GGT3 #### [facility] [address] [place] [address] Protein [Mass/Vol] 7.0 g/dL Normal 6.3-8.2 [facility] Comment on above: Performed By: #### H EMDF, LFT3, BMP3 #### [facility] [address] [place] [address] #### GGT3 #### [place] [address] [place] [address] Bilirubin.direct [Mass/Vol] 0.0 mg/dL Normal 0.0-0.3 [facility] Comment on above: Performed By: #### H EMDF, LFT3, BMP3 #### [facility] [address] [place] [address] #### GGT3 #### [place] [address] [place] [address] Albumin [Mass/Vol] 4.2 g/dL Normal 3.5-5.0 [facility] Comment on above: Performed By: #### H EMDF, LFT3, BMP3 #### [facility] [address] [place] [address] #### GGT3 #### [facility] [address] [place] [address] Hepatic Function Panelon Albumin [Mass/Vol] 4.2 g/dL 3.5 - 5 g/dL [place] ALP [Catalytic activity/Vol] 84 U/L 38 - 126 U/L [place] ALT [Catalytic activity/Vol] 18 U/L 0 - 34 U/L [place] Comment on above: The ALT test is perf ormed by an updated assay method. Please note that the reference intervals have been changed and are now sex specific. AST [Catalytic activity/Vol] 24 U/L 15 - 46 U/L [place] Bilirubin Ql (U) 0.6 mg/dL 0.2 - 1.3 mg/dL [place] Bilirubin.direct [Mass/Vol] 0.0 mg/dL 0 - 0.3 mg/dL [place] Protein [Mass/Vol] 7.0 g/dL 6.3 - 8.2 g/dL [place] Otheron 01-08-2020 Test Performed by [facility], [address] , [place], [place] [id number] [place] [address] US ABDOMEN LIMITEDon 020 [place], [facility] Incoming Radiology Results From [facility] - 01/08/2020 11:45 AM EDT Patient Name: YVETTE WADE ---Ultrasound--- Exam Date/Time 01/08/2020 11:07:51 EDT Exam US Abdomen Limited Ordering Physician MD CLOUD MATTHEW JOHN Accession Number [id number] CPT4 Codes 94100 () Reason For Exam gb polyp Report Indication: Gallbladder polyp follow-up. FINDINGS: Again seen is a polyp/soft tissue focus in the gallbladder measuring about 3 mm visually unchanged. No gallstones or acute biliary process. Fatty liver suspected. No Estrada's sign. Common duct normal 2 mm. Pancreas poorly seen due to bowel gas. Right kidney negative, 9.8 cm. IMPRESSION: Visually stable appearance of a suspected tiny gallbladder polyp. Report Dictated on --- Final --- Dictating Physician: MD SEGOVIA JOHN Signed Date and Time: 01/08/2020 11:44 am Signed by: MD SEGOVIA JOHN Transcribed Date and Time: 01/08/2020 11:45 [place] Patient Name: YVETTE WADE ---Ultrasound--- Exam Date/Time 01/08/2020 11:07:51 EDT Exam US Abdomen Limited Ordering Physician MD CLOUD MATTHEW JOHN Accession Number [id number] CPT4 Codes 33381 () Reason For Exam gb polyp Report Indication: Gallbladder polyp follow-up. FINDINGS: Again seen is a polyp/soft tissue focus in the gallbladder measuring about 3 mm visually unchanged. No gallstones or acute biliary process. Fatty liver suspected. No Estrada's sign. Common duct normal 2 mm. Pancreas poorly seen due to bowel gas. Right kidney negative, 9.8 cm. IMPRESSION: Visually stable appearance of a suspected tiny gallbladder polyp. Report Dictated on --- Final --- Dictating Physician: MD SEGOVIA JOHN Signed Date and Time: 01/08/2020 11:44 am Signed by: MD SEGOVIA JOHN Transcribed Date and Time: 01/08/2020 11:45 [place] US Abdomen Limitedon 020 US Abdomen Limited Patient Name: YVETTE WADE Ultrasound Exam Date/Time 01/08/2020 11:07:51 EDT Exam US Abdomen Limited Ordering Physician MD CLOUD MATTHEW JOHN Accession Number [id number] CPT4 Codes 91065 () Reason For Exam gb polyp Report Indication: Gallbladder polyp follow-up. FINDINGS: Again seen is a polyp/soft tissue focus in the gallbladder measuring about 3 mm visually unchanged. No gallstones or acute biliary process. Fatty liver suspected. No Estrada's sign. Common duct normal 2 mm. Pancreas poorly seen due to bowel gas. Right kidney negative, 9.8 cm. IMPRESSION: Visually stable appearance of a suspected tiny gallbladder polyp. Report Dictated on Final Dictating Physician: MD SEGOVIA JOHN Signed Date and Time: 01/08/2020 11:44 am Signed by: MD SEGOVIA JOHN Transcribed Date and Time: 01/08/2020 11:45 Normal [facility] NOVEL CORONAVIRUS (COVID-19) on 11-04-2019 SARS-COV-2 Not Detected Normal Not Detected [facility] Comment on above: Order Comment: This assay was performed by Nucleic Acid Amplification (JITENDRA) on the Aptima??? Vining??? System ([employer] [place], [place]) using Hall Monitor Mediated Amplification (TMA) technology. This test was developed, and its performance characteristics determined by [facility]. The Aptima??? SARS-CoV-2 assay is for use only under Emergency Use Authorization (EUA) in the US laboratories certified under the Clinical Laboratory Improvement Amendments of 1988 (CLIA), 42 U.S.C. ???263a, to perform high complexity tests. 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 She is unaccompanied (father in waiting room). No language and literature division chair was used. 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 if helping or not Bentyl - was on this previously ---back with Dr. Martinez - ? if helping Currently - (10 = well) ---has been better overall --3-4 months ago was 4-09/20 Past Medical History Past Medical History: Diagnosis Date Gastroesophageal reflux disease Past Surgical History Past Surgical History: Procedure Laterality Date ESOPHAGOSCOPY N/A 12/24/2018 ENDOSCOPY (UPPER AND COLONOSCOPY) with disaccharidases performed by Antonietta Abreu MD at [facility] [place] ANESTH,UGI ENDOSCOPY 2015 TONSILLECTOMY AND ADENOIDECTOMY 2005 Allergies Allergies Allergen Reactions Dust Mite Extract Other (See Comments) receives weekly allergy injestions Milk-Related Compounds Diarrhea Medications Outpatient Encounter Medications as of 03/18/2019 Medication Sig Dispense Refill Norgestimate-Eth Estradiol (SPRINTEC 28 PO) Take by mouth norgestrel-ethinyl estradiol (LO/OVRAL) 0.3-30 MG-MCG tablet Take 1 Tab by mouth daily omeprazole (PRILOSEC) 40 MG capsule Take 40 mg by mouth daily dicyclomine (BENTYL) 20 MG Take 1 Tab (20 mg) by mouth every 8 hours as needed for Pain 40 Each 2 sucralfate (CARAFATE) 1 g tablet Take 1,000 mg by mouth 2 times daily No facility-administered encounter medications on file as of 03/18/2019. Family Medical History Family History Problem Relation Age of Onset Gallbladder Disease Mother Gastroesophageal reflux Mother Gastroesophageal reflux Father No known problems Sister No known problems Brother Colon Polyps Maternal Grandmother Gallbladder Disease Maternal Grandmother Gastroesophageal reflux Maternal Grandmother Irritable Bowel Syndrome Maternal Grandmother Gastroesophageal reflux Paternal Grandfather Anesth Problems Neg Hx Bleeding Prob Neg Hx Blood Disorders Neg Hx Cancer Neg Hx Celiac Disease Neg Hx Colon Cancer Neg Hx Constipation Neg Hx Crohn's Disease Neg Hx Cystic Fibrosis Neg Hx Eosinophilic Esophagitis Neg Hx Kidney Disease Neg Hx Liver Disease Neg Hx Pancreatic Disease Neg Hx Stomach Ulcer(s) Neg Hx Thyroid Disease Neg Hx Ulcerative Colitis Neg Hx Social History Social History Socioeconomic History Marital status: Single Spouse name: Not on file Number of children: Not on file Years of education: Not on file Highest education level: Not on file Occupational History Not on file Social Needs Financial resource strain: Not on file Food insecurity: Worry: Not on file Inability: Not on file Transportation needs: Medical: Not on file Non-medical: Not on file Tobacco Use Smoking status: Never Smoker Smokeless tobacco: Never Used Substance and Sexual Activity Alcohol use: Never Frequency: Never Drug use: Never Sexual activity: Never Lifestyle Physical activity: Days per week: Not on file Minutes per session: Not on file Stress: Not on file Relationships Social connections: Talks on phone: Not on file Gets together: Not on file Attends scientologist service: Not on file Active member of club or organization: Not on file Attends meetings of clubs or organizations: Not on file Relationship status: Not on file Intimate partner violence: Fear of current or ex partner: Not on file Emotionally abused: Not on file Physically abused: Not on file Forced sexual activity: Not on file Other Topics Concern Not on file Social History Narrative Not on file Diet Social History Who lives in the household? mom, dad and 2 sibs Are there pets in the home? Yes Has the patient ever been hospitalized? No Review of Systems Review of Systems Constitutional: Positive for weight loss. Negative for recurrent fevers and weight gain. Symmetric chest wall HENT: Positive for sinus problems (T/A 2005). Negative for trouble swallowing, dental problems and hearing problems. Eyes: Negative for wears glasses. Respiratory: Negative for asthma. Cardiovascular: Negative for heart problems. Gastrointestinal: Positive for diarrhea and abdominal pain. Negative for constipation, soiling underpants, vomiting, heartburn, blood in stool, trouble swallowing, nausea and liver problems. Genitourinary: Negative for kidney problems (in past, on macrodantin for years for chronic UTIs). Neurological: Positive for headaches and dizziness. Negative for developmental delays. Skin: Negative for rash. Allergy/Immune: Positive for allergies (milk - weekly allergy shot for dust - doesnot avoid milk). The patient's past medical, surgical history, family history, and medications were reviewed and updated in [facility] (electronic medical record). Physical Examination There were no vitals filed for this visit. BP Readings from Last 2 Encounters: 01/20/19 135/69 (99 %, Z = 2.21 / 67 %, Z = 0.45)* 12/24/18 119/61 (83 %, Z = 0.97 / 33 %, Z = -0.43)* *BP percentiles are based on the December 2016 AAP Clinical Practice Guideline for girls Weight - Scale: 73.8 kg Height: 154.7 cm Body mass index is 30.84 kg/m . Physical Exam Constitutional: She appears well-developed and well-nourished. She is active. She appears overweight. No hidradenitis HENT: Nose: Her nose is normal. No nasal discharge. Mouth/Throat: Her mucous membranes are moist. Dentition is normal. Her oropharynx is clear. Eyes: Her conjunctivae and EOM are normal. Her pupils are equal, round, and reactive to light. Right eye exhibits no discharge. Left eye exhibits no discharge. Neck: Her neck is supple. Theres is no no neck adenopathy. Cardiovascular: No murmur heard. Pulmonary/Chest: Effort normal and breath sounds normal. Abdominal: Her abdomen is soft. She exhibits no distension. Bowel sounds are normal. There is generalized tenderness (Mild). There is no CVA tenderness present.She displays no rebound and no rigidity in her abdomen. There is no hepatosplenomegaly. Genitourinary: She displays anal skin tags. She displays no rash, no tears, no fissures, no sacral dimple and no anal wink. Neurological: She is alert. Skin: Skin is warm. Capillary refill takes less than 3 seconds. No rash noted. No jaundice or pallor. Lab Results Last BMP: No results found for: NA, K, CL, CO2, BUN, GLU, CREATININE, CALCIUM Last CBC: Last Result Manual Differential Collection Time: 12/13/18 10:30 AM Result Value Ref Range Band Neutrophil 13 (H) 5 - 11 % Segmented Neutrophils 46 34 - 64 % Lymphocytes 30 25 - 45 % % Monocytes 5 3 - 6 % % Eosinophils 5 (H) 0 - 3 % % Basophils 1 0 - 1 % % Metamyelocytes 0 0 - 0 % % Myelocytes 0 0 - 0 % % Promyelocytes 0 0 - 0 % Absolute Neutrophil No. 7.4 NA Anisocytosis Slight NA Poikilocytosis Occasional NA Complete Blood Count Collection Time: 12/13/18 10:30 AM Result Value Ref Range WBC 12.5 4.5 - 13.0 10E9/L Nucleated RBC Percent 0.0 -1.0 - 0.0 % RBC 4.76 4.10 - 4.80 10E12/L Hemoglobin 13.2 12.0 - 15.0 g/dl Hematocrit 40.0 37.0 - 46.0 % MCV 84.0 78.0 - 96.0 fl MCH 27.7 25.0 - 35.0 pg MCHC 33.0 31.0 - 37.0 % RDW 13.6 0.0 - 14.4 % Platelets 545 (H) 150 - 450 10E9/L MPV 9.1 fl Comment: MPV is platelet range and age dependent Differential Complete Manual NA % Immature Granulocyte 0.30 % Comment: Immature Granulocyte Percent includes promyelocytes, myelocytes, and metamyelocytes. IG% > 1.0 indicates a left shift is present. With automated differentials, bands are included in the neutrophil count and not in the Immature Granulocyte Percent. Last CRP: C-Reactive Protein (mg/dL) Date Value 12/13/2018 2.5 (H) Last ESR: ESR (Sed Rate) (mm) Date Value 12/13/2018 41 Last Hepatic Function Results: Bilirubin, Conjugated (mg/dL) Date Value 12/13/2018 <0.1 Total Bilirubin (mg/dl) Date Value 12/13/2018 0.5 ALT (U/L) Date Value 12/13/2018 16 AST (U/L) Date Value 12/13/2018 21 Alkaline Phosphatase (U/L) Date Value 12/13/2018 72 Albumin (g/dL) Date Value 12/13/2018 3.7 Protein, Total (g/dL) Date Value 12/13/2018 7.5 Path Report: Surgical Pathology Test Date Value Ref Range Status 12/24/2018 SEE BELOW NA Final Comment: FINAL DIAGNOSIS: A. Distal esophagus, biopsy-squamous esophageal mucosa and minute fragment of gastric mucosa with no significant histopathologic abnormality. B. Stomach, biopsy-mild chronic gastritis. C. Duodenum, biopsy-no diagnostic abnormality. D. Left colon, biopsy-no diagnostic abnormality. E. Right colon, biopsy-no diagnostic abnormality. F. Transverse colon, biopsy-no diagnostic abnormality. G. Terminal ileum, biopsy-no diagnostic abnormality. H. Rectosigmoid colon, biopsy-no diagnostic abnormality. SPECIMEN: A. ESOPHAGEAL BIOPSY- distal B. STOMACH, BIOPSY C. DUODENAL BIOPSY D. BOWEL, BIOPSY- left colon E. BOWEL, BIOPSY- right colon F. BOWEL, BIOPSY- transverse colon G. BOWEL, BIOPSY- terminal ileum H. BOWEL, BIOPSY- rectosigmoid DATE OF SURGERY: 12/24/2018 CLINICAL INFORMATION: Blood in stool, abdominal pain, generalized. GROSS DESCRIPTION: A. Received in formalin labeled with the patient's name and distal esophagus are two petersen soft tissue fragments aggregating to 0.4 x 0.2 x 0.1 cm. They are totally submitted in one cassette. B. Received in formalin labeled with the patient's name and stomach are five petersen soft tissue fragments aggregating to 0.7 x 0.5 x 0.1 cm. They are totally submitted in one cassette. C. Received in formalin labeled with the patient's name and duodenum are two petersen soft tissue fragments aggregating to 0.5 x 0.2 x 0.1 cm. They are totally submitted in one cassette. D. Received in formalin labeled with the patient's name and left colon are two petersen soft tissue fragments aggregating to 0.4 x 0.3 x 0.1 cm. They are totally submitted in one cassette. E. Received in formalin labeled with the patient's name and right colon is a petersen soft tissue fragment measuring 0.3 x 0.2 x 0.2 cm. It is totally submitted in one cassette. F. Received in formalin labeled with the patient's name and transverse colon are two petersen soft tissue fragments aggregating to 0.4 x 0.3 x 0.1 cm. They are totally submitted in one cassette. G. Received in formalin labeled with the patient's name and terminal ileum are three petersen soft tissue fragments aggregating to 0.4 x 0.3 x 0.2 cm. They are totally submitted in one cassette. H. Received in formalin labeled with the patient's name and rectosigmoid are two petersen soft tissue fragments aggregating to 0.4 x 0.2 x 0.1/ cm. They are totally submitted in one cassette. MICROSCOPIC EXAMINATION: A. Sections demonstrate a fragment of squamous esophageal mucosa and a small fragment of gastric type mucosa with no significant histopathologic abnormality. The gastric fragment may represent GE junction mucosa or instrument carryover, however if it originated in the tubular esophagus could represent heterotopic/metaplastic change. Please correlate endoscopically. B. Sections demonstrate fragments of gastric mucosa with patchy mild to moderate increases in lymphocytes and plasma cells. Small lymphoid aggregates are noted. No active inflammation or Helicobacter organisms are identified. C. Sections demonstrate fragments of duodenal mucosa with no significant histopathologic abnormality. D-F. Sections demonstrate fragments of colonic mucosa with no significant histopathologic abnormality. G. Sections demonstrate fragments of small bowel mucosa with no significant histopathologic abnormality. H. Sections demonstrate a fragment of colonic mucosa with no significant histopathologic abnormality. ROSE DE DIOS MD 12/27/2018 Celiac Panel: Last Results Transglutaminase IgA Collection Time: 12/13/18 10:30 AM Result Value Ref Range Transglutaminase IgA <20.00 0.00 - 20.00 Units Comment: Negative: < 20 Units Weak Positive: 20-30 Units Moderate to Strong Positive: > 30 Units Immunoglobulin A Collection Time: 12/13/18 10:30 AM Result Value Ref Range Immunoglobulin A 185 61 - 348 mg/dL T4: Last Results T4, free Collection Time: 12/13/18 10:30 AM Result Value Ref Range T4, Free 1.2 0.8 - 1.4 ng/dL Comment: New Reference Ranges - effective 03/03/09. TSH: Last Results TSH Collection Time: 12/13/18 10:30 AM Result Value Ref Range TSH 2.110 0.350 - 5.500 uIU/mL Imaging Findings No results found. Assessment Yvette is a 18 year old white female with abdominal pain, blood in stool, anal skin tag, hidradenitis suppurative and elevated ESR. History of gastric ulcers in 2016 (Scope done by Dr. Martinez). ---EGD/Colonoscopy - Dec 2018 ---Mild gastritis; otherwise normal path. Visually - Nodular mucosa in stomach; otherwise normal Colon and TI ---ABD US - Showed a small GB Polyp - <4mm ---HIDA - Normal (has been evaluated by Surgery, Dr. Delvalle, 01/20/19) Currently - Patient is doing much better over time, but she is not sure why. Still on Carafate once per day. Prilosec everyday - ? if this is helping. Bentyl used in past and ? helped, but not on this currently. Plan Prilosec - 40mg per day Sucralfate - Decrease every other day for 1-2 weeks and then try and stop Bentyl - 20mg - every 8hrs as needed Will plan on repeating ABD US to follow GB Polyp 12 months from last ---Discussed if staying same size and patient is feeling better, then likely was incidental finding. If getting larger, or has recurrent symptoms, will have follow up with surgery for concern of Cholecystectomy Follow up 6 months, if doing well Zaid Cloud MD P - [phone] 03/21/[address] [facility] NM HEPATOBILIARY SCAN W EJEC TION FRACTION W/ CCKon 01-21-2019 Patient Name: YVETTE WADE ---Nuc Med--- Exam Date/Time 01/21/2019 11:59:49 EDT Exam NM Hepatobiliary Duct System Imaging Ordering Physician UNASSIGNED, UNASSIGNED Accession Number [id number] CPT4 Codes 39154 () Reason For Exam abd pain Report Indication: Upper abdominal pain for five months. The patient was injected with 3.3 mCi of tech 99m Choletec. The gallbladder and small bowel are visualized by one hour. The patient was then injected with 1.5 mcg of CCK and serial images over the right upper quadrant were obtained for an additional 30 minutes. The gallbladder ejection fraction is normal at 92 percent (normal is 35% and greater). Note is made of minimal enterogastric reflux. Impression: 1. No evidence of cystic/common duct obstruction. 2. Normal gallbladder ejection fraction of 92 percent. 3. Minimal enterogastric reflux. Report Dictated on --- Final --- Dictating Physician: DO LAWTON ANTHONY Signed Date and Time: 01/21/2019 12:51 pm Signed by: DO LAWTON ANTHONY Transcribed Date and Time: 01/21/2019 12:52 [facility], [place] Incoming Radiology Results From [facility] - 01/21/2019 12:52 PM EDT Patient Name: YVETTE WADE ---Nuc Med--- Exam Date/Time 01/21/2019 11:59:49 EDT Exam NM Hepatobiliary Duct System Imaging Ordering Physician UNASSIGNED, UNASSIGNED Accession Number [id number] CPT4 Codes 11892 () Reason For Exam abd pain Report Indication: Upper abdominal pain for five months. The patient was injected with 3.3 mCi of tech 99m Choletec. The gallbladder and small bowel are visualized by one hour. The patient was then injected with 1.5 mcg of CCK and serial images over the right upper quadrant were obtained for an additional 30 minutes. The gallbladder ejection fraction is normal at 92 percent (normal is 35% and greater). Note is made of minimal enterogastric reflux. Impression: 1. No evidence of cystic/common duct obstruction. 2. Normal gallbladder ejection fraction of 92 percent. 3. Minimal enterogastric reflux. Report Dictated on --- Final --- Dictating Physician: DO LAWTON ANTHONY Signed Date and Time: 01/21/2019 12:51 pm Signed by: DO LAWTON ANTHONY Transcribed Date and Time: 01/21/2019 12:52 [facility] Hepatobiliary System w/ P brasher 01-21-2019 NM Hepatobiliary System w/ Pharm Patient Name: YVETTE WADE Nuc Med Exam Date/Time 01/21/2019 11:59:49 EDT Exam NM Hepatobiliary Duct System Imaging Ordering Physician UNASSIGNED, UNASSIGNED Accession Number [id number] CPT4 Codes 17356 () Reason For Exam abd pain Report Indication: Upper abdominal pain for five months. The patient was injected with 3.3 mCi of tech 99m Choletec. The gallbladder and small bowel are visualized by one hour. The patient was then injected with 1.5 mcg of CCK and serial images over the right upper quadrant were obtained for an additional 30 minutes. The gallbladder ejection fraction is normal at 92 percent (normal is 35% and greater). Note is made of minimal enterogastric reflux. Impression: 1. No evidence of cystic/common duct obstruction. 2. Normal gallbladder ejection fraction of 92 percent. 3. Minimal enterogastric reflux. Report Dictated on Final Dictating Physician: DO LAWTON ANTHONY Signed Date and Time: 01/21/2019 12:51 pm Signed by: DO LAWTON ANTHONY Transcribed Date and Time: 01/21/2019 12:52 Normal [facility] [employer] Progress Noteon 01-20-2019 Hall Monitor Authentication Interface Message Text DOS: 01/20/2019 [facility] PEDIATRIC SURGERY NEW PATIENT Referring/Requesting Physician: Amor Montalvo, * PCP: Amor Montalvo MD Source: Mother and Patient CHIEF COMPLAINT: Gallbladder polyp HISTORY OF PRESENT ILLNESS: Patient is a 18 y.o. female with a PMH significant for hidradenitis suppurative, GERD, anal skin tag, who presents w/the chief complaint of abdominal pain and abnormal finding on US. Patient states ~5months ago she began having right abdominal pain/ sometimes bilateral that would radiate towards her back and also be subcostal bilaterally at times. It is crampy in nature. She was first seen by GI in December 2018 and labwork and EGD/colonoscopy were ordered. Labs were normal and other than some mild gastritis in the stomach the scopes were normal as well. She was also started on Levbid every 12 hours for cramping and pain. She states this helped at first but not now. The pain continued and she had an US done which was essentially normal other than a 5mm polyp found on the gallbladder which was thought to be an incidental finding. Mom expresses that they are concerned about not removing the gallbaldder with the polyp being there. The pain typically occurs in the morning and early evening. The pain will last 30min-1hour. Laying down or putting pressure on the area of pain will help relieve the pain. Nothing seems to make it worse. Does not seem to be related to eating. She will have nausea at times of pain but no vomiting. GI suggested a pill cam but she was unsure if she could swallow the pill. She has a bowel movement daily. More recently its been diarrhea but other than she has regular bowel movements. She states that after a bout of diarrhea she will have a bowel movement that is a lot of ball formed stool. The patient's mother states Dr. Amor Montalvo requests recommendations regarding the chief complaint listed above. My evaluation and recommendations on this patient will be communicated back to the requesting physician by way of shared medical record or letter/fax. Past Medical History: Diagnosis Date Gastroesophageal reflux disease Past Surgical History: Procedure Laterality Date ESOPHAGOSCOPY N/A 12/24/2018 ENDOSCOPY (UPPER AND COLONOSCOPY) with disaccharidases performed by Antonietta Abreu MD at [facility] [place] ANESTH,UGI ENDOSCOPY 2016 TONSILLECTOMY AND ADENOIDECTOMY 2006 ANESTHESIA COMPLICATIONS: None. MEDS: Current Outpatient Medications: sucralfate (CARAFATE) 1 g tablet, Take 1,000 mg by mouth 2 times daily, Disp: , Rfl: hyoscyamine (LEVBID) 0.375 MG CR tablet, Take 1 Tab (0.375 mg) by mouth every 12 hours as needed (abdominal cramping) for up to 30 days, Disp: 60 Tab, Rfl: 2 Norgestimate-Eth Estradiol (SPRINTEC 28 PO), Take by mouth, Disp: , Rfl: omeprazole (PRILOSEC) 40 MG capsule, Take 40 mg by mouth daily, Disp: , Rfl: norgestrel-ethinyl estradiol (LO/OVRAL) 0.3-30 MG-MCG tablet, Take 1 Tab by mouth daily, Disp: , Rfl: ALLERGY: Allergies Allergen Reactions Dust Mite Extract Other (See Comments) receives weekly allergy injestions Milk-Related Compounds Diarrhea LATEX ALLERGY: No Family History Problem Relation Age of Onset Gallbladder Disease Mother Gastroesophageal reflux Mother Gastroesophageal reflux Father No known problems Sister No known problems Brother Colon Polyps Maternal Grandmother Gallbladder Disease Maternal Grandmother Gastroesophageal reflux Maternal Grandmother Irritable Bowel Syndrome Maternal Grandmother Gastroesophageal reflux Paternal Grandfather Anesth Problems Neg Hx Bleeding Prob Neg Hx Blood Disorders Neg Hx Cancer Neg Hx Celiac Disease Neg Hx Colon Cancer Neg Hx Constipation Neg Hx Crohn's Disease Neg Hx Cystic Fibrosis Neg Hx Eosinophilic Esophagitis Neg Hx Kidney Disease Neg Hx Liver Disease Neg Hx Pancreatic Disease Neg Hx Stomach Ulcer(s) Neg Hx Thyroid Disease Neg Hx Ulcerative Colitis Neg Hx SOCIAL HISTORY: Patient lives with the mother and father School: Yvette is in 12th grade REVIEW OF SYSTEMS: General ROS: negative Psychological ROS: negative Ophthalmic ROS: negative ENT ROS: negative Allergy and Immunology ROS: positive for allergies Hematological and Lymphatic ROS: negative Endocrine ROS: negative Breast ROS: negative Respiratory ROS: negative Cardiovascular ROS: negative Gastrointestinal ROS: positive for - abdominal pain and blood in stools Genito-Urinary ROS: negative Musculoskeletal ROS: negative Neurological ROS: negative Dermatological ROS: negative PHYSICAL EXAM: VITAL SIGNS: BP 135/69 Pulse 75 Temp 36.3 C (97.3 F) Ht 156.4 cm Wt 80.3 kg BMI 32.83 kg/m GEN/CONSTITUTIONAL: The patient is a 18 y.o. female who is in no apparent acute distress, well developed and well nourished. Non-toxic appearing SKIN: No jaundice, rashes, or petechiae. HEENT: Normocephalic, atraumatic. Normal appearing external nose, lips and ears. EYES: The sclera are anicteric NECK: Supple, No mass. No cervical lymphadenopathy RESPIRATORY:+ Breath sounds clear and equal to auscultation bilaterally. +Normal respiratory effort. No crackles or rhonchi, No wheezing, no crepitus, no respiratory distress. CV: The heart has a regular rate and rhythm without murmur, clicks, or rubs. The extremities are warm and well perfused bilaterally. No lower extremity edema. GI: The abdomen is soft, tender to RLQ/LLQ and minimally to upper quadrants and non-distended. MUSCULOSKELETAL: The extremities are grossly normal, without major deformity. NEURO/PSYCH: Alert and oriented x3, Yvette follows commands well. Normal, appropriate mood and affect for her age and the situation. IMAGING: Abdominal US - 01/09/19 - normal other than a 4mm polyp on GB, per GI likely incidental finding Abdominal CT - 09/27/18 increased lymph node size in abdomen, and had barium swallow to look for ulcers EGD/Colon with Dr. Juan Coronado - had bleeding ulcers in stomach in 2016, was started on PPI then as well. LABS: CBC: Lab Results Component Value Date WBC 12.5 12/13/2018 RBC 4.76 12/13/2018 HGB 13.2 12/13/2018 HCT 40.0 12/13/2018 CMP: Lab Results Component Value Date ALKPHOS 72 12/13/2018 ALT 16 12/13/2018 AST 21 12/13/2018 BILITOT 0.5 12/13/2018 PROT 7.5 12/13/2018 IMPRESSION: Yvette is a 18 y.o. female with a PMH significant for hidradenitis suppurative, GERD, anal skin tag, who presents w/the chief complaint of abdominal pain and abnormal finding on US. PLAN: - Dr. Delvalle in to assess patient - Discussed that polyp is unlikely causing pain - Discussed would like to get HIDA scan to evaluate function of gallbladder - Discussed further work up by GI specifically if HIDA is normal - If HIDA is abnormal would discuss removal of gallbladder with family - Call with questions or concerns Latosha Serrano HOTEL SERVER-OUTREACH COORDINATOR Nurse Practitoner Pediatric Surgery [phone] [facility] US ABDOMEN LIMITEDon 019 Patient Name: YVETTE WADE ---Ultrasound--- Exam Date/Time 01/09/2019 12:54:48 EDT Exam US Abdomen Limited Ordering Physician MILLIE CASTRO STEPHANIE SHIRIN Accession Number [id number] CPT4 Codes 71816 () Reason For Exam abd pain Report Ultrasound right upper quadrant HISTORY: Abdominal pain Liver has a normal echotexture. A 4 mm polyp in the gallbladder. No gallstones. Common bile duct has a normal diameter 1.7 mm. The pancreas is not well seen due to overlying bowel gas. Right kidney measures 9.8 x 4.3 x 4.4 cm. The right kidney is normal. IMPRESSION: A 4 mm polyp in the gallbladder. Report Dictated on --- Final --- Dictating Physician: MD CARDENAS MALAY Signed Date and Time: 01/09/2019 1:00 pm Signed by: MD CARDENAS MALAY Transcribed Date and Time: 01/09/2019 1:01 [facility] [place] [place] [facility] Incoming Radiology Results From [facility] - 01/09/2019 1:02 PM EDT Patient Name: YVETTE WADE ---Ultrasound--- Exam Date/Time 01/09/2019 12:54:48 EDT Exam US Abdomen Limited Ordering Physician MILLIE CASTRO STEPHANIE SHIRIN Accession Number [id number] CPT4 Codes 46745 () Reason For Exam abd pain Report Ultrasound right upper quadrant HISTORY: Abdominal pain Liver has a normal echotexture. A 4 mm polyp in the gallbladder. No gallstones. Common bile duct has a normal diameter 1.7 mm. The pancreas is not well seen due to overlying bowel gas. Right kidney measures 9.8 x 4.3 x 4.4 cm. The right kidney is normal. IMPRESSION: A 4 mm polyp in the gallbladder. Report Dictated on --- Final --- Dictating Physician: MD CARDENAS MALAY Signed Date and Time: 01/09/2019 1:00 pm Signed by: MD CARDENAS MALAY Transcribed Date and Time: 01/09/2019 1:01 [place], [place] Disaccharidase Analysison Interpretation SEE BELOW Normal [facility] Comment on above: Result Comment: The intestinal biopsy from this patient had normal disaccharidase activities. Test Performed by: [employer] [employer] [address] [place] [address] Performed By: #### C RP #### [facility] [address] [place], [place] [id number] Lactase 71.[address] [facility] Comment on above: Result Comment: REFERENCE VALUE Range 24.5 +/- 8.0 Abnormal <15.0 Units = uM/min/gram protein Performed By: #### C RP #### [facility] [address] [place], [place] [id number] Maltase 232.[address] [facility] Comment on above: Result Comment: REFERENCE VALUE Range 160.8 +/- 62.8 Abnormal <100.0 Units = uM/min/gram protein Performed By: #### C RP #### [address] [address] [address] [facility] Comment on above: Result Comment: REFERENCE VALUE Range 11.1 +/- 6.5 Abnormal <5.0 Units = uM/min/gram protein Performed By: #### C RP #### [address] [address] [facility] Comment on above: Result Comment: REFERENCE VALUE Range 54.4 +/- 25.4 Abnormal <25.0 Units = uM/min/gram protein Performed By: #### C RP #### [address] [id number] Helicobacter Cultureon 12-24 Helicobacter Culture Helicobacter Cultur e: NEGATIVE. No urea detected. Source: TISSU Collected: 12/24/18 12:47 Site: Received : 12/24/18 13:01 Helicobacter Culture FINAL 12/25/18 12:43 NEGATIVE. No urea detected. No evidence to support diagnosis of Helicobacter pylori. Normal [facility] Comment on above: Performed By: #### C RP #### [address] [address] Surgical Pathology Teston Surgical Pathology Test SEE BELOW Normal A [facility] Comment on above: Result Comment: [place] DIAGNOSIS: A. Distal esophagus, biopsy-squamous esophageal mucosa and minute fragment of gastric mucosa with no significant histopathologic abnormality. B. Stomach, biopsy-mild chronic gastritis. C. Duodenum, biopsy-no diagnostic abnormality. D. Left colon, biopsy-no diagnostic abnormality. E. Right colon, biopsy-no diagnostic abnormality. F. Transverse colon, biopsy-no diagnostic abnormality. G. Terminal ileum, biopsy-no diagnostic abnormality. H. Rectosigmoid colon, biopsy-no diagnostic abnormality. SPECIMEN: A. ESOPHAGEAL BIOPSY- distal B. STOMACH, BIOPSY C. DUODENAL BIOPSY D. BOWEL, BIOPSY- left colon E. BOWEL, BIOPSY- right colon F. BOWEL, BIOPSY- transverse colon G. BOWEL, BIOPSY- terminal ileum H. BOWEL, BIOPSY- rectosigmoid DATE OF SURGERY: 12/24/2018 CLINICAL INFORMATION: Blood in stool, abdominal pain, generalized. GROSS DESCRIPTION: A. Received in formalin labeled with the patient's name and distal esophagus are two petersen soft tissue fragments aggregating to 0.4 x 0.2 x 0.1 cm. They are totally submitted in one cassette. B. Received in formalin labeled with the patient's name and stomach are five petersen soft tissue fragments aggregating to 0.7 x 0.5 x 0.1 cm. They are totally submitted in one cassette. C. Received in formalin labeled with the patient's name and duodenum are two petersen soft tissue fragments aggregating to 0.5 x 0.2 x 0.1 cm. They are totally submitted in one cassette. D. Received in formalin labeled with the patient's name and left colon are two petersen soft tissue fragments aggregating to 0.4 x 0.3 x 0.1 cm. They are totally submitted in one cassette. E. Received in formalin labeled with the patient's name and right colon is a petersen soft tissue fragment measuring 0.3 x 0.2 x 0.2 cm. It is totally submitted in one cassette. F. Received in formalin labeled with the patient's name and transverse colon are two petersen soft tissue fragments aggregating to 0.4 x 0.3 x 0.1 cm. They are totally submitted in one cassette. G. Received in formalin labeled with the patient's name and terminal ileum are three petersen soft tissue fragments aggregating to 0.4 x 0.3 x 0.2 cm. They are totally submitted in one cassette. H. Received in formalin labeled with the patient's name and rectosigmoid are two petersen soft tissue fragments aggregating to 0.4 x 0.2 x 0.1/ cm. They are totally submitted in one cassette. MICROSCOPIC EXAMINATION: A. Sections demonstrate a fragment of squamous esophageal mucosa and a small fragment of gastric type mucosa with no significant histopathologic abnormality. The gastric fragment may represent GE junction mucosa or instrument carryover, however if it originated in the tubular esophagus could represent heterotopic/metaplastic change. Please correlate endoscopically. B. Sections demonstrate fragments of gastric mucosa with patchy mild to moderate increases in lymphocytes and plasma cells. Small lymphoid aggregates are noted. No active inflammation or Helicobacter organisms are identified. C. Sections demonstrate fragments of duodenal mucosa with no significant histopathologic abnormality. D-F. Sections demonstrate fragments of colonic mucosa with no significant histopathologic abnormality. G. Sections demonstrate fragments of small bowel mucosa with no significant histopathologic abnormality. H. Sections demonstrate a fragment of colonic mucosa with no significant histopathologic abnormality. ROSE DE DIOS MD 12/27/2018 Performed By: #### C RP #### [place] [address] Transglutaminase IgAon 12-16 Transglutaminase IgA <20.00 Normal 0.00-20.00 [facility] Comment on above: Result Comment: Negative: < 20 Units Weak Positive: 20-30 Units Moderate to Strong Positive: > 30 Units Performed By: #### T RGLA #### [place] [address] C-Reactive Proteinon 019 CRP [Mass/Vol] 2.5 mg/dL High 0.0-1.0 [facility] Comment on above: Result Comment: CRP determinations in neonates should be interpreted with caution. CRP may be elevated in circumstances not associated with inflammation (e.g. difficult delivery, pneumothorax). In premature neonates CRP levels may not rise to abnormal levels even if sepsis is present; some speculate that immature liver function decreases the ability to generate a CRP response. Performed By: #### C RP #### [place] [id number] Complete Blood Counton 12-13 Differential Complete Manual Normal [facility] Comment on above: Performed By: #### C BC #### [place] [id number] Erythrocyte distribution width (RBC) [Ratio] 13.6 % Normal 0.0-14.4 [facility] Comment on above: Performed By: #### C BC #### [address] [id number] Hematocrit (Bld) [Volume fraction] 40.0 % Normal 37.0-46.0 [facility] Comment on above: Performed By: #### C BC #### [address] [address] Hemoglobin (Bld) [Mass/Vol] 13.2 g/dL Normal 12.0-15.0 [facility] Comment on above: Performed By: #### C BC #### [address] [address] Immature granulocytes/100 WBC (Bld) 0.30 % Normal [facility] Comment on above: Result Comment: Yeni ture Granulocyte Percent includes promyelocytes, myelocytes, and metamyelocytes. IG% > 1.0 indicates a left shift is present. With automated differentials, bands are included in the neutrophil count and not in the Immature Granulocyte Percent. Performed By: #### C BC #### [address] [address] MCH (RBC) [Entitic mass] 27.7 pg Normal 25.0-35.0 [facility] Comment on above: Performed By: #### C BC #### [address] [id number] MCHC (RBC) [Mass/Vol] 33.0 % Normal 31.0-37.0 [facility] Comment on above: Performed By: #### C BC #### [address] [id number] MCV (RBC) [Entitic vol] 84.0 fL Normal 78.0-96.0 [facility] Comment on above: Performed By: #### C BC #### [address] [address] Nucleated RBC/100 WBC (Bld) [Ratio] 0.0 % Normal -1.0-0.0 [facility] Comment on above: Performed By: #### C BC #### [address] [address] Platelet mean volume (Bld) [Entitic vol] 9.[address] [facility] Comment on above: Result Comment: MPV is platelet range and age dependent Performed By: #### C BC #### [address] [address] Platelets (Bld) [#/Vol] 545 10*3/uL High 150-450 [facility] Comment on above: Performed By: #### C BC #### [address] [address] RBC (Bld) [#/Vol] 4.76 10E12/L Normal 4.10-4.80 [facility] Comment on above: Performed By: #### C BC #### [address] [address] WBC (Bld) [#/Vol] 12.5 10*3/uL Normal 4.5-13.0 [facility] Comment on above: Performed By: #### C BC #### [address] [address] ESRon 12-13-2018 ESR (Bld) [Velocity] 41 mm Normal [facility] Comment on above: Performed By: #### S RATE #### [address] [address] ESR (Bld) [Velocity] ----- Normal [facility] Comment on above: Result Comment: Male Female Child 0-13 Child 0-13 Adult 0- 9 Adult 0-20 Performed By: #### S RATE #### [address] [address] Hepatic Panelon 12-13-2018 Albumin [Mass/Vol] 3.7 g/dL Normal 3.2-4.5 [facility] Comment on above: Performed By: #### L IVER #### [address] [address] ALP [Catalytic activity/Vol] 72 U/L Normal 47-119 [facility] Comment on above: Performed By: #### L IVER #### [address] [address] ALT [Catalytic activity/Vol] 16 U/L Normal 0-31 [facility] Comment on above: Performed By: #### L IVER #### [address] [address] AST [Catalytic activity/Vol] 21 U/L Normal 0-31 [facility] Comment on above: Performed By: #### L IVER #### [address] [address] Bili,Conjugated <0.1 Normal 0.0-0.7 [facility] Comment on above: Performed By: #### L IVER #### [address] [address] Bili,Total 0.5 mg/dl Normal 0.0-1.0 [facility] Comment on above: Result Comment: Premature : 1 Day 1.0-6.0 mg/dl 2 Day 6.0-8.0 mg/dl 3-5 Day 10.0-15.0 mg/dl Performed By: #### L IVER #### [address] [address] Protein [Mass/Vol] 7.5 g/dL Normal 5.9-8.4 [facility] Comment on above: Performed By: #### L IVER #### [address] [address] Immunoglobulin Aon 9 Immunoglobulin A 185 mg/dL Normal 61-348 [facility] Comment on above: Performed By: #### I GA #### [address] [address] Manual Differentialon 2018 Absolute Neutrophil No. 7.4 Normal A [facility] Comment on above: Performed By: #### M DIFF #### [address] [address] Anisocytosis Ql (Bld) Slight Normal [facility] Comment on above: Performed By: #### M DIFF #### [address] [address] Band form neutrophils/100 WBC (Bld) 13 % High 5-11 [facility] Comment on above: Performed By: #### M DIFF #### [address] [address] Basophils 1 % Normal 0-1 [facility] Comment on above: Performed By: #### M DIFF #### [address] [address] Eosinophils 5 % High 0-3 [facility] Comment on above: Performed By: #### M DIFF #### [address] [address] Lymphocytes 30 % Normal 25-45 [facility] Comment on above: Performed By: #### M DIFF #### [address] [address] Metamyelocytes 0 % Normal 0-0 [facility] Comment on above: Performed By: #### M DIFF #### [address] [address] Monocytes 5 % Normal 3-6 [facility] Comment on above: Performed By: #### M DIFF #### [address] [address] Myelocytes 0 % Normal 0-0 [facility] Comment on above: Performed By: #### M DIFF #### [address] [address] [address]ik[address] Occ[address]ional Normal [facility] Comment on above: Performed By: #### M DIFF #### [address] [address] Promyelocytes 0 % Normal 0-0 [facility] Comment on above: Performed By: #### M DIFF #### [address] [address] Segmented neutrophils/100 WBC (Bld) 46 % Normal 34-64 [facility] Comment on above: Performed By: #### M DIFF #### [address] [address] Progress Noteon 12-13-2018 Hall Monitor Authentication Interface Message Text Yvette Wade is here for new office visit for: Hematochezia History of Present Illness HPI 18 year old with pain on right of abdomen and toward her back. Also bilateral subcostal pain. It is more of a cramping pain. This has been going on for 4 months. The pain lasts all day long. It is difficult to sleep and she has missed much school and work. Some extraintestinal symptoms, specifically no mouth ulcers, some joint pain in knees and ankles, no acholic stools, no easy bruising/bleeding, no jaundice and no fevers of unknown cause. No weight loss. Feels weak and fatigued. Has been on Omeprazole 40 mg daily for over 3 years. Is being treated for axillary hydradenitis suppurative - treated with antibiotics for the last few years - last one a few months ago. Some upper GI symptoms. No regurgitation, heartburn or dysphagia. No choking, gagging or food getting stuck. Some nausea, no vomiting. Feels full easily, yets eats ok and no weight loss. BMs are once daily to every other day. If formed, there is blood on outside. Some looser stools twice week, some urgency with loose stool. Blood at least 3 times week. Sometimes up in middle of night to defecate. Has missed school and work, not able to function. Has been on leave from work because of these symptoms. PMD gave Carafate for one week, KUB and labs. - did not bring with her. Mom states ESR was elevated Abdominal CT - 09/27/18 increased lymph node size in abdomen, and had barium swallow to look for ulcers EGD/Colon with Dr. Juan Coronado - had bleeding ulcers in stomach in 2015, was started on PPI then as well. Family history of fatty liver. Past Medical History History reviewed. No pertinent past medical history. Past Surgical History History reviewed. No pertinent surgical history. Allergies No Known Allergies Medications Outpatient Encounter Medications as of 12/13/2018 Medication Sig Dispense Refill norgestrel-ethinyl estradiol (LO/OVRAL) 0.3-30 MG-MCG tablet Take 1 Tab by mouth daily omeprazole (PRILOSEC) 40 MG capsule Take 40 mg by mouth daily No facility-administered encounter medications on file as of 12/13/2018. Family Medical History Family History Problem Relation Age of Onset Gallbladder Disease Mother Gastroesophageal reflux Mother Gastroesophageal reflux Father Colon Polyps Maternal Grandmother Gallbladder Disease Maternal Grandmother Gastroesophageal reflux Maternal Grandmother Irritable Bowel Syndrome Maternal Grandmother Gastroesophageal reflux Paternal Grandfather Anesth Problems Neg Hx Bleeding Prob Neg Hx Blood Disorders Neg Hx Cancer Neg Hx Celiac Disease Neg Hx Colon Cancer Neg Hx Constipation Neg Hx Crohn's Disease Neg Hx Cystic Fibrosis Neg Hx Eosinophilic Esophagitis Neg Hx Kidney Disease Neg Hx Liver Disease Neg Hx Pancreatic Disease Neg Hx Stomach Ulcer(s) Neg Hx Thyroid Disease Neg Hx Ulcerative Colitis Neg Hx Social History Social History Socioeconomic History Marital status: Single Spouse name: None Number of children: None Years of education: None Highest education level: None Occupational History None Social Needs Financial resource strain: None Food insecurity: Worry: None Inability: None Transportation needs: Medical: None Non-medical: None Tobacco Use Smoking status: Never Smoker Smokeless tobacco: Never Used Substance and Sexual Activity Alcohol use: Never Frequency: Never Drug use: Never Sexual activity: Never Lifestyle Physical activity: Days per week: None Minutes per session: None Stress: None Relationships Social connections: Talks on phone: None Gets together: None Attends scientologist service: None Active member of club or organization: None Attends meetings of clubs or organizations: None Relationship status: None Intimate partner violence: Fear of current or ex partner: None Emotionally abused: None Physically abused: None Forced sexual activity: None Other Topics Concern None Social History Narrative None Diet Social History Review of Systems Review of Systems Constitutional: Positive for weight gain. Negative for recurrent fevers and weight loss. Symmetric chest wall HENT: Positive for sinus problems (T/A 2005). Negative for trouble swallowing, dental problems and hearing problems. Eyes: Negative for wears glasses. Respiratory: Negative for asthma. Cardiovascular: Negative for heart problems. Gastrointestinal: Positive for diarrhea, blood in stool, abdominal pain and nausea. Negative for constipation, soiling underpants, vomiting, heartburn, trouble swallowing and liver problems. Genitourinary: Negative for kidney problems (in past, on macrodantin for years for chronic UTIs). Neurological: Positive for headaches and dizziness. Negative for developmental delays. Skin: Negative for rash. Allergy/Immune: Positive for allergies (milk - weekly allergy shot for dust - doesnot avoid milk). Physical Examination Vitals: 12/13/18 0845 BP: 137/71 Pulse: 85 BP Readings from Last 2 Encounters: 12/13/18 137/71 (>99 %, Z > 2.33 / 75 %, Z = 0.67)* *BP percentiles are based on the December 2016 AAP Clinical Practice Guideline for girls Weight - Scale: 80 kg Height: 156.6 cm Body mass index is 32.62 kg/m . Physical Exam Constitutional: She appears well-developed. She appears overweight. No hidradenitis HENT: Nose: Her nose is normal. No nasal discharge. Mouth/Throat: Her mucous membranes are moist. Dentition is normal. Her oropharynx is clear. Eyes: Her conjunctivae and EOM are normal. Her pupils are equal, round, and reactive to light. Right eye exhibits no discharge. Left eye exhibits no discharge. Neck: Her neck is supple. Theres is no no neck adenopathy. Cardiovascular: No murmur heard. Pulmonary/Chest: Effort normal and breath sounds normal. Abdominal: Her abdomen is soft. She exhibits no distension. Bowel sounds are normal. There is generalized tenderness. There is no CVA tenderness present.She displays no rebound and no rigidity in her abdomen. There is no hepatosplenomegaly. Genitourinary: She displays anal skin tags. She displays no rash, no tears, no fissures, no sacral dimple and no anal wink. Neurological: She is alert. Skin: Skin is warm. Capillary refill takes less than 3 seconds. No rash noted. No jaundice or pallor. Lab Results Last BMP: No results found for: NA, K, CL, CO2, BUN, GLU, CREATININE, CALCIUM Last CBC: Last CRP: No results found for: CRP Last ESR: No results found for: SEDRATE Last Hepatic Function Results: No results found for: BILICONJ, BILITOT, ALT, AST, ALKPHOS, ALB, PROT Path Report: No results found for: SURGPATH Celiac Panel: T4: TSH: Imaging Findings No results found. Assessment 18 year old with abdominal pain, blood in stool, anal skin tag, hidradenitis suppurative and elevated ESR. History of gastric ulcers in 2016. Concern for IBD Plan Patient Instructions Blood in stool Abdominal pain History of gastric ulcers Hidradenitis suppurativa Anal skin tag 1. EGD/Colonoscopy with disacchs 2. Lab work today - please proceed to the 3rd floor lab. Most results will be ready within 3-5 days. If you choose to have these completed at an outside lab, please call our office a few days later to insure we received the results. 3. Stay on your Omeprazole for now 4. Please collect stool sample - Should you decide to turn these samples in to an outside hospital, please call our office 10 days after completed in order to review results. Thank you for allowing our participation in [facility] [place]. Please feel free to call should you have questions or concerns. Kind Regards, Jalyn Castro, OUTREACH COORDINATOR Pediatric Nurse Practitioner Pediatric Gastroenterology [phone] [facility] T4,Freeon 12-13-2018 Free T4 [Mass/Vol] 1.2 ng/dL Normal 0.8-1.4 [facility] Comment on above: Result Comment: New Reference Ranges - effective 03/03/09. Performed By: #### T 4FR #### [facility] [address] [place] [address] TSHon 12-13-2018 TSH Qn 2.110 uIU/mL Normal 0.350-5.500 [facility] Comment on above: Performed By: #### T SH #### [facility] [address] [place] [address] Vital Signs Date Time Vital Sign Value Performing Clinician Facility 03-12-2025 08:31-0400 Body mass index (BMI) [Ratio] 34.13 kg/m2 Sangeeta Cooley HOTEL SERVER-OUTREACH COORDINATOR Work Phone: [facility] 03-12-2025 08:31-0400 Body temperature 97.9 [degF] Sangeeta Cooley HOTEL SERVER-OUTREACH COORDINATOR Work Phone: [facility] 03-12-2025 08:31-0400 Body weight 84.64 kg Sangeeta Cooley HOTEL SERVER-OUTREACH COORDINATOR Work Phone: [facility] 03-12-2025 08:31-0400 Diastolic blood pressure 76 mm[Hg] Sangeeta Cooley HOTEL SERVER-OUTREACH COORDINATOR Work Phone: [facility] 03-12-2025 08:31-0400 Heart rate 65 /min Sangeeta Cooley HOTEL SERVER-OUTREACH COORDINATOR Work Phone: [facility] 03-12-2025 08:31-0400 Respiratory rate 18 /min Sangeeta Cooley HOTEL SERVER-OUTREACH COORDINATOR Work Phone: [facility] 03-12-2025 08:31-0400 SaO2% (BldA) [Mass fraction] 98 % Sangeeta Cooley HOTEL SERVER-OUTREACH COORDINATOR Work Phone: [facility] 03-12-2025 08:31-0400 Systolic blood pressure 120 mm[Hg] Sangeeta Cooley HOTEL SERVER-OUTREACH COORDINATOR Work Phone: [facility] 02-23-2025 15:05-0400 Body height 157.5 cm Sangeeta Bindu PA-C Work Phone: [facility] 02-23-2025 15:05-0400 Body mass index (BMI) [Ratio] 34.02 kg/m2 Sangeeta Jefferson PA-C Work Phone: [facility] 02-23-2025 15:05-0400 Body weight 84.37 kg Sangeeta Bindu PA-C Work Phone: [facility] 02-23-2025 15:05-0400 Diastolic blood pressure 74 mm[Hg] Sangeeta Jefferson PA-C Work Phone: [facility] 02-23-2025 15:05-0400 Heart rate 69 /min Sangeeta Bindu PA-C Work Phone: [facility] 02-23-2025 15:05-0400 Systolic blood pressure 120 mm[Hg] Sangeeta Jefferson PA-C Work Phone: [facility] 01-14-2025 10:05-0400 Body height 157.5 cm Sangeeta Jefferson PA-C Work Phone: [facility] 01-14-2025 10:05-0400 Body mass index (BMI) [Ratio] 34.13 kg/m2 Sangeeta Bindu PA-C Work Phone: [facility] 01-14-2025 10:05-0400 Body weight 84.64 kg Sangeeta Jefferson PA-C Work Phone: [facility] 01-14-2025 10:05-0400 Diastolic blood pressure 89 mm[Hg] Sangeeta Bindu PA-C Work Phone: [facility] 01-14-2025 10:05-0400 Heart rate 79 /min Sangeeta Bindu PA-C Work Phone: [facility] 01-14-2025 10:05-0400 Systolic blood pressure 126 mm[Hg] Sangeeta Jefferson PA-C Work Phone: [facility] 01-06-2025 21:00-0400 Diastolic blood pressure 67 mm[Hg] Carolynn Mendoza MD Work Phone: [facility] 01-06-2025 21:00-0400 Heart rate 67 /min Carolynn Mendoza MD Work Phone: [facility] 01-06-2025 21:00-0400 Respiratory rate 18 /min Carolynn Mendoza MD Work Phone: [facility] 01-06-2025 21:00-0400 SaO2% (BldA) [Mass fraction] 98 % Carolynn Mendoza MD Work Phone: [facility] 01-06-2025 21:00-0400 Systolic blood pressure 122 mm[Hg] Carolynn Mendoza MD Work Phone: [facility] 01-06-2025 20:23-0400 Body height 157.5 cm Carolynn Mendoza MD Work Phone: [facility] 01-06-2025 20:23-0400 Body mass index (BMI) [Ratio] 34.75 kg/m2 Carolynn Mendoza MD Work Phone: [facility] 01-06-2025 20:23-0400 Body temperature 97.81 [degF] Carolynn Mendoza MD Work Phone: [facility] 01-06-2025 20:23-0400 Body weight 86.18 kg Carolynn Mendoza MD Work Phone: [facility] 01-05-2025 12:31-0400 Body temperature 97.8 [degF] Sangeeta SHERIDAN Work Phone: [facility] 01-05-2025 12:31-0400 Diastolic blood pressure 74 mm[Hg] Sangeeta SHERIDAN Work Phone: [facility] 01-05-2025 12:31-0400 Heart rate 50 /min Sangeeta Bindu PA Work Phone: [facility] 01-05-2025 12:31-0400 Respiratory rate 14 /min Sangeeta Jefferson PA Work Phone: [facility] 01-05-2025 12:31-0400 SaO2% (BldA) [Mass fraction] 100 % Sangeeta Jefferson PA Work Phone: [facility] 01-05-2025 12:31-0400 Systolic blood pressure 122 mm[Hg] Sangeeta Bindu PA Work Phone: [facility] 01-05-2025 08:25-0400 Body height 157.48 cm Sangeeta Bindu PA Work Phone: [facility] 01-05-2025 08:25-0400 Body mass index (BMI) [Ratio] 35.2 kg/m2 Sangeeta Jefferson PA Work Phone: [facility] 01-05-2025 08:25-0400 Body weight 87.4 kg Sangeeta Bindu PA Work Phone: [facility] 12-25-2024 09:16-0400 Body temperature 97.7 [degF] Sangeeta Cooley HOTEL SERVER-OUTREACH COORDINATOR Work Phone: [facility] 12-25-2024 09:09-0400 Body mass index (BMI) [Ratio] 35.84 kg/m2 Sangeeta Cooley HOTEL SERVER-OUTREACH COORDINATOR Work Phone: [facility] 12-25-2024 09:09-0400 Body weight 88 kg Sangeeta Cooley HOTEL SERVER-OUTREACH COORDINATOR Work Phone: [facility] 12-25-2024 09:09-0400 Diastolic blood pressure 63 mm[Hg] Sangeeta Cooley HOTEL SERVER-OUTREACH COORDINATOR Work Phone: [facility] 12-25-2024 09:09-0400 Heart rate 65 /min Sangeeta Cooley HOTEL SERVER-OUTREACH COORDINATOR Work Phone: [facility] 12-25-2024 09:09-0400 Respiratory rate 16 /min Sangeeta Hill HOTEL SERVER-OUTREACH COORDINATOR Work Phone: [facility] 12-25-2024 09:09-0400 SaO2% (BldA) [Mass fraction] 96 % Sangeeta Cooley HOTEL SERVER-OUTREACH COORDINATOR Work Phone: [facility] 12-25-2024 09:09-0400 Systolic blood pressure 96 mm[Hg] Sangeeta Cooley HOTEL SERVER-OUTREACH COORDINATOR Work Phone: [facility] 12-02-2024 12:01-0400 Body temperature 97.8 [degF] Sangeeta Bindu PA Work Phone: [facility] 12-02-2024 12:01-0400 Diastolic blood pressure 59 mm[Hg] Sangeeta Jefferson PA Work Phone: [facility] 12-02-2024 12:01-0400 Heart rate 60 /min Sangeeta Jefferson PA Work Phone: [facility] 12-02-2024 12:01-0400 Respiratory rate 19 /min Sangeeta Bindu PA Work Phone: [facility] 12-02-2024 12:01-0400 SaO2% (BldA) [Mass fraction] 100 % Sangeeta Bindu PA Work Phone: [facility] 12-02-2024 12:01-0400 Systolic blood pressure 114 mm[Hg] Sangeeta Jefferson PA Work Phone: [facility] 12-02-2024 08:44-0400 Body height 157.48 cm Sangeeta Bindu PA Work Phone: [facility] 12-02-2024 08:44-0400 Body mass index (BMI) [Ratio] 36.5 kg/m2 Sangeeta Bindu PA Work Phone: [facility] 12-02-2024 08:44-0400 Body weight 90.58 kg Sangeeta Jefferson PA Work Phone: [facility] 12-01-2024 14:18-0400 Body temperature 97.8 [degF] Sangeeta Jefferson PA Work Phone: [facility] 12-01-2024 14:18-0400 Diastolic blood pressure 59 mm[Hg] Sangeeta Bindu PA Work Phone: [facility] 12-01-2024 14:18-0400 Heart rate 58 /min Sangeeta Jefferson PA Work Phone: [facility] 12-01-2024 14:18-0400 Respiratory rate 17 /min Sangeeta Jefferson PA Work Phone: [facility] 12-01-2024 14:18-0400 SaO2% (BldA) [Mass fraction] 98 % Sangeeta Jefferson PA Work Phone: [facility] 12-01-2024 14:18-0400 Systolic blood pressure 112 mm[Hg] Sangeeta Bindu PA Work Phone: [facility] 12-01-2024 11:44-0400 Body height 157.48 cm Sangeeta Jefferson PA Work Phone: [facility] 12-01-2024 11:44-0400 Body mass index (BMI) [Ratio] 36.7 kg/m2 Sangeeta Bindu PA Work Phone: [facility] 12-01-2024 11:44-0400 Body weight 91.03 kg Sangeeta Bindu PA Work Phone: [facility] 11-27-2024 14:11-0400 Body height 157.5 cm Yasmine Cordova MD Work Phone: [facility] 11-27-2024 14:11-0400 Body mass index (BMI) [Ratio] 35.96 kg/m2 Yasmine Cordova MD Work Phone: [facility] 11-27-2024 14:11-0400 Body weight 89.18 kg Yasmine Cordova MD Work Phone: [facility] 11-27-2024 14:11-0400 Diastolic blood pressure 64 mm[Hg] Yasmine Cordova MD Work Phone: [facility] 11-27-2024 14:11-0400 Systolic blood pressure 100 mm[Hg] Yasmine Cordova MD Work Phone: [facility] 09-11-2024 08:07-0400 Body mass index (BMI) [Ratio] 35.98 kg/m2 Sangeeta Cooley HOTEL SERVER-OUTREACH COORDINATOR Work Phone: [facility] 09-11-2024 08:07-0400 Body temperature 97.2 [degF] Sangeeta Cooley HOTEL SERVER-OUTREACH COORDINATOR Work Phone: [facility] 09-11-2024 08:07-0400 Body weight 88.36 kg Sangeeta Cooley HOTEL SERVER-OUTREACH COORDINATOR Work Phone: [facility] 09-11-2024 08:07-0400 Diastolic blood pressure 72 mm[Hg] Sangeeta Yasir HOTEL SERVER-OUTREACH COORDINATOR Work Phone: [facility] 09-11-2024 08:07-0400 Heart rate 84 /min Sangeeta Cooley HOTEL SERVER-OUTREACH COORDINATOR Work Phone: [facility] 09-11-2024 08:07-0400 Respiratory rate 20 /min Sangeeta Cooley HOTEL SERVER-OUTREACH COORDINATOR Work Phone: [facility] 09-11-2024 08:07-0400 SaO2% (BldA) [Mass fraction] 98 % Sangeeta Cooley HOTEL SERVER-OUTREACH COORDINATOR Work Phone: [facility] 09-11-2024 08:07-0400 Systolic blood pressure 109 mm[Hg] Sangeeta Yasir HOTEL SERVER-OUTREACH COORDINATOR Work Phone: [facility] 09-01-2024 12:53-0400 Body height 156.7 cm Sangeeta Cooley HOTEL SERVER-OUTREACH COORDINATOR Work Phone: [facility] 09-01-2024 12:53-0400 Body mass index (BMI) [Ratio] 35.62 kg/m2 Sangeeta Cooley HOTEL SERVER-OUTREACH COORDINATOR Work Phone: [facility] 09-01-2024 12:53-0400 Body temperature 96.4 [degF] Sangeeta Cooley HOTEL SERVER-OUTREACH COORDINATOR Work Phone: [facility] 09-01-2024 12:53-0400 Body weight 87.45 kg Sangeeta Cooley HOTEL SERVER-OUTREACH COORDINATOR Work Phone: [facility] 09-01-2024 12:53-0400 Diastolic blood pressure 76 mm[Hg] Sangeeta Cooley HOTEL SERVER-OUTREACH COORDINATOR Work Phone: [facility] 09-01-2024 12:53-0400 Heart rate 71 /min Sangeeta Cooley HOTEL SERVER-OUTREACH COORDINATOR Work Phone: [facility] 09-01-2024 12:53-0400 Respiratory rate 18 /min Sangeeta Cooley HOTEL SERVER-OUTREACH COORDINATOR Work Phone: [facility] 09-01-2024 12:53-0400 SaO2% (BldA) [Mass fraction] 96 % Sangeeta Cooley HOTEL SERVER-OUTREACH COORDINATOR Work Phone: [facility] 09-01-2024 12:53-0400 Systolic blood pressure 115 mm[Hg] Sangeeta Cooley HOTEL SERVER-OUTREACH COORDINATOR Work Phone: [facility] 08-21-2024 14:03-0400 Body height 154.9 cm Sangeeta Boothall PA-C Work Phone: [facility] 08-21-2024 14:03-0400 Body mass index (BMI) [Ratio] 35.9 kg/m2 Sangeeta Boothall PA-C Work Phone: [facility] 08-21-2024 14:03-0400 Body weight 86.18 kg Sangeeta Boothall PA-C Work Phone: [facility] 08-21-2024 14:03-0400 Diastolic blood pressure 82 mm[Hg] Sangeeta Boothall PA-C Work Phone: [facility] 08-21-2024 14:03-0400 Heart rate 85 /min Sangeeta Boothall PA-C Work Phone: [facility] 08-21-2024 14:03-0400 SaO2% (BldA) [Mass fraction] 98 % Sangeeta Ruano PA-C Work Phone: [facility] 08-21-2024 14:03-0400 Systolic blood pressure 126 mm[Hg] Sangeeta Ruano PA-C Work Phone: [facility] 07-17-2024 09:05-0500 Body height 154.9 cm Carolynn Mendoza MD Work Phone: [facility] 07-17-2024 09:05-0500 Body mass index (BMI) [Ratio] 35.33 kg/m2 Carolynn Mendoza MD Work Phone: [facility] 07-17-2024 09:05-0500 Body weight 84.82 kg Carolynn Mendoza MD Work Phone: [facility] Comment on above: WT recorded from last visit. 07-17-2024 09:05-0500 Diastolic blood pressure 80 mm[Hg] Carolynn Mendoza MD Work Phone: [facility] 07-17-2024 09:05-0500 Heart rate 51 /min Carolynn Mendoza MD Work Phone: [facility] 07-17-2024 09:05-0500 Systolic blood pressure 136 mm[Hg] Carolynn Mendoza MD Work Phone: [facility] 07-07-2024 10:14-0500 Body mass index (BMI) [Ratio] 38.87 kg/m2 Kellie Fonseca HOTEL SERVER.OUTREACH COORDINATOR Work Phone: [facility] 07-07-2024 10:14-0500 Body temperature 98.49 [degF] Kellie Fonseca HOTEL SERVER.OUTREACH COORDINATOR Work Phone: [facility] 07-07-2024 10:14-0500 Body weight 96.4 kg Kellie Fonseca HOTEL SERVER.OUTREACH COORDINATOR Work Phone: [facility] 07-07-2024 10:14-0500 Diastolic blood pressure 78 mm[Hg] Kellie Fonseca HOTEL SERVER.OUTREACH COORDINATOR Work Phone: [facility] 07-07-2024 10:14-0500 Heart rate 82 /min Kellie Fonseca HOTEL SERVER.OUTREACH COORDINATOR Work Phone: [facility] 07-07-2024 10:14-0500 Respiratory rate 16 /min Kellie Fonseca HOTEL SERVER.OUTREACH COORDINATOR Work Phone: [facility] 07-07-2024 10:14-0500 SaO2% (BldA) [Mass fraction] 100 % Kellie Fonseca HOTEL SERVER.OUTREACH COORDINATOR Work Phone: [facility] 07-07-2024 10:14-0500 Systolic blood pressure 128 mm[Hg] Kellie Fonseca HOTEL SERVER.OUTREACH COORDINATOR Work Phone: [facility] 04-01-2024 14:04-0500 Body height 154.9 cm Sangeeta Ruano PA-C Work Phone: [facility] 04-01-2024 14:04-0500 Body mass index (BMI) [Ratio] 35.33 kg/m2 Sangeeta Ruano PA-C Work Phone: [facility] 04-01-2024 14:04-0500 Body weight 84.82 kg Sangeeta Ruano PA-C Work Phone: [facility] 04-01-2024 14:04-0500 Diastolic blood pressure 83 mm[Hg] Sangeeta Boothall PA-C Work Phone: [facility] 04-01-2024 14:04-0500 Heart rate 79 /min Sangeeta Boothall PA-C Work Phone: [facility] 04-01-2024 14:04-0500 Systolic blood pressure 118 mm[Hg] Sangeeta Boothall PA-C Work Phone: [facility] 02-26-2024 16:40-0400 Diastolic blood pressure 70 mm[Hg] Gianni 04 [facility] 02-26-2024 16:40-0400 Heart rate 58 /min [address] 02-26-2024 16:40-0400 Respiratory rate 19 /min [address] 02-26-2024 16:40-0400 SaO2% (BldA) [Mass fraction] 99 % [address] 02-26-2024 16:40-0400 Systolic blood pressure 109 mm[Hg] [address] 02-26-2024 16:00-0400 Body temperature 97.11 [degF] [address] 02-25-2024 15:39-0400 Body height 154.9 cm Carolynn Mendoza MD Work Phone: [facility] 02-25-2024 15:39-0400 Body mass index (BMI) [Ratio] 35.94 kg/m2 Carolynn Mendoza MD Work Phone: [facility] 02-25-2024 15:39-0400 Body weight 86.27 kg Carolynn Mendoza MD Work Phone: [facility] 02-25-2024 15:39-0400 Diastolic blood pressure 76 mm[Hg] Carolynn Mendoza MD Work Phone: [facility] 02-25-2024 15:39-0400 Heart rate 72 /min Carolynn Mendoza MD Work Phone: [facility] 02-25-2024 15:39-0400 Systolic blood pressure 116 mm[Hg] Carolynn Mendoza MD Work Phone: [facility] 02-14-2024 14:43-0400 Body height 154.9 cm Sangeeta Ruano PA-C Work Phone: [facility] 02-14-2024 14:43-0400 Body mass index (BMI) [Ratio] 35.52 kg/m2 Sangeeta Ruano PA-C Work Phone: [facility] 02-14-2024 14:43-0400 Body weight 85.28 kg Sangeeta Jefferson PA-C Work Phone: [facility] 02-14-2024 14:43-0400 Diastolic blood pressure 81 mm[Hg] Sangeeta Bindu PA-C Work Phone: [facility] 02-14-2024 14:43-0400 Heart rate 80 /min Sangeeta Jefferson PA-C Work Phone: [facility] 02-14-2024 14:43-0400 Systolic blood pressure 121 mm[Hg] Sangeeta Bindu PA-C Work Phone: [facility] 02-11-2024 13:55-0400 Body height 154.9 cm Sangeeta Bindu PA-C Work Phone: [facility] 02-11-2024 13:55-0400 Body mass index (BMI) [Ratio] 35.52 kg/m2 Sangeeta Bindu PA-C Work Phone: [facility] 02-11-2024 13:55-0400 Body weight 85.28 kg Sangeeta Jefferson PA-C Work Phone: [facility] 02-11-2024 13:55-0400 Diastolic blood pressure 77 mm[Hg] Sangeeta Bindu PA-C Work Phone: [facility] 02-11-2024 13:55-0400 Heart rate 74 /min Sangeeta Jefferson PA-C Work Phone: [facility] 02-11-2024 13:55-0400 Systolic blood pressure 111 mm[Hg] Sangeeta Bindu PA-C Work Phone: [facility] 12-27-2023 11:04-0400 Body height 154.9 cm Sangeeta Jefferson PA-C Work Phone: [facility] 12-27-2023 11:04-0400 Body mass index (BMI) [Ratio] 35.33 kg/m2 Sangeeta Jefferson PA-C Work Phone: [facility] 12-27-2023 11:04-0400 Body weight 84.82 kg Sangeeta Ruano PA-C Work Phone: [facility] 12-27-2023 11:04-0400 Diastolic blood pressure 61 mm[Hg] Sangeeta Ruano PA-C Work Phone: [facility] 12-27-2023 11:04-0400 Heart rate 61 /min Sangeeta Ruano PA-C Work Phone: [facility] 12-27-2023 11:04-0400 Systolic blood pressure 115 mm[Hg] Sangeeta Ruano PA-C Work Phone: [facility] 08-23-2021 20:17-0400 Diastolic blood pressure 80 mm[Hg] Text Entry Free [facility] 08-23-2021 20:17-0400 Heart rate 62 /min Text Entry Free [facility] 08-23-2021 20:17-0400 Respiratory rate 16 /min Text Entry Free [facility] 08-23-2021 20:17-0400 SaO2% (BldA) [Mass fraction] 96 % Text Entry Free [facility] 08-23-2021 20:17-0400 Systolic blood pressure 120 mm[Hg] Text Entry Free [facility] 08-23-2021 17:38-0400 Body height 154.9 cm Text Entry Free [facility] 08-23-2021 17:38-0400 Body temperature 97.52 [degF] Text Entry Free [facility] 08-23-2021 17:38-0400 Body weight 82 kg Text Entry Free [facility] 01-21-2019 10:17-0400 BMI (Body Mass Index) 32.12 kg/m2 [place] 01-21-2019 10:17-0400 [facility] [place] 01-21-2019 10:17-0400 Height 154.9 cm [facility] [place] Encounters Encounter Date Encounter Type Care Provider Facility Start: 03-20-2025 End: 03-20-2025 ambulatory Denton Friend Facility:[facility] Start: 03-12-2025 End: 03-12-2025 ambulatory [facility] Start: 03-12-2025 End: 03-12-2025 Office outpatient visit 25 minutes Sangeeta Cooley HOTEL SERVER-OUTREACH COORDINATOR Work Phone: [facility] Comment on above: Thrombocytosis; Vitamin B12 deficiency; Vitamin D deficiency Start: 02-23-2025 End: 02-23-2025 Patient encounter status Sangeeta Ruano PA-C Work Phone: [facility] Work Phone: Start: 02-23-2025 End: 02-23-2025 Periodic preventive med est patient 18-39 yrs Sangeeta Ruano PA-C Work Phone: [facility] Comment on above: Encounter for [facility] ss examination in adult (Primary Dx); Hypercholesterolemia; Thrombocytosis; Need for influenza vaccination; Class 1 obesity due to excess calories with serious comorbidity and body mass index (BMI) of 34.0 to 34.9 in adult Start: 02-23-2025 End: 02-23-2025 ambulatory [facility] Ambulatory Start: 01-14-2025 End: 01-14-2025 ambulatory [facility] Start: 01-14-2025 End: 01-14-2025 Office outpatient visit 25 minutes Sangeeta Ruano PA-C Work Phone: [facility] Comment on above: Nausea and vomiting, unspecified vomiting type (Primary Dx); MONET (generalized anxiety disorder); Depression, major, recurrent, mild; Vulvovaginal candidiasis; Class 1 obesity due to excess calories with serious comorbidity and body mass index (BMI) of 34.0 to 34.9 in adult Start: 01-06-2025 End: 01-07-2025 Emergency department patient visit SANGEETA RUANO [facility] Comment on above: Nausea and vomiting, unspecified vomiting type (Primary Dx); Urinary tract infection with hematuria, site unspecified Start: 01-05-2025 End: 01-05-2025 Emergency department patient visit Sangeeta Bindu PA Work Phone: -Emergency Department Work Phone: Start: 12-25-2024 End: 12-25-2024 ambulatory [place] [facility] Start: 12-25-2024 End: 12-25-2024 Office outpatient visit 25 minutes Sangeeta Cooley HOTEL SERVER-OUTREACH COORDINATOR Work Phone: [facility] Comment on above: Thrombocytosis; Vitamin B12 deficiency; Vitamin D deficiency Start: 12-23-2024 End: 12-23-2024 ambulatory SANGEETA Agustin [facility] Start: 12-19-2024 End: 12-19-2024 Patient encounter procedure Denton Taylor DO -[facility] Work Phone: Start: 12-19-2024 End: 12-19-2024 ambulatory Sangeeta SHERIDAN Work Phone: -[facility] Start: 12-02-2024 End: 12-02-2024 Emergency department patient visit Sangeeta SHERIDAN Work Phone: -Emergency Department Work Phone: Start: 12-01-2024 End: 12-01-2024 Emergency department patient visit Sangeeta SHERIDAN Work Phone: -Emergency Department Work Phone: Start: 11-27-2024 End: 11-27-2024 ambulatory YASMINE CORDOVA Facility:[facility] Start: 11-27-2024 Encounter for gynecological examination (general) (routine) without abnormal findings YASMINE CORDOVA [facility] Start: 11-27-2024 End: 11-27-2024 Patient encounter procedure Yasmine Cordova MD Work Phone: OB/Gynecology Comment on above: Encounter for gyneco logical examination (general) (routine) without abnormal findings (Primary Dx); Screening for cervical cancer; Encounter for screening for human papillomavirus (HPV); Screen for STD (sexually transmitted disease); Encounter for removal of intrauterine contraceptive device; Encounter for IUD removal Start: 11-27-2024 End: 11-27-2024 Patient encounter status Yasmine Cordova MD Work Phone: [facility] Start: 11-27-2024 End: 11-27-2024 Telephone encounter Yasmine Cordova MD Work Phone: OB/Gynecology Comment on above: Orders Start: 10-08-2024 End: 10-08-2024 ambulatory Sangeeta SHERIDAN Work Phone: [facility] Work Phone: Start: 10-08-2024 End: 10-08-2024 Patient encounter procedure Denton Taylor DO -Nuclear Medicine [facility] Work Phone: Start: 10-08-2024 End: 10-08-2024 ambulatory Sangeeta SHERIDAN Facility:[facility] Start: 09-18-2024 End: 09-18-2024 Patient encounter procedure Denton Taylor DO -[facility] Work Phone: Start: 09-18-2024 End: 09-18-2024 ambulatory Sangeeta SHERIDAN Work Phone: [facility] Work Phone: Start: 09-18-2024 End: 09-18-2024 ambulatory Sangeeta SHERIDAN Facility:[facility] Start: 09-11-2024 End: 09-11-2024 ambulatory [facility] Start: 09-11-2024 End: 09-11-2024 Office outpatient visit 25 minutes [facility] HOTEL SERVER-OUTREACH COORDINATOR Work Phone: [facility] Comment on above: Vitamin B12 deficien cy (Primary Dx); Thrombocytosis; Vitamin D deficiency Start: 09-08-2024 End: 09-08-2024 Subsequent hospital visit by physician Gianni Smith [facility] Comment on above: Thrombocytosis Start: 09-08-2024 End: 09-08-2024 ambulatory [facility] Start: 09-01-2024 End: 09-01-2024 Office outpatient new 60 minutes Sangeeta Santana [place] HOTEL SERVER-OUTREACH COORDINATOR Work Phone: [facility] Comment on above: Thrombocytosis Start: 09-01-2024 End: 09-01-2024 ambulatory [facility] Start: 08-21-2024 End: 08-21-2024 Office outpatient visit 25 minutes Sangeeta Ruano PA-C Work Phone: [facility] Comment on above: Thrombocytosis (Prim paz Dx); Hypercholesterolemia; Class 2 severe obesity due to excess calories with serious comorbidity and body mass index (BMI) of 35.0 to 35.9 in adult; Gastroesophageal reflux disease without esophagitis; Depression, major, recurrent, mild (CMS-HCC); MONET (generalized anxiety disorder) Start: 08-21-2024 End: 08-21-2024 ambulatory [place] Nikole [facility] Start: 08-14-2024 End: 08-14-2024 Postop follow up visit related to original px Carolynn Mendoza MD Work Phone: [facility] Comment on above: Postoperative visit (Primary Dx) Start: 08-14-2024 End: 08-14-2024 [facility] Ambulatory Start: 07-21-2024 ambulatory [facility] Start: 07-17-2024 End: 07-17-2024 Office outpatient visit 25 minutes Carolynn Mendoza MD Work Phone: [facility] Comment on above: Gallbladder polyp (P rimary Dx) Start: 07-17-2024 End: 07-17-2024 ambulatory [facility] Ambulatory Start: 07-07-2024 End: 07-07-2024 ambulatory SANGEETA RUANO Facility:[facility] Start: 07-07-2024 End: 07-07-2024 Patient encounter procedure Kellie Fonseca APRN.OUTREACH COORDINATOR Work Phone: [facility] Comment on above: Rhinosinusitis (Prim paz Dx); Acute otitis media, left; Acute conjunctivitis of both eyes, unspecified acute conjunctivitis type Start: 04-28-2024 End: 04-28-2024 ambulatory Sangeeta SHERIDAN Facility:[facility] Start: 04-01-2024 End: 04-01-[facility] Start: 04-01-[facility]24 End: 04-01-2024 Encounter for allergy testing [facility] Amb[facility] Start: 04-01-2024 End: 04-01-2024 Office outpatient visit 25 minutes Sangeeta Ruano PA-C Work Phone: [facility] Comment on above: Food allergy (Primar y Dx); Anal itching; Class 2 severe obesity due to excess calories with serious comorbidity and body mass index (BMI) of 35.0 to 35.9 in adult Start: 02-26-2024 End: 02-26-2024 Subsequent hospital visit by physician Carolynn Mendoza MD Work Phone: [facility] [place] Comment on above: Upper abdominal pain ; Gastroesophageal reflux disease without esophagitis; History of peptic ulcer Start: 02-25-2024 End: 02-25-2024 Office consultation new/estab patient 60 min Carolynn Mendoza MD Work Phone: [facility] Comment on above: Gallbladder polyp Start: 02-14-2024 End: 02-14-2024 Office outpatient visit 15 minutes Sangeeta Ruano PA-C Work Phone: [facility] Comment on above: Acute UTI (Primary D x); Dysuria; Class 2 severe obesity due to excess calories with serious comorbidity and body mass index (BMI) of 35.0 to 35.9 in adult Start: 02-11-2024 End: 02-11-2024 Office outpatient visit 25 minutes Sangeeta Ruano PA-C Work Phone: [facility] Comment on above: Gallbladder polyp (P rimary Dx); Low vitamin B12 level; Thrombocytosis; Hypercholesterolemia; Gastroesophageal reflux disease without esophagitis; History of peptic ulcer; Depression, major, recurrent, mild (CMS-HCC); MONET (generalized anxiety disorder); RUQ abdominal pain Start: 12-31-2023 End: 12-31-2023 Subsequent hospital visit by physician Gianni Guillermo 1 [facility] Comment on above: RUQ abdominal pain; Gallbladder polyp Start: 12-27-2023 End: 12-27-2023 ambulatory SANGEETA RUANO [facility] Start: 12-27-2023 End: 12-27-2023 Office outpatient new 45 minutes Sangeeta Ruano PA-C Work Phone: [facility] Comment on above: RUQ abdominal pain ( Primary Dx); Gallbladder polyp; MONET (generalized anxiety disorder); Depression, major, recurrent, mild (CMS-HCC); Gastroesophageal reflux disease without esophagitis; History of peptic ulcer; Class 2 severe obesity due to excess calories with serious comorbidity and body mass index (BMI) of 35.0 to 35.9 in adult (Multi) Start: 08-23-2021 End: 08-23-2021 Emergency department patient visit Katiana Mendez [facility] Emergency 10 Start: 01-08-2020 End: 01-08-2020 Subsequent hospital visit by physician Zaid Cloud Work Phone: [facility] Comment on above: Arrived Start: 11-04-2019 Patient encounter procedure UNKNOWN PROVIDER Facility:[facility] Start: 01-21-2019 End: 01-21-2019 Subsequent hospital visit by physician Wallace Barrientos [facility] Comment on above: Arrived Start: 01-09-2019 End: 01-09-2019 Subsequent hospital visit by physician Jalyn Castro Work Phone: [facility] Comment on above: Arrived Procedures Date Procedure Procedure Detail Performing Clinician Start: 03-12-2025 Assay of ferritin Ingris Cooley HOTEL SERVER-OUTREACH COORDINATOR Work Phone: Start: 02-20-2025 Lipid 1996 panel - S mackenzie or Plasma Sangeeta Ruano PA-C Work Phone: Start: 01-06-2025 Ct abdomen & pelvis w/contrast material Analy Javier HOTEL SERVER-OUTREACH COORDINATOR Work Phone: Start: 01-06-2025 Radiologic exam ches t single view Analy Javier HOTEL SERVERGreenlight PaymentsOUTREACH COORDINATOR Work Phone: Start: 01-06-2025 Urinalysis microscop ic panel - Urine Qualitative by Automated Analy Javier HOTEL SERVERGreenlight PaymentsOUTREACH COORDINATOR Work Phone: Start: 01-06-2025 Urine test visual color cmprsn meths Analy Aguirre Vazquezrobb HOTEL SERVERGreenlight PaymentsNEW [facility] Work Phone: Start: 01-06-2025 Urnls dip stick/tabl et reagent auto microscopy Analy Aguirre Tepaul HOTEL SERVERGreenlight PaymentsOUTREACH COORDINATOR Work Phone: Start: 01-06-2025 Comprehensive metabo lic panel Analy aJvier HOTEL SERVERGreenlight PaymentsOUTREACH COORDINATOR Work Phone: Start: 01-05-2025 Computed tomography of abdomen and pelvis with intravenous contrast Sangeeta SHERIDAN Work Phone: Start: 01-05-2025 Estimated creatinine clearance Sangeeta SHERIDAN Work Phone: Start: 01-05-2025 Urnls dip stick/tabl et reagent auto microscopy Sangeeta SHERIDAN Work Phone: Start: 12-02-2024 Estimated creatinine clearance Sangeeta SHERIDAN Work Phone: Start: 12-01-2024 Estimated creatinine clearance Sangeeta SHERIDAN Work Phone: Start: 11-27-2024 Microscopic observat ion [Identifier] in Cervix by Cyto stain Sangeeta Cooley [facility] Work Phone: Start: 10-08-2024 Radionuclide gastric emptying study Sangeeta SHERIDAN Work Phone: Start: 09-18-2024 Antibody measurement Ra amanda SHERIDAN Work Phone: Comment on above: *Additional results available. Contact laboratory/see report*The atypical pANCA pattern has been observed in asignificant percentage of patients with ulcerative colitis,primary sclerosing cholangitis and autoimmune hepatitis. Start: 09-18-2024 Antibody to centrome re measurement Sangeeta SHERIDAN Work Phone: Comment on above: Test not performed Previous reported re sult: TNP AIEdited by: IBRAHIMACE on 09/24/24:1308 AMENDED REPORT 09/24/24 1308 ANTI-CENT B previously reported as: Test not performed Start: 09-18-2024 Antibody to extracta ble nuclear antigen measurement Sangeeta SHERIDAN Work Phone: Comment on above: Test not performed Previous reported re sult: TNP AIEdited by: INFCE on 09/24/24:1308 AMENDED REPORT 09/24/24 1308 ABERNATHY Ab previously reported as: Test not performed Start: 09-18-2024 Antibody to KEILA-1 measurement Sangeeta SHERIDAN Work Phone: Comment on above: Test not performed Previous reported re sult: TNP AIEdited by: IBRAHIMACE on 09/24/24:1308 AMENDED REPORT 09/24/24 1308 ANTI-KEILA previously reported as: Test not performed Start: 09-18-2024 Antibody to lupus La protein measurement Sangeeta Ruano [place] Work Phone: Comment on above: Test not performed Previous reported re sult: TNP AIEdited by: IBRAHIMACE on 09/24/24:1308 AMENDED REPORT 09/24/24 1308 Anti-SS-B previously reported as: Test not performed Start: 09-18-2024 Antibody to SS-A measurement Sangeeta Ruano [place] Work Phone: Comment on above: Test not performed Previous reported re sult: TNP AIEdited by: INFCE on 09/24/24:1308 AMENDED REPORT 09/24/24 1308 Anti-SS-A previously reported as: Test not performed Start: 09-18-2024 Autoantibody measurement Sangeeta Ruano [place] Work Phone: Comment on above: Test not performed Previous reported re sult: TNP AIEdited by: IBRAHIMACE on 09/24/24:1308 AMENDED REPORT 09/24/24 1308 ANTICHROMATIN previously reported as: Test not performed Start: 09-18-2024 Chocolate RAST Sangeeta marquez PA Work Phone: Start: 09-18-2024 Endomysial antibody IgA level Sangeeta Ruano PA Work Phone: Start: 09-18-2024 Food RAST Sangeeta joy PA Work Phone: Start: 09-18-2024 Immunoglobulin M measurement Sangeeta Ruano PA Work Phone: Start: 09-18-2024 Measurement of funga l antibody Sangeeta Ruano PA Work Phone: Comment on above: Negative: <45 Equivo jagruti: 45-50 Positive: >50 Start: 09-18-2024 TOWEL WEAVER antibody measurement Sangeeta Ruano PA Work Phone: Comment on above: Test not performed Previous reported re sult: TNP AIEdited by: ELENI on 09/24/24:1308 AMENDED REPORT 09/24/24 1308 TOWEL WEAVER Ab previously reported as: Test not performed Start: 09-18-2024 Scallop SHELLY joy PA Work Phone: Start: 09-18-2024 Sesame seed SHELLY Ruano PA Work Phone: Comment on above: Performed at: [address] [id number] Director: Pete Garcia PhD, Phone: [phone] at: [facility] [id number] Director: Glenda Leon MD, Phone: [phone] Start: 09-18-2024 Shrimp RAST Sangeeta blooml PA Work Phone: Start: 09-01-2024 C-reactive protein Karenkelsi Santana Yasir HOTEL SERVER-OUTREACH COORDINATOR Work Phone: Start: 09-01-2024 Cyanocobalamin vitamin b-12 Sangeeta Esther Yasir HOTEL SERVER-OUTREACH COORDINATOR Work Phone: Start: 08-13-2024 Lipid 1996 panel - S mackenzie or Plasma Carolynn Mendoza MD Work Phone: Start: 07-07-2024 STREP A MOLECULAR (POC) Joel King APRN.OUTREACH COORDINATOR Work Phone: Start: 02-26-2024 Egd transoral biopsy single/multiple Carolynn Mendoza MD Work Phone: Start: 02-26-2024 Level iv surg pathol ogy gross&microscopic exam Carolynn Mendoza MD Work Phone: Start: 02-26-2024 Urine test visual color cmprsn meths Carolynn Mendoza MD Work Phone: Start: 02-14-2024 Urnls dip stick/tabl et rgnt auto w/o microscopy Sangeeta Ruano PA-C Work Phone: Start: 12-27-2023 Lipid 1996 panel - S mackenzie or Plasma Gianni 1 Start: 01-08-2020 Us abdominal real ti me w/image limited Zaid Cloud Work Phone: Start: 01-08-2020 Assay of glutamyltra se gamma Zaid Cloud Work Phone: Start: 01-08-2020 Basic metabolic pane l calcium total Zaid Cloud Work Phone: Start: 01-08-2020 Blood count complete auto&auto difrntl wbc Zaid Cloud Work Phone: Start: 01-08-2020 Hepatic function panel Zaid Cloud Work Phone: Start: 01-21-2019 Hepatobil syst imag inc gb w/pharma intervenj Latosha Serrano Work Phone: Start: 01-09-2019 Us abdominal real ti me w/image limited Jalyn Castro Work Phone: Plan of Treatment Date Care Activity Detail Author Start: 2051 Zoster Vaccines (1 of 2) Zoster Vaccines (1 of 2) [facility] Start: 02-20-2030 Lipid panel [facility] [facility] Start: 08-13-2029 Lipid panel Lipid Panel [facility] Start: 12-26-2028 Lipid panel Lipid Panel [facility] Start: 11-28-2027 Screening for malignant neoplasm of cervix [facility] Start: 02-24-2026 Yearly Adult Physical Yearly Adult Physical [facility] Start: 01-06-2026 Diabetes mellitus screening Diabetes Screening [facility] Start: 12-23-2025 Diabetes mellitus screening Diabetes Screening [facility] Start: 12-01-2025 End: 12-01-2025 Patient encounter procedure 12/01/2025 2:00 PM EDT Office Visit OB/Gynecology [address] [place], [place] [phone] Yasmine Cordova MD [address] [place], [place] [id number] Annual OB/Gynecology Comment on above: Annual Start: 08-24-2025 End: 08-24-2025 Patient encounter procedure 08/24/2025 2:40 PM EDT Office Visit [facility] [address] [place] [phone] Sangeeta Ruano, PA-C [address] [place], [place] [phone] [facility] Start: 08-24-2025 End: 02-23-2026 CBC W Auto Differential panel - Blood CBC and Auto Differential Lab Routine Hypercholesterolemia Thrombocytosis Expected: 08/24/2025 (Approximate), Expires: 02/23/2026 [facility] Service Area Work Phone: Comment on above: Expected: 08/24/2025 (Approximate), Expi res: 02/23/2026 Start: 08-24-2025 End: 02-23-2026 Comprehensive metabolic 2000 panel - Serum or Plasma Comprehensive Metabolic Panel Lab Routine Hypercholesterolemia Thrombocytosis Expected: 08/24/2025 (Approximate), Expires: 02/23/2026 [facility] Work Phone: Comment on above: Expected: 08/24/2025 (Approximate), Expi res: 02/23/2026 Start: 08-24-2025 End: 02-23-2026 Lipid 1996 panel - Serum or Plasma Lipid Panel Lab Routine Hypercholesterolemia Thrombocytosis Expected: 08/24/2025 (Approximate), Expires: 02/23/2026 [facility] Work Phone: Comment on above: Expected: 08/24/2025 (Approximate), Expi res: 02/23/2026 Start: 08-24-2025 End: 02-23-2026 Magnesium [Mass/volume] in Serum or Plasma Magnesium Lab Routine Hypercholesterolemia Thrombocytosis Expected: 08/24/2025 (Approximate), Expires: 02/23/2026 [facility] Work Phone: Comment on above: Expected: 08/24/2025 (Approximate), Expi res: 02/23/2026 Start: 03-26-2025 End: 03-26-2025 Patient encounter procedure 03/26/2025 8:30 AM EST Office [facility] [address] [place] [address] Sangeeta Cooley APRN-[facility] [address] [place], [place] [phone] [facility] Start: 03-17-2025 End: 12-25-2025 CBC W Auto Differential panel - Blood CBC and Auto Differential Lab Routine Thrombocytosis Vitamin B12 deficiency Vitamin D deficiency Expected: 03/17/2025, Expires: 12/25/2025 [facility] Service Area Work Phone: Comment on above: Expected: 03/17/2025, Expires: Start: 03-17-2025 End: 12-25-2025 Cobalamin (Vitamin B12) [Mass/volume] in Serum or Plasma Vitamin B12 Lab Routine Thrombocytosis Vitamin B12 deficiency Vitamin D deficiency Expected: 03/17/2025 (Approximate), Expires: 12/25/2025 [facility] Work Phone: Comment on above: Expected: 03/17/2025 (Approximate), Expi res: 12/25/2025 Start: 03-17-2025 End: 12-25-2025 Comprehensive metabolic 2000 panel - Serum or Plasma Comprehensive metabolic panel Lab Routine Thrombocytosis Vitamin B12 deficiency Vitamin D deficiency Expected: 03/17/2025 (Approximate), Expires: 12/25/2025 [facility] Work Phone: Comment on above: Expected: 03/17/2025 (Approximate), Expi res: 12/25/2025 Start: 03-17-2025 End: 12-25-2025 Ferritin [Mass/volume] in Serum or Plasma Ferritin Lab Routine Thrombocytosis Vitamin B12 deficiency Vitamin D deficiency Expected: 03/17/2025 (Approximate), Expires: 12/25/2025 [facility] Work Phone: Comment on above: Expected: 03/17/2025 (Approximate), Expi res: 12/25/2025 Start: 03-17-2025 End: 12-25-2025 Iron and Iron binding capacity panel - Serum or Plasma Iron and TIBC Lab Routine Thrombocytosis Vitamin B12 deficiency Vitamin D deficiency Expected: 03/17/2025, Expires: 12/25/2025 [facility] Work Phone: Comment on above: Expected: 03/17/2025, Expires: Start: 03-17-2025 Orders Only 03/17/[address] [facility] [address] [place] [phone] Sangeeta Cooley, HOTEL SERVER-OUTREACH COORDINATOR [address] [place] [address] Thrombocytosis; Vitamin B12 deficiency; Vitamin D deficiency [facility] [place] above: Thrombocytosis; Vitamin B12 deficiency; Vitamin D deficiency Start: 03-12-2025 End: 03-12-2025 Patient encounter procedure 03/12/2025 8:30 AM EDT Office Visit [facility] [address] [place] [phone] Sangeeta Cooley, SHERRI-OUTREACH COORDINATOR [address] [place] [address] [facility] Start: 03-11-2025 End: 06-09-2025 Cobalamin (Vitamin B12) [Mass/volume] in Serum or Plasma [facility] Work Phone: Comment on above: Expected: 03/11/2025, Expires: Start: 03-11-2025 End: 06-09-2025 Folate [Mass/volume] in Serum or Plasma [facility] Service Area Work Phone: Comment on above: Expected: 03/11/2025, Expires: Start: 02-23-2025 End: 02-23-2025 Patient encounter procedure 02/23/2025 3:00 PM EDT Office Visit [facility] [address] [place] [phone] Sangeeta Ruano, PA-C [address] [place] [address] [facility] Start: 02-20-2025 End: 08-21-2025 CBC W Auto Differential panel - Blood CBC and Auto Differential Lab Routine Thrombocytosis Hypercholesterolemia Expected: 02/20/2025 (Approximate), Expires: 08/21/2025 [facility] Service Area Work Phone: Comment on above: Expected: 02/20/2025 (Approximate), Expi res: 08/21/2025 Start: 02-20-2025 End: 08-21-2025 Comprehensive metabolic 2000 panel - Serum or Plasma Comprehensive Metabolic Panel Lab Routine Thrombocytosis Hypercholesterolemia Expected: 02/20/2025 (Approximate), Expires: 08/21/2025 [facility] Work Phone: Comment on above: Expected: 02/20/2025 (Approximate), Expi res: 08/21/2025 Start: 02-20-2025 End: 08-21-2025 Lipid 1996 panel - Serum or Plasma Lipid Panel Lab Routine Thrombocytosis Hypercholesterolemia Expected: 02/20/2025 (Approximate), Expires: 08/21/2025 [facility] Work Phone: Comment on above: Expected: 02/20/2025 (Approximate), Expi res: 08/21/2025 Start: 02-20-2025 Orders Only 02/20/2025 Orders Only [facility] [address] [place] [address] Sangeeta Ruano PA-C [address] [place] [address] Thrombocytosis; Hypercholesterolemia [facility] Comment on above: Thrombocytosis; Hypercholesterolemia Start: 02-20-2025 End: 08-21-2025 Thyrotropin [Units/volume] in Serum or Plasma Thyroid Stimulating Hormone Lab Routine Thrombocytosis Hypercholesterolemia Expected: 02/20/2025 (Approximate), Expires: 08/21/2025 [facility] Work Phone: Comment on above: Expected: 02/20/2025 (Approximate), Expi res: 08/21/2025 Start: 02-20-2025 End: 08-21-2025 Thyroxine (T4) free [Mass/volume] in Serum or Plasma Thyroxine, Free Lab Routine Thrombocytosis Hypercholesterolemia Expected: 02/20/2025 (Approximate), Expires: 08/21/2025 [facility] Work Phone: Comment on above: Expected: 02/20/2025 (Approximate), Expi res: 08/21/2025 Start: 01-12-2025 COVID-19 Vaccine () COVID-19 Vaccine () [facility] Start: 01-12-2025 COVID-19 Vaccine ( season) COVID-19 Vaccine (2024- season) [facility] Start: 01-12-2025 Influenza vaccination [facility] Start: 01-05-2025 [facility] Start: 12-15-2024 End: 12-15-2024 Patient encounter procedure 12/15/2024 9:00 AM EDT Office Visit [facility] [address] [place] [phone] Sangeeta Cooley S, HOTEL SERVER-OUTREACH COORDINATOR [address] [place] [address] [facility] Start: 12-08-2024 End: 09-11-2025 25-hydroxyvitamin D3 [Mass/volume] in Serum or Plasma Vitamin D 25-Hydroxy,Total (for eval of Vitamin D levels) Lab Routine Thrombocytosis Vitamin B12 deficiency Vitamin D deficiency Expected: 12/08/2024, Expires: 09/11/2025 [facility] Work Phone: Comment on above: Expected: 12/08/2024, Expires: Start: 12-08-2024 End: 09-11-2025 CBC W Auto Differential panel - Blood CBC and Auto Differential Lab Routine Thrombocytosis Vitamin B12 deficiency Vitamin D deficiency Expected: 12/08/2024, Expires: 09/11/2025 [facility] Service Area Work Phone: Comment on above: Expected: 12/08/2024, Expires: Start: 12-08-2024 End: 09-11-2025 Cobalamin (Vitamin B12) [Mass/volume] in Serum or Plasma Vitamin B12 Lab Routine Thrombocytosis Vitamin B12 deficiency Vitamin D deficiency Expected: 12/08/2024, Expires: 09/11/2025 [facility] Work Phone: Comment on above: Expected: 12/08/2024, Expires: Start: 12-08-2024 End: 09-11-2025 Comprehensive metabolic 2000 panel - Serum or Plasma Comprehensive Metabolic Panel Lab Routine Thrombocytosis Vitamin B12 deficiency Vitamin D deficiency Expected: 12/08/2024, Expires: 09/11/2025 [facility] Work Phone: Comment on above: Expected: 12/08/2024, Expires: Start: 12-08-2024 End: 09-11-2025 Ferritin [Mass/volume] in Serum or Plasma Ferritin Lab Routine Thrombocytosis Vitamin B12 deficiency Vitamin D deficiency Expected: 12/08/2024, Expires: 09/11/2025 [facility] Work Phone: Comment on above: Expected: 12/08/2024, Expires: Start: 12-08-2024 End: 09-11-2025 Iron and Iron binding capacity panel - Serum or Plasma Iron and TIBC Lab Routine Thrombocytosis Vitamin B12 deficiency Vitamin D deficiency Expected: 12/08/2024, Expires: 09/11/2025 [facility] Work Phone: Comment on above: Expected: 12/08/2024, Expires: Start: 12-08-2024 End: 09-11-2025 Reticulocytes panel - Blood Reticulocytes Lab Routine Thrombocytosis Vitamin B12 deficiency Vitamin D deficiency Expected: 12/08/2024, Expires: 09/11/2025 [facility] Work Phone: Comment on above: Expected: 12/08/2024, Expires: Start: 12-01-2024 End: 12-01-2024 Patient encounter procedure 12/01/2024 2:20 PM EDT Office Visit OB/Gynecology [address] [place] [address] Bailey Pugh MD [address] [place] [address] IUD removal OB/Gynecology Comment on above: IUD removal Start: 12-01-2024 [facility] Start: 09-18-2024 [facility] Start: 09-11-2024 End: 09-11-2024 Patient encounter procedure 09/11/2024 8:00 AM EDT Office Visit [facility] [address] [place] [phone] Sangeeta Cooley APRN-OUTREACH COORDINATOR [address] [place] [address] [facility] Start: 09-08-2024 End: 09-08-2024 Patient encounter procedure 09/08/2024 4:15 PM EDT Appointment [address] [phone] [facility] Start: 09-01-2024 End: 09-01-2025 CT Abdomen and Pelvis W contrast IV CT abdomen pelvis w IV contrast Imaging Routine Thrombocytosis Expected: 09/01/2024, Expires: 09/01/2025 [facility] Service Area Work Phone: Comment on above: Expected: 09/01/2024, Expires: Start: 08-21-2024 End: 08-21-2024 Patient encounter procedure 08/21/2024 2:00 PM EDT Office Visit [facility] [address] [place] [phone] Sangeeta Ruano, PA-C [address] [place] [address] [facility] Start: 08-14-2024 End: 08-14-2024 Patient encounter procedure 08/14/2024 2:00 PM EDT Office Visit [facility] [address] [facility] [address] [place] [phone] Carolynn Mendoza MD [address] [facility], [facility] [address] [place] [address] [facility] Start: 08-11-2024 End: 08-11-2024 Patient encounter procedure 08/11/2024 3:00 PM EDT Office Visit [facility] [address] [place] [phone] Sangeeta Ruano PA-C [address] [place] [address] [facility] Start: 08-10-2024 End: 02-10-2025 CBC W Auto Differential panel - Blood CBC and Auto Differential Lab Routine Thrombocytosis Expected: 08/10/2024 (Approximate), Expires: 02/10/2025 [facility] Service Area Work Phone: Comment on above: Expected: 08/10/2024 (Approximate), Expi res: 02/10/2025 Start: 08-10-2024 End: 02-10-2025 Cobalamin (Vitamin B12) [Mass/volume] in Serum or Plasma Vitamin B12 Lab Routine Low vitamin B12 level Expected: 08/10/2024 (Approximate), Expires: 02/10/2025 [facility] Work Phone: Comment on above: Expected: 08/10/2024 (Approximate), Expi res: 02/10/2025 Start: 08-10-2024 End: 02-10-2025 Comprehensive metabolic 2000 panel - Serum or Plasma Comprehensive Metabolic Panel Lab Routine Hypercholesterolemia Expected: 08/10/2024 (Approximate), Expires: 02/10/2025 [facility] Work Phone: Comment on above: Expected: 08/10/2024 (Approximate), Expi res: 02/10/2025 Start: 08-10-2024 End: 02-10-2025 Lipid 1996 panel - Serum or Plasma Lipid Panel Lab Routine Hypercholesterolemia Expected: 08/10/2024 (Approximate), Expires: 02/10/2025 [facility] Work Phone: Comment on above: Expected: 08/10/2024 (Approximate), Expi res: 02/10/2025 Start: 02-25-2024 End: 02-25-2024 Patient encounter procedure 02/25/2024 3:30 PM EDT Office Visit [facility] [address] [facility] [address] [place] [phone] Carolynn Mendoza MD [address] [facility], [address] [place] [address] [facility] Start: 01-28-2024 End: 01-28-2024 Patient encounter procedure 01/28/2024 12:40 PM EDT Office Visit [facility] [address] [facility] [place] [address] Sangeeta Ruano, PAShekharC [address] [place] [address] [facility] Start: 01-13-2024 COVID-19 Vaccine ( season) COVID-19 Vaccine ( season) [facility] Start: 01-13-2024 COVID-19 Vaccine ( season) COVID-19 Vaccine ( season) [facility] Start: 01-13-2024 Covid-19 Vaccine ( season) Covid-19 Vaccine ( season) [facility] Start: 01-13-2024 Influenza vaccination Influenza Vaccine (#1) [facility] Start: 12-31-2023 End: 12-31-2023 Patient encounter procedure 12/31/2023 12:30 PM EDT Appointment [phone] [place] [address] [facility] Start: 12-27-2023 End: 12-26-2024 CBC W Auto Differential panel - Blood CBC and Auto Differential Lab Routine Gastroesophageal reflux disease without esophagitis Class 2 severe obesity due to excess calories with serious comorbidity and body mass index (BMI) of 35.0 to 35.9 in adult (Multi) Expected: 12/27/2023 (Approximate), Expires: 12/26/2024 [facility] Service Area Work Phone: Comment on above: Expected: 12/27/2023 (Approximate), Expi res: 12/26/2024 Start: 12-27-2023 End: 12-26-2024 Cobalamin (Vitamin B12) [Mass/volume] in Serum or Plasma Vitamin B12 Lab Routine MONET (generalized anxiety disorder) Depression, major, recurrent, mild ([facility]) Class 2 severe obesity due to excess calories with serious comorbidity and body mass index (BMI) of 35.0 to 35.9 in adult (Multi) Expected: 12/27/2023 (Approximate), Expires: 12/26/2024 [facility] Work Phone: Comment on above: Expected: 12/27/2023 (Approximate), Expi res: 12/26/2024 Start: 12-27-2023 End: 12-26-2024 Comprehensive metabolic 2000 panel - Serum or Plasma Comprehensive Metabolic Panel Lab Routine Gastroesophageal reflux disease without esophagitis Class 2 severe obesity due to excess calories with serious comorbidity and body mass index (BMI) of 35.0 to 35.9 in adult (Multi) Expected: 12/27/2023 (Approximate), Expires: 12/26/2024 [facility] Work Phone: Comment on above: Expected: 12/27/2023 (Approximate), Expi res: 12/26/2024 Start: 12-27-2023 End: 12-26-2024 Ferritin [Mass/volume] in Serum or Plasma Ferritin Lab Routine Gastroesophageal reflux disease without esophagitis History of peptic ulcer Class 2 severe obesity due to excess calories with serious comorbidity and body mass index (BMI) of 35.0 to 35.9 in adult (Multi) Expected: 12/27/2023 (Approximate), Expires: 12/26/2024 [facility] Work Phone: Comment on above: Expected: 12/27/2023 (Approximate), Expi res: 12/26/2024 Start: 12-27-2023 End: 12-26-2024 Iron and Iron binding capacity panel - Serum or Plasma Iron and TIBC Lab Routine Gastroesophageal reflux disease without esophagitis History of peptic ulcer Class 2 severe obesity due to excess calories with serious comorbidity and body mass index (BMI) of 35.0 to 35.9 in adult (Multi) Expected: 12/27/2023 (Approximate), Expires: 12/26/2024 [facility] Work Phone: Comment on above: Expected: 12/27/2023 (Approximate), Expi res: 12/26/2024 Start: 12-27-2023 End: 12-26-2024 Lipid 1996 panel - Serum or Plasma Lipid Panel Lab Routine Gastroesophageal reflux disease without esophagitis Class 2 severe obesity due to excess calories with serious comorbidity and body mass index (BMI) of 35.0 to 35.9 in adult (Multi) Expected: 12/27/2023 (Approximate), Expires: 12/26/2024 [facility] Work Phone: Comment on above: Expected: 12/27/2023 (Approximate), Expi res: 12/26/2024 Start: 12-27-2023 End: 12-26-2024 Magnesium [Mass/volume] in Serum or Plasma Magnesium Lab Routine MONET (generalized anxiety disorder) Depression, major, recurrent, mild (CMS-HCC) Class 2 severe obesity due to excess calories with serious comorbidity and body mass index (BMI) of 35.0 to 35.9 in adult (Multi) Expected: 12/27/2023 (Approximate), Expires: 12/26/2024 [facility] Work Phone: Comment on above: Expected: 12/27/2023 (Approximate), Expi res: 12/26/2024 Start: 12-27-2023 End: 12-26-2024 Thyrotropin [Units/volume] in Serum or Plasma Thyroid Stimulating Hormone Lab Routine MONET (generalized anxiety disorder) Depression, major, recurrent, mild (CMS-HCC) Class 2 severe obesity due to excess calories with serious comorbidity and body mass index (BMI) of 35.0 to 35.9 in adult (Multi) Expected: 12/27/2023 (Approximate), Expires: 12/26/2024 [facility] Work Phone: Comment on above: Expected: 12/27/2023 (Approximate), Expi res: 12/26/2024 Start: 12-27-2023 End: 12-26-2024 Thyroxine (T4) free [Mass/volume] in Serum or Plasma Thyroxine, Free Lab Routine MONET (generalized anxiety disorder) Depression, major, recurrent, mild (CMS-HCC) Class 2 severe obesity due to excess calories with serious comorbidity and body mass index (BMI) of 35.0 to 35.9 in adult (Multi) Expected: 12/27/2023 (Approximate), Expires: 12/26/2024 [facility] Work Phone: Comment on above: Expected: 12/27/2023 (Approximate), Expi res: 12/26/2024 Start: 12-27-2023 End: 12-26-2024 US Abdomen limited US abdomen limited Imaging Routine RUQ abdominal pain Gallbladder polyp Expected: 12/27/2023, Expires: 12/26/2024 [facility] Work Phone: Comment on above: Expected: 12/27/2023, Expires: Start: 12-24-2023 DTaP/Tdap/Td vaccine (7 - Td) DTaP/Tdap/Td vaccine (7 - Td) [place] Start: 12-24-2023 DTaP/Tdap/Td Vaccines (7 - Td or Tdap) DTaP/Tdap/Td Vaccines (7 - Td or Tdap) [facility] Start: 12-24-2023 Urine microalbumin profile DTaP,Tdap,Td Vaccine (7 - Td or Tdap) [facility] Start: 2023 DTaP/Tdap/Td Vaccines (1 - Tdap) DTaP/Tdap/Td Vaccines (1 - Tdap) [facility] Start: 01-12-2023 COVID-19 Vaccine ( season) COVID-19 Vaccine ( season) [facility] Start: 2022 Screening for malignant neoplasm of cervix [facility] Start: 08-30-2021 GC (Gonorrhea) Screening () GC (Gonorrhea) Screening () [facility] Start: 08-30-2021 Screening for Chlamydia trachomatis Chlamydia Screening (18-24) [facility] Start: 08-23-2021 End: 08-24-2022 [facility] Start: 2020 Hepatitis B Vaccines (1 of 3 - 19+ 3-dose series) Hepatitis B Vaccines (1 of 3 - 19+ 3-dose series) [facility] Start: 01-13-2020 Influenza vaccination Flu vaccine (#1) [place] Start: 2019 Anxiety Screening Anxiety Screening [facility] Start: 2019 Depression Screening Depression Screening [facility] Start: 2019 Diabetes mellitus screening Diabetes Screening [facility] Start: 2019 Hepatitis C screening Hepatitis C Screening [facility] Start: 2019 HIV screening HIV Screening [facility] Start: 02-05-2019 Meningococcal (ACWY) Vaccine (2 - 2-dose series) Meningococcal (ACWY) Vaccine (2 - 2-dose series) [place] Start: 01-12-2019 Influenza vaccination Flu vaccine (#1) [place] Start: 2017 Chlamydia screen Chlamydia screen [place] Start: 2017 Meningococcal B Vaccine (1 of 2 - Standard) Meningococcal B Vaccine (1 of 2 - Standard) [facility] Start: 2017 Screening for Chlamydia trachomatis Chlamydia screen [place] Start: 2016 HIV screen HIV screen [place] Start: 2016 HIV screening HIV screen [place] Start: 2016 HPV Vaccine (1 - 3-dose series) HPV Vaccine (1 - 3-dose series) [facility] Start: 2016 HPV vaccine (1 - Female 3-dose series) HPV vaccine (1 - Female 3-dose series) [place] Start: 2016 HPV Vaccines (1 - 3-dose series) HPV Vaccines (1 - 3-dose series) [facility] Start: 2015 Peds To Adult Transition Annual Assessment Peds To Adult Transition Annual Assessment [facility] Start: 2014 Varicella vaccination Varicella Vaccines (1 of 2 - 13+ 2-dose series) [facility] Start: 2013 Peds To Adult Transition Initial Discussion Peds To Adult Transition Initial Discussion [facility] Start: 2012 HPV vaccine (1 - 2-dose series) HPV vaccine (1 - 2-dose series) [place] Start: 2002 MMR Vaccines (1 of 1 - Standard series) MMR Vaccines (1 of 1 - Standard series) [facility] Start: 2001 HIV screening HIV Screening [facility] Start: 2001 Lipid panel Lipid Panel [facility] Start: 2001 Yearly Adult Physical Yearly Adult Physical [facility] Bacteria identified in Urine by Culture Urine Culture Microbiology Routine Acute UTI 02/14/2024 3:15 PM EDT [facility] Service Area Work Phone: End: 01-06-2025 Bacteria identified in Urine by Culture [facility] Work Phone: Comment on above: Once (Lab) for 1 Occurrences starting until 01/06/2025 Beef IgE Ab [Units/v olume] in Serum [facility] Chocolate IgE Ab [Units/volume] in Serum [facility] End: 02-26-2024 Choriogonadotropin ( test) [Presence] in Urine POCT , urine Point of Care Testing Routine Once (Lab) for 1 Occurrences starting 02/26/2024 until 02/26/2024 [facility] Service Area Work Phone: Comment on above: Once (Lab) for 1 Occurrences starting until 02/26/2024 Clam IgE Ab [Units/v olume] in Serum [facility] Cod[place] IgE Ab [Units/volume] in Serum [facility] [place] IgE Ab [Units/v olume] in Serum [facility] Cow milk IgE Ab [Units/volume] in Serum [facility] End: 09-08-2024 CT Abdomen and Pelvis W contrast IV [facility] Service Area Work Phone: Comment on above: Once for 1 Occurrences starting 09/09/19 until 09/08/2024 DNA double strand Ab [Units/volume] in Serum [facility] End: 01-06-2025 ECG 12 Lead ECG 12 Lead ECG STAT Once for 1 Occurrences starting 01/06/2025 until 01/06/2025 [facility] Work Phone: Comment on above: Once for 1 Occurrences starting 01/07/20 until 01/06/2025 [facility] End: 01-06-2025 Extra Urine Saenz Tube Extra Urine Saenz Tube Lab Timed Once for 1 Occurrences starting 01/06/2025 until 01/06/2025 [facility] Work Phone: Comment on above: Once for 1 Occurrences starting 01/07/20 until 01/06/2025 Food RAST [facility] Laparoscopy surg cholecystectomy CHOLECYSTECTOMY, LAPAROSCOPIC Gallbladder polyp Virtual GIANNI OR PAP TEST PAP TEST Lab Rou harjit Encounter for gynecological examination (general) (routine) without abnormal findings Screening for cervical cancer Encounter for screening for human papillomavirus (HPV) 11/27/2024 2:34 PM EDT [facility] Patient Education [facility] Work Phone: Peanut IgE Ab [Units/volume] in Serum [facility] Pork IgE Ab [Units/v olume] in Serum [facility] Porphobilinogen [Mass/time] in 24 hour Urine [facility] Porphobilinogen [Mass/time] in 24 hour Urine [facility] Procedure [facility] Radionuclide gastric emptying study [facility] Removal intrauterine device iud REMOVE INTRAUTERINE DEVICE Procedures Routine Encounter for IUD removal Ordered: 11/27/2024 [facility] Work Phone: Comment on above: Ordered: 11/27/2024 [place] IgE Ab [Units/volume] in Serum [facility] [place] [facility] Sesame seed [facility] Shrimp IgE Ab [Units/volume] in Serum [facility] Soybean IgE Ab [Units/volume] in Serum [facility] Surgical pathology study [facility] Work Phone: Comment on above: Release Upon Ordering for 1 Occurrences starting 02/26/2024 Tuna IgE Ab [Units/v olume] in Serum [facility] End: 01-06-2025 Urinalysis complete W Reflex Culture panel - Urine [facility] Service Area Work Phone: Comment on above: STAT (Lab) for 1 Occurrences starting until 01/06/2025 End: 12-31-2023 US Abdomen limited [facility] Service Area Work Phone: Comment on above: Once for 1 Occurrences starting 12/31/19 24 until 12/31/2023 [place] [facility] Wheat IgE Ab [Units/volume] in Serum [facility] Whole Egg IgE Ab [Units/volume] in Serum [facility] Immunizations Immunization Date Immunization Notes Care Provider Fa [facility] 02-23-2025 influenza, seasonal, injectable, preservative free Sangeeta Ruano PA-C Work Phone: [facility] Work Phone: 03-15-2019 influenza virus vaccine, unspecified formulation Kellie Fonseca APRN.OUTREACH COORDINATOR Work Phone: [facility] 12-11-2018 meningococcal vaccin e of unknown formulation and unknown serogroups [place], [place] Payers Date Payer Category Payer Private Health Insurance [id number] 2025 Managed Care (Private) 1.2.8 [id number] 2025 Private Health Insurance [id number] 2025 Private Health Insurance [id number] 2024 Self-pay 2019 Blue Cross Blue Shield 1.2.8 [id number] 2019 Blue Cross Blue Shie ld Managed Care [facility] [id number] 2019 Unknown 2019 Blue Cross Blue Shield [id number] 2001 Unknown [id number] [id number] .732 2001 Unknown [id number] 2.16840.1.511534.3.579.2 .124 2001 Unknown [id number] 2.16840.1.108129.3.579.2 .1244 2001 Unknown [id number] 2.16840.1.816824.3.579.2 .124 2001 Unknown [id number] 2.16840.1.553926.3.579.2 .124 2001 Unknown [id number] 2.16840.1.009808.3.579.2 .124 2001 Unknown [id number] 2.16840.1.485560.3.579.2 .1244 2001 Unknown [id number] 2.16840.1.260002.3.579.2 .124 2001 Unknown [id number] 2.16840.1.125562.3.579.2 .124 2001 Unknown [id number] 2.16840.1.758939.3.579.2 .1242 2001 Unknown [id number] 2.16840.1.425109.3.579.2 .124 2001 Unknown [id number] 2.16840.1.282070.3.579.2 .124 2001 Unknown [id number] 2.16840.1.629630.3.579.2 .1243 2001 Unknown [id number] 2.16.840.1.860164.3.579.2 .1243 2001 Unknown [id number] 2.16.840.1.973386.3.579.2 .1243 2001 Unknown [id number] 2.16.840.1.733946.3.579.2 .1243 Unknown [id number] 2.16.840.1.436039.3.579.2 .462 Unknown [id number] 2.16.840.1.588813.3.579.2 .462 Unknown [id number] 2.16.840.1.922293.3.579.2 .462 Unknown [id number] 2.16.840.1.871285.3.579.2 .462 Unknown [id number] 2.16.840.1.311496.3.579.2 .462 Unknown [id number] 2.16.840.1.231017.3.579.2 .462 Unknown [id number] 2.16.840.1.880599.3.579.2 .462 Unknown [id number] 2.16.840.1.001052.3.579.2 .462 Unknown [id number] 2.16.840.1.833827.3.579.2 .462 Unknown [id number] 2.16.840.1.284008.3.579.2 .462 Social History Date Type Detail Facility Tobacco smoking status NHIS Unknown if [facility] smoked [facility] Start: [facility] Sex Assigned At Not on file [facility] [employer] [facility] Tobacco smoking consumption unknown [facility] Start: 12-27-2023 End: 12-01-2024 Tobacco smoking status NHIS Never smoked tobacco [facility] Work Phone: Start: 12-27-2023 End: 11-27-2024 Tobacco use and exposure Smokeless tobacco non-user [facility] Work Phone: Start: 02-14-2024 End: 02-26-2024 Alcoholic beverage intake Current drinker of alcohol (finding) [facility] Work Phone: Start: 02-14-2024 End: 02-23-2025 History of Social function [facility] Work Phone: Start: 02-14-2024 End: 02-23-2025 Tobacco use panel [facility] Work Phone: Start: 12-27-2023 Alcohol Comment [facility] Work Phone: Start: 2001 Sex assigned at Female U [facility] Start: 12-27-2023 Gender identity Identifies as female gender (finding) [facility] Work Phone: Start: 12-27-2023 Sexual orientation Heterosexual (fin ding) [facility] Work Phone: Start: 12-17-2023 End: 09-11-2024 Exposure to SARS-CoV-2 (event) Not sure [facility] Start: 02-25-2024 Alcohol Comment [facility]: How often to you hav e a drink containing alcohol? Never [facility] Start: 04-08-2022 Average Number of Drinks Not on file [facility] Start: 08-30-2020 Alcohol Comment Socially [facility] Start: 12-02-2024 End: 01-05-2025 Tobacco smoking status NHIS Smokes tobacco daily (finding) [facility] Start: 01-14-2025 End: 02-23-2025 Alcoholic beverage intake Ex-drinker (finding) [facility] Work Phone: Start: 04-08-2022 Sex Female (finding) [facility] NEGATED: Highlighted rowStart: NINF History of tobacco use Passive smoker [facility] Work Phone: Functional Status Date Assessment Result Facility 03-12-2025 [facility] Work Phone: 03-12-2025 Functional status 120/76 [facility] 03-12-2025 Vital signs 65 03/12/2025 8: 31 AM EDT Vonda Casey LPN [facility] Work Phone: 02-23-2025 Patient Health Quest ionnaire 2 item (PHQ-2) [Reported] [facility] Work Phone: 02-23-2025 Functional status 120/74 [facility] Work Phone: 02-23-2025 Vital signs 69 02/23/2025 3: 05 PM EDT Bhupinder King CMA [facility] Work Phone: 02-23-2025 [facility] Work Phone: 01-14-2025 Patient Health Quest ionnaire 2 item (PHQ-2) [Reported] [facility] Work Phone: 01-14-2025 Functional status 126/89 025 10:05 AM EDT Laisha Horton MA 126/89 [facility] Work Phone: 01-14-2025 Vital signs 79 01/14/2025 10 :05 AM EDT Laisha Horton MA [facility] Work Phone: 01-06-2025 Camp - suicide s everity rating scale screener - recent [C-SSRS] [facility] Work Phone: 01-06-2025 [facility] Work Phone: 09-01-2024 Patient Health Quest ionnaire 2 item (PHQ-2) [Reported] [facility] Work Phone: 09-01-2024 Camp - suicide s everity rating scale screener - recent [C-SSRS] [facility] Work Phone: 04-01-2024 Patient Health Quest ionnaire 2 item (PHQ-2) [Reported] [facility] 02-26-2024 [facility] 02-26-2024 Camp - suicide s everity rating scale screener - recent [C-SSRS] [facility] Work Phone: 02-26-2024 Functional status [facility] Work Phone: [facility] Work Phone: [facility] Work Phone: Mental Status Date Assessment Result Facility 07-30-2024 Cognitive function finding Negat kelley 07/30/2024 5:15 PM EDT Hoda Borrego RN Negative [facility] Work Phone: Clinical Notes 12-27-2023 to 03-12-2025 Sangeeta Cooley APRN-OUTREACH COORDINATOR - 03/12/2025 8:30 AM EDTFlorence Cardenas RN - 03/12/2025 8:30 AM EDTPatient InstructionsRaamanda Ruano PA-C - 02/23/2025 3:00 PM EDTPatient Instructions Note Date & Type Note Facility 03-12-2025 History of Present illness Narrative Patient ID: Yvette Stroud is a 24 y.o. female. Subjective HPI Patient ID: Yvette Stroud is a 24 y.o. female. Subjective HPI Patient ID: Yvette Stroud is a 24 y.o. female. Referring Physician: Sangeeta Ruano PA-C [address] [place] [address] Primary Care Provider: Sangeeta Ruano PA-C Visit Type: Initial Visit Diagnosis/Reason: Thrombocytosis HPI: Yvette Wade is a 24 y.o. female referred for consultation of Thrombocytosis. Per review of records: Mild Thrombocytosis since at least 2021 with platelets ranging from 518-581k Recent Cholecystectomy for a gallbladder polyp Pathology reported mild chronic cholecystitis and cholesterol polyp Menstrual Cycle History: Started menses with 11 years old About how long do your periods last: 28 days How would do you describe your flow during your period: Severe/Heavy How frequently do you have to change your menstrual pads during your period: last 7 days, with varying frequency of flow IUD placed 5 years ago, has helped with severity of bleeding, but remains to have increased menstrual pains -back and breast. She is scheduled to follow-up with gynecology soon. Previous Hematological Background: Hx of hematological disorders: No - Patient denies prior hematologic history Hx of blood transfusions: No - Patient denies prior blood transfusion Hx of iron supplementation: No - Denies any previous supplementation Hx of B12 supplementation: Yes - Prior oral supplementation - Denies adverse effect and reaction Hx of folate supplementation: No - Denies any prior supplementation HPI: Yvette Wade is a 24 y.o. female referred for consultation of Thrombocytosis with PMH of vitamin B12 deficiency, GERD, MONET, history of peptic ulcers. According to patient, she has been having intermittent abdominal pain for approximately 10 years. She has a history of bleeding peptic ulcers, omeprazole. Patient has an EGD 02/2024, esophagus appeared normal, very small area of focal gastritis in her stomach, benign appearing gastric polyp, duodenum appeared normal. H. Pylori was negative. She was treated with a PPI and carafate. July 30, she had a cholecystomy due to a gallbladder polyp, pathology reported mild chronic cholecystitis and cholesterol polyp formation. She continues to have intermittent pain daily through out her abdomin, especially after eating. Bowels continue to vary between diarrhea and constipation. Internal hemorrhoids with occasional rectal bleeding. Patient has never been evaluated by GI. Discussed referral to GI, for further evaluation and treatment. Recently under went allergy tested that was positive for severe dust allergy, otherwise was negative for food allergies. Started receiving allergy injections weekly. History of frequent UTI's, monthly on antibiotics as needed for treatment. Today, patient presents for initial consultation. Denies any fevers, weight loss. Feels chilled at times, overall feels that she is intolerant to heat fluctuations hot or cold. Over the past several months she has been experiencing night sweats, on the back of her neck and legs. Breathing is stable, no shortness of breath. Denies any abnormal bleeding or bruising. No lymphadenopathy or bone pain. No known blood disorders in family. Has had surgery in past w/o issue. 12/25/24: Patient was recently in the ED for nausea, she was given anti-emetics and hydration. She remained nauseated, seen GI and was prescribed scopolamine patch for nausea, and cholestyramine for excess bile, just started meds yesterday. Decreased of appetite, she is either super hungry or has no appetite at all. Bowels remain to vary between diarrhea and constipation. No active bleeding, denies any hematochezia or melanic stools. Energy is better since starting the B12 . Reviewed Labs: Hemoglobin is stable stable at 13.1, WBC 8.9, Platelets slightly elevated at 561,000 Iron parameters have trended down slightly to- Iron Serum 22, Iron saturation 8%, Ferritin 117, B12 1,183 CMP is stable 03/12/25: Patient here for routine follow-up. Nausea is slightly better. Recently had a kidney infection, antibiotic, slightly better. Remains to have diarrhea, since having gallbladder. Energy is low, due to multiple reasons and alignments. Her hemoglobin is stable. Her Iron parameters were not taken at this time, will draw them today. Denies any trouble swallowing. Discussed taking oral iron with food, before she goes to bed. Denies any blood or dark tarry stools. No pain with urination. Abdominal cramping at times, depending on what she has eaten. up to date on cancer screenings Meds: see list PMHx: Active Ambulatory Problems Diagnosis Date Noted Abdominal pain 12/27/2023 Breasts asymmetrical 08/30/2020 Gallbladder polyp 12/27/2023 MONET (generalized anxiety disorder) 12/27/2023 Depression, major, recurrent, mild ([facility]) 12/27/2023 Gastroesophageal reflux disease without esophagitis 12/27/2023 History of peptic ulcer 12/27/2023 Low vitamin B12 level 02/11/2024 Thrombocytosis 02/11/2024 Hypercholesterolemia 02/11/2024 Class 2 severe obesity due to excess calories with serious comorbidity and body mass index (BMI) of 35.0 to 35.9 in adult 02/14/2024 Post-operative pain 07/30/2024 Resolved Ambulatory Problems Diagnosis Date Noted Pyoderma 09/27/2005 Past Medical History: Diagnosis Date Allergic Anxiety and depression GERD (gastroesophageal reflux disease) Urinary tract infection PSHx: Past Surgical History Procedure Laterality Date ADENOIDECTOMY CHOLECYSTECTOMY 07/30/2024 ESOPHAGOGASTRODUODENOSCOPY 02/26/2024 TONSILLECTOMY WISDOM TOOTH EXTRACTION Cholecystectomy 2024 EGD 02/25/25, mild focal gastritis EGD in 2016, 2018 Appendectomy Tonsillectomy Stewart tooth extraction FHx: Problem Relation Name Age of Onset Cholelithiasis Mother Hypertension Father Heart disease Father Diabetes Brother Cholelithiasis Mother's Sister Cholelithiasis Maternal Grandmother Rectal cancer Maternal Grandfather Colon cancer Maternal Grandfather Diabetes Paternal Grandfather Maternal grandmother colorectal cancer Social Hx: Yvette Stroud reports that she has never smoked. She has never been exposed to tobacco smoke. She has never used smokeless tobacco. She reports current alcohol use. She reports no history of drug use. Socioeconomic History Marital status: Single Tobacco Use Smoking status: Never Passive exposure: Never Smokeless tobacco: Never Vaping Use Vaping status: Some Days Substances: Nicotine, Flavoring Devices: Disposable Passive vaping exposure: Yes Substance and Sexual Activity Alcohol use: Yes Comment: WINE OCCASIONALLY Drug use: Never Sexual activity: Defer Partners: Male control/protection: I.U.D. 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 ROS: Review of Systems Constitutional: Positive for fatigue. HENT: Negative. Eyes: Negative. Respiratory: Negative. Cardiovascular: Negative. Gastrointestinal: Positive for constipation, diarrhea and nausea. Endocrine: Negative. Genitourinary: Negative. Musculoskeletal: Negative. Skin: Negative. Neurological: Negative. Hematological: Negative. Psychiatric/Behavioral: Negative. 10 point review of systems negative except as state in HPI. Objective BSA: 1.92 meters squared BP 120/76 Pulse 65 Temp 36.6 C (97.9 F) Resp 18 Wt 84.6 kg (186 lb 9.6 oz) SpO2 98% BMI 34.13 kg/m Physical Exam Vitals and nursing note reviewed. Constitutional: Appearance: Normal appearance. HENT: Head: Normocephalic and atraumatic. Nose: Nose normal. Mouth/Throat: Mouth: Mucous membranes are moist. Pharynx: Oropharynx is clear. Eyes: General: No scleral icterus. Extraocular Movements: Extraocular movements intact. Conjunctiva/sclera: Conjunctivae normal. Cardiovascular: Rate and Rhythm: Normal rate and regular rhythm. Pulses: Normal pulses. Heart sounds: Normal heart sounds. Pulmonary: Effort: Pulmonary effort is normal. Breath sounds: Normal breath sounds. Abdominal: Palpations: Abdomen is soft. Tenderness: There is no abdominal tenderness. Musculoskeletal: General: Normal range of motion. Cervical back: Normal range of motion and neck supple. Lymphadenopathy: Cervical: No cervical adenopathy. Skin: General: Skin is warm and dry. Neurological: General: No focal deficit present. Mental Status: She is alert and oriented to person, place, and time. Psychiatric: Mood and Affect: Mood normal. Behavior: Behavior normal. Thought Content: Thought content normal. Judgment: Judgment normal. Performance Status: Asymptomatic Assessment/Plan Thrombocytosis: -Mild Thrombocytosis since at least 2021 with platelets ranging from 518-581k -Discussed possible etiologies of thrombocytosis including reactive process (anemia, iron def, infection, inflammation), malignancy, or familial. -will start a hematological work-up today 12/25/24: Platelets have trended up slightly to 561,000, remains iron deficient with Iron Saturation of 8%. Discussed increasing oral iron intake vs IV infusions. Patient would prefer to increase oral intake, recommend 2 [place] Multivitamins daily. If platelets continue to be elevated will order NGS/MPN testing. We will plan to continue monitoring patients labs at this time. Abdominal Pain - increase abdominal/pelvic pain - discussed imaging such a CT scan for further evaluation - discussed referral to GI for further evaluation/treatment - recommended follow-up with gynecology 09/11/24: Reviewed CT Scan- no evidence of hepatosplenomegaly, No lymphadenopathy- CT did reveal a left ovarian cyst measuring 2.1 cm favored to represent corpus luteum/function cyst. Labs: - platelets remain mildly elevated at 515,000, but have improved, remainder of all major bloodlines are stable. - mild iron deficiency- Iron Serum 57, Iron Saturation 17%, Ferritin 117 - Low Vitamin D at 16 - B12 is stable at 7.08 - Folate is stable at 6.0 - Inflammatory markers elevated- Sed rate 52, CRP stable at 0.84 - VIKY was negative for any auto immune disease processes Discussed platelets may be increased due to nutritional deficiencies and inflammation. Over nothing malicious was found at this time. Encouraged her to start oral iron and vitamin D, in hopes to correct platelets. Will plan to continue to monitor labs at this time for replacement efficacy. I reviewed patient's chart including but not limited to labs, imaging, surgical/procedure notes, pathology, hospital notes, doctor's notes. 03/12/25: Counts as of 02/20/25 were stable- Hemoglobin 13.5, WBC 10.0, except Platelets remained elevated at 498k. Patient reported that she has been dealing with a kidney infection. Otherwise, denies any infection or recent illness. No iron parameters were resulted. We draw labs today and call with results Menstrual cycles remain heavy despite having an IUD, discussed trying Tranexamic Acid during her menstrual cycle. Prescription sent to pharmacy. Encouraged patient to continue on oral iron and vitamin D daily. Advised patient to take oral iron prior to going to bed, in hopes to decrease side effects. Reviewed labs: 02/20/25- Hemoglobin 13.5, WBC 10.0, Platelets 498 k Iron parameters have improved- Iron Serum 32, Iron Saturation 11%, Ferritin 98 Waiting on B12 and Folate results Plan: Discussed and reviewed medical history Reviewed recent labs- hemoglobin is stable will draw iron labs today Prescribed Tranexamic Acid to be taken twice daily 1-2 pills twice daily as during menstrual cycle Will call with results and treatment plan (CBC w/diff, CMP, Ferritin, Iron Panel, Retic, Vitamin D, B12, TSH, Sed rate, CRP) I had an extensive discussion with the patient regarding the diagnosis and discussed the plan of therapy, including general considerations regarding side effects and outcomes. Pt understood and gave appropriate teach back about the plan of care. All questions were answered to the patient's satisfaction. The patient is instructed to contact us at any time if questions or problems arise. Thank you for the opportunity to participate in the care of this very pleasant patient. Total time = 30 minutes. 50% or more of this time was spent in counseling and/or coordination of care including reviewing medical history/radiology/labs, examining patient, formulating outlined plan with team, and discussing plan with patient/family. LACEY Dockery Labs drawn at clinic visit today- will call pt with results and tx plan Reviewed AVS with patient- patient verbalizes understanding documented in this encounter [facility] Work Phone: 03-12-2025 Instructions LACEY Dockery - 03/12/2025 8:30 AM EDT Discussed and reviewed medical history Reviewed recent labs- hemoglobin is stable will draw iron labs today Prescribed Tranexamic Acid to be taken twice daily 1-2 pills twice daily as during menstrual cycle Will call with results and treatment plan documented in this encounter [facility] Work Phone: 02-23-2025 History of Present illness Narrative Subjective Patient ID: Yvette Stroud is a 24 y.o. female who presents for Follow-up (6 MO WELLNESS WITH LABS AND MED CHECK) HPI Wellness LABS med check GERD/hx of bleeding ulcers Hx of cholecystectomy - doing well but cont to figure out approp diet - unable to use the cholestyramine given by GI Saroj Celmayela (possible wt gain) but stable on meds Buspar needing daily routinely Discussed the benefit for following with counselor - pt to call if she wishes to follow with psych Seasonal allergies - haydee - PRN Preventative testing EGD- 2015- bleeding ulcers / feb 2024 - dr mendoza Colon- 2015- WNL PAP - 2024 SANITARIAN AIDE- IUD - [facility] - period changes - maybe anxiety triggered or hormonal related- will get labs and advised to follow with SANITARIAN AIDE Phq2 score score of 01 JAN 2025- known depression and on meds Fall - NEG DEC 2024 Other Providers GI - Dr Taylor - set in MAR SANITARIAN AIDE - [facility] [place] Heme - Sangeeta Cooley Eye - 2024 Dentist - every 6 mo Vaccines Flu - sometimes - done in office feb 2025 - tolerated well Pneumonia - suggest age 66 Shingles suggest ag 51 Tdap - suggest booster MMR - low risk Hep B - low risk COVID - first 2-3 shots Problem List[1] Review of Systems Constitutional: Negative for chills, fatigue and fever. HENT: Negative for congestion, rhinorrhea, sinus pain, sore throat and tinnitus. Eyes: Negative for discharge, redness and visual disturbance. Respiratory: Negative for cough, chest tightness, shortness of breath and wheezing. Cardiovascular: Negative for chest pain, palpitations and leg swelling. Gastrointestinal: Negative for abdominal pain, constipation, diarrhea, nausea and vomiting. Endocrine: Negative for cold intolerance and heat intolerance. Genitourinary: Negative for flank pain, frequency and urgency. Musculoskeletal: Negative for back pain, gait problem and neck pain. Skin: Negative for rash and wound. Neurological: Negative for dizziness, tremors, syncope, numbness and headaches. Hematological: Does not bruise/bleed easily. Psychiatric/Behavioral: Negative for confusion, sleep disturbance and suicidal ideas. Medical History[2] Surgical History[3] Family History[4] Social History[5] Allergies[6] Current Medications[7] Objective BP 120/74 Pulse 69 Ht 1.575 m (5' 2) Wt 84.4 kg (186 lb) BMI 34.02 kg/m Physical Exam Vitals reviewed. Constitutional: Appearance: Normal appearance. She is obese. HENT: Head: Normocephalic. Right Ear: External ear normal. Left Ear: External ear normal. Nose: Nose normal. No congestion or rhinorrhea. Mouth/Throat: Mouth: Mucous membranes are moist. Eyes: Extraocular Movements: Extraocular movements intact. Conjunctiva/sclera: Conjunctivae normal. Pupils: Pupils are equal, round, and reactive to light. Cardiovascular: Rate and Rhythm: Normal rate and regular rhythm. Pulses: Normal pulses. Pulmonary: Effort: Pulmonary effort is normal. Breath sounds: Normal breath sounds. Abdominal: General: Bowel sounds are normal. Palpations: Abdomen is soft. Tenderness: There is no abdominal tenderness. There is no right CVA tenderness or left CVA tenderness. Musculoskeletal: General: No tenderness. Normal range of motion. Cervical back: Normal range of motion and neck supple. No tenderness. Skin: General: Skin is warm and dry. Neurological: General: No focal deficit present. Mental Status: She is alert and oriented to person, place, and time. Psychiatric: Mood and Affect: Mood normal. Behavior: Behavior normal. Testing Component Latest Ref Rng 02/20/2025 WHITE BLOOD CELL COUNT 3.8 - 10.8 Thousand/uL 10.0 RED BLOOD CELL COUNT 3.80 - 5.10 Million/uL 4.77 HEMOGLOBIN 11.7 - 15.5 g/dL 13.5 HEMATOCRIT 35.0 - 45.0 % 42.0 MCV 80.0 - 100.0 fL 88.1 MCH 27.0 - 33.0 pg 28.3 MCHC 32.0 - 36.0 g/dL 32.1 RDW 11.0 - 15.0 % 13.9 PLATELET COUNT 140 - 400 Thousand/uL 498 (H) MPV 7.5 - 12.5 fL 9.8 ABSOLUTE NEUTROPHILS 1,500 - 7,800 cells/uL 5,730 ABSOLUTE LYMPHOCYTES 850 - 3,900 cells/uL 2,860 ABSOLUTE MONOCYTES 200 - 950 cells/uL 840 ABSOLUTE EOSINOPHILS 15 - 500 cells/uL 510 (H) ABSOLUTE BASOPHILS 0 - 200 cells/uL 60 NEUTROPHILS % 57.3 LYMPHOCYTES % 28.6 MONOCYTES % 8.4 EOSINOPHILS % 5.1 BASOPHILS % 0.6 GLUCOSE 65 - 99 mg/dL 83 UREA NITROGEN (BUN) 7 - 25 mg/dL 12 CREATININE 0.50 - 0.96 mg/dL 0.71 EGFR > OR = 60 mL/min/1.73m2 122 SODIUM 135 - 146 mmol/L 137 POTASSIUM 3.5 - 5.3 mmol/L 4.4 CHLORIDE 98 - 110 mmol/L 104 CARBON DIOXIDE 20 - 32 mmol/L 24 ELECTROLYTE BALANCE 7 - 17 mmol/L (calc) 9 CALCIUM 8.6 - 10.2 mg/dL 9.3 PROTEIN, TOTAL 6.1 - 8.1 g/dL 6.9 ALBUMIN 3.6 - 5.1 g/dL 4.3 BILIRUBIN, TOTAL 0.2 - 1.2 mg/dL 0.4 ALKALINE PHOSPHATASE 31 - 125 U/L 60 AST 10 - 30 U/L 18 ALT 6 - 29 U/L 21 CHOLESTEROL, TOTAL <200 mg/dL 194 HDL CHOLESTEROL > OR = 50 mg/dL 45 (L) TRIGLYCERIDES <150 mg/dL 84 LDL-CHOLESTEROL mg/dL (calc) 131 (H) CHOL/HDLC RATIO <5.0 (calc) 4.3 NON HDL CHOLESTEROL <130 mg/dL (calc) 149 (H) TSH mIU/L 0.85 T4, FREE 0.8 - 1.8 ng/dL 1.2 Hyperchol - diet and ex Impression MDM 1) COMPLEXITY: MORE THAN 1 STABLE CHRONIC CONDITION ADDRESSED 2)DATA: TESTS INTERPRETED AND OR ORDERED, TOOK INDEPENDENT HISTORY OR RECORDS REVIEWED 3)RISK: MODERATE RISK DUE TO NATURE OF MEDICAL CONDITIONS/COMORBIDITY OR MEDICATIONS ORDERED OR SURGICAL OR PROCEDURE REFERRAL, . Reviewed labs and Testing on file Patient to follow diet low in cholesterol, fat, and sodium. Patient is advised to increase Exercise. Patient is recommended to lose weight. Reviewed Meds and discussed common side effects Continue as directed Patient is strongly advised to be compliant with recommendations. Return to Clinic sooner if needed. Patient denies further questions/concerns at this time Assessment/Plan Problem List Items Addressed This Visit ICD-10-CM Thrombocytosis D75.839 Relevant Orders CBC and Auto Differential Comprehensive Metabolic Panel Lipid Panel Magnesium Hypercholesterolemia E78.00 Relevant Orders CBC and Auto Differential Comprehensive Metabolic Panel Lipid Panel Magnesium Class 1 obesity due to excess calories with serious comorbidity and body mass index (BMI) of 34.0 to 34.9 in adult E66.811, E66.09, Z68.34 Other Visit Diagnoses Codes Encounter for wellness examination in adult - Primary Z00.00 Need for influenza vaccination Z23 Relevant Orders Flu vaccine, trivalent, preservative free, age 6 months and greater (Fluarix/Fluzone/Flulaval) FU in 6 mo with labs at [facility] fasting and med check [1] Patient Active Problem List Diagnosis Abdominal pain Breasts asymmetrical Gallbladder polyp MONET (generalized anxiety disorder) Depression, major, recurrent, mild Gastroesophageal reflux disease without esophagitis History of peptic ulcer Low vitamin B12 level Thrombocytosis Hypercholesterolemia Post-operative pain Colitis Dehydration Nausea and vomiting Traumatic petechiae Class 1 obesity due to excess calories with serious comorbidity and body mass index (BMI) of 34.0 to 34.9 in adult [2] Past Medical History: Diagnosis Date Allergic Anxiety and depression GERD (gastroesophageal reflux disease) Urinary tract infection [3] Past Surgical History: Procedure Laterality Date ADENOIDECTOMY CHOLECYSTECTOMY 07/30/2024 ESOPHAGOGASTRODUODENOSCOPY 02/26/2024 Dr.Sippey TONSILLECTOMY WISDOM TOOTH EXTRACTION [4] Family History Problem Relation Name Age of Onset Cholelithiasis Mother Hypertension Father Heart disease Father Diabetes Brother Cancer Brother Cholelithiasis Mother's Sister Cholelithiasis Maternal Grandmother Rectal cancer Maternal Grandfather Colon cancer Maternal Grandfather Diabetes Paternal Grandfather [5] Social History Tobacco Use Smoking status: Never Passive exposure: Never Smokeless tobacco: Never Vaping Use Vaping status: Some Days Substances: Nicotine, Flavoring Devices: Disposable Passive vaping exposure: Yes Substance Use Topics Alcohol use: Not Currently Comment: WINE OCCASIONALLY Drug use: Yes Types: Marijuana [6] Allergies Allergen Reactions House Dust Cough, Hives, Itching and Swelling Peanut Hives and Itching [7] Current Outpatient Medications Medication Sig Dispense Refill busPIRone (Buspar) 5 mg tablet Take 1 tablet (5 mg) by mouth 3 times a day as needed (anxiety). (Patient taking differently: Take 1 tablet (5 mg) by mouth once daily.) 270 tablet 1 cetirizine (ZyrTEC) 10 mg tablet Take 1 tablet (10 mg) by mouth once daily. cholecalciferol, vitamin D3, 25 mcg (1,000 unit) chewable gummy Take 1 each (1,000 Units) by mouth once daily. 90 each 3 citalopram (CeleXA) 40 mg tablet Take 1 tablet (40 mg) by mouth once daily. 90 tablet 3 dicyclomine (Bentyl) 20 mg tablet Take 1 tablet (20 mg) by mouth 4 times a day before meals. 40 tablet 0 fexofenadine ODT (Haydee ODT) 30 mg disintegrating tablet Dissolve 1 tablet (30 mg) in the mouth once daily. levonorgestrel (Mirena) 21 mcg/24 hr (8 yrs) 52 mg IUD by intrauterine route once daily. omeprazole (PriLOSEC) [address] capsule Take 1 capsule (40 mg) by mouth 2 times a day before meals. 60 capsule 0 prochlorperazine (Compazine) 5 mg tablet Take 1 tablet (5 mg) by mouth every 6 hours if needed for nausea or vomiting for up to 20 doses. 20 tablet 0 Cholestyramine Light 4 gram packet Take 1 packet (4 g) by mouth once daily. (Patient not taking: Reported on 02/23/2025) cyanocobalamin (Vitamin B-12) 1,000 mcg tablet Take 1 tablet (1,000 mcg) by mouth once daily. (Patient not taking: Reported on 02/23/2025) 90 tablet 3 fluconazole (Diflucan) 150 mg tablet Take 1 tablet (150 mg) by mouth every 3rd day. 3 tablet 0 No current facility-administered medications for this visit. documented in this encounter [facility] Work Phone: 01-14-2025 History of Present illness Narrative Subjective Patient ID: Yvette Stroud is a 24 y.o. female who presents for Follow-up (ER FOLLOW UP, ANXIETY, VOMITING, POSITIVE PHQ 9) HPI Pt was in [place] ER end of November d/t N/V Pt states she was at a festival the night before - questioned if side effect from the BCP patch. She denies drinking at the festival but admits to smoking marijuana Symptoms went away after a few days Symptoms flared up again end of Dec - admits to being outside all day and went to the ER for N/V and dec urinary output She believes they did a CT and was told she had colitis But next day was at [place] ER and was told she had a UTI not colitis Pt states symptoms cont to improve the past week but not back to her baseline. She denies feeling like she has been at baseline in the past few months Pt has inc stress daniel with her brother 22 diagnosed with malignant cancer She notes mental health maybe contributing to her symptoms but some of these spells was prior to the cancer diagnosis in her brother She does follow with GI - dr Taylor in [place] She has hx of bleeding ulcer but more recent EGD in 2023 in [place] was approp She feels the bentyl does help with the symptoms so we discussed cont bentyl and keep follow up with GI as scheduled in feb She questions possible yeast issue with recent Abx as well - will do trial course of diflucan given some of her symptoms Given both episodes I do question heat as a component or something like POTS as well but she is lacking many other traditional symptoms with this - will monitor med check GERD/hx of bleeding ulcers Hx of cholecystectomy - doing well but cont to figure out approp diet - unable to use the cholestyramine given by [facility]ECTOR Mead (possible wt gain) but given brother findings will do trial inc in dose and monitor wt Buspar needing routinely Discussed the benefit for following with counselor - pt to call if she wishes to follow with psych Seasonal allergies - haydee - RODDYN EGD- 2015- bleeding ulcers / feb 2024 - dr mendoza Colon- 2016- [facility]- IUD - [facility] - period changes - maybe anxiety triggered or hormonal related- will get labs and advised to follow with SANITARIAN AIDE Phq2 score score of 01 JAN 2025- known depression and on meds Fall - NEG DEC 2024 Problem List[1] Review of Systems Constitutional: Positive for fatigue. Negative for chills and fever. HENT: Negative for congestion, rhinorrhea, sinus pain, sore throat and tinnitus. Eyes: Negative for discharge, redness and visual disturbance. Respiratory: Negative for cough, chest tightness, shortness of breath and wheezing. Cardiovascular: Negative for chest pain, palpitations and leg swelling. Gastrointestinal: Positive for abdominal pain, nausea and vomiting. Negative for constipation and diarrhea. Endocrine: Negative for cold intolerance and heat intolerance. Genitourinary: Positive for vaginal discharge. Negative for flank pain, frequency and urgency. Musculoskeletal: Negative for back pain, gait problem and neck pain. Skin: Negative for rash and wound. Neurological: Negative for dizziness, tremors, syncope, numbness and headaches. Hematological: Does not bruise/bleed easily. Psychiatric/Behavioral: Positive for dysphoric mood. Negative for confusion, sleep disturbance and suicidal ideas. The patient is nervous/anxious. Medical History[2] Surgical History[3] Family History[4] Social History[5] Allergies[6] Current Medications[7] Objective BP 126/89 Pulse 79 Ht 1.575 m (5' 2) Wt 84.6 kg (186 lb 9.6 oz) LMP 12/21/2024 BMI 34.13 kg/m Physical Exam Vitals reviewed. Constitutional: Appearance: Normal appearance. She is obese. HENT: Head: Normocephalic. Right Ear: External ear normal. Left Ear: External ear normal. Nose: Nose normal. No congestion or rhinorrhea. Mouth/Throat: Mouth: Mucous membranes are moist. Eyes: Extraocular Movements: Extraocular movements intact. Conjunctiva/sclera: Conjunctivae normal. Pupils: Pupils are equal, round, and reactive to light. Cardiovascular: Rate and Rhythm: Normal rate and regular rhythm. Pulses: Normal pulses. Pulmonary: Effort: Pulmonary effort is normal. Breath sounds: Normal breath sounds. Abdominal: General: Bowel sounds are normal. Palpations: Abdomen is soft. Tenderness: There is no abdominal tenderness. There is no right CVA tenderness or left CVA tenderness. Musculoskeletal: General: No tenderness. Normal range of motion. Cervical back: Normal range of motion and neck supple. No tenderness. Skin: General: Skin is warm and dry. Neurological: General: No focal deficit present. Mental Status: She is alert and oriented to person, place, and time. Psychiatric: Mood and Affect: Mood normal. Behavior: Behavior normal. Testing Reviewed ER notes and Labs and CT Impression MDM 1) COMPLEXITY: 1 UNDIAGNOSED NEW PROBLEM WITH UNCERTAIN PROGNOSIS 2)DATA: TESTS INTERPRETED AND OR ORDERED, TOOK INDEPENDENT HISTORY OR RECORDS REVIEWED 3)RISK: MODERATE RISK DUE TO NATURE OF MEDICAL CONDITIONS/COMORBIDITY OR MEDICATIONS ORDERED OR SURGICAL OR PROCEDURE REFERRAL, . Reviewed labs and Testing on file Patient to follow diet low in cholesterol, fat, and sodium. Patient is advised to increase Exercise. Patient is recommended to lose weight. Reviewed Meds and discussed common side effects Continue as directed Patient is strongly advised to be compliant with recommendations. Return to Clinic sooner if needed. Patient denies further questions/concerns at this time Assessment/Plan Problem List Items Addressed This Visit ICD-10-CM MONET (generalized anxiety disorder) F41.1 Relevant Medications citalopram (CeleXA) 40 mg tablet busPIRone (Buspar) 5 mg tablet Depression, major, recurrent, mild F33.0 Relevant Medications citalopram (CeleXA) 40 mg tablet busPIRone (Buspar) 5 mg tablet Nausea and vomiting - Primary R11.2 Relevant Medications dicyclomine (Bentyl) 20 mg tablet Other Visit Diagnoses Codes Vulvovaginal candidiasis B37.31 Relevant Medications fluconazole (Diflucan) 150 mg tablet Class 1 obesity due to excess calories with serious comorbidity and body mass index (BMI) of 34.0 to 34.9 in adult E66.811, E66.09, Z68.34 FU as before [1] Patient Active Problem List Diagnosis Abdominal pain Breasts asymmetrical Gallbladder polyp MONET (generalized anxiety disorder) Depression, major, recurrent, mild Gastroesophageal reflux disease without esophagitis History of peptic ulcer Low vitamin B12 level Thrombocytosis Hypercholesterolemia Class 2 severe obesity due to excess calories with serious comorbidity and body mass index (BMI) of 35.0 to 35.9 in adult Post-operative pain Cannabis hyperemesis syndrome concurrent with and due to cannabis abuse (Multi) Colitis Dehydration Nausea and vomiting Traumatic petechiae [2] Past Medical History: Diagnosis Date Allergic Anxiety and depression GERD (gastroesophageal reflux disease) Urinary tract infection [3] Past Surgical History: Procedure Laterality Date ADENOIDECTOMY CHOLECYSTECTOMY 07/30/2024 ESOPHAGOGASTRODUODENOSCOPY 02/26/2024 TONSILLECTOMY WISDOM TOOTH EXTRACTION [4] Family History Problem Relation Name Age of Onset Cholelithiasis Mother Hypertension Father Heart disease Father Diabetes Brother Cancer Brother Cholelithiasis Mother's Sister Cholelithiasis Maternal Grandmother Rectal cancer Maternal Grandfather Colon cancer Maternal Grandfather Diabetes Paternal Grandfather [5] Social History Tobacco Use Smoking status: Never Passive exposure: Never Smokeless tobacco: Never Vaping Use Vaping status: Some Days Substances: Nicotine, Flavoring Devices: Disposable Passive vaping exposure: Yes Substance Use Topics Alcohol use: Not Currently Comment: WINE OCCASIONALLY Drug use: Yes Types: Marijuana [6] Allergies Allergen Reactions House Dust Cough, Hives, Itching and Swelling Peanut Hives and Itching [7] Current Outpatient Medications Medication Sig Dispense Refill amoxicillin-clavulanate (Augmentin) 875-125 mg tablet Take 1 tablet (875 mg of amoxicillin) by mouth 2 times a day. busPIRone (Buspar) 5 mg tablet Take 1 tablet (5 mg) by mouth 3 times a day as needed (anxiety). 90 tablet 1 cetirizine (ZyrTEC) 10 mg tablet Take 1 tablet (10 mg) by mouth once daily. cholecalciferol, vitamin D3, 25 mcg (1,000 unit) chewable gummy Take 1 each (1,000 Units) by mouth once daily. 90 each 3 citalopram (CeleXA) 20 mg tablet Take 1 tablet (20 mg) by mouth once daily. 90 tablet 2 cyanocobalamin (Vitamin B-12) 1,000 mcg tablet Take 1 tablet (1,000 mcg) by mouth once daily. 90 tablet 3 dicyclomine (Bentyl) 20 mg tablet Take 1 tablet (20 mg) by mouth 4 times a day before meals for 30 doses. 30 tablet 0 fexofenadine ODT (Haydee ODT) 30 mg disintegrating tablet Dissolve 1 tablet (30 mg) in the mouth once daily. levonorgestrel (Mirena) 21 mcg/24 hr (8 yrs) 52 mg IUD by intrauterine route once daily. prochlorperazine (Compazine) 5 mg tablet Take 1 tablet (5 mg) by mouth every 6 hours if needed for nausea or vomiting for up to 20 doses. 20 tablet 0 scopolamine (Transderm-Scop) 1 mg over 3 days patch [address] 1 patch on the skin every 3rd day. Cholestyramine Light 4 gram packet Take 1 packet (4 g) by mouth once daily. (Patient not taking: Reported on 01/14/2025) omeprazole (PriLOSEC) [address] capsule Take 1 capsule (40 mg) by mouth 2 times a day before meals. 60 capsule 0 No current facility-administered medications for this visit. documented in this encounter [facility] Work Phone: 01-06-2025 Physician Emergency department Note Emergency Medicine Transition of Care Note. I received Yvette Wade in signout from Hanna Javier. Please see the previous ED provider note for all HPI, PE and MDM up to the time of signout at 10 PM. This is in addition to the primary record. In brief Yvette Wade is an 24 y.o. female presenting for Chief Complaint Patient presents with Vomiting Pt was seen at [place] er lastnight and dx with gastritis, pt reports not being able to keep anything down and zofran makes her feel worse. Pt c/o cp At the time of signout we were awaiting: Disposition Diagnoses as of 01/06/25 2311 Nausea and vomiting, unspecified vomiting type Urinary tract infection with hematuria, site unspecified Medical Decision Making Patient was checked out to me pending final disposition. She is feeling better after the Compazine. She felt the Bentyl was beneficial as well. She has a prescription at home for her UTI. Will prescribe Compazine and Bentyl at discharge. Patient is comfortable with this plan. Patient states she has been sick for for 10 years. States she has had multiple diagnostic studies and sees a GI specialist as well. Final diagnoses: [R11.2] Nausea and vomiting, unspecified vomiting type [N39.0, R31.9] Urinary tract infection with hematuria, site unspecified Procedure Procedures MD Gerardo Whitney MD 01/06/252310 [facility] Work Phone: 01-06-2025 Emergency department Note Emergency Medicine Transition of Care Note. I received Yvette Wade in signout from Hanna Javier. Please see the previous ED provider note for all HPI, PE and MDM up to the time of signout at 10 PM. This is in addition to the primary record. In brief Yvette Wade is an 24 y.o. female presenting for Chief Complaint Patient presents with Vomiting Pt was seen at [place] er lastnight and dx with gastritis, pt reports not being able to keep anything down and zofran makes her feel worse. Pt c/o cp At the time of signout we were awaiting: Disposition Diagnoses as of 01/06/252310 Nausea and vomiting, unspecified vomiting type Urinary tract infection with hematuria, site unspecified Medical Decision Making Patient was checked out to me pending final disposition. She is feeling better after the Compazine. She felt the Bentyl was beneficial as well. She has a prescription at home for her UTI. Will prescribe Compazine and Bentyl at discharge. Patient is comfortable with this plan. Patient states she has been sick for for 10 years. States she has had multiple diagnostic studies and sees a GI specialist as well. Final diagnoses: [R11.2] Nausea and vomiting, unspecified vomiting type [N39.0, R31.9] Urinary tract infection with hematuria, site unspecified Procedure Procedures MD Gerardo Whitney MD 01/06/252310 Chief Complaint Patient presents with Vomiting Pt was seen at [place] er lastnight and dx with gastritis, pt reports not being able to keep anything down and zofran makes her feel worse. Pt c/o cp Patient History Medical History[1] Surgical History[2] Family History[3] Social History Social History Narrative Not on file RX Allergies[4] PMH: Reviewed PSH: Reviewed Social History: Reviewed. Allergies reviewed. HPI: Yvette Stroud is a 24 y.o. female who presents to the ED today accompanied by her mom and grandma with complaints of n/v/d and abdominal pain. Symptoms started a day ago. States she was seen at [place] ED last night and treated with IVF/IV meds and diagnosed with gastritis and sent home on antibiotics. Reports being unable to hold anything down today and zofran making her feel worse. States upper abdominal pain that's now radiating up into her chest. No fevers. REVIEW OF SYSTEMS: All other systems reviewed and negative except as listed in HPI. PHYSICAL EXAM: GENERAL: Vitals noted, no distress. Alert and oriented x 3. Non-toxic. EENT: TMs clear. Posterior oropharynx unremarkable. EOMI, no nystagmus noted. NECK: Supple. No masses. No midline tenderness. No meningeal signs. CARDIAC: Regular rate, rhythm. No murmurs rubs or gallops. No JVD. PULMONARY: Lungs clear and equal bilaterally. No wheezes rales or rhonchi. No respiratory distress. ABDOMEN: Soft, nondistended, and tender in the right upper and left upper abdomen. No suprapubic pain. No peritoneal signs. Bowel sounds are present and normoactive in all 4 quadrants. No pulsatile masses. EXTREMITIES: No peripheral edema. SKIN: No rash. Warm, dry, and intact. NEURO: No focal neurologic deficits. Labs Reviewed COMPREHENSIVE METABOLIC PANEL - Abnormal Result Value Glucose 94 Sodium 137 Potassium 3.4 (*) Chloride 103 Bicarbonate 22 Anion Gap 15 Urea Nitrogen 12 Creatinine 0.70 eGFR >90 Calcium 9.5 Albumin 4.6 Alkaline Phosphatase 62 Total Protein 7.4 AST 28 Bilirubin, Total 0.5 ALT 41 CBC WITH AUTO DIFFERENTIAL - Abnormal WBC 15.6 (*) nRBC 0.0 RBC 4.81 Hemoglobin 13.3 Hematocrit 42.1 MCV 88 MCH 27.7 MCHC 31.6 (*) RDW 13.7 Platelets 471 (*) Neutrophils % 76.8 Immature Granulocytes %, Automated 0.6 Lymphocytes % 14.1 Monocytes % 6.6 Eosinophils % 1.5 Basophils % 0.4 Neutrophils Absolute 11.97 (*) Immature Granulocytes Absolute, Automated 0.09 Lymphocytes Absolute 2.20 Monocytes Absolute 1.03 (*) Eosinophils Absolute 0.24 Basophils Absolute 0.07 URINALYSIS WITH REFLEX CULTURE AND MICROSCOPIC - Abnormal Color, Urine Yellow Appearance, Urine Turbid (*) Specific [place], Urine 1.033 pH, Urine 6.0 Protein, Urine 30 (1+) (*) Glucose, Urine Normal Blood, Urine 0.2 (2+) (*) Ketones, Urine OVER (4+) (*) Bilirubin, Urine NEGATIVE Urobilinogen, Urine 3 (1+) (*) Nitrite, Urine NEGATIVE Leukocyte Esterase, Urine 250 Kalee/uL (*) Narrative: OVER is reported when the result is greater than the clinically reportable range. MICROSCOPIC ONLY, URINE - Abnormal WBC, Urine 11-20 (*) RBC, Urine 3-5 Squamous Epithelial Cells, Urine 10-25 (FEW) Bacteria, Urine 1+ (*) Mucus, Urine FEW LIPASE - Normal Lipase 16 Narrative: Venipuncture immediately after or during the administration of Metamizole may lead to falsely low results. Testing should be performed immediately prior to Metamizole dosing. LACTATE - Normal Lactate 1.5 Narrative: Venipuncture immediately after or during the administration of Metamizole may lead to falsely low results. Testing should be performed immediately prior to Metamizole dosing. HCG, URINE, QUALITATIVE - Normal HCG, Urine NEGATIVE TROPONIN I, HIGH SENSITIVITY - Normal Troponin I, High Sensitivity 3 Narrative: Less than 99th percentile of normal range cutoff- Female and children under 18 years old <14 ng/L; Male <21 ng/L: Negative Repeat testing should be performed if clinically indicated. Female and children under 18 years old 14-50 ng/L; Male 21-50 ng/L: Consistent with possible cardiac damage and possible increased clinical risk. Serial measurements may help to assess extent of myocardial damage. >50 ng/L: Consistent with cardiac damage, increased clinical risk and myocardial infarction. Serial measurements may help assess extent of myocardial damage. NOTE: Children less than 1 year old may have higher baseline troponin levels and results should be interpreted in conjunction with the overall clinical context. NOTE: Troponin I testing is performed using a different testing methodology at [facility] than at other [facility] hospitals. Direct result comparisons should only be made within the same method. URINE CULTURE URINALYSIS WITH REFLEX CULTURE AND MICROSCOPIC Narrative: The following orders were created for panel order Urinalysis with Reflex Culture and Microscopic. Procedure Abnormality Status --------- ------ Urinalysis with Reflex C...[[id number]] Abnormal Final result Extra Urine Saenz Tube[[id number]] Please view results for these tests on the individual orders. EXTRA URINE SAENZ TUBE CT abdomen pelvis w IV contrast Final Result 1. No acute intra-abdominal findings. MACRO: None Signed by: Constantin Falcon 01/06/2025 9:45 PM Dictation workstation: [id number] XR chest 1 view Final Result 1. No evidence of acute cardiopulmonary process. MACRO: None Signed by: Constantin Falcon 01/06/2025 9:43 PM Dictation workstation: [id number] Medical Decision Making Amount and/or Complexity of Data Reviewed Labs: ordered. Radiology: ordered. ECG/medicine tests: ordered. EKG interpreted by myself shows SB with rate of 59. Normal axis. NJ interval 134. QRS interval 94. QT interval 418. QTc interval 413. Non-specific ST-T wave changes. No acute ischemia or injury pattern. ED COURSE: This patient was seen and examined by myself independently. IV established. Labs are obtained and are noted above. She is hydrated normal saline liter bolus. UCG is negative.Urinalysis concerning for infection with 250 leukocytes, 11-20 white blood cells, 1+ bacteria. Culture pending. Greater than 4+ ketones are noted in the urine. CMP shows a potassium 3.4 otherwise unremarkable. White blood count elevated 15.6 with a normal lactate of 1.5. Treated in the ED with Zofran, Toradol, Bentyl with improvement of her pain and nausea. CT scan shows no acute intra-abdominal findings. Chest x-ray negative. Patient given p.o. challenge in the ED. She starts to get more nauseated. Ordered IV rocephin for UTI. Ordered phenergan 12.5mg IV. Meds pending at the end of my shift and care turned over to ED attending Dr Beyer for re-evaluation and disposition. Heart score: 2 Differential Diagnoses Considered: n/v/d, dehydration, uti, pyelonephritis, gastritis, enteritis, colitis, diverticulitis Chronic Medical Conditions Significantly Affecting Care: see above External Records Reviewed: I reviewed recent and relevant outside records including: PCP notes, prior discharge summary, previous radiologic studies Diagnostic testing considered: blood, urine, CT DIAGNOSTIC IMPRESSION: #1 Diagnoses as of 01/06/252221 Nausea and vomiting, unspecified vomiting type Urinary tract infection with hematuria, site unspecified [1] Past Medical History: Diagnosis Date Allergic Anxiety and depression GERD (gastroesophageal reflux disease) Urinary tract infection [2] Past Surgical History: Procedure Laterality Date ADENOIDECTOMY CHOLECYSTECTOMY 07/30/2024 ESOPHAGOGASTRODUODENOSCOPY 02/26/2024 TONSILLECTOMY WISDOM TOOTH EXTRACTION [3] Family History Problem Relation Name Age of Onset Cholelithiasis Mother Hypertension Father Heart disease Father Diabetes Brother Cholelithiasis Mother's Sister Cholelithiasis Maternal Grandmother Rectal cancer Maternal Grandfather Colon cancer Maternal Grandfather Diabetes Paternal Grandfather [4] Allergies Allergen Reactions House Dust Cough, Hives, Itching and Swelling Peanut Hives and Itching LACEY Patricia 01/06/252221 documented in this encounter [facility] Work Phone: 01-06-2025 Physician Emergency department Note Chief Complaint Patient presents with Vomiting Pt was seen at [place] er lastnight and dx with gastritis, pt reports not being able to keep anything down and zofran makes her feel worse. Pt c/o cp Patient History Medical History[1] Surgical History[2] Family History[3] Social History Social History Narrative Not on file RX Allergies[4] PMH: Reviewed PSH: Reviewed Social History: Reviewed. Allergies reviewed. HPI: Yvette Stroud is a 24 y.o. female who presents to the ED today accompanied by her mom and grandma with complaints of n/v/d and abdominal pain. Symptoms started a day ago. States she was seen at [place] ED last night and treated with IVF/IV meds and diagnosed with gastritis and sent home on antibiotics. Reports being unable to hold anything down today and zofran making her feel worse. States upper abdominal pain that's now radiating up into her chest. No fevers. REVIEW OF SYSTEMS: All other systems reviewed and negative except as listed in HPI. PHYSICAL EXAM: GENERAL: Vitals noted, no distress. Alert and oriented x 3. Non-toxic. EENT: TMs clear. Posterior oropharynx unremarkable. EOMI, no nystagmus noted. NECK: Supple. No masses. No midline tenderness. No meningeal signs. CARDIAC: Regular rate, rhythm. No murmurs rubs or gallops. No JVD. PULMONARY: Lungs clear and equal bilaterally. No wheezes rales or rhonchi. No respiratory distress. ABDOMEN: Soft, nondistended, and tender in the right upper and left upper abdomen. No suprapubic pain. No peritoneal signs. Bowel sounds are present and normoactive in all 4 quadrants. No pulsatile masses. EXTREMITIES: No peripheral edema. SKIN: No rash. Warm, dry, and intact. NEURO: No focal neurologic deficits. Labs Reviewed COMPREHENSIVE METABOLIC PANEL - Abnormal Result Value Glucose 94 Sodium 137 Potassium 3.4 (*) Chloride 103 Bicarbonate 22 Anion Gap 15 Urea Nitrogen 12 Creatinine 0.70 eGFR >90 Calcium 9.5 Albumin 4.6 Alkaline Phosphatase 62 Total Protein 7.4 AST 28 Bilirubin, Total 0.5 ALT 41 CBC WITH AUTO DIFFERENTIAL - Abnormal WBC 15.6 (*) nRBC 0.0 RBC 4.81 Hemoglobin 13.3 Hematocrit 42.1 MCV 88 MCH 27.7 MCHC 31.6 (*) RDW 13.7 Platelets 471 (*) Neutrophils % 76.8 Immature Granulocytes %, Automated 0.6 Lymphocytes % 14.1 Monocytes % 6.6 Eosinophils % 1.5 Basophils % 0.4 Neutrophils Absolute 11.97 (*) Immature Granulocytes Absolute, Automated 0.09 Lymphocytes Absolute 2.20 Monocytes Absolute 1.03 (*) Eosinophils Absolute 0.24 Basophils Absolute 0.07 URINALYSIS WITH REFLEX CULTURE AND MICROSCOPIC - Abnormal Color, Urine Yellow Appearance, Urine Turbid (*) Specific [place], Urine 1.033 pH, Urine 6.0 Protein, Urine 30 (1+) (*) Glucose, Urine Normal Blood, Urine 0.2 (2+) (*) Ketones, Urine OVER (4+) (*) Bilirubin, Urine NEGATIVE Urobilinogen, Urine 3 (1+) (*) Nitrite, Urine NEGATIVE Leukocyte Esterase, Urine 250 Kalee/uL (*) Narrative: OVER is reported when the result is greater than the clinically reportable range. MICROSCOPIC ONLY, URINE - Abnormal WBC, Urine 11-20 (*) RBC, Urine 3-5 Squamous Epithelial Cells, Urine 10-25 (FEW) Bacteria, Urine 1+ (*) Mucus, Urine FEW LIPASE - Normal Lipase 16 Narrative: Venipuncture immediately after or during the administration of Metamizole may lead to falsely low results. Testing should be performed immediately prior to Metamizole dosing. LACTATE - Normal Lactate 1.5 Narrative: Venipuncture immediately after or during the administration of Metamizole may lead to falsely low results. Testing should be performed immediately prior to Metamizole dosing. HCG, URINE, QUALITATIVE - Normal HCG, Urine NEGATIVE TROPONIN I, HIGH SENSITIVITY - Normal Troponin I, High Sensitivity 3 Narrative: Less than 99th percentile of normal range cutoff- Female and children under 18 years old <14 ng/L; Male <21 ng/L: Negative Repeat testing should be performed if clinically indicated. Female and children under 18 years old 14-50 ng/L; Male 21-50 ng/L: Consistent with possible cardiac damage and possible increased clinical risk. Serial measurements may help to assess extent of myocardial damage. >50 ng/L: Consistent with cardiac damage, increased clinical risk and myocardial infarction. Serial measurements may help assess extent of myocardial damage. NOTE: Children less than 1 year old may have higher baseline troponin levels and results should be interpreted in conjunction with the overall clinical context. NOTE: Troponin I testing is performed using a different testing methodology at [facility] than at other [facility]. Direct result comparisons should only be made within the same method. URINE CULTURE URINALYSIS WITH REFLEX CULTURE AND MICROSCOPIC Narrative: The following orders were created for panel order Urinalysis with Reflex Culture and Microscopic. Procedure Abnormality Status --------- ------ Urinalysis with Reflex C...[[id number]] Abnormal Final result Extra Urine Saenz Tube[[id number]] Please view results for these tests on the individual orders. EXTRA URINE SAENZ TUBE CT abdomen pelvis w IV contrast Final Result 1. No acute intra-abdominal findings. MACRO: None Signed by: Constantin Garridoon 01/06/2025 9:45 PM Dictation workstation: [id number] XR chest 1 view Final Result 1. No evidence of acute cardiopulmonary process. MACRO: None Signed by: Constantin Falcon 01/06/2025 9:43 PM Dictation workstation: [id number] Medical Decision Making Amount and/or Complexity of Data Reviewed Labs: ordered. Radiology: ordered. ECG/medicine tests: ordered. EKG interpreted by myself shows SB with rate of 59. Normal axis. NJ interval 134. QRS interval 94. QT interval 418. QTc interval 413. Non-specific ST-T wave changes. No acute ischemia or injury pattern. ED COURSE: This patient was seen and examined by myself independently. IV established. Labs are obtained and are noted above. She is hydrated normal saline liter bolus. UCG is negative.Urinalysis concerning for infection with 250 leukocytes, 11-20 white blood cells, 1+ bacteria. Culture pending. Greater than 4+ ketones are noted in the urine. CMP shows a potassium 3.4 otherwise unremarkable. White blood count elevated 15.6 with a normal lactate of 1.5. Treated in the ED with Zofran, Toradol, Bentyl with improvement of her pain and nausea. CT scan shows no acute intra-abdominal findings. Chest x-ray negative. Patient given p.o. challenge in the ED. She starts to get more nauseated. Ordered IV rocephin for UTI. Ordered phenergan 12.5mg IV. Meds pending at the end of my shift and care turned over to ED attending Dr Beyer for re-evaluation and disposition. Heart score: 2 Differential Diagnoses Considered: n/v/d, dehydration, uti, pyelonephritis, gastritis, enteritis, colitis, diverticulitis Chronic Medical Conditions Significantly Affecting Care: see above External Records Reviewed: I reviewed recent and relevant outside records including: PCP notes, prior discharge summary, previous radiologic studies Diagnostic testing considered: blood, urine, CT DIAGNOSTIC IMPRESSION: #1 Diagnoses as of 01/06/252221 Nausea and vomiting, unspecified vomiting type Urinary tract infection with hematuria, site unspecified [1] Past Medical History: Diagnosis Date Allergic Anxiety and depression GERD (gastroesophageal reflux disease) Urinary tract infection [2] Past Surgical History: Procedure Laterality Date ADENOIDECTOMY CHOLECYSTECTOMY 07/30/2024 ESOPHAGOGASTRODUODENOSCOPY 02/26/2024 TONSILLECTOMY WISDOM TOOTH EXTRACTION [3] Family History Problem Relation Name Age of Onset Cholelithiasis Mother Hypertension Father Heart disease Father Diabetes Brother Cholelithiasis Mother's Sister Cholelithiasis Maternal Grandmother Rectal cancer Maternal Grandfather Colon cancer Maternal Grandfather Diabetes Paternal Grandfather [4] Allergies Allergen Reactions House Dust Cough, Hives, Itching and Swelling Peanut Hives and Itching LACEY Patricia 01/06/252221 [facility] Work Phone: 01-05-2025 Radiology Diagnostic study note [facility] Imaging Services [address] [place] [id number] Abdomen/Pelvis W IV Cont ONLY MR#: [id number] Acct: [id number] Name: YVETTE WADE Rep #: [id number] : 2000 F 24 From: Grey Ely MD PCP: FATIMAH Corbett Status: REG ER Study:Abdomen/Pelvis W IV Cont ONLY Date of E xam: 01/05/25 Exam# [id number] Ordering Dr: Raza Camacho DO PROCEDURE: ABDOMEN/PELVIS W IV CONT ONLY 01/05/2025 REASON FOR EXAM: ABDOMINAL PAIN TECHNIQUE: ABDOMEN/PELVIS W IV CONT ONLY Coronal and Sagittal reconstruction series were provided. CONTRAST: Isovue 370 VOLUME: 100 mL One or more dose reduction techniques were used (e.g., Automated exposure control, adjustment of the mA and/or kV according to patient size, use of iterative reconstruction technique. RADIATION DOSE SUMMARY: CTDlvol: 35.99 mGy DLP: 1080.30 mGycm COMPARISON: 2019 FINDINGS: Lung bases: Clear Liver: Normal size. No suspicious mass there is subtle hypoattenuation along thefalciform ligament which I suspect is simply developmental Gallbladder: Surgically absent. Spleen: Normal size. Pancreas: Normal size without evidence of mass surrounding inflammation or ductal dilation. Adrenals: Unremarkable Kidneys: No obstructive uropathy or suspicious solid renal lesion. Bladder: Unremarkable Reproductive Organs: IUD noted within the uterus. Physiologic ovarian cysts arenoted, no suspicious enlarged cystic mass or free fluid in the pelvis Bowel: Although the bowel loops are not distended with oral contrast, there is some evidence of submucosal thickening in the transverse and descending colon suggestive of a diffuse colitis. No pericolonicinflammatory stranding, evidence of abscess or perforation. Appendix: Normal appendix seen on coronal recon images 52 through 55. Lymph nodes: No suspicious enlarged mesenteric or retroperitoneal lymph nodes Vasculature: Normal Peritoneum / Retroperitoneum: No free fluid or air Bones: Normal CT/Abdomen/Pelvis W IV Cont ONLY IMPRESSION: Submucosal thickening and edema noted in the majority of the colon suggesting a diffuse colitis.. This is likely infectious or inflammatory and can be seen with Crohn's or ulcerative colitis. No pericolonicinflammatory stranding, no perforation or abscess. These changes were not seen on the previous study of 2019 No free intraperitoneal fluid, air, or suspicious adenopathy, normal appendix visualized IUD noted in the uterus, there are physiologic ovarian cysts present, no suspicious enlarged cystic mass or free fluid in the pelvis Reading Location: [id number] CC: Dr. Raza Camacho, ; FATIMAH Corbett [employer] [place] Type: Signed [facility] 12-25-2024 History of Present illness Narrative Patient ID: Yvette Stroud is a 24 y.o. female. Subjective HPI Patient ID: Yvette Stroud is a 24 y.o. female. Referring Physician: Sangeeta Ruano PA-C [address] [place] [address] Primary Care Provider: Sangeeta Ruano PA-C Visit Type: Initial Visit Diagnosis/Reason: Thrombocytosis HPI: Yvette Wade is a 24 y.o. female referred for consultation of Thrombocytosis. Per review of records: Mild Thrombocytosis since at least 2021 with platelets ranging from 518-581k Recent Cholecystectomy for a gallbladder polyp Pathology reported mild chronic cholecystitis and cholesterol polyp Menstrual Cycle History: Started menses with 11 years old About how long do your periods last: 28 days How would do you describe your flow during your period: Severe/Heavy How frequently do you have to change your menstrual pads during your period: last 7 days, with varying frequency of flow IUD placed 5 years ago, has helped with severity of bleeding, but remains to have increased menstrual pains -back and breast. She is scheduled to follow-up with gynecology soon. Previous Hematological Background: Hx of hematological disorders: No - Patient denies prior hematologic history Hx of blood transfusions: No - Patient denies prior blood transfusion Hx of iron supplementation: No - Denies any previous supplementation Hx of B12 supplementation: Yes - Prior oral supplementation - Denies adverse effect and reaction Hx of folate supplementation: No - Denies any prior supplementation HPI: Yvette Wade is a 24 y.o. female referred for consultation of Thrombocytosis with PMH of vitamin B12 deficiency, GERD, MONET, history of peptic ulcers. According to patient, she has been having intermittent abdominal pain for approximately 10 years. She has a history of bleeding peptic ulcers, omeprazole. Patient has an EGD 02/2024, esophagus appeared normal, very small area of focal gastritis in her stomach, benign appearing gastric polyp, duodenum appeared normal. H. Pylori was negative. She was treated with a PPI and carafate. July 30, she had a cholecystomy due to a gallbladder polyp, pathology reported mild chronic cholecystitis and cholesterol polyp formation. She continues to have intermittent pain daily through out her abdomin, especially after eating. Bowels continue to vary between diarrhea and constipation. Internal hemorrhoids with occasional rectal bleeding. Patient has never been evaluated by GI. Discussed referral to GI, for further evaluation and treatment. Recently under went allergy tested that was positive for severe dust allergy, otherwise was negative for food allergies. Started receiving allergy injections weekly. History of frequent UTI's, monthly on antibiotics as needed for treatment. Today, patient presents for initial consultation. Denies any fevers, weight loss. Feels chilled at times, overall feels that she is intolerant to heat fluctuations hot or cold. Over the past several months she has been experiencing night sweats, on the back of her neck and legs. Breathing is stable, no shortness of breath. Denies any abnormal bleeding or bruising. No lymphadenopathy or bone pain. No known blood disorders in family. Has had surgery in past w/o issue. 12/25/24: Patient was recently in the ED for nausea, she was given anti-emetics and hydration. She remained nauseated, seen GI and was prescribed scopolamine patch for nausea, and cholestyramine for excess bile, just started meds yesterday. Decreased of appetite, she is either super hungry or has no appetite at all. Bowels remain to vary between diarrhea and constipation. No active bleeding, denies any hematochezia or melanic stools. Energy is better since starting the B12 . Reviewed Labs: Hemoglobin is stable stable at 13.1, WBC 8.9, Platelets slightly elevated at 561,000 Iron parameters have trended down slightly to- Iron Serum 22, Iron saturation 8%, Ferritin 117, B12 1,183 CMP is stable up to date on cancer screenings Meds: see list PMHx: Active Ambulatory Problems Diagnosis Date Noted Abdominal pain 12/27/2023 Breasts asymmetrical 08/30/2020 Gallbladder polyp 12/27/2023 MONET (generalized anxiety disorder) 12/27/2023 Depression, major, recurrent, mild ([facility]) 12/27/2023 Gastroesophageal reflux disease without esophagitis 12/27/2023 History of peptic ulcer 12/27/2023 Low vitamin B12 level 02/11/2024 Thrombocytosis 02/11/2024 Hypercholesterolemia 02/11/2024 Class 2 severe obesity due to excess calories with serious comorbidity and body mass index (BMI) of 35.0 to 35.9 in adult 02/14/2024 Post-operative pain 07/30/2024 Resolved Ambulatory Problems Diagnosis Date Noted Pyoderma 09/27/2005 Past Medical History: Diagnosis Date Allergic Anxiety and depression GERD (gastroesophageal reflux disease) Urinary tract infection PSHx: [Surgical History] [Surgical History] Past Surgical History Procedure Laterality Date ADENOIDECTOMY CHOLECYSTECTOMY 07/30/2024 ESOPHAGOGASTRODUODENOSCOPY 02/26/2024 TONSILLECTOMY WISDOM TOOTH EXTRACTION Cholecystectomy 2024 EGD 02/25/25, mild focal gastritis EGD in 2015, 2017 Appendectomy Tonsillectomy Stewart tooth extraction FHx: [Family History] [Family History] Problem Relation Name Age of Onset Cholelithiasis Mother Hypertension Father Heart disease Father Diabetes Brother Cholelithiasis Mother's Sister Cholelithiasis Maternal Grandmother Rectal cancer Maternal Grandfather Colon cancer Maternal Grandfather Diabetes Paternal Grandfather Maternal grandmother colorectal cancer Social Hx: Yvette Stroud reports that she has never smoked. She has never been exposed to tobacco smoke. She has never used smokeless tobacco. She reports current alcohol use. She reports no history of drug use. [Social History] [Social History] Socioeconomic History Marital status: Single Tobacco Use Smoking status: Never Passive exposure: Never Smokeless tobacco: Never Vaping Use Vaping status: Some Days Substances: Nicotine, Flavoring Devices: Disposable Passive vaping exposure: Yes Substance and Sexual Activity Alcohol use: Yes Comment: WINE OCCASIONALLY Drug use: Never Sexual activity: Defer Partners: Male control/protection: I.U.D. 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 ROS: Review of Systems Constitutional: Positive for fatigue. HENT: Negative. Eyes: Negative. Respiratory: Negative. Cardiovascular: Negative. Gastrointestinal: Positive for constipation, diarrhea and nausea. Endocrine: Negative. Genitourinary: Negative. Musculoskeletal: Negative. Skin: Negative. Neurological: Negative. Hematological: Negative. Psychiatric/Behavioral: Negative. 10 point review of systems negative except as state in HPI. Objective BSA: There is no height or weight on file to calculate BSA. There were no vitals taken for this visit. Physical Exam Vitals and nursing note reviewed. Constitutional: Appearance: Normal appearance. HENT: Head: Normocephalic and atraumatic. Nose: Nose normal. Mouth/Throat: Mouth: Mucous membranes are moist. Pharynx: Oropharynx is clear. Eyes: General: No scleral icterus. Extraocular Movements: Extraocular movements intact. Conjunctiva/sclera: Conjunctivae normal. Cardiovascular: Rate and Rhythm: Normal rate and regular rhythm. Pulses: Normal pulses. Heart sounds: Normal heart sounds. Pulmonary: Effort: Pulmonary effort is normal. Breath sounds: Normal breath sounds. Abdominal: Palpations: Abdomen is soft. Musculoskeletal: General: Normal range of motion. Cervical back: Normal range of motion and neck supple. Lymphadenopathy: Cervical: No cervical adenopathy. Skin: General: Skin is warm and dry. Coloration: Skin is pale. Neurological: General: No focal deficit present. Mental Status: She is alert and oriented to person, place, and time. Psychiatric: Mood and Affect: Mood normal. Behavior: Behavior normal. Thought Content: Thought content normal. Judgment: Judgment normal. Performance Status: Asymptomatic Assessment/Plan Thrombocytosis: -Mild Thrombocytosis since at least 2021 with platelets ranging from 518-581k -Discussed possible etiologies of thrombocytosis including reactive process (anemia, iron def, infection, inflammation), malignancy, or familial. -will start a hematological work-up today 12/25/24: Platelets have trended up slightly to 561,000, remains iron deficient with Iron Saturation of 8%. Discussed increasing oral iron intake vs IV infusions. Patient would prefer to increase oral intake, recommend 2 [place] Multivitamins daily. If platelets continue to be elevated will order NGS/MPN testing. We will plan to continue monitoring patients labs at this time. Abdominal Pain - increase abdominal/pelvic pain - discussed imaging such a CT scan for further evaluation - discussed referral to GI for further evaluation/treatment - recommended follow-up with gynecology 09/11/24: Reviewed CT Scan- no evidence of hepatosplenomegaly, No lymphadenopathy- CT did reveal a left ovarian cyst measuring 2.1 cm favored to represent corpus luteum/function cyst. Labs: - platelets remain mildly elevated at 515,000, but have improved, remainder of all major bloodlines are stable. - mild iron deficiency- Iron Serum 57, Iron Saturation 17%, Ferritin 117 - Low Vitamin D at 16 - B12 is stable at 7.08 - Folate is stable at 6.0 - Inflammatory markers elevated- Sed rate 52, CRP stable at 0.84 - VIKY was negative for any auto immune disease processes Discussed platelets may be increased due to nutritional deficiencies and inflammation. Over nothing malicious was found at this time. Encouraged her to start oral iron and vitamin D, in hopes to correct platelets. Will plan to continue to monitor labs at this time for replacement efficacy. I reviewed patient's chart including but not limited to labs, imaging, surgical/procedure notes, pathology, hospital notes, doctor's notes. Plan: Discussed and reviewed medical history Reviewed- vitamin D and Iron Deficient- Iron saturation has trended down 6%, Platelets remain elevated at 561,000 Encouraged to start increase oral iron ([place] Vitamins w/extra iron) take 2 tablets daily take 2 hours prior or 4 hours after omeprazole Encouraged to start oral Vitamin D 3 1,000 mg take one tablet daily, take with your meal containing the most fat, typically dinner Return to see HOTEL SERVER in 3 months with labs prior (CBC w/diff, CMP, Ferritin, Iron Panel, Retic, Vitamin D, B12, TSH, Sed rate, CRP) I had an extensive discussion with the patient regarding the diagnosis and discussed the plan of therapy, including general considerations regarding side effects and outcomes. Pt understood and gave appropriate teach back about the plan of care. All questions were answered to the patient's satisfaction. The patient is instructed to contact us at any time if questions or problems arise. Thank you for the opportunity to participate in the care of this very pleasant patient. Total time = 30 minutes. 50% or more of this time was spent in counseling and/or coordination of care including reviewing medical history/radiology/labs, examining patient, formulating outlined plan with team, and discussing plan with patient/family. LACEY Dockery Pto get labs done prior to next appt Rtc 03/26 830 OUTREACH COORDINATOR visit Reviewed AVS with patient- patient verbalizes understanding documented in this encounter [facility] Work Phone: 12-25-2024 Instructions LACEY Dockery - 12/25/2024 9:00 AM EDT Discussed and reviewed medical history Reviewed- vitamin D and Iron Deficient- Iron saturation has trended down 6%, Platelets remain elevated at 561,000 Encouraged to start increase oral iron ([place] Vitamins w/extra iron) take 2 tablets daily take 2 hours prior or 4 hours after omeprazole Encouraged to start oral Vitamin D 3 1,000 mg take one tablet daily, take with your meal containing the most fat, typically dinner Return to see HOTEL SERVER in 3 months with labs prior documented in this encounter [facility] Work Phone: 12-02-2024 Discharge summary [facility] 12-01-2024 Discharge summary [facility] 12-01-2024 Discharge summary Note Date/Time December 01, 2024 2:12pm [facility] Medical Records Department [address] [place] [address] Emergency Department Summary 12/01/24 MR#: [id number] Acct: [id number] Name: YVETTE WADE Rep #:[id number] : 2000 24 From: Phillip Lares PCP: FATIMAH Corbett Status:REG ER Location: ED HPI History of Present Illness Chief Complaint: Allergic Reaction Informant: patient and spouse/S.O. Narrative Narrative: Presents to the ED vomiting this morning after starting a new control method patch yesterday. She is followed by Dr. Cordova. She has a Mirena is working on taking it out. She was started on Xulane patches. She states its place once a week. Yesterday placed this on. Today nausea and vomiting x 2 heavy retching. This is typical for her. She noted petechia spots on her face and neck secondary to vomiting. No hematemesis. She states with her vomiting this has happened in the past. Denies abdominal pain. Currently nauseated. Noanticoagulants or antiplatelets. Prior similar symptoms: Yes PFSH PFSH Medical History Hypercholesteremia Thrombocytosis Low vitamin B12 level Depression Abdominal pain Gallbladder polyp Peptic ulcer MONET (generalized anxiety disorder) GERD (gastroesophageal reflux disease) Home Medications ?Medication ?Instructions ?Recorded ?Last Taken ?Type cholecalciferol (vitamin D3) 25 25 mcg PO QDAY 5 11/30/24 History mcg (1,000 unit) capsule citalopram 20 mg tablet (Celexa) 20 mg PO QDAY 5 Unknown History Held on 12/01/24. Instructions: PHARMACY ISSUE fexofenadine 60 mg capsule 60 mg PO Q12H 09/18/2411/12 History mecobalamin (vitamin B12) 1,000 1,000 mcg PO QDAY 01/0511/30/24 History mcg chewable tablet omeprazole 20 mg capsule,delayed 20 mg PO QDAY 5 Unknown History release Held on 12/01/24. Instructions: PHARMACY ISSUE ondansetron 4 mg disintegrating 4 mg PO Q8H PRN PRN Na usea #10 tabs 12/01/24 Unk nown Rx tablet Allergy/AdvReac Type Severity Reaction Status Date / Time peanut (peanuts) Allergy Anaphylaxis Verified 12/01/24 11:52 Family History Mother Cholelithiasis Father Heart disease Hypertension Grandfather Rectal cancer Colon cancer Grandmother Colon cancer Surgical History H/O adenoidectomy Hx laparoscopic cholecystectomy Social History Smoking Status: Never smoker alcohol intake: current alcohol intake frequency: holidays/special occasions only Alcohol type: wine ROS ROS ED Constitutional Constitutional ED: Denies fever(s) Cardiovascular Cardiovascular: Denies chest pain Respiratory/Chest Respiratory/Chest: Denies cough Gastrointestinal Gastrointestinal: Reports nausea and vomiting; Denies diarrhea Musculoskeletal Musculoskeletal: Denies none Integumentary Reports other Details: Petechial lesions face and neck ; Denies rash or wounds Neurologic Neurologic: Denies weakness EXAM Physical Exam Const Vital Signs: 12/01/24 11:44 12/01/24 13:43 Temperature 98 F Temperature Source Oral Pulse Rate 64 59 L Respiratory Rate 18 16 Blood Pressure 120/53 L 123/69 H Blood Pressure Mean 75 87 Pulse Ox 98 96 Oxygen Delivery Method Room Air Room Air Positive well nourished and well developed General Appearance ED: well developed and NAD HEENT Reports moist mucous membranes HEENT Narrative: Scattered petechia to the face anterior neck. normocephalic Eyes Eyes Narrative: No subconjunctival hemorrhage General Eye ED: Yes normal appearance of both eyes Neck full ROM Chest Wall Chest: Negative for tenderness Resp normal respiratory effort and normal air movement Effort and Inspection: symmetric chest movement; Negative for respiratory distress Cardio regular rate, regular rhythm and no murmurs Peripheral Pulses: pulses 2+ throughout GI normal to inspection, nondistended, normoactive bowel sounds and non-tender GI Narrative: Negative Estrada's or McBurney's tenderness. Palpation: Negative for guarding or rebound tenderness present Extremity normal to inspection General Extremety ED: Negative for edema or tenderness General Extremity: Negative for edema Neuro oriented x3 and no sensory deficits noted Sensorium / Orientation: awake and alert Skin Skin Narrative: See above MDM MDM MDM Narrative Medical decision making narrative: Interventions / MDM: Differential diagnosis: Nausea and vomiting, traumatic petechiae Diagnosis considered but do not suspect: N/A My EKG interpretation: N/A Imaging independently reviewed and interpreted by myself: N/A External documents reviewed: N/A Test considered but not ordered:N/A ED course: Patient with petechial lesions after vomiting. No hematemesis. Currently nauseated. She has removed her patch. IV established for fluids willcheck labs, IV Zofran. Will reevaluate. 1407: Clinically feeling better. Labs stable slight leukocytosis, likely reactive. Electrolytes normal. Platelets normal. Prescription Zofran to her pharmacy. Patient traumatic PTCA, this will resolve with time. She has been through this before. She will discuss with her guest relations officer other controloptions. All questions were answered. Re-evaluation: stable Disposition discussed with patient/family/significant other: Patient and significant other Case discussed with consulting clinician: N/A This note was generated with iCrimefighter dictation software. It may contain incorrectwords, spelling, and punctuation that were not noted in checking the note beforesigning. Lab Data Attestation: I reviewed the patient's lab results. Labs: Laboratory Results - last 24 hr 12/01/24 12:20 WBC 12.3 H RBC 4.53 Hgb 12.6 Hct 39.0 MCV 86.1 MCH 27.8 MCHC 32.3 RDW Std Deviation 43.1 RDW Coeff of Ah 13.8 Plt Count 467 H MPV 9.3 Immature Gran % (Auto) 0.700 Neut % (Auto) 71.0 H Lymph % (Auto) 18.3 L Tucker % (Auto) 7.1 Eos % (Auto) 2.2 Baso % (Auto) 0.7 Absolute Neuts (auto) 8.7 H Absolute Lymphs (auto) 2.25 Nucleated RBC % 0 Sodium 140 Potassium 3.8 Chloride 106 Carbon Dioxide 22.2 Anion Gap 12 BUN 12 Creatinine 0.67 L Estim Creat Clear Calc 137.04 Est GFR (MDRD) Non-Af 126 BUN/Creatinine Ratio 17.7 Glucose 115 H Calcium 9.1 Discharge Plan Triage Chief Complaint: Allergic Reaction ED Provider: Phillip Richardson Dx/Rx/DC Orders Clinical Impression: Nausea and vomiting, Traumatic petechiae Instructions: ED Vomiting (Adult), ED Petechiae Prescriptions: New ondansetron 4 mg tablet,disintegrating 4 mg PO Q8H PRN PRN (Reason: Nausea) Qty: 10 0RF No Action citalopram [Celexa] 20 mg tablet 20 mg PO QDAY fexofenadine 60 mg capsule 60 mg PO Q12H mecobalamin (vitamin B12) 1,000 mcg tablet,chewable 1,000 mcg PO QDAY cholecalciferol (vitamin D3) 25 mcg (1,000 unit) capsule 25 mcg PO QDAY omeprazole 20 mg capsule,delayed release(DR/EC) 20 mg PO QDAY Primary Care Provider: Sangeeta Ruano Referrals: Sangeeta Ruano PA [Primary Care Provider] - Activity Restrictions/Additional Instructions: Your labs and platelets are stable and normal. Your petechiae caused from your vomiting. This will resolve with time. Use Zofran as needed. Continue oral fluids for hydration. Discussed with your guest relations officer other control options. Print Language: Croatian Disposition Disposition: Home, Self Care What to do if you have Problems For any increased pain, shortness of breath, bleeding, nausea or vomiting, chestpain, or any unexpected problems, contact your Primary Care Provider. Call [facility] ([phone]) or report to the closest Emergency Room. Call 911 if necessary. 12/01/24 1412 <Electronically signed by Phillip Lares> Cosigner Signature (if applicable): CC: FATIMAH Corbett ~ Signed [facility] Work Phone: 1(397) 214-180807-17-2025 Telephone encounter Note* Telephone Encounter - Miya Mc RN - 11/27/2024 2:49 PM EDT Order that was placed is the incorrect one. Please file. Miya Mc RN [facility]07-17-2025 Miscellaneous Notes* Telephone Encounter - Miya Mc RN - 11/27/2024 2:49 PM EDT Order that was placed is the incorrect one. Please file. Miya Mc RN * Telephone Encounter - Yasmine Cordova MD - 11/27/2024 2:46 PM EDT Placed in visit today. Yasmine Cordova MD * Telephone Encounter - Ambika Cabrera - 11/27/2024 2:37 PM EDT Patient is requesting an IUD removal. Please assist in advice. Need an order to attach to an appt. documented in this [facility] Telephone encounter Note * Telephone Encounter - Yasmine Cordova MD - 11/27/2024 2:46 PM EDT Placed in visit today. Yasmine Cordova MD [facility]07-17-2025 Miscellaneous Notes* Addendum Note - Yasmine Cordova MD - 11/27/2024 2:46 PM EDTAddended by: YASMINE CORDOVA on: 11/27/2024 02:46 PM Modules accepted: Orders documented in this encounterW[facility] Note* Addendum Note - Yasmine Cordova MD - 11/27/2024 2:46 PM EDTAddended by: YASMINE CORDOVA on: 11/27/2024 02:46 PM Modules accepted: Orders [facility]07-17-2025 Telephone encounter Note* Telephone Encounter - Ambika Cabrera - 11/27/2024 2:37 PM EDT Patient is requesting an IUD removal. Please assist in advice. Need an order to attach to an appt. [facility]07-17-2025 NoteHNO ID: [id number] Author: YASMINE CORDOVA MD Service: ? Author Type: Physician Type: Progress Notes Filed: 11/27/2024 14:36 Note Text: Round Cutter Operator offered: Patient declines. Crawford is a 24 year old who presents for an annual gynecologic exam with complaints, ovarian cyst on x-ray, 2.1cm. Age at Menarche: 11 Still get period: irregular, due to iud. Menses have become heavier over the past few months. Menses: no menses - Mirena IUD Menstrual flow: N/A Bleeding amount bothersome: N/A Bleeding between periods: N/A Period symptoms: Acne, Breast tenderness, Cramps, and Mood change Sexually active: Yes Time with current partner: 5 years Contraception: IUD Contraception frequency: Always HPV vaccine: Yes HPV:N/A Last pap smear: never History of abnormal pap: No Colposcopy: No. Leep: No. Cone biopsy: No. Bothersome pelvic pain: No Last mammogram: never OB History Gravida0 Para0 Term0 Preterm0 AB0 Living0 SAB0 IAB0 Ectopic0 Multiple0 Live Births0 Director Of User Experience History LMP: 08/17/2020 (Exact Date), IUD Age at Menarche: Age at First : Age at Menopause: Director Of User Experience History Comments: Sexual Activity: Yes; Male Contraception: I.U.D. History reviewed. No pertinent past medical history. PAST SURGICAL HISTORY Procedure Laterality Date REMOVAL GALLBLADDER 07/2024 TONSILLECTOMY AND ADENOIDECTOMY FAMILY HISTORY Problem Relation Age of Onset No Known Problems Mother No Known Problems Father No Known Problems Sister No Known Problems Brother No Known Problems Maternal Grandmother No Known Problems Maternal Grandfather No Known Problems Paternal Grandmother No Known Problems Paternal Grandfather SOCIAL HISTORY Social History Tobacco Use Smoking status: Never Smokeless tobacco: Never Vaping Use Vaping status: current everyday user Substances: Nicotine Devices: Pre-filled pod Substance Use Topics Alcohol use: Yes Comment: Socially Drug use: Never REVIEW OF SYSTEMS Abdomen: No abdominal pain, nausea, vomiting, diarrhea, or constipation. No bloating, early satiety, indigestion, or increased flatulence. Bladder: No dysuria, gross hematuria, urinary frequency, urinary urgency, or incontinence. Breast: No breast lumps, nipple d/c, overlying skin changes, redness or skin retraction. Allergies and current medication updated:Yes SENSITIVE EXAM: The sensitive examination was discussed with the Patient or Patient's Authorized Flower Buncher Or Picker. As applicable, any other physician, advance practice provider, medical student, or other health professional student that will be observing or involved in the sensitive examination for educational or training purposes was discussed with the Patient or Authorized Flower Buncher Or Picker. The Patient or Authorized Flower Buncher Or Picker has agreed to proceed with the sensitive examination. (Sensitive examination includes inspection and/or palpation of the breasts, pelvis, prostate and anorectal regions). EXAM: BP 100/64 Ht 5' 2 (1.58m) Wt 196 lb 9.6 oz (89.2kg) LMP 08/17/2020 BMI 35.95 kg/(m2). GENERAL: pleasant, female in no apparent distress BREAST: soft, non-tender, no dominant mass, normal nipple-areolar complex, no lymphadenopathy, and no nipple discharge CHEST: Normal inspiratory effort ABDOMEN: soft, non-tender, and no masses PELVIC: external genitalia normal, normal Bartholin's glands, urethra, Bazine's glands, no vulvar lesions, no cervical lesions, good vaginal support, physiologic discharge present, normal appearing perineal body and perianal region BIMANUAL: uterus normal size, shape and consistency, no adnexal masses, and non-tender RECTOVAGINAL: deferred. NEURO: alert and oriented x3,exam grossly non-focal EXTREMITIES: normal ASSESSMENT/PLAN: 1) Health maintenance: Pap done with reflex HPV. Nutrition, exercise and routine health maintenance exams reviewed. HPV vaccine: patient reports getting vaccine series but will double check 2) Contraception: follow up for IUD removal. Contraceptive options reviewed and information provided. Leonor sent to pharmacy. 3) STD screening: Declined STD check. 4) Follow up one year or sooner as needed Yasmine Cordova [facility]07-17-2025 History of Present illness Narrative* Yasmine Cordova MD - 11/27/2024 2:10 PM EDT Round Cutter Operator offered: Patient declines. Yvette is a 24 year old who presents for an annual gynecologic exam with complaints, ovarian cyst on x-ray, 2.1cm. Age at Menarche: 11 Still get period: irregular, due to iud. Menses have become heavier over the past few months. Menses: no menses - Mirena IUD Menstrual flow: N/A Bleeding amount bothersome: N/A Bleeding between periods: N/A Period symptoms: Acne, Breast tenderness, Cramps, and Mood change Sexually active: Yes Time with current partner: 5 years Contraception: IUD Contraception frequency: Always HPV vaccine: Yes HPV:N/A Last pap smear: never History of abnormal pap: No Colposcopy: No. Leep: No. Cone biopsy: No. Bothersome pelvic pain: No Last mammogram: never OB History Gravida0 Para0 Term0 Preterm0 AB0 Living0 SAB0 IAB0 Ectopic0 Multiple0 Live Births0 Director Of User Experience History LMP: 08/17/2020 (Exact Date), IUD Age at Menarche: Age at First : Age at Menopause: Director Of User Experience History Comments: Sexual Activity: Yes; Male Contraception: I.U.D. History reviewed. No pertinent past medical history. PAST SURGICAL HISTORY Procedure Laterality Date REMOVAL GALLBLADDER 07/2024 TONSILLECTOMY & ADENOIDECTOMY <AGE 13 FAMILY HISTORY Problem Relation Age of Onset No Known Problems Mother No Known Problems Father No Known Problems Sister No Known Problems Brother No Known Problems Maternal Grandmother No Known Problems Maternal Grandfather No Known Problems Paternal Grandmother No Known Problems Paternal Grandfather SOCIAL HISTORY Social History Tobacco Use Smoking status: Never Smokeless tobacco: Never Vaping Use Vaping status: current everyday user Substances: Nicotine Devices: Pre-filled pod Substance Use Topics Alcohol use: Yes Comment: Socially Drug use: Never REVIEW OF SYSTEMS Abdomen: No abdominal pain, nausea, vomiting, diarrhea, or constipation. No bloating, early satiety, indigestion, or increased flatulence. Bladder: No dysuria, gross hematuria, urinary frequency, urinary urgency, or incontinence. Breast: No breast lumps, nipple d/c, overlying skin changes, redness or skin retraction. Allergies and current medication updated:Yes SENSITIVE EXAM: The sensitive examination was discussed with the Patient or Patient's Authorized Flower Buncher Or Picker. As applicable, any other physician, advance practice provider, medical student, or other health professional student that will be observing or involved in the sensitive examination for educational or training purposes was discussed with the Patient or Authorized Flower Buncher Or Picker. The Patient or Authorized Flower Buncher Or Picker has agreed to proceed with the sensitive examination. (Sensitive examination includes inspection and/or palpation of the breasts, pelvis, prostate and anorectal regions). EXAM: BP 100/64 Ht 5' 2 (1.58m) Wt 196 lb 9.6 oz (89.2kg) LMP 08/17/2020 BMI 35.95 kg/(m^2). GENERAL: pleasant, female in no apparent distress BREAST: soft, non-tender, no dominant mass, normal nipple-areolar complex, no lymphadenopathy, and no nipple discharge CHEST: Normal inspiratory effort ABDOMEN: soft, non-tender, and no masses PELVIC: external genitalia normal, normal Bartholin's glands, urethra, Bazine's glands, no vulvar lesions, no cervical lesions, good vaginal support, physiologic discharge present, normal appearing perineal body and perianal region BIMANUAL: uterus normal size, shape and consistency, no adnexal masses, and non-tender RECTOVAGINAL: deferred. NEURO: alert and oriented x3,exam grossly non-focal EXTREMITIES: normal ASSESSMENT/PLAN: 1) Health maintenance: Pap done with reflex HPV. Nutrition, exercise and routine health maintenance exams reviewed. HPV vaccine: patient reports getting vaccine series but will double check 2) Contraception: follow up for IUD removal. Contraceptive options reviewed and information provided. Leonor sent to pharmacy. 3) STD screening: Declined STD check. 4) Follow up one year or sooner as needed Yasmine Cordova MD [facility] Nuclear medicine Diagnostic study note [facility] Imaging Services [address] [place] [address] Gastric Emptying Study MR#: [id number] Acct: [id number] Name: YVETTE WADE Rep #: [id number] : 2000 F 24 From: Delfino Fenton MD PCP: FATIMAH Corbett Status: REG CLI Study:Gastric Emptying Study Date of Exam: 10/08/24 Exam# [id number] Ordering Dr: Sandi Taylor DO PROCEDURE: GASTRIC EMPTYING STUDY 10/08/2024 REASON FOR EXAM: ABDOMINAL PAIN TECHNIQUE: The patient ingested a standard meal of oatmeal and 1.1 mCi of technetium labeled sulfur colloid and water. There was no vomiting postprandially. Anterior and posterior planar images of the upper abdomen were obtained for 1 minute immediately following the meal at 1h, 2h and 4h if more than 10% of the activity persisted within the stomach. Regions of interest were drawn, and a geometric mean was used to calculate a [id number]. RADIOPHARMACEUTICAL: Technetium labeled sulfur colloid DOSE 1.1mCi FINDINGS: Percent activity remaining in stomach: 1 hour 42% % (normal 37-90%) NM/Gastric Emptying Study IMPRESSION: Normal gastric emptying study. 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 female. Subjective HPI Patient ID: Yvette Stroud is a 24 y.o. female. Referring Physician: Sangeeta Rauno PA-C [address] [place] [address] Primary Care Provider: Sangeeta Ruano PA-C Visit Type: Initial Visit Diagnosis/Reason: Thrombocytosis HPI: Yvette Wade is a 24 y.o. female referred for consultation of Thrombocytosis. Per review of records: Mild Thrombocytosis since at least 2021 with platelets ranging from [id number] Recent Cholecystectomy for a gallbladder polyp Pathology reported mild chronic cholecystitis and cholesterol polyp Menstrual Cycle History: Started menses with 11 years old About how long do your periods last: 28 days How would do you describe your flow during your period: Severe/Heavy How frequently do you have to change your menstrual pads during your period: last 7 days, with varying frequency of flow IUD placed 5 years ago, has helped with severity of bleeding, but remains to have increased menstrual pains -back and beast. She is scheduled to follow-up with gynecology soon. Previous Hematological Background: Hx of hematological disorders: No - Patient denies prior hematologic history Hx of blood transfusions: No - Patient denies prior blood transfusion Hx of iron supplementation: No - Denies any previous supplementation Hx of B12 supplementation: Yes - Prior oral supplementation - Denies adverse effect and reaction Hx of folate supplementation: No - Denies any prior supplementation HPI: Yvette Wade is a 24 y.o. female referred for consultation of Thrombocytosis with PMH of vitamin B12 deficiency, GERD, MONET, history of peptic ulcers. According to patient, she has been having intermittent abdominal pain for approximately 10 years. She has a history of bleeding peptic ulcers, omeprazole. Patient has an EGD 02/2024, esophagus appeared normal, very small area of focal gastritis in her stomach, benign appearing gastric polyp, duodenum appeared normal. H. Pylori was negative. She was treated with a PPI and carafate. July 30, she had a cholecystomy due to a gallbladder polyp, pathology reported mild chronic cholecystitis and cholesterol polyp formation. She continues to have intermittent pain daily through outher abdomin, especially after eating. Bowels continue to vary between diarrhea and constipation. Int ernal hemorrhoids with occasional rectal bleeding. Patient has never been evaluated by GI. Discussed referral to GI, for further evaluation and treatment. Recently under went allergy tested that was positive for severe dust allergy, otherwise was negative for food allergies. Started receiving allergy injections weekly. History of frequent UTI's, monthly on antibiotics as needed for treatment. Today, patient presents for initial consultation. Denies any fevers, weight loss. Feels chilled at times, overall feels that she is intolerant to heat fluctuations hot or cold. Over the past several months she has been experiencing night sweats, on the back of her neck and legs. Breathing is stable, no shortness of breath. Denies any abnormal bleeding or bruising. No lymphadenopathy or bone pain.No known blood disorders in family. Has had surgery in past w/o issue. 09/11/24: Patient is in office to go over test results. Denies any significant health events or changes sinceour last appointment. Remains to have unchanged abdominal pain and discomfort. Bowels are regular, denies any hematochezia or melanic stool. Patient was referred to Dr. Taylor in [place], still waiting to hear from his office to schedule. have yet to hear anything from there office. Discussed keeping a food journal in hopes to associated a food source that is causing abdominal pain, she has previously tried and was unable to find any connections. up to date on cancer screenings Meds: see list PMHx: Active Ambulatory Problems Diagnosis Date Noted Abdominal pain 12/27/2023 Breasts asymmetrical 08/30/2020 Gallbladder polyp 12/27/2023 MONET (generalized anxiety disorder) 12/27/2023 Depression, major, recurrent, mild ([facility]) 12/27/2023 Gastroesophageal reflux disease without esophagitis 12/27/2023 History of peptic ulcer 12/27/2023 Low vitamin B12 level 02/11/2024 Thrombocytosis 02/11/2024 Hypercholesterolemia 02/11/2024 Class 2 severe obesity due to excess calories with serious comorbidity and body mass index (BMI) of35.0 to 35.9 in adult 02/14/2024 Post-operative pain 07/30/2024 Resolved Ambulatory Problems Diagnosis Date Noted Pyoderma 09/27/2005 Past Medical History: Diagnosis Date Allergic Anxiety and depression GERD (gastroesophageal reflux disease) Urinary tract infection PSHx: [Surgical History] [Surgical History] Past Surgical History Procedure Laterality Date ADENOIDECTOMY CHOLECYSTECTOMY 07/30/2024 ESOPHAGOGASTRODUODENOSCOPY 02/26/2024 TONSILLECTOMY WISDOM TOOTH EXTRACTION Cholecystectomy 2024 EGD 02/25/25, mild focal gastritis EGD in 2016, 2018 Appendectomy Tonsillectomy Stewart tooth extraction FHx: [Family History] [Family History] Problem Relation Name Age of Onset Cholelithiasis Mother Hypertension Father Heart disease Father Diabetes Brother Cholelithiasis Mother's Sister Cholelithiasis Maternal Grandmother Rectal cancer Maternal Grandfather Colon cancer Maternal Grandfather Diabetes Paternal Grandfather Maternal grandmother colorectal cancer Social Hx: Yvette Stroud reports that she has never smoked. She has never been exposed to tobacco smoke. She has never used smokeless tobacco. She reports current alcohol use. She reports no history of drug use. [Social History] [Social History] Socioeconomic History Marital status: Single Tobacco Use Smoking status: Never Passive exposure: Never Smokeless tobacco: Never Vaping Use Vaping status: Some Days Substances: Nicotine, Flavoring Devices: Disposable Passive vaping exposure: Yes Substance and Sexual Activity Alcohol use: Yes Comment: WINE OCCASIONALLY Drug use: Never Sexual activity: Defer Partners: Male control/protection: I.U.D. 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 ROS: Review of Systems Constitutional: Positive for fatigue. HENT: Negative. Eyes: Negative. Respiratory: Negative. Cardiovascular: Negative. Gastrointestinal: Positive for constipation, diarrhea and nausea. Endocrine: Negative. Genitourinary: Negative. Musculoskeletal: Negative. Skin: Negative. Neurological: Negative. Hematological: Negative. Psychiatric/Behavioral: Negative. 10 point review of systems negative except as state in HPI. Objective BSA: There is no height or weight on file to calculate BSA. There were no vitals taken for this visit. Physical Exam Vitals and nursing note reviewed. Constitutional: Appearance: Normal appearance. HENT: Head: Normocephalic and atraumatic. Nose: Nose normal. Mouth/Throat: Mouth: Mucous membranes are moist. Pharynx: Oropharynx is clear. Eyes: General: No scleral icterus. Extraocular Movements: Extraocular movements intact. Conjunctiva/sclera: Conjunctivae normal. Cardiovascular: Rate and Rhythm: Normal rate and regular rhythm. Pulses: Normal pulses. Heart sounds: Normal heart sounds. Pulmonary: Effort: Pulmonary effort is normal. Breath sounds: Normal breath sounds. Abdominal: General: Bowel sounds are normal. Palpations: Abdomen is soft. Tenderness: There is no abdominal tenderness. Musculoskeletal: General: Normal range of motion. Cervical back: Normal range of motion. Skin: General: Skin is warm and dry. Coloration: Skin is pale. Neurological: General: No focal deficit present. Mental Status: She is alert and oriented to person, place, and time. Psychiatric: Mood and Affect: Mood normal. Behavior: Behavior normal. Thought Content: Thought content normal. Judgment: Judgment normal. Performance Status: Symptomatic; fully ambulatory Assessment/Plan Thrombocytosis: -Mild Thrombocytosis since at least 2021 with platelets ranging from 518-581k -Discussed possible etiologies of thrombocytosis including reactive process (anemia, iron def, infection, inflammation), malignancy, or familial. -will start a hematological work-up today Abdominal Pain - increase abdominal/pelvic pain - discussed imaging such a CT scan for further evaluation - discussed referral to GI for further evaluation/treatment - recommended follow-up with gynecology 09/11/24: Reviewed CT Scan- no evidence of hepatosplenomegaly, No lymphadenopathy- CT did reveal a left ovarian cyst measuring 2.1 cm favored to represent corpus luteum/function cyst. Labs: - platelets remain mildly elevated at 515,000, but have improved, remainder of all major bloodlinesare stable. - mild iron deficiency- Iron Serum 57, Iron Saturation 17%, Ferritin 117 - Low Vitamin D at 16 - B12 is stable at 7.08 - Folate is stable at 6.0 - Inflammatory markers elevated- Sed rate 52, CRP stable at 0.84 - VIKY was negative for any auto immune disease processes Discussed platelets may be increased due to nutritional deficiencies and inflammation. Over nothingmalicious was found at this time. Encouraged her to start oral iron and vitamin D, in hopes to correct platelets. Will plan to continue to monitor labs at this time for replacement efficacy. I reviewed patient's chart including but not limited to labs, imaging, surgical/procedure notes, pathology, hospital notes, doctor's notes. Plan: Discussed and reviewed medical history Reviewed labs- Vitamin D and Iron Deficient- Platelets remain mildly elevated at 515,000 Encouraged to start oral iron- suggest [place] Vitamins with extra iron, take 2 tablets daily, take 2 hours prior or 4 hours after omeprazole Encouraged to start oral Vitamin D 3 1,000 mg take one tablet daily, take with your meal containingthe most fat, typically dinner CT scan reported small umbilical hernia, and function ovarian cyst, if increased pain, advise seeking urgent care or following up with Gynecology Return to see HOTEL SERVER in 3 months with labs prior (CBC w/diff, CMP, Ferritin, Iron Panel, Retic, Vitamin D, B12, TSH, Sed rate, CRP) I had an extensive discussion with the patient regarding the diagnosis and discussed the plan of therapy, including general considerations regarding side effects and outcomes. Pt understood and gave appropriate teach back about the plan of care. All questions were answered to the patient's satisfaction. The patient is instructed to contact us at any time if questions or problems arise. Thank you for the opportunity to participate in the care of this very pleasant patient. Total time = 30 minutes. 50% or more of this time was spent in counseling and/or coordination of care including reviewing medical history/radiology/labs, examining patient, formulating outlined plan with team, and discussing plan with patient/family. LACEY Dockery * Florence Cardenas RN - 09/11/2024 8:00 AM EDT Pt set up to see GI- Friend in [place] 09/18 730- appt information given to pt Pt instructed to gt labs prior to next appt Rtc 12/15 9am OUTREACH COORDINATOR visit Reviewed AVS with patient- patient verbalizes understanding documented [facility] this [facility] Work Phone: [phone]) 762-530305-01-2025 Instructions* Patient Instructions* LACEY Dockery - 09/11/2024 8:00 AM EDT Discussed and reviewed medical history Reviewed labs- Vitamin D and Iron Deficient- Platelets remain mildly elevated at 515,000 Encouraged to start oral iron- suggest [place] Vitamins with extra iron, take 2 tablets daily, take 2 hours prior or 4 hours after omeprazole Encouraged to start oral Vitamin D 3 1,000 mg take one tablet daily, take with your meal containingthe most fat, typically dinner CT scan reported small umbilical hernia, and function ovarian cyst, if increased pain, advise seeking urgent care or following up with Gynecology Return to see HOTEL SERVER in 3 months with labs prior (CBC w/diff, CMP, Ferritin, Iron Panel, Retic, Vitamin D, B12, TSH, Sed rate, CRP) documented in this [facility] Work Phone: [phone]) 963-765404-21-2025 History of Present illness Narrative* LACEY Dockery - 09/01/2024 1:00 PM EDT Patient ID: Yvette Stroud is a 24 y.o. female. Referring Physician: Sangeeta Ruano PA-C [address] [id number] Primary Care Provider: Sangeeta Ruano PA-C Visit Type: Initial Visit Diagnosis/Reason: Thrombocytosis HPI: Yvette Wade is a 24 y.o. female referred for consultation of Thrombocytosis. Per review of records: Mild Thrombocytosis since at least 2021 with platelets ranging from 518-581k Recent Cholecystectomy for a gallbladder polyp Pathology reported mild chronic cholecystitis and cholesterol polyp Menstrual Cycle History: Started menses with 11 years old About how long do your periods last: 28 days How would do you describe your flow during your period: Severe/Heavy How frequently do you have to change your menstrual pads during your period: last 7 days, with varying frequency of flow IUD placed 5 years ago, has helped with severity of bleeding, but remains to have increased menstrual pains -back and beast. She is scheduled to follow-up with gynecology soon. Previous Hematological Background: Hx of hematological disorders: No - Patient denies prior hematologic history Hx of blood transfusions: No - Patient denies prior blood transfusion Hx of iron supplementation: No - Denies any previous supplementation Hx of B12 supplementation: Yes - Prior oral supplementation - Denies adverse effect and reaction Hx of folate supplementation: No - Denies any prior supplementation HPI: Yvette Wade is a 24 y.o. female referred for consultation of Thrombocytosis with PMH of vitamin B12 deficiency, GERD, MONET, history of peptic ulcers. According to patient, she has been having intermittent abdominal pain for approximately 10 years. She has a history of bleeding peptic ulcers, omeprazole. Patient has an EGD 02/2024, esophagus appeared normal, very small area of focal gastritis in her stomach, benign appearing gastric polyp, duodenum appeared normal. H. Pylori was negative. She was treated with a PPI and carafate. July 30, she had a cholecystomy due to a gallbladder polyp, pathology reported mild chronic cholecystitis and cholesterol polyp formation. She continues to have intermittent pain daily through outher abdomin, especially after eating. Bowels continue to vary between diarrhea and constipation. Int ernal hemorrhoids with occasional rectal bleeding. Patient has never been evaluated by GI. Discussed referral to GI, for further evaluation and treatment. Recently under went allergy tested that was positive for severe dust allergy, otherwise was negative for food allergies. Started receiving allergy injections weekly. History of frequent UTI's, monthly on antibiotics as needed for treatment. Today, patient presents for initial consultation. Denies any fevers, weight loss. Feels chilled at times, overall feels that she is intolerant to heat fluctuations hot or cold. Over the past several months she has been experiencing night sweats, on the back of her neck and legs. Breathing is stable, no shortness of breath. Denies any abnormal bleeding or bruising. No lymphadenopathy or bone pain.No known blood disorders in family. Has had surgery in past w/o issue. up to date on cancer screenings Meds: see list PMHx: Active Ambulatory Problems Diagnosis Date Noted Abdominal pain 12/27/2023 Breasts asymmetrical 08/30/2020 Gallbladder polyp 12/27/2023 MONET (generalized anxiety disorder) 12/27/2023 Depression, major, recurrent, mild ([facility]-HCC) 12/27/2023 Gastroesophageal reflux disease without esophagitis 12/27/2023 History of peptic ulcer 12/27/2023 Low vitamin B12 level 02/11/2024 Thrombocytosis 02/11/2024 Hypercholesterolemia 02/11/2024 Class 2 severe obesity due to excess calories with serious comorbidity and body mass index (BMI) of35.0 to 35.9 in adult 02/14/2024 Post-operative pain 07/30/2024 Resolved Ambulatory Problems Diagnosis Date Noted Pyoderma 09/27/2005 Past Medical History: Diagnosis Date Allergic Anxiety and depression GERD (gastroesophageal reflux disease) Urinary tract infection PSHx: Surgical History[1] Cholecystectomy 2024 EGD 02/25/25, mild focal gastritis EGD in 2015, 2017 Appendectomy Tonsillectomy Stewart tooth extraction FHx: Family History[2] Maternal grandmother colorectal cancer Social Hx: Yvette Stroud reports that she has never smoked. She has never been exposed to tobacco smoke. She has never used smokeless tobacco. She reports current alcohol use. She reports no history of drug use. 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 ROS: Review of Systems Constitutional: Positive for fatigue. HENT: Negative. Eyes: Negative. Respiratory: Negative. Cardiovascular: Negative. Gastrointestinal: Positive for constipation, diarrhea and nausea. Endocrine: Negative. Genitourinary: Negative. Musculoskeletal: Negative. Skin: Negative. Neurological: Negative. Hematological: Negative. Psychiatric/Behavioral: Negative. 10 point review of systems negative except as state in HPI. Vitals & Statistics: Objective BSA: 1.95 meters squared BP 115/76 Pulse 71 Temp 35.8 C (96.4 F) (Skin) Resp 18 Ht (S) 1.567 m (5' 1.69) Wt 87.5 kg (192 lb 12.8 oz) SpO2 96% BMI 35.62 kg/m Physical Exam: Physical Exam Vitals and nursing note reviewed. Constitutional: Appearance: Normal appearance. HENT: Head: Normocephalic and atraumatic. Nose: Nose normal. Mouth/Throat: Mouth: Mucous membranes are moist. Pharynx: Oropharynx is clear. Eyes: General: No scleral icterus. Extraocular Movements: Extraocular movements intact. Conjunctiva/sclera: Conjunctivae normal. Cardiovascular: Rate and Rhythm: Normal rate and regular rhythm. Pulses: Normal pulses. Heart sounds: Normal heart sounds. Pulmonary: Effort: Pulmonary effort is normal. Breath sounds: Normal breath sounds. Abdominal: General: Bowel sounds are normal. Palpations: Abdomen is soft. There is no mass. Tenderness: There is no abdominal tenderness. Musculoskeletal: General: Normal range of motion. Cervical back: Normal range of motion. Skin: General: Skin is warm and dry. Coloration: Skin is pale. Neurological: General: No focal deficit present. Mental Status: She is alert and oriented to person, place, and time. Psychiatric: Mood and Affect: Mood normal. Behavior: Behavior normal. Thought Content: Thought content normal. Judgment: Judgment normal. Results: Lab Results Component Value Date WBC 9.9 08/13/2024 NEUTROABS 5.39 12/27/2023 IGABSOL 0.05 12/27/2023 LYMPHSABS 3.13 12/27/2023 MONOSABS 0.93 12/27/2023 EOSABS 505 (H) 08/13/2024 BASOSABS 50 08/13/2024 RBC 4.58 08/13/2024 MCV 87.3 08/13/2024 MCHC 32.0 08/13/2024 HGB 12.8 08/13/2024 HCT 40.0 08/13/2024 PLT 581 (H) 08/13/2024 No results found for: RETICCTPCT Lab Results Component Value Date CREATININE 0.72 08/13/2024 BUN 18 08/13/2024 EGFR 120 08/13/2024 NA 141 08/13/2024 K 4.4 08/13/2024 CL 105 08/13/2024 CO2 26 08/13/2024 Lab Results Component Value Date ALT 26 08/13/2024 AST 16 08/13/2024 ALKPHOS 74 08/13/2024 BILITOT 0.4 08/13/2024 Lab Results Component Value Date TSH 3.76 12/27/2023 Lab Results Component Value Date TSH 3.76 12/27/2023 Lab Results Component Value Date IRON 81 12/27/2023 TIBC 333 12/27/2023 FERRITIN 137 12/27/2023 Lab Results Component Value Date [id number] 08/13/2024 No results found for: FOLATE No results found for: VIKY, RF, SEDRATE No results found for: CRP No results found for: ANMOL No results found for: LDH No results found for: HAPTOGLOBIN No results found for: SPEP No results found for: IGG, IGM, IGA No results found for: HEPATOT, HEPAIGM, HEPBCIGM, HEPBCAB, HEPBSAG, HEPCAB No results found for: HIV1X2 Assessment: Thrombocytosis: -Mild Thrombocytosis since at least 2021 with platelets ranging from 518-581k -Discussed possible etiologies of thrombocytosis including reactive process (anemia, iron def, infection, inflammation), malignancy, or familial. -will start a hematological work-up today Abdominal Pain - increase abdominal/pelvic pain - discussed imaging such a CT scan for further evaluation - discussed referral to GI for further evaluation/treatment - recommended follow-up with gynecology I reviewed patient's chart including but not limited to labs, imaging, surgical/procedure notes, pathology, hospital notes, doctor's notes. Plan: - Labs today - will review lab results when available and address adverse results as needed - Referral placed for GI (requested Dr. Taylor in [place]) - Order placed for CT Abdominal/Pelvic CT Scan - Return to see HOTEL SERVER after imaging to discuss all results I had an extensive discussion with the patient regarding the diagnosis and discussed the plan of therapy, including general considerations regarding side effects and outcomes. Pt understood and gave appropriate teach back about the plan of care. All questions were answered to the patient's satisfaction. The patient is instructed to contact us at any time if questions or problems arise. Thank you for the opportunity to participate in the care of this very pleasant patient. Total time = 80 minutes. 50% or more of this time was spent in counseling and/or coordination of care including reviewing medical history/radiology/labs, examining patient, formulating outlined plan with team, and discussing plan with patient/family. Sangeeta Cooley, HOTEL SERVER-OUTREACH COORDINATOR [1] Past Surgical History: Procedure Laterality Date ADENOIDECTOMY CHOLECYSTECTOMY 07/30/2024 ESOPHAGOGASTRODUODENOSCOPY 02/26/2024 TONSILLECTOMY WISDOM TOOTH EXTRACTION [2] Family History Problem Relation Name Age of Onset Cholelithiasis Mother Hypertension Father Heart disease Father Diabetes Brother Cholelithiasis Mother's Sister Cholelithiasis Maternal Grandmother Rectal cancer Maternal Grandfather Colon cancer Maternal Grandfather Diabetes Paternal Grandfather [3] Social History Socioeconomic History Marital status: Single Tobacco Use Smoking status: Never Passive exposure: Never Smokeless tobacco: Never Vaping Use Vaping status: Some Days Substances: Nicotine, Flavoring Devices: Disposable Passive vaping exposure: Yes Substance and Sexual Activity Alcohol use: Yes Comment: WINE OCCASIONALLY Drug use: Never Sexual activity: Defer Partners: Male control/protection: I.U.D. * Florence Cardenas RN - 09/01/2024 1:00 PM EDT Pt scored a 2/10 on her distress survey today- no referrals at this time Labs drawn at clinic visit today Ct a/p 09/08 345 arrival- prep given and sent for PA Rtc 09/11 8am OUTREACH COORDINATOR visit Referral to [facility] in [place]- they will call pt to schedule Reviewed AVS with patient- patient verbalizes understanding [facility] Work Phone: 1(300) [phone] Instructions* Patient Instructions* LACEY Dockery - 09/01/2024 1:00 PM EDT Discussed and reviewed medical history Reviewed previous labs- Mild Thrombocytosis with platelet count of 581,000 Discussed possible etiologies of thrombocytosis including reactive process (anemia, iron def, infection, inflammation), malignancy, or familial. Will repeat labs today Discussed chronic abdominal/pelvic pain, will order CT Abdominal/Pelvis to be scheduled Referral to Dr. Claudia YOUNG in [place],- there office will contact you for scheduling, if you don't hear from them in 1-2 weeks contact our office Return to see HOTEL SERVER after imaging [facility] Work Phone: [phone]) [phone] History of Present illness Narrative* Sangeeta Ruano PA-C - 08/21/2024 2:00 PM EDT Subjective Patient ID: Yvette Stroud is a 24 y.o. female who presents for Follow-up (6 MONTH FU + LABS + MED CHECK) HPI LABS Allergy concerns Pt states she was diagnosed with nut allergy /sensitivity years ago but in gen symptoms have been mild. She states her dad has a cashew allergy and when he eats cashews or something contaminated withthem he notes anal itching. These were the same symptoms she had when she had cashew last week. Symptoms have since improved with allergy meds and benadryl but slight discomfort remains at times. Shewould like updated allergy testing done. She did see ENT in [place] in the past She denies recent travel, camping or drinking eating food from a likely contaminated source Did have allergy testing - but was told no food allergy at this time but believes it to be more seasonal Obesity Pt would like to look into meds to help with weight loss Discussed injectables Discussed adipex Discussed manager training or bariatric referral Pt to check with insurance every so often on injectables - recently not approved med check GERD/hx of bleeding ulcers Hx of cholecystectomy - doing well but cont to figure out approp diet Mood Celexa doing well - possibly weight gain Buspar needing maybe at most 1-2 times /week Seasonal allergies - haydee - PRN EGD- 2016- bleeding ulcers Colon- 2016- WNL SANITARIAN AIDE- IUD - [facility] - period changes - maybe anxiety triggered or hormonal related- will get labs and advised to follow with SANITARIAN AIDE Phq2 score NEG August 2024 Fall - NEG August 2024 Patient Active Problem List Diagnosis Abdominal pain Breasts asymmetrical Pyoderma Gallbladder polyp MONET (generalized anxiety disorder) Depression, major, recurrent, mild (CMS-HCC) Gastroesophageal reflux disease without esophagitis History of peptic ulcer Low vitamin B12 level Thrombocytosis Hypercholesterolemia Class 2 severe obesity due to excess calories with serious comorbidity and body mass index (BMI) of35.0 to 35.9 in adult Post-operative pain Review of Systems Constitutional: Negative for chills, fatigue and fever. HENT: Negative for congestion, rhinorrhea, sinus pain, sore throat and tinnitus. Eyes: Negative for discharge, redness and visual disturbance. Respiratory: Negative for cough, chest tightness, shortness of breath and wheezing. Cardiovascular: Negative for chest pain, palpitations and leg swelling. Gastrointestinal: Negative for abdominal pain, constipation, diarrhea, nausea and vomiting. Endocrine: Negative for cold intolerance and heat intolerance. Genitourinary: Negative for flank pain, frequency and urgency. Musculoskeletal: Negative for back pain, gait problem and neck pain. Skin: Negative for rash and wound. Neurological: Negative for dizziness, tremors, syncope, numbness and headaches. Hematological: Does not bruise/bleed easily. Psychiatric/Behavioral: Negative for confusion, sleep disturbance and suicidal ideas. Past Medical History: Diagnosis Date Allergic Anxiety and depression GERD (gastroesophageal reflux disease) Urinary tract infection Past Surgical History: Procedure Laterality Date ADENOIDECTOMY CHOLECYSTECTOMY 07/30/2024 ESOPHAGOGASTRODUODENOSCOPY 02/26/2024 TONSILLECTOMY WISDOM TOOTH EXTRACTION Family History Problem Relation Name Age of Onset Cholelithiasis Mother Hypertension Father Heart disease Father Diabetes Brother Cholelithiasis Mother's Sister Cholelithiasis Maternal Grandmother Rectal cancer Maternal Grandfather Colon cancer Maternal Grandfather Diabetes Paternal Grandfather Social History Tobacco Use Smoking status: Never Passive exposure: Never Smokeless tobacco: Never Vaping Use Vaping status: Some Days Substances: Nicotine, Flavoring Devices: Disposable Passive vaping exposure: Yes Substance Use Topics Alcohol use: Yes Comment: WINE OCCASIONALLY Drug use: Never Allergies Allergen Reactions House Dust Cough, Hives, Itching and Swelling Peanut Hives and Itching Current Outpatient Medications Medication Sig Dispense Refill busPIRone (Buspar) 5 mg tablet Take 1 tablet (5 mg) by mouth 3 times a day as needed (anxiety). 90 tablet 1 citalopram (CeleXA) 20 mg tablet TAKE 1 TABLET BY MOUTH EVERY DAY 90 tablet 2 cyanocobalamin (Vitamin B-12) 1,000 mcg tablet Take 1 tablet (1,000 mcg) by mouth once daily. 90 tablet 3 fexofenadine ODT (Haydee ODT) 30 mg disintegrating tablet Dissolve 1 tablet (30 mg) in the mouth once daily. levonorgestrel (Mirena) 21 mcg/24 hr (8 yrs) 52 mg IUD by intrauterine route once daily. nitrofurantoin, macrocrystal-monohydrate, (Macrobid) 100 mg capsule (Patient not taking: Reported on 08/21/2024) omeprazole (PriLOSEC) [address] capsule Take 1 capsule (40 mg) by mouth 2 times a day before meals. 60 capsule 0 polymyxin B sulf-trimethoprim (Polytrim) ophthalmic solution INSTILL 1 DROP INTO EACH EYE EVERY 4 HOURS FOR 7 DAYS (Patient not taking: Reported on 08/21/2024) tirzepatide, weight loss, (Zepbound) 2.5 mg/0.5 mL injection Inject 2.5 mg under the skin every 7 days. 4 each 0 No current facility-administered medications for this visit. Objective BP 126/82 Pulse 85 Ht 1.549 m (5' 1) Wt 86.2 kg (190 lb) LMP 07/21/2024 (Approximate) Comment: signed waiver, and states I still have my IUD SpO2 98% BMI 35.90 kg/m Physical Exam Vitals reviewed. Constitutional: Appearance: Normal appearance. She is obese. HENT: Head: Normocephalic. Right Ear: External ear normal. Left Ear: External ear normal. Nose: Nose normal. No congestion or rhinorrhea. Mouth/Throat: Mouth: Mucous membranes are moist. Eyes: Extraocular Movements: Extraocular movements intact. Conjunctiva/sclera: Conjunctivae normal. Pupils: Pupils are equal, round, and reactive to light. Cardiovascular: Rate and Rhythm: Normal rate and regular rhythm. Pulses: Normal pulses. Pulmonary: Effort: Pulmonary effort is normal. Breath sounds: Normal breath sounds. Abdominal: General: Bowel sounds are normal. Palpations: Abdomen is soft. Tenderness: There is no abdominal tenderness. There is no right CVA tenderness or left CVA tenderness. Musculoskeletal: General: No tenderness. Normal range of motion. Cervical back: Normal range of motion and neck supple. No tenderness. Skin: General: Skin is warm and dry. Neurological: General: No focal deficit present. Mental Status: She is alert and oriented to person, place, and time. Psychiatric: Mood and Affect: Mood normal. Behavior: Behavior normal. Testing Component Latest Ref Rng 08/13/2024 WHITE BLOOD CELL COUNT 3.8 - 10.8 Thousand/uL 9.9 RED BLOOD CELL COUNT 3.80 - 5.10 Million/uL 4.58 HEMOGLOBIN 11.7 - 15.5 g/dL 12.8 HEMATOCRIT 35.0 - 45.0 % 40.0 MCV 80.0 - 100.0 fL 87.3 MCH 27.0 - 33.0 pg 27.9 MCHC 32.0 - 36.0 g/dL 32.0 RDW 11.0 - 15.0 % 13.0 PLATELET COUNT 140 - 400 Thousand/uL 581 (H) MPV 7.5 - 12.5 fL 9.3 ABSOLUTE NEUTROPHILS 1,500 - 7,800 cells/uL 4,910 ABSOLUTE LYMPHOCYTES 850 - 3,900 cells/uL 3,742 ABSOLUTE MONOCYTES 200 - 950 cells/uL 693 ABSOLUTE EOSINOPHILS 15 - 500 cells/uL 505 (H) ABSOLUTE BASOPHILS 0 - 200 cells/uL 50 NEUTROPHILS % 49.6 LYMPHOCYTES % 37.8 MONOCYTES % 7.0 EOSINOPHILS % 5.1 BASOPHILS % 0.5 GLUCOSE 65 - 99 mg/dL 89 UREA NITROGEN (BUN) 7 - 25 mg/dL 18 CREATININE 0.50 - 0.96 mg/dL 0.72 EGFR > OR = 60 mL/min/1.73m2 120 SODIUM 135 - 146 mmol/L 141 POTASSIUM 3.5 - 5.3 mmol/L 4.4 CHLORIDE 98 - 110 mmol/L 105 CARBON DIOXIDE 20 - 32 mmol/L 26 ELECTROLYTE BALANCE 7 - 17 mmol/L (calc) 10 CALCIUM 8.6 - 10.2 mg/dL 9.7 PROTEIN, TOTAL 6.1 - 8.1 g/dL 7.3 ALBUMIN 3.6 - 5.1 g/dL 4.5 BILIRUBIN, TOTAL 0.2 - 1.2 mg/dL 0.4 ALKALINE PHOSPHATASE 31 - 125 U/L 74 AST 10 - 30 U/L 16 ALT 6 - 29 U/L 26 CHOLESTEROL, TOTAL <200 mg/dL 231 (H) HDL CHOLESTEROL > OR = 50 mg/dL 62 TRIGLYCERIDES <150 mg/dL 117 LDL-CHOLESTEROL mg/dL (calc) 146 (H) CHOL/HDLC RATIO <5.0 (calc) 3.7 NON HDL CHOLESTEROL <130 mg/dL (calc) 169 (H) VITAMIN B12 200 - 1,100 pg/mL 693 hyeprchol - diet and ex Thrombocytosis - discussed likely reactive but given the cont inc with check suggest referral to heme for second opinion Impression MDM 1) COMPLEXITY: 1 UNDIAGNOSED NEW PROBLEM WITH UNCERTAIN PROGNOSIS 2)DATA: TESTS INTERPRETED AND OR ORDERED, TOOK INDEPENDENT HISTORY OR RECORDS REVIEWED 3)RISK: MODERATE RISK DUE TO NATURE OF MEDICAL CONDITIONS/COMORBIDITY OR MEDICATIONS ORDERED OR SURGICAL OR PROCEDURE REFERRAL, . Reviewed labs and Testing on file Patient to follow diet low in cholesterol, fat, and sodium. Patient is advised to increase Exercise. Patient is recommended to lose weight. Reviewed Meds and discussed common side effects Continue as directed Patient is strongly advised to be compliant with recommendations. Return to Clinic sooner if needed. Patient denies further questions/concerns at this time Assessment/Plan Problem List Items Addressed This Visit ICD-10-CM MONET (generalized anxiety disorder) F41.1 Depression, major, recurrent, mild (CMS-HCC) F33.0 Gastroesophageal reflux disease without esophagitis K21.9 Thrombocytosis - Primary D75.839 Relevant Orders Referral To Hematology and Oncology CBC and Auto Differential Comprehensive Metabolic Panel Lipid Panel Thyroid Stimulating Hormone Thyroxine, Free Hypercholesterolemia E78.00 Relevant Orders CBC and Auto Differential Comprehensive Metabolic Panel Lipid Panel Thyroid Stimulating Hormone Thyroxine, Free Class 2 severe obesity due to excess calories with serious comorbidity and body mass index (BMI) of35.0 to 35.9 in adult E66.812, E66.01, Z68.35 FU in 6 mo with labs at [facility] fasting and med check - [facility] Work Phone: [phone] 772-643404-03-2025 History of Present illness Narrative* Carolynn Mendoza MD - 08/14/2024 2:00 PM EDT General Surgery Post-Operative Visit Patient: Yvette Wade : 2000 Date of Visit: 08/14/24 Chief Complaint: s/p laparoscopic cholecystectomy History of Present Illness: Yvette Wade is a 24 y.o. old female s/p laparoscopic cholecystectomy on 07/30/24 for a gallbladder polyp. Surgical pathology showed mild chronic cholecystitis and cholesterol polyp formation. Prior to surgery, she was getting intermittent abdominal pain with associated na usea that was occurring several times per week. Since surgery, she reports to being a little sore from the surgery itself but cannot recall any recurrent episodes of postprandial abdominal pain. She denies any fever, yellowing of the skin or eyes or dark-colored urine. She denies any issues with diarrhea. Home Medications: Prior to Admission medications Medication Sig Start Date End Date Taking? Authorizing Provider busPIRone (Buspar) 5 mg tablet Take 1 tablet (5 mg) by mouth 3 times a day as needed (anxiety). 06/02/24 06/02/25 Sangeeta Ruano PA-C citalopram (CeleXA) 20 mg tablet TAKE 1 TABLET BY MOUTH EVERY DAY 01/21/24 Sangeeta Ruano PA-C cyanocobalamin (Vitamin B-12) 1,000 mcg tablet Take 1 tablet (1,000 mcg) by mouth once daily. 06/02/24 06/02/25 Sangeeta Ruano PA-C fexofenadine ODT (Haydee ODT) 30 mg disintegrating tablet Dissolve 1 tablet (30 mg) in the mouth once daily. Historical Provider, levonorgestrel (Mirena) 21 mcg/24 hr (8 yrs) 52 mg IUD by intrauterine route once daily. 07/31/19 Historical Provider, omeprazole (PriLOSEC) [address] capsule Take 1 capsule (40 mg) by mouth 2 times a day before meals. 02/26/24 03/27/24 Carolynn Mendoza MD tirzepatide, weight loss, (Zepbound) 2.5 mg/0.5 mL injection Inject 2.5 mg under the skin every 7 days. 05/19/24 Sangeeta Ruano PA-C Allergies: Peanuts ROS: No yellowing of the skin or eyes or dark-colored urine No diarrhea Physical Exam: No physical exam performed as this was a virtual telephone follow up. Assessment and Plan: Yvette Wade is a 24 y.o. old female s/p laparoscopic cholecystectomy. She is doing well without any symptoms of postoperative complication. She will continue to refrain from anyheavy lifting for another 2 weeks to minimize risk of incisional hernia, but may otherwise resume regular activity. She will follow-up as needed. Carolynn Mendoza MD 08/14/2024 documented in this [facility] Work Phone: [phone] History of Present illness Narrative* Carolynn Mendoza MD - 07/17/2024 9:00 AM EST General Surgery Follow-up Visit Patient: Yvette Wade : 2000 Date of Visit: 07/17/24 Chief Complaint: Upper abdominal pain History of Present Illness: Yvette Wade is a 24 y.o. old female who I initially evaluated on 02/25/24 for upper abdominal pain. The pain was occurring several times a week and can last up to a wholeday. She had associated nausea but no vomiting. She would get loose bowel movements if she eats greasy food and pain is increased with spicy or greasy food. She had an ultrasound that showed a nondistended gallbladder without gallstones, but there was a small 4 mm foci consistent with a polyp. She had a history of peptic ulcer disease and therefore we performed an upper endoscopy on 02/25/25. Shehad a small focal area of mild gastritis but no discrete ulcers and tested negative for H. pylori. She was being treated with PPI and Carafate. Despite this, she continues to have intermittent right upper quadrant abdominal pain. She thinks this is a little less frequent, but still occurring at least once a week. She denies any yellowing of the skin or eyes or dark-colored urine. She has associated nausea but no vomiting. Medical History: Gallbladder polyp History of peptic ulcer disease GERD Obesity, BMI 35 Anxiety/depression Surgical History: EGD 02/25/25, mild focal gastritis EGD in 2016, 2018 Appendectomy Tonsillectomy Stewart tooth extraction Home Medications: Prior to Admission medications Medication Sig Start Date End Date Taking? Authorizing Provider busPIRone (Buspar) 5 mg tablet Take 1 tablet (5 mg) by mouth 3 times a day as needed (anxiety). 06/02/24 06/02/25 Sangeeta Ruano PA-C citalopram (CeleXA) 20 mg tablet TAKE 1 TABLET BY MOUTH EVERY DAY 01/21/24 Sangeeta B Bindu, PA-C cyanocobalamin (Vitamin B-12) 1,000 mcg tablet Take 1 tablet (1,000 mcg) by mouth once daily. 06/02/24 06/02/25 Sangeeta Ruano PA-C fexofenadine ODT (Haydee ODT) 30 mg disintegrating tablet Take 1 tablet (30 mg) by mouth once daily. Historical Provider, levonorgestrel (Mirena) 21 mcg/24 hr (8 yrs) 52 mg IUD by intrauterine route once daily. 07/31/19 Historical Provider, omeprazole (PriLOSEC) [address] capsule Take 1 capsule (40 mg) by mouth 2 times a day before meals. 02/26/24 03/27/24 Carolynn Mendoza MD tirzepatide, weight loss, (Zepbound) 2.5 mg/0.5 mL injection Inject 2.5 mg under the skin every 7 days. 05/19/24 Sangeeta Ruano PA-C Allergies: Peanut Family History: Mother, maternal aunt, and maternal grandmother and maternal great grandmother with cholelithiasis. Maternal grandfather with history of colorectal cancer. Father with hypertension, heart disease. Social History: Non-smoker. Occasionally vapes nicotine. Drinks wine 1 day/week. No drug use. 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 ROS: Constitutional: no fever, + weight gain Cardiovascular: No chest pain Respiratory: No cough or shortness of breath Gastrointestinal: + Abdominal pain, bloating, food sensitivities, loose bowel movements with certain foods Genitourinary: no dark-colored urine Musculoskeletal: no weakness or swelling Integumentary: no jaundice Neurological: no confusion Psychiatric: + Anxiety Endocrine: no heat or cold intolerance Heme/Lymph: no easy bruising or bleeding Objective: BP 136/80 Pulse 51 Ht 1.549 m (5' 1) Wt 84.8 kg (187 lb) Comment: WT recorded from last visit. BMI 35.33 kg/m Physical Exam: Constitutional: No acute distress, conversant, pleasant Neurologic: alert and oriented Psych: appropriate affect Ears, Nose, Mouth and Throat: mucus membranes moist Pulmonary: No labored breathing Cardiovascular: Regular rate and rhythm Abdomen: soft, non-distended, BMI 35, no upper abdominal scars, non-tender on today's exam Musculoskeletal: Moves all extremities, no edema Skin: no jaundice Labs: Labs from 12/27/23 reviewed: WBC 9.6, Hgb 14, LFTs within normal limits including T. bili 0.3 Imaging: Right upper quadrant ultrasound from 12/31/23 reviewed: Gallbladder is nondistended. No stones, wallthickening, or pericholecystic fluid. Sonographic Estrada sign is negative. There is an echogenic foci measuring 4 x 4 x 3 mm consistent with a polyp. No biliary ductal dilation, CBD measures 2.7 mm. Assessment and Plan: Yvette Wade is a 24 y.o. old female with a symptomatic gallbladder polyp. Risks, benefits and alternatives of laparoscopic cholecystectomy were discussed with the patient. This included risk of bleeding, infection, viscus injury, conversion to an open procedure, bile leakage or bile duct injury, post-cholecystectomy diarrhea, possible non-resolution or recurrence of symptoms, and possible need for subsequent endoscopic or surgical interventions. The patient was agreeable to proceed with surgery and is scheduled for laparoscopic cholecystectomy on 07/30/24. Carolynn Mendoza MD 07/17/2024 documented in this [facility] Work Phone: [phone] NoteHNO ID: [id number] Author: KELLIE FONSECA APRN.[facility] Service: ? Author Type: Nurse Practitioner Type: Progress Notes Filed: 07/07/2024 10:45 Note Text: This note was created using NoteWriter. Subjective Yvette Wade is a 23 year old female. 23 year old female with PMH acid reflux presents for illness Acute onset 2 weeks ago +nasal congestion +post nasal drainage +sinus pain +sinus pressure +sore throat Mild cough Denies SOB Denies dyspnea Denies abdominal pain Denies N/V/D Used Tylenol Used nasal decongestant +vapes The history is provided by the patient. No language and literature division chair was used. Nasal Congestion This is a new problem. The current episode started 1 to 4 weeks ago. The problem has been gradually worsening since onset. There has been no fever. Her pain is at a severity of 5/10. The pain is moderate. Associated symptoms include congestion, coughing, ear pain, headaches, sinus pressure, sneezing, a sore throat and swollen glands. Pertinent negatives include no chills, diaphoresis, hoarse voice, neck pain or shortness of breath. Past treatments include oral decongestants and acetaminophen. The treatment provided no relief. No past medical history on file. PAST SURGICAL HISTORY Procedure Laterality Date REMOVE TONSILS/ADENOIDS,<12 Y/O ALLERGIES Patient has no known allergies. MEDICATIONS citalopram (CELEXA) 20 mg tablet Take 1 tablet by mouth every afternoon. omeprazole (PRILOSEC) 40 mg capsule Take 40 mg by mouth. levonorgestrel (MIRENA) 20 mcg/24 hours (5 yrs) 52 mg IUD 1 Each by INTRAUTERINE route continuous. ibuprofen (MOTRIN) 200 mg tablet Take 200 mg by mouth every 6 hours as needed. cetirizine HCl (ZYRTEC ORAL) Take by mouth. amoxicillin-clavulanate potassium (AUGMENTIN) 875-125 mg per tablet Take 1 tablet by mouth two times a day for 7 days. polymyxin B-trimethoprim (POLYTRIM) 10,000 unit- 1 mg/mL ophthalmic solution Use 1 Drop in both eyes every 4 hours for 7 days. FAMILY HISTORY Problem Relation Age of Onset No Known Problems Mother No Known Problems Father No Known Problems Sister No Known Problems Brother No Known Problems Maternal Grandmother No Known Problems Maternal Grandfather No Known Problems Paternal Grandmother No Known Problems Paternal Grandfather Social History Tobacco Use Smoking status: Never Smokeless tobacco: Never Vaping Use Vaping status: current everyday user Substance Use Topics Alcohol use: Yes Comment: Socially Drug use: Never Review of Systems Constitutional: Negative for chills and diaphoresis. HENT: Positive for congestion, ear pain, postnasal drip, rhinorrhea, sinus pressure, sinus pain, sneezing and sore throat. Negative for hoarse voice. Eyes: Negative for pain, discharge, redness and itching. Respiratory: Positive for cough. Negative for shortness of breath. Cardiovascular: Negative for chest pain, palpitations and leg swelling. Gastrointestinal: Negative for abdominal pain, diarrhea, nausea and vomiting. Musculoskeletal: Negative for neck pain. Skin: Negative for color change, pallor and rash. Allergic/Immunologic: Negative for environmental allergies, food allergies and immunocompromised state. Neurological: Positive for headaches. Hematological: Positive for adenopathy. Does not bruise/bleed easily. Psychiatric/Behavioral: Negative for agitation and behavioral problems. Objective BP 128/78 Pulse 82 Temp 36.9 ?C (98.5 ?F) Resp 16 Wt 96.4 kg (212 lb 8.4 oz) LMP 08/17/2020 (Exact Date) SpO2 100% BMI 38.87 kg/m? Physical Exam Vitals and nursing note reviewed. Constitutional: General: She is not in acute distress. Appearance: Normal appearance. She is normal weight. She is not ill-appearing, toxic-appearing or diaphoretic. HENT: Head: Normocephalic and atraumatic. Comments: +frontal sinus pressure +maxillary sinus pressure Right Ear: Ear canal and external ear normal. Left Ear: Ear canal and external ear normal. Ears: Comments: B/L TMs mild erythema, Left greater than right Nose: Rhinorrhea present. No congestion. Mouth/Throat: Mouth: Mucous membranes are moist. Pharynx: Posterior oropharyngeal erythema present. No oropharyngeal exudate. Eyes: General: Right eye: No discharge. Left eye: No discharge. Extraocular Movements: Extraocular movements intact. Pupils: Pupils are equal, round, and reactive to light. Comments: Vision grossly intact Bilateral conjunctiva mildly injected Marginal eyelid debris +red reflex bilateral Cardiovascular: Rate and Rhythm: Normal rate and regular rhythm. Pulses: Normal pulses. Heart sounds: Normal heart sounds. No murmur heard. No friction rub. Pulmonary: Effort: Pulmonary effort is normal. No respiratory distress. Breath sounds: Normal breath sounds. No stridor. No wheezing, rhonchi or rales. Chest: Chest wall: No tenderness. Abdominal: General: Abdomen is flat. The (more content not included)...[facility]02-24-2025 History of Present illness Narrative* Kellie Fonseca APRN.[facility] - 07/07/2024 10:22 AM EST This note was created using NoteWriter. Subjective Yvette Wade is a 23 year old female. 23 year old female with PMH acid reflux presents for illness Acute onset 2 weeks ago +nasal congestion +post nasal drainage +sinus pain +sinus pressure +sore throat Mild cough Denies SOB Denies dyspnea Denies abdominal pain Denies N/V/D Used Tylenol Used nasal decongestant +vapes The history is provided by the patient. No language and literature division chair was used. Nasal Congestion This is a new problem. The current episode started 1 to 4 weeks ago. The problem has been graduallyworsening since onset. There has been no fever. Her pain is at a severity of 5/10. The pain is moderate. Associated symptoms include congestion, coughing, ear pain, headaches, sinus pressure, sneezing, a sore throat and swollen glands. Pertinent negatives include no chills, diaphoresis, hoarse voice, neck pain or shortness of breath. Past treatments include oral decongestants and acetaminophen. The treatment provided no relief. No past medical history on file. PAST SURGICAL HISTORY Procedure Laterality Date REMOVE TONSILS/ADENOIDS,<12 Y/O ALLERGIES Patient has no known allergies. MEDICATIONS citalopram (CELEXA) 20 mg tablet Take 1 tablet by mouth every afternoon. omeprazole (PRILOSEC) 40 mg capsule Take 40 mg by mouth. levonorgestrel (MIRENA) 20 mcg/24 hours (5 yrs) 52 mg IUD 1 Each by INTRAUTERINE route continuous. ibuprofen (MOTRIN) 200 mg tablet Take 200 mg by mouth every 6 hours as needed. cetirizine HCl (ZYRTEC ORAL) Take by mouth. amoxicillin-clavulanate potassium (AUGMENTIN) 875-125 mg per tablet Take 1 tablet by mouth two times a day for 7 days. polymyxin B-trimethoprim (POLYTRIM) 10,000 unit- 1 mg/mL ophthalmic solution Use 1 Drop in both eyes every 4 hours for 7 days. FAMILY HISTORY Problem Relation Age of Onset No Known Problems Mother No Known Problems Father No Known Problems Sister No Known Problems Brother No Known Problems Maternal Grandmother No Known Problems Maternal Grandfather No Known Problems Paternal Grandmother No Known Problems Paternal Grandfather Social History Tobacco Use Smoking status: Never Smokeless tobacco: Never Vaping Use Vaping status: current everyday user Substance Use Topics Alcohol use: Yes Comment: Socially Drug use: Never Review of Systems Constitutional: Negative for chills and diaphoresis. HENT: Positive for congestion, ear pain, postnasal drip, rhinorrhea, sinus pressure, sinus pain, sneezing and sore throat. Negative for hoarse voice. Eyes: Negative for pain, discharge, redness and itching. Respiratory: Positive for cough. Negative for shortness of breath. Cardiovascular: Negative for chest pain, palpitations and leg swelling. Gastrointestinal: Negative for abdominal pain, diarrhea, nausea and vomiting. Musculoskeletal: Negative for neck pain. Skin: Negative for color change, pallor and rash. Allergic/Immunologic: Negative for environmental allergies, food allergies and immunocompromised state. Neurological: Positive for headaches. Hematological: Positive for adenopathy. Does not bruise/bleed easily. Psychiatric/Behavioral: Negative for agitation and behavioral problems. Objective BP 128/78 Pulse 82 Temp 36.9 C (98.5 F) Resp 16 Wt 96.4 kg (212 lb 8.4 oz) LMP 08/17/2020(Exact Date) SpO2 100% BMI 38.87 kg/m Physical Exam Vitals and nursing note reviewed. Constitutional: General: She is not in acute distress. Appearance: Normal appearance. She is normal weight. She is not ill-appearing, toxic-appearing or diaphoretic. HENT: Head: Normocephalic and atraumatic. Comments: +frontal sinus pressure +maxillary sinus pressure Right Ear: Ear canal and external ear normal. Left Ear: Ear canal and external ear normal. Ears: Comments: B/L TMs mild erythema, Left greater than right Nose: Rhinorrhea present. No congestion. Mouth/Throat: Mouth: Mucous membranes are moist. Pharynx: Posterior oropharyngeal erythema present. No oropharyngeal exudate. Eyes: General: Right eye: No discharge. Left eye: No discharge. Extraocular Movements: Extraocular movements intact. Pupils: Pupils are equal, round, and reactive to light. Comments: Vision grossly intact Bilateral conjunctiva mildly injected Marginal eyelid debris +red reflex bilateral Cardiovascular: Rate and Rhythm: Normal rate and regular rhythm. Pulses: Normal pulses. Heart sounds: Normal heart sounds. No murmur heard. No friction rub. Pulmonary: Effort: Pulmonary effort is normal. No respiratory distress. Breath sounds: Normal breath sounds. No stridor. No wheezing, rhonchi or rales. Chest: Chest wall: No tenderness. Abdominal: General: Abdomen is flat. There is no distension. Palpations: Abdomen is soft. There is no mass. Tenderness: There is no abdominal tenderness. There is no right CVA tenderness, left CVA tenderness, guarding or rebound. Hernia: No hernia is present. Musculoskeletal: General: No swelling, tenderness, deformity or signs of injury. Normal range of motion. Cervical back: Normal range of motion and neck supple. No rigidity. Right lower leg: No edema. Left lower leg: No edema. Lymphadenopathy: Cervical: Cervical adenopathy present. Skin: General: Skin is warm and dry. Capillary Refill: Capillary refill takes less than 2 seconds. Coloration: Skin is not jaundiced or pale. Findings: No bruising, erythema, lesion or rash. Neurological: General: No focal deficit present. Mental Status: She is alert and oriented to person, place, and time. Cranial Nerves: No cranial nerve deficit. Sensory: No sensory deficit. Motor: No weakness. Coordination: Coordination normal. Gait: Gait normal. Psychiatric: Mood and Affect: Mood normal. Behavior: Behavior normal. Thought Content: Thought content normal. Judgment: Judgment normal. Assessment and Plan ASSESSMENT/PLAN: 1. Rhinosinusitis - ICD9: 473.9, ICD10: J32.9 (primary diagnosis) X 2 weeks +frontal sinus pressure +maxillary sinus pressure - Will begin treatment with as per antibiotic as written, see orders - The patient should also be given OTC cough and cold meds as needed, warm salt water gargles, throat lozenges and/or OTC throat spray as needed, and nasal saline gtts and suction prn for the first 5-7 days of treatment. - Supportive care with plenty of fluids, rest, and analgesia prn. - Follow up in 3-5 days if symptoms persist or worsen. - STREP A MOLECULAR (POC) 2. Acute otitis media, left - ICD9: 382.9, ICD10: H66.92 - Will begin treatment with as per antibiotic as written, see orders - The patient should also be given OTC cough and cold meds as needed, warm salt water gargles, throat lozenges and/or OTC throat spray as needed, and nasal saline gtts and suction prn for the first 5-7 days of treatment. - Supportive care with plenty of fluids, rest, and analgesia prn. - Follow up in 3-5 days if symptoms persist or worsen. 3. Acute conjunctivitis of both eyes, unspecified acute conjunctivitis type - ICD9: 372.00, ICD10: H10.33 - see medication orders - course and contagiousness issues discussed, including hand washing. - Instructed to call if high fever, development of periorbital redness or swelling, eye pain, visual changes, concerns or if symptoms persist. Kellie Fonseca APRN.MILLIE [facility] History of Present illness Narrative* Sangeeta Ruano PA-C - 04/01/2024 2:00 PM EST Subjective Patient ID: Yvette Stroud is a 23 y.o. female who presents for Follow-up (C/O ANAL ITCHING ON SEVERAL OCCASIONS AFTER CONSUMING CASHEWS - SUSPECT POSSIBLE ALLERGY. PATIENT WAS INITIALLY TREATINGas HEMORRHOIDS BUT NOTHING HELPED SYMPTOMS UNTIL SHE TOOK BENADRYL. PATIENT DID HAVE ALLERGY TESTING WHEN SHE WAS YOUNGER AND WAS RECEIVING ALLERGY INJECTIONS, BUT SHE DOESN'T RECALL BEING TOLD SHE HAD NUT ALLERGY. ) HPI Allergy concerns Pt states she was diagnosed with nut allergy /sensitivity years ago but in gen symptoms have been mild. She states her dad has a cashew allergy and when he eats cashews or something contaminated withthem he notes anal itching. These were the same symptoms she had when she had cashew last week. Symptoms have since improved with allergy meds and benadryl but slight discomfort remains at times. Shewould like updated allergy testing done. She did see ENT in [place] in the past She denies recent travel, camping or drinking eating food from a likely contaminated source Obesity Pt would like to look into meds to help with weight loss Discussed injectables Discussed adipex Discussed manager training or bariatric referral Labs done in the last 2-3 months are approp Pt to check with her insurance on coverage more so after May 14 and discussed looking into copay cards Pt to call sooner with how she wants to proceed med check GERD/hx of bleeding ulcers 4 mm probable gallbladder polyp - per radiology August 2021 - no further eval was needed RUQ flare up again this summer and she was started on PPI Fam hx of cholelithiasis Pt has known gallbladder pain Some improvement with food - more tolerable - makes me question PUD again Overall symptoms have improved since starting PPI but still has some symptoms - we discussed EGD vsgen surgery to further eval the gallbladder polyp and explained they can do EGD if needed as well US abd - dec 2023 - gallbladder polyp Referred to gen surgery Depression with anxiety and worsening in the last few months Unsure of trigger Celexa doing well - possibly weight gain Buspar needing maybe at most 1-2 times /week Seasonal allergies - haydee - PRN EGD- 2016- bleeding ulcers Colon- 2016- WNL SANITARIAN AIDE- IUD - [facility] - period changes - maybe anxiety triggered or hormonal related- will get labs and advised to follow with SANITARIAN AIDE Phq2 score 14 DEC 2023 Fall - NEG DEC 2023 Patient Active Problem List Diagnosis Abdominal pain Breasts asymmetrical Pyoderma Gallbladder polyp MONET (generalized anxiety disorder) Depression, major, recurrent, mild (CMS-HCC) Gastroesophageal reflux disease without esophagitis History of peptic ulcer Low vitamin B12 level Thrombocytosis Hypercholesterolemia Class 2 severe obesity due to excess calories with serious comorbidity and body mass index (BMI) of35.0 to 35.9 in adult Review of Systems Constitutional: Positive for fatigue. Negative for chills and fever. HENT: Negative for congestion, rhinorrhea, sinus pain, sore throat and tinnitus. Eyes: Negative for discharge, redness and visual disturbance. Respiratory: Negative for cough, chest tightness, shortness of breath and wheezing. Cardiovascular: Negative for chest pain, palpitations and leg swelling. Gastrointestinal: Negative for abdominal pain, constipation, diarrhea, nausea and vomiting. Endocrine: Negative for cold intolerance and heat intolerance. Genitourinary: Negative for flank pain, frequency and urgency. Musculoskeletal: Negative for back pain, gait problem and neck pain. Skin: Negative for rash and wound. Anal itching Neurological: Negative for dizziness, tremors, syncope, numbness and headaches. Hematological: Does not bruise/bleed easily. Psychiatric/Behavioral: Negative for confusion, sleep disturbance and suicidal ideas. Past Medical History: Diagnosis Date Allergic Anxiety and depression GERD (gastroesophageal reflux disease) Urinary tract infection Past Surgical History: Procedure Laterality Date ADENOIDECTOMY ESOPHAGOGASTRODUODENOSCOPY 02/26/2024 TONSILLECTOMY WISDOM TOOTH EXTRACTION Family History Problem Relation Name Age of Onset Cholelithiasis Mother Hypertension Father Heart disease Father Diabetes Brother Cholelithiasis Mother's Sister Cholelithiasis Maternal Grandmother Rectal cancer Maternal Grandfather Colon cancer Maternal Grandfather Diabetes Paternal Grandfather Social History Tobacco Use Smoking status: Never Passive exposure: Never Smokeless tobacco: Never Vaping Use Vaping status: Some Days Substances: Nicotine, Flavoring Devices: Disposable Passive vaping exposure: Yes Substance Use Topics Alcohol use: Yes Comment: WINE OCCASIONALLY Drug use: Never Allergies Allergen Reactions Peanut Hives and Itching Current Outpatient Medications Medication Sig Dispense Refill busPIRone (Buspar) 5 mg tablet Take 1 tablet (5 mg) by mouth 3 times a day as needed (anxiety). 90 tablet 1 citalopram (CeleXA) 20 mg tablet TAKE 1 TABLET BY MOUTH EVERY DAY 90 tablet 2 cyanocobalamin (Vitamin B-12) 1,000 mcg tablet Take 1 tablet (1,000 mcg) by mouth once daily. 90 tablet 3 fexofenadine ODT (Haydee ODT) 30 mg disintegrating tablet Take 1 tablet (30 mg) by mouth once daily. levonorgestrel (Mirena) 21 mcg/24 hr (8 yrs) 52 mg IUD by intrauterine route once daily. omeprazole (PriLOSEC) [address] capsule Take 1 capsule (40 mg) by mouth 2 times a day before meals. 60 capsule 0 No current facility-administered medications for this visit. Objective BP 118/83 Pulse 79 Ht 1.549 m (5' 1) Wt 84.8 kg (187 lb) BMI 35.33 kg/m Physical Exam Vitals reviewed. Constitutional: Appearance: Normal appearance. She is obese. HENT: Head: Normocephalic. Right Ear: External ear normal. Left Ear: External ear normal. Nose: Nose normal. No congestion or rhinorrhea. Mouth/Throat: Mouth: Mucous membranes are moist. Eyes: Extraocular Movements: Extraocular movements intact. Conjunctiva/sclera: Conjunctivae normal. Pupils: Pupils are equal, round, and reactive to light. Cardiovascular: Rate and Rhythm: Normal rate and regular rhythm. Pulses: Normal pulses. Pulmonary: Effort: Pulmonary effort is normal. Breath sounds: Normal breath sounds. Abdominal: General: Bowel sounds are normal. Palpations: Abdomen is soft. Tenderness: There is no abdominal tenderness. There is no right CVA tenderness or left CVA tenderness. Hernia: No hernia is present. Genitourinary: Comments: Small hemorrhoid tag noted around 6 oclock Small hemorrhoid noted around 7 oclock - size of a ball pen tip Musculoskeletal: General: No tenderness. Normal range of motion. Cervical back: Normal range of motion. Rigidity present. No tenderness. Skin: General: Skin is warm and dry. Coloration: Skin is jaundiced. Neurological: General: No focal deficit present. Mental Status: She is alert and oriented to person, place, and time. Psychiatric: Mood and Affect: Mood normal. Behavior: Behavior normal. Testing Reviewed old labs BS and thyroid approp Impression MDM 1) COMPLEXITY: 1 UNDIAGNOSED NEW PROBLEM WITH UNCERTAIN PROGNOSIS 2)DATA: TESTS INTERPRETED AND OR ORDERED, TOOK INDEPENDENT HISTORY OR RECORDS REVIEWED 3)RISK: MODERATE RISK DUE TO NATURE OF MEDICAL CONDITIONS/COMORBIDITY OR MEDICATIONS ORDERED OR SURGICAL OR PROCEDURE REFERRAL, . Reviewed labs and Testing on file Patient to follow diet low in cholesterol, fat, and sodium. Patient is advised to increase Exercise. Patient is recommended to lose weight. Reviewed Meds and discussed common side effects Continue as directed Steroid given pending rectal symptoms Referral for additional allergy testing Patient is strongly advised to be compliant with recommendations. Return to Clinic sooner if needed. Patient denies further questions/concerns at this time Assessment/Plan Problem List Items Addressed This Visit ICD-10-CM Class 2 severe obesity due to excess calories with serious comorbidity and body mass index (BMI) of35.0 to 35.9 in adult E66.812, E66.01, Z68.35 Other Visit Diagnoses Codes Food allergy - Primary Z91.018 Relevant Medications methylPREDNISolone (Medrol Dospak) 4 mg tablets Other Relevant Orders Referral to ENT Anal itching L29.0 Relevant Orders Referral to ENT Referral to ENT - michi allergy testing - suspect cashew allergy [facility] Work Phone: [phone]) 538-388910-15-2024 Hospital Discharge instructions* Discharge Instructions* Sissy Luis RN - 02/26/2024 4:27 PM EDT Patient Instructions after an endoscopy or colonoscopy The anesthetics, sedatives or narcotics which were given to you today will be acting in your body for the next 24 hours, so you might feel a little sleepy or groggy. This feeling should slowly wear off. Carefully read and follow the instructions. You received sedation today: - Do not drive or operate any machinery or power tools of any kind. - No alcoholic beverages today, not even beer or wine. - Do not make any important decisions or sign any legal documents. - No over the counter medications that contain alcohol or that may cause drowsiness. - Do not make any important decisions or sign any legal documents. While it is common to experience mild to moderate abdominal distention, gas, or belching after yourprocedure, if any of these symptoms occur following discharge from the GI Lab or within one week ofhaving your procedure, call the [facility] to be advised whether a visit to your nearest Urgent Care or Emergency Department is indicated. Take this paper with you if you go. - If you develop an allergic reaction to the medications that were given during your procedure suchas difficulty breathing, rash, hives, severe nausea, vomiting or lightheadedness.- If you experience chest pain, shortness of breath, severe abdominal pain, fevers and chills. -If you develop signs and symptoms of bleeding such as blood in your spit, if your stools turn black, tarry, or bloody - If you have not urinated within 8 hours following your procedure.- If your IV site becomes painful, red, inflamed, or looks infected. documented in this [facility] Work Phone: [phone]) 696-537310-15-2024 Hospital Discharge instructions* Discharge Instructions* Sissy Luis RN - 02/26/2024 4:27 PM EDT Patient Instructions after an endoscopy or colonoscopy The anesthetics, sedatives or narcotics which were given to you today will be acting in your body for the next 24 hours, so you might feel a little sleepy or groggy. This feeling should slowly wear off. Carefully read and follow the instructions. You received sedation today: - Do not drive or operate any machinery or power tools of any kind. - No alcoholic beverages today, not even beer or wine. - Do not make any important decisions or sign any legal documents. - No over the counter medications that contain alcohol or that may cause drowsiness. - Do not make any important decisions or sign any legal documents. While it is common to experience mild to moderate abdominal distention, gas, or belching after yourprocedure, if any of these symptoms occur following discharge from the GI Lab or within one week ofhaving your procedure, call the [facility] to be advised whether a visit to your nearest Urgent Care or Emergency Department is indicated. Take this paper with you if you go. - If you develop an allergic reaction to the medications that were given during your procedure suchas difficulty breathing, rash, hives, severe nausea, vomiting or lightheadedness.- If you experience chest pain, shortness of breath, severe abdominal pain, fevers and chills. -If you develop signs and symptoms of bleeding such as blood in your spit, if your stools turn black, tarry, or bloody - If you have not urinated within 8 hours following your procedure.- If your IV site becomes painful, red, inflamed, or looks infected. documented in this [facility] Work Phone: [phone]) 456-660810-15-2024 Attending History and physical note* Carolynn Mendoza MD - 02/26/2024 2:10 PM EDT H&P reviewed. The patient was examined and there are no changes to the H&P. Source Note - Carolynn Mendoza MD - 02/25/2024 3:30 PM EDT General Surgery Consultation Patient: Yvette Wade : 2000 Date of Consultation: 02/25/24 Referring Primary Care Provider: Sangeeta Ruano PA-C Chief Complaint: Upper abdominal pain History of Present Illness: Yvette Wade is a 23 y.o. old female seen at the request of Sangeeta Ruano PA-C, for evaluation of upper abdominal pain. She has been having upper abdominal pain that is more often on the right side than the left. This occurs 3-4 times per week. It can last up to a whole day. She has associated nausea but no vomiting. She denies any fever, yellowing of the skin or eyes or dark-colored urine at time of this pain. She has loose bowel movements if she eats greasy food. The pain is increased with eating spicy or greasy food. Specifically, hot Cheetos and hot wings have elicited this pain. She has a history of peptic ulcer disease and underwent EGD in 2015 when she was diagnosed with ulcers. At that time they were attributed to anxiety and NSAID use. She had a surveillance EGD in 2018 that showed resolution of the ulcers. Around that time, she had 30 pound weight loss. She reports that her current symptoms feel similar but not the same as when she had ulcersin the past. She denies any melena. She had an abdominal ultrasound that showed the presence of a gallbladder polyp measuring 4 mm. She had no stones or inflammatory changes of the gallbladder. LFTs are within normal limits. Her mother, maternal grandmother, and maternal great grandmother all had cholecystectomies for benign indication. Medical History: Bladder polyp History of peptic ulcer disease GERD Obesity, BMI 35 Anxiety/depression Surgical History: EGD in 2015, 2018 Appendectomy Tonsillectomy Stewart tooth extraction Home Medications: Prior to Admission medications Medication Sig Start Date End Date Taking? Authorizing Provider busPIRone (Buspar) 5 mg tablet Take 1 tablet (5 mg) by mouth 3 times a day as needed (anxiety). 12/27/23 12/26/24 Sangeeta Ruano PA-C citalopram (CeleXA) 20 mg tablet TAKE 1 TABLET BY MOUTH EVERY DAY 01/21/24 Sangeeta Ruano PA-C cyanocobalamin (Vitamin B-12) 1,000 mcg tablet Take 1 tablet (1,000 mcg) by mouth once daily. 02/11/24 02/10/25 Sangeeta Ruano PA-C fexofenadine ODT (Haydee ODT) 30 mg disintegrating tablet Take 1 tablet (30 mg) by mouth once daily. Historical Provider, levonorgestrel (Mirena) 21 mcg/24 hr (8 yrs) 52 mg IUD by intrauterine route once daily. 07/31/19 Historical Provider, nitrofurantoin, macrocrystal-monohydrate, (Macrobid) 100 mg capsule Take 1 capsule (100 mg) by mouth 2 times a day for 7 days. 02/14/24 02/21/24 Sangeeta Ruano PA-C omeprazole (PriLOSEC) [address] capsule Take 1 capsule (40 mg) by mouth once daily in the morning. Take before meals. 12/27/23 Sangeeta Ruano PA-C Allergies: Peanuts Family History: Mother, maternal aunt, and maternal grandmother and maternal great grandmother with cholelithiasis. Maternal grandfather with history of colorectal cancer. Father with hypertension, heart disease. Social History: Non-smoker. Occasionally vapes nicotine. Drinks wine 1 day/week. No drug use. ROS: Constitutional: no fever, + weight gain Cardiovascular: No chest pain Respiratory: No cough or shortness of breath Gastrointestinal: + Abdominal pain, bloating, food sensitivities Genitourinary: no dark-colored urine Musculoskeletal: no weakness or swelling Integumentary: no jaundice Neurological: no confusion Psychiatric: + Anxiety Endocrine: no heat or cold intolerance Heme/Lymph: no easy bruising or bleeding Objective: BP 116/76 Pulse 72 Ht 1.549 m (5' 1) Wt 86.3 kg (190 lb 3.2 oz) BMI 35.94 kg/m Physical Exam: Constitutional: No acute distress, conversant, pleasant Neurologic: alert and oriented Psych: appropriate affect Ears, Nose, Mouth and Throat: mucus membranes moist Pulmonary: No labored breathing Cardiovascular: Regular rate and rhythm Abdomen: soft, non-distended, BMI 36, no upper abdominal scars, mildly tender to palpation in the upper abdomen bilaterally Musculoskeletal: Moves all extremities, no edema Skin: no jaundice Labs: Labs from 12/27/23 reviewed: WBC 9.6, Hgb 14, LFTs within normal limits including T. bili 0.3 Imaging: Right upper quadrant ultrasound from 12/31/23 reviewed: Gallbladder is nondistended. No stones, wallthickening, or pericholecystic fluid. Sonographic Estrada sign is negative. There is an echogenic foci measuring 4 x 4 x 3 mm consistent with a polyp. No biliary ductal dilation, CBD measures 2.7 mm. Assessment and Plan: Yvette Wade is a 23 y.o. old female with postprandial upper abdominal pain. Isuspect that this is secondary to the gallbladder, particularly given her strong family history of gallbladder disease. However, she also has a personal history of peptic ulcer disease and spicy foodelicits the symptoms. It is difficult to tell because the spicy foods that she is eating are also high in fat content. I have recommended upper endoscopy to evaluate for an ulcer. If this is normal, I will then see her back to discuss cholecystectomy. We discussed the risks of EGD. This included risks of bleeding, perforation, and potential need for additional procedures pending findings. She wasagreeable to proceed and is scheduled for EGD tomorrow. We will do this at [facility] with the assistance of Anesthesiology given patient's anxiety regarding tolerance. Carolynn Mendoza MD 02/25/2024 [facility] Work Phone: [phone]) [phone] History and physical note* Carolynn Mendoza MD - 02/26/2024 2:10 PM EDT H&P reviewed. The patient was examined and there are no changes to the H&P. Source Note - Carolynn Mendoza MD - 02/25/2024 3:30 PM EDT General Surgery Consultation Patient: Yvette Wade : 2000 Date of Consultation: 02/25/24 Referring Primary Care Provider: Sangeeta Ruano PA-C Chief Complaint: Upper abdominal pain History of Present Illness: Yvette Wade is a 23 y.o. old female seen at the request of Sangeeta Ruano PA-C, for evaluation of upper abdominal pain. She has been having upper abdominal pain that is more often on the right side than the left. This occurs 3-4 times per week. It can last up to a whole day. She has associated nausea but no vomiting. She denies any fever, yellowing of the skin or eyes or dark-colored urine at time of this pain. She has loose bowel movements if she eats greasy food. The pain is increased with eating spicy or greasy food. Specifically, hot Cheetos and hot wings have elicited this pain. She has a history of peptic ulcer disease and underwent EGD in 2015 when she was diagnosed with ulcers. At that time they were attributed to anxiety and NSAID use. She had a surveillance EGD in 2018 that showed resolution of the ulcers. Around that time, she had 30 pound weight loss. She reports that her current symptoms feel similar but not the same as when she had ulcersin the past. She denies any melena. She had an abdominal ultrasound that showed the presence of a gallbladder polyp measuring 4 mm. She had no stones or inflammatory changes of the gallbladder. LFTs are within normal limits. Her mother, maternal grandmother, and maternal great grandmother all had cholecystectomies for benign indication. Medical History: Bladder polyp History of peptic ulcer disease GERD Obesity, BMI 35 Anxiety/depression Surgical History: EGD in 2015, 2018 Appendectomy Tonsillectomy Stewart tooth extraction Home Medications: Prior to Admission medications Medication Sig Start Date End Date Taking? Authorizing Provider busPIRone (Buspar) 5 mg tablet Take 1 tablet (5 mg) by mouth 3 times a day as needed (anxiety). 12/27/23 12/26/24 Sangeeta Ruano PA-C citalopram (CeleXA) 20 mg tablet TAKE 1 TABLET BY MOUTH EVERY DAY 01/21/24 Sangeeta Ruano PA-C cyanocobalamin (Vitamin B-12) 1,000 mcg tablet Take 1 tablet (1,000 mcg) by mouth once daily. 02/11/24 02/10/25 Sangeeta Ruano PA-C fexofenadine ODT (Haydee ODT) 30 mg disintegrating tablet Take 1 tablet (30 mg) by mouth once daily. Historical Provider, levonorgestrel (Mirena) 21 mcg/24 hr (8 yrs) 52 mg IUD by intrauterine route once daily. 07/31/19 Historical Provider, nitrofurantoin, macrocrystal-monohydrate, (Macrobid) 100 mg capsule Take 1 capsule (100 mg) by mouth 2 times a day for 7 days. 02/14/24 02/21/24 Sangeeta Ruano PA-C omeprazole (PriLOSEC) [address] capsule Take 1 capsule (40 mg) by mouth once daily in the morning. Take before meals. 12/27/23 Sangeeta B Bindu, PA-C Allergies: Peanuts Family History: Mother, maternal aunt, and maternal grandmother and maternal great grandmother with cholelithiasis. Maternal grandfather with history of colorectal cancer. Father with hypertension, heart disease. Social History: Non-smoker. Occasionally vapes nicotine. Drinks wine 1 day/week. No drug use. ROS: Constitutional: no fever, + weight gain Cardiovascular: No chest pain Respiratory: No cough or shortness of breath Gastrointestinal: + Abdominal pain, bloating, food sensitivities Genitourinary: no dark-colored urine Musculoskeletal: no weakness or swelling Integumentary: no jaundice Neurological: no confusion Psychiatric: + Anxiety Endocrine: no heat or cold intolerance Heme/Lymph: no easy bruising or bleeding Objective: BP 116/76 Pulse 72 Ht 1.549 m (5' 1) Wt 86.3 kg (190 lb 3.2 oz) BMI 35.94 kg/m Physical Exam: Constitutional: No acute distress, conversant, pleasant Neurologic: alert and oriented Psych: appropriate affect Ears, Nose, Mouth and Throat: mucus membranes moist Pulmonary: No labored breathing Cardiovascular: Regular rate and rhythm Abdomen: soft, non-distended, BMI 36, no upper abdominal scars, mildly tender to palpation in the upper abdomen bilaterally Musculoskeletal: Moves all extremities, no edema Skin: no jaundice Labs: Labs from 12/27/23 reviewed: WBC 9.6, Hgb 14, LFTs within normal limits including T. bili 0.3 Imaging: Right upper quadrant ultrasound from 12/31/23 reviewed: Gallbladder is nondistended. No stones, wallthickening, or pericholecystic fluid. Sonographic Estrada sign is negative. There is an echogenic foci measuring 4 x 4 x 3 mm consistent with a polyp. No biliary ductal dilation, CBD measures 2.7 mm. Assessment and Plan: Yvette Wade is a 23 y.o. old female with postprandial upper abdominal pain. Isuspect that this is secondary to the gallbladder, particularly given her strong family history of gallbladder disease. However, she also has a personal history of peptic ulcer disease and spicy foodelicits the symptoms. It is difficult to tell because the spicy foods that she is eating are also high in fat content. I have recommended upper endoscopy to evaluate for an ulcer. If this is normal, I will then see her back to discuss cholecystectomy. We discussed the risks of EGD. This included risks of bleeding, perforation, and potential need for additional procedures pending findings. She wasagreeable to proceed and is scheduled for EGD tomorrow. We will do this at [facility] with the assistance of Anesthesiology given patient's anxiety regarding tolerance. Carolynn Mendoza MD 02/25/2024 documented in this [facility] Work Phone: [phone] History and physical note* Carolynn Mendoza MD - 02/26/2024 2:10 PM EDT H&P reviewed. The patient was examined and there are no changes to the H&P. Source Note - Carolynn Mendoza MD - 02/25/2024 3:30 PM EDT General Surgery Consultation Patient: Yvette Wade : 2000 Date of Consultation: 02/25/24 Referring Primary Care Provider: Sangeeta Ruano PA-C Chief Complaint: Upper abdominal pain History of Present Illness: Yvette Wade is a 23 y.o. old female seen at the request of Sangeeta Ruano PA-C, for evaluation of upper abdominal pain. She has been having upper abdominal pain that is more often on the right side than the left. This occurs 3-4 times per week. It can last up to a whole day. She has associated nausea but no vomiting. She denies any fever, yellowing of the skin or eyes or dark-colored urine at time of this pain. She has loose bowel movements if she eats greasy food. The pain is increased with eating spicy or greasy food. Specifically, hot Cheetos and hot wings have elicited this pain. She has a history of peptic ulcer disease and underwent EGD in 2015 when she was diagnosed with ulcers. At that time they were attributed to anxiety and NSAID use. She had a surveillance EGD in 2018 that showed resolution of the ulcers. Around that time, she had 30 pound weight loss. She reports that her current symptoms feel similar but not the same as when she had ulcersin the past. She denies any melena. She had an abdominal ultrasound that showed the presence of a gallbladder polyp measuring 4 mm. She had no stones or inflammatory changes of the gallbladder. LFTs are within normal limits. Her mother, maternal grandmother, and maternal great grandmother all had cholecystectomies for benign indication. Medical History: Bladder polyp History of peptic ulcer disease GERD Obesity, BMI 35 Anxiety/depression Surgical History: EGD in 2016, 2018 Appendectomy Tonsillectomy Stewart tooth extraction Home Medications: Prior to Admission medications Medication Sig Start Date End Date Taking? Authorizing Provider busPIRone (Buspar) 5 mg tablet Take 1 tablet (5 mg) by mouth 3 times a day as needed (anxiety). 12/27/23 12/26/24 Sangeeta Ruano PA-C citalopram (CeleXA) 20 mg tablet TAKE 1 TABLET BY MOUTH EVERY DAY 01/21/24 Sangeeta Ruano PA-C cyanocobalamin (Vitamin B-12) 1,000 mcg tablet Take 1 tablet (1,000 mcg) by mouth once daily. 02/11/24 02/10/25 Sangeeta Ruano PA-C fexofenadine ODT (Haydee ODT) 30 mg disintegrating tablet Take 1 tablet (30 mg) by mouth once daily. Historical Provider, levonorgestrel (Mirena) 21 mcg/24 hr (8 yrs) 52 mg IUD by intrauterine route once daily. 07/31/19 Historical Provider, nitrofurantoin, macrocrystal-monohydrate, (Macrobid) 100 mg capsule Take 1 capsule (100 mg) by mouth 2 times a day for 7 days. 02/14/24 02/21/24 Sangeeta Ruano PA-C omeprazole (PriLOSEC) [address] capsule Take 1 capsule (40 mg) by mouth once daily in the morning. Take before meals. 12/27/23 Sangeeta Ruano PA-C Allergies: Peanuts Family History: Mother, maternal aunt, and maternal grandmother and maternal great grandmother with cholelithiasis. Maternal grandfather with history of colorectal cancer. Father with hypertension, heart disease. Social History: Non-smoker. Occasionally vapes nicotine. Drinks wine 1 day/week. No drug use. ROS: Constitutional: no fever, + weight gain Cardiovascular: No chest pain Respiratory: No cough or shortness of breath Gastrointestinal: + Abdominal pain, bloating, food sensitivities Genitourinary: no dark-colored urine Musculoskeletal: no weakness or swelling Integumentary: no jaundice Neurological: no confusion Psychiatric: + Anxiety Endocrine: no heat or cold intolerance Heme/Lymph: no easy bruising or bleeding Objective: BP 116/76 Pulse 72 Ht 1.549 m (5' 1) Wt 86.3 kg (190 lb 3.2 oz) BMI 35.94 kg/m Physical Exam: Constitutional: No acute distress, conversant, pleasant Neurologic: alert and oriented Psych: appropriate affect Ears, Nose, Mouth and Throat: mucus membranes moist Pulmonary: No labored breathing Cardiovascular: Regular rate and rhythm Abdomen: soft, non-distended, BMI 36, no upper abdominal scars, mildly tender to palpation in the upper abdomen bilaterally Musculoskeletal: Moves all extremities, no edema Skin: no jaundice Labs: Labs from 12/27/23 reviewed: WBC 9.6, Hgb 14, LFTs within normal limits including T. bili 0.3 Imaging: Right upper quadrant ultrasound from 12/31/23 reviewed: Gallbladder is nondistended. No stones, wallthickening, or pericholecystic fluid. Sonographic Estrada sign is negative. There is an echogenic foci measuring 4 x 4 x 3 mm consistent with a polyp. No biliary ductal dilation, CBD measures 2.7 mm. Assessment and Plan: Yvette Wade is a 23 y.o. old female with postprandial upper abdominal pain. Isuspect that this is secondary to the gallbladder, particularly given her strong family history of gallbladder disease. However, she also has a personal history of peptic ulcer disease and spicy foodelicits the symptoms. It is difficult to tell because the spicy foods that she is eating are also high in fat content. I have recommended upper endoscopy to evaluate for an ulcer. If this is normal, I will then see her back to discuss cholecystectomy. We discussed the risks of EGD. This included risks of bleeding, perforation, and potential need for additional procedures pending findings. She wasagreeable to proceed and is scheduled for EGD tomorrow. We will do this at [facility] with the assistance of Anesthesiology given patient's anxiety regarding tolerance. Carolynn Mendoza MD 02/25/2024 documented in this [facility] Work Phone: [phone] 570-968610-14-2024 History of Present illness Narrative* Carolynn Mendoza MD - 02/25/2024 3:30 PM EDT General Surgery Consultation Patient: Yvette Wade : 2000 Date of Consultation: 02/25/24 Referring Primary Care Provider: Sangeeta Ruano PA-C Chief Complaint: Upper abdominal pain History of Present Illness: Yvette Wade is a 23 y.o. old female seen at the request of Sangeeta Ruano PA-C, for evaluation of upper abdominal pain. She has been having upper abdominal pain that is more often on the right side than the left. This occurs 3-4 times per week. It can last up to a whole day. She has associated nausea but no vomiting. She denies any fever, yellowing of the skin or eyes or dark-colored urine at time of this pain. She has loose bowel movements if she eats greasy food. The pain is increased with eating spicy or greasy food. Specifically, hot Cheetos and hot wings have elicited this pain. She has a history of peptic ulcer disease and underwent EGD in 2016 when she was diagnosed with ulcers. At that time they were attributed to anxiety and NSAID use. She had a surveillance EGD in 2018 that showed resolution of the ulcers. Around that time, she had 30 pound weight loss. She reports that her current symptoms feel similar but not the same as when she had ulcersin the past. She denies any melena. She had an abdominal ultrasound that showed the presence of a gallbladder polyp measuring 4 mm. She had no stones or inflammatory changes of the gallbladder. LFTs are within normal limits. Her mother, maternal grandmother, and maternal great grandmother all had cholecystectomies for benign indication. Medical History: Bladder polyp History of peptic ulcer disease GERD Obesity, BMI 35 Anxiety/depression Surgical History: EGD in 2015, 2018 Appendectomy Tonsillectomy Stewart tooth extraction Home Medications: Prior to Admission medications Medication Sig Start Date End Date Taking? Authorizing Provider busPIRone (Buspar) 5 mg tablet Take 1 tablet (5 mg) by mouth 3 times a day as needed (anxiety). 12/27/23 12/26/24 Sangeeta Ruano PA-C citalopram (CeleXA) 20 mg tablet TAKE 1 TABLET BY MOUTH EVERY DAY 01/21/24 Sangeeta Ruano PA-C cyanocobalamin (Vitamin B-12) 1,000 mcg tablet Take 1 tablet (1,000 mcg) by mouth once daily. 02/11/24 02/10/25 Sangeeta Ruano PA-C fexofenadine ODT (Haydee ODT) 30 mg disintegrating tablet Take 1 tablet (30 mg) by mouth once daily. Historical Provider, levonorgestrel (Mirena) 21 mcg/24 hr (8 yrs) 52 mg IUD by intrauterine route once daily. 07/31/19 Historical Provider, nitrofurantoin, macrocrystal-monohydrate, (Macrobid) 100 mg capsule Take 1 capsule (100 mg) by mouth 2 times a day for 7 days. 02/14/24 02/21/24 Sangeeta Ruano PA-C omeprazole (PriLOSEC) [address] capsule Take 1 capsule (40 mg) by mouth once daily in the morning. Take before meals. 12/27/23 Sangeeta Ruano PA-C Allergies: Peanuts Family History: Mother, maternal aunt, and maternal grandmother and maternal great grandmother with cholelithiasis. Maternal grandfather with history of colorectal cancer. Father with hypertension, heart disease. Social History: Non-smoker. Occasionally vapes nicotine. Drinks wine 1 day/week. No drug use. ROS: Constitutional: no fever, + weight gain Cardiovascular: No chest pain Respiratory: No cough or shortness of breath Gastrointestinal: + Abdominal pain, bloating, food sensitivities Genitourinary: no dark-colored urine Musculoskeletal: no weakness or swelling Integumentary: no jaundice Neurological: no confusion Psychiatric: + Anxiety Endocrine: no heat or cold intolerance Heme/Lymph: no easy bruising or bleeding Objective: BP 116/76 Pulse 72 Ht 1.549 m (5' 1) Wt 86.3 kg (190 lb 3.2 oz) BMI 35.94 kg/m Physical Exam: Constitutional: No acute distress, conversant, pleasant Neurologic: alert and oriented Psych: appropriate affect Ears, Nose, Mouth and Throat: mucus membranes moist Pulmonary: No labored breathing Cardiovascular: Regular rate and rhythm Abdomen: soft, non-distended, BMI 36, no upper abdominal scars, mildly tender to palpation in the upper abdomen bilaterally Musculoskeletal: Moves all extremities, no edema Skin: no jaundice Labs: Labs from 12/27/23 reviewed: WBC 9.6, Hgb 14, LFTs within normal limits including T. bili 0.3 Imaging: Right upper quadrant ultrasound from 12/31/23 reviewed: Gallbladder is nondistended. No stones, wallthickening, or pericholecystic fluid. Sonographic Estrada sign is negative. There is an echogenic foci measuring 4 x 4 x 3 mm consistent with a polyp. No biliary ductal dilation, CBD measures 2.7 mm. Assessment and Plan: Yvette Wade is a 23 y.o. old female with postprandial upper abdominal pain. Isuspect that this is secondary to the gallbladder, particularly given her strong family history of gallbladder disease. However, she also has a personal history of peptic ulcer disease and spicy foodelicits the symptoms. It is difficult to tell because the spicy foods that she is eating are also high in fat content. I have recommended upper endoscopy to evaluate for an ulcer. If this is normal, I will then see her back to discuss cholecystectomy. We discussed the risks of EGD. This included risks of bleeding, perforation, and potential need for additional procedures pending findings. She wasagreeable to proceed and is scheduled for EGD tomorrow. We will do this at [facility] with the assistance of Anesthesiology given patient's anxiety regarding tolerance. Carolynn Mendoza MD 02/25/2024 documented in this [facility] Work Phone: [phone] History of Present illness Narrative* Sangeeta Ruano PA-C - 02/14/2024 2:40 PM EDT Subjective Patient ID: Yvette Stroud is a 23 y.o. female who presents for Difficulty Urinating (C/O DYSURIA AND URINARY FREQUENCY X 3 DAYS. OTC AZO TO TREAT. ) HPI Patient presents today for UTI symptoms x 3 days Dysuria and freq She has been using Azo Denies recent Abx use med check GERD/hx of bleeding ulcers 4 mm probable gallbladder polyp - per radiology August 2021 - no further eval was needed RUQ flare up again this summer and she was started on PPI Fam hx of cholelithiasis Pt has known gallbladder pain Some improvement with food - more tolerable - makes me question PUD again Overall symptoms have improved since starting PPI but still has some symptoms - we discussed EGD vsgen surgery to further eval the gallbladder polyp and explained they can do EGD if needed as well -she would like referral US abd - dec 2023 - gallbladder polyp Depression with anxiety and worsening in the last few months Unsure of trigger Celexa doing well - no bad side effects Buspar needing maybe at most 1-2 times /week Seasonal allergies - haydee - PRN EGD- 2015- bleeding ulcers Colon- 2016- WNL [facility]- IUD - [facility] - period changes - maybe anxiety triggered or hormonal related- will get labs and advised to follow with SANITARIAN AIDE Phq2 score 14 DEC 2023 Fall - NEG DEC 2023 Patient Active Problem List Diagnosis Abdominal pain Breasts asymmetrical Pyoderma Gallbladder polyp MONET (generalized anxiety disorder) Depression, major, recurrent, mild (CMS-HCC) Gastroesophageal reflux disease without esophagitis History of peptic ulcer Low vitamin B12 level Thrombocytosis Hypercholesterolemia Review of Systems Constitutional: Negative for chills, fatigue and fever. HENT: Negative for congestion, rhinorrhea, sinus pain, sore throat and tinnitus. Eyes: Negative for discharge, redness and visual disturbance. Respiratory: Negative for cough, chest tightness, shortness of breath and wheezing. Cardiovascular: Negative for chest pain, palpitations and leg swelling. Gastrointestinal: Negative for abdominal pain, constipation, diarrhea, nausea and vomiting. Endocrine: Negative for cold intolerance and heat intolerance. Genitourinary: Positive for dysuria and frequency. Negative for flank pain and urgency. Musculoskeletal: Negative for back pain, gait problem and neck pain. Skin: Negative for rash and wound. Neurological: Negative for dizziness, tremors, syncope, numbness and headaches. Hematological: Does not bruise/bleed easily. Psychiatric/Behavioral: Negative for confusion, sleep disturbance and suicidal ideas. Past Medical History: Diagnosis Date Allergic GERD (gastroesophageal reflux disease) Urinary tract infection Past Surgical History: Procedure Laterality Date ADENOIDECTOMY TONSILLECTOMY WISDOM TOOTH EXTRACTION Family History Problem Relation Name Age of Onset Cholelithiasis Mother Hypertension Father Heart disease Father Diabetes Brother Cholelithiasis Mother's Sister Cholelithiasis Maternal Grandmother Diabetes Paternal Grandfather Social History Tobacco Use Smoking status: Never Passive exposure: Never Smokeless tobacco: Never Vaping Use Vaping status: Some Days Substances: Nicotine, Flavoring Devices: Disposable Passive vaping exposure: Yes Substance Use Topics Alcohol use: Yes Comment: RARE Drug use: Never Allergies Allergen Reactions Peanut Itching Current Outpatient Medications Medication Sig Dispense Refill busPIRone (Buspar) 5 mg tablet Take 1 tablet (5 mg) by mouth 3 times a day as needed (anxiety). 90 tablet 1 citalopram (CeleXA) 20 mg tablet TAKE 1 TABLET BY MOUTH EVERY DAY 90 tablet 2 cyanocobalamin (Vitamin B-12) 1,000 mcg tablet Take 1 tablet (1,000 mcg) by mouth once daily. 90 tablet 3 fexofenadine ODT (Haydee ODT) 30 mg disintegrating tablet Take 1 tablet (30 mg) by mouth once daily. levonorgestrel (Mirena) 21 mcg/24 hr (8 yrs) 52 mg IUD by intrauterine route once daily. omeprazole (PriLOSEC) [address] capsule Take 1 capsule (40 mg) by mouth once daily in the morning. Take before meals. 30 capsule 5 No current facility-administered medications for this visit. Objective BP 121/81 Pulse 80 Ht 1.549 m (5' 1) Wt 85.3 kg (188 lb) BMI 35.52 kg/m Physical Exam Vitals reviewed. Constitutional: Appearance: Normal appearance. She is obese. HENT: Head: Normocephalic. Right Ear: External ear normal. Left Ear: External ear normal. Nose: Nose normal. No congestion or rhinorrhea. Mouth/Throat: Mouth: Mucous membranes are moist. Eyes: Extraocular Movements: Extraocular movements intact. Conjunctiva/sclera: Conjunctivae normal. Pupils: Pupils are equal, round, and reactive to light. Cardiovascular: Rate and Rhythm: Normal rate and regular rhythm. Pulses: Normal pulses. Pulmonary: Effort: Pulmonary effort is normal. Breath sounds: Normal breath sounds. Abdominal: General: Bowel sounds are normal. Palpations: Abdomen is soft. Tenderness: There is no abdominal tenderness. There is no right CVA tenderness or left CVA tenderness. Musculoskeletal: General: No tenderness. Normal range of motion. Cervical back: Normal range of motion and neck supple. No tenderness. Skin: General: Skin is warm and dry. Neurological: General: No focal deficit present. Mental Status: She is alert and oriented to person, place, and time. Psychiatric: Mood and Affect: Mood normal. Behavior: Behavior normal. Testing In office urine Pos glucose, nitrates, and luekocytes - will send to culture Impression Reviewed labs and Testing on file Patient to follow diet low in cholesterol, fat, and sodium. Patient is advised to increase Exercise. Patient is recommended to lose weight. Reviewed Meds and discussed common side effects Continue as directed Patient is strongly advised to be compliant with recommendations. Return to Clinic sooner if needed. Patient denies further questions/concerns at this time Assessment/Plan Problem List Items Addressed This Visit ICD-10-CM Class 2 severe obesity due to excess calories with serious comorbidity and body mass index (BMI) of35.0 to 35.9 in adult E66.812, E66.01, Z68.35 Other Visit Diagnoses Codes Acute UTI - Primary N39.0 Relevant Medications nitrofurantoin, macrocrystal-monohydrate, (Macrobid) 100 mg capsule Other Relevant Orders Urine Culture Dysuria R30.0 Relevant Orders POCT UA Automated manually resulted (Completed) Fu as [facility] Work Phone: 1([phone]) 553-781209-30-2024 History of Present illness Narrative* Sangeeta Ruano PA-C - 02/11/2024 1:40 PM EDT Subjective Patient ID: Yvette Stroud is a 23 y.o. female who presents for Follow-up (1 MONTH F/U LABS + US ABDOMEN + MED CHECK. ) HPI Labs 2 med check GERD/hx of bleeding ulcers 4 mm probable gallbladder polyp - per radiology August 2021 - no further eval was needed RUQ flare up again this summer and she was started on PPI Fam hx of cholelithiasis Pt has known gallbladder pain Some improvement with food - more tolerable - makes me question PUD again Overall symptoms have improved since starting PPI but still has some symptoms - we discussed EGD vsgen surgery to further eval the gallbladder polyp and explained they can do EGD if needed as well -she would like referral US abd - dec 2023 - gallbladder polyp Depression with anxiety and worsening in the last few months Unsure of trigger Celexa doing well - no bad side effects Buspar needing maybe at most 1-2 times /week Seasonal allergies - haydee - PRN EGD- 2016- bleeding ulcers Colon- 2016- WNL [facility]- IUD - [facility] - period changes - maybe anxiety triggered or hormonal related- will get labs and advised to follow with [facility] Phq2 score 14 DEC 2023 Fall - NEG DEC 2023 Patient Active Problem List Diagnosis Abdominal pain Breasts asymmetrical Pyoderma Gallbladder polyp MONET (generalized anxiety disorder) Depression, major, recurrent, mild (CMS-HCC) Gastroesophageal reflux disease without esophagitis History of peptic ulcer Review of Systems Constitutional: Positive for fatigue. Negative for chills and fever. HENT: Negative for congestion, rhinorrhea, sinus pain, sore throat and tinnitus. Eyes: Negative for discharge, redness and visual disturbance. Respiratory: Negative for cough, chest tightness, shortness of breath and wheezing. Cardiovascular: Negative for chest pain, palpitations and leg swelling. Gastrointestinal: Positive for abdominal pain and nausea. Negative for constipation, diarrhea and vomiting. Endocrine: Negative for cold intolerance and heat intolerance. Genitourinary: Negative for flank pain, frequency and urgency. Musculoskeletal: Negative for back pain, gait problem and neck pain. Skin: Negative for rash and wound. Neurological: Negative for dizziness, tremors, syncope, numbness and headaches. Hematological: Does not bruise/bleed easily. Psychiatric/Behavioral: Positive for dysphoric mood. Negative for confusion, sleep disturbance and suicidal ideas. The patient is nervous/anxious. Past Medical History: Diagnosis Date Allergic GERD (gastroesophageal reflux disease) Urinary tract infection Past Surgical History: Procedure Laterality Date ADENOIDECTOMY TONSILLECTOMY WISDOM TOOTH EXTRACTION Family History Problem Relation Name Age of Onset Cholelithiasis Mother Hypertension Father Heart disease Father Diabetes Brother Cholelithiasis Mother's Sister Cholelithiasis Maternal Grandmother Diabetes Paternal Grandfather Social History Tobacco Use Smoking status: Never Passive exposure: Never Smokeless tobacco: Never Vaping Use Vaping status: Some Days Substances: Nicotine, Flavoring Devices: Disposable Passive vaping exposure: Yes Substance Use Topics Alcohol use: Yes Comment: RARE Drug use: Never Allergies Allergen Reactions Peanut Itching Current Outpatient Medications Medication Sig Dispense Refill busPIRone (Buspar) 5 mg tablet Take 1 tablet (5 mg) by mouth 3 times a day as needed (anxiety). 90 tablet 1 citalopram (CeleXA) 20 mg tablet TAKE 1 TABLET BY MOUTH EVERY DAY 90 tablet 2 fexofenadine ODT (Haydee ODT) 30 mg disintegrating tablet Take 1 tablet (30 mg) by mouth once daily. levonorgestrel (Mirena) 21 mcg/24 hr (8 yrs) 52 mg IUD by intrauterine route once daily. omeprazole (PriLOSEC) [address] capsule Take 1 capsule (40 mg) by mouth once daily in the morning. Take before meals. 30 capsule 5 No current facility-administered medications for this visit. Objective BP 111/77 Pulse 74 Ht 1.549 m (5' 1) Wt 85.3 kg (188 lb) BMI 35.52 kg/m Physical Exam Vitals reviewed. Constitutional: Appearance: Normal appearance. She is obese. HENT: Head: Normocephalic. Right Ear: External ear normal. Left Ear: External ear normal. Nose: Nose normal. No congestion or rhinorrhea. Mouth/Throat: Mouth: Mucous membranes are moist. Eyes: Extraocular Movements: Extraocular movements intact. Conjunctiva/sclera: Conjunctivae normal. Pupils: Pupils are equal, round, and reactive to light. Cardiovascular: Rate and Rhythm: Normal rate and regular rhythm. Pulses: Normal pulses. Pulmonary: Effort: Pulmonary effort is normal. Breath sounds: Normal breath sounds. Abdominal: General: Bowel sounds are normal. Palpations: Abdomen is soft. Tenderness: There is no abdominal tenderness. There is no right CVA tenderness or left CVA tenderness. Musculoskeletal: General: No tenderness. Normal range of motion. Cervical back: Normal range of motion and neck supple. No tenderness. Skin: General: Skin is warm and dry. Neurological: General: No focal deficit present. Mental Status: She is alert and oriented to person, place, and time. Psychiatric: Mood and Affect: Mood normal. Behavior: Behavior normal. Testing Reviewed US Reviewed labs Component Latest Ref Rng 12/27/2023 WBC 4.4 - 11.3 x10*3/uL 9.6 nRBC 0.0 - 0.0 /100 WBCs 0.0 RBC 4.00 - 5.20 x10*6/uL 5.06 HEMOGLOBIN 12.0 - 16.0 g/dL 14.0 HEMATOCRIT 36.0 - 46.0 % 45.9 MCV 80 - 100 fL 91 MCH 26.0 - 34.0 pg 27.7 MCHC 32.0 - 36.0 g/dL 30.5 (L) RED CELL DISTRIBUTION WIDTH 11.5 - 14.5 % 13.2 Platelets 150 - 450 x10*3/uL 571 (H) Neutrophils % 40.0 - 80.0 % 56.0 Immature Granulocytes %, Automated 0.0 - 0.9 % 0.5 Lymphocytes % 13.0 - 44.0 % 32.5 Monocytes % 2.0 - 10.0 % 9.6 Eosinophils % 0.0 - 6.0 % 1.0 Basophils % 0.0 - 2.0 % 0.4 Neutrophils Absolute 1.20 - 7.70 x10*3/uL 5.39 Immature Granulocytes Absolute, Automated 0.00 - 0.70 x10*3/uL 0.05 Lymphocytes Absolute 1.20 - 4.80 x10*3/uL 3.13 Monocytes Absolute 0.10 - 1.00 x10*3/uL 0.93 Eosinophils Absolute 0.00 - 0.70 x10*3/uL 0.10 Basophils Absolute 0.00 - 0.10 x10*3/uL 0.04 GLUCOSE 74 - 99 mg/dL 97 SODIUM 136 - 145 mmol/L 139 POTASSIUM 3.5 - 5.3 mmol/L 4.7 CHLORIDE 98 - 107 mmol/L 106 Bicarbonate 21 - 32 mmol/L 27 Anion Gap 10 - 20 mmol/L 11 Blood Urea Nitrogen 6 - 23 mg/dL 9 Creatinine 0.50 - 1.05 mg/dL 0.77 EGFR >60 mL/min/1.73m*2 >90 Calcium 8.6 - 10.3 mg/dL 9.4 Albumin 3.4 - 5.0 g/dL 4.6 Alkaline Phosphatase 33 - 110 U/L 65 Total Protein 6.4 - 8.2 g/dL 7.1 AST 9 - 39 U/L 17 Bilirubin Total 0.0 - 1.2 mg/dL 0.3 ALT 7 - 45 U/L 22 CHOLESTEROL 0 - 199 mg/dL 235 (H) HDL CHOLESTEROL mg/dL 53.0 Cholesterol/HDL Ratio 4.4 LDL Calculated <=119 mg/dL 150 (H) VLDL 0 - 40 mg/dL 32 TRIGLYCERIDES 0 - 149 mg/dL 160 (H) Non HDL Cholesterol 0 - 149 mg/dL 182 (H) IRON 35 - 150 ug/dL 81 UIBC 110 - 370 ug/dL 252 TIBC 240 - 445 ug/dL 333 % Saturation 25 - 45 % 24 (L) Thyroid Stimulating Hormone 0.44 - 3.98 mIU/L 3.76 Thyroxine, Free 0.61 - 1.12 ng/dL 1.03 FERRITIN 8 - 150 ng/mL 137 MAGNESIUM 1.60 - 2.40 mg/dL 2.12 Vitamin B12 211 - 911 pg/mL 268 Impression MDM 1) COMPLEXITY: 1 UNDIAGNOSED NEW PROBLEM WITH UNCERTAIN PROGNOSIS 2)DATA: TESTS INTERPRETED AND OR ORDERED, TOOK INDEPENDENT HISTORY OR RECORDS REVIEWED 3)RISK: MODERATE RISK DUE TO NATURE OF MEDICAL CONDITIONS/COMORBIDITY OR MEDICATIONS ORDERED OR SURGICAL OR PROCEDURE REFERRAL, . Reviewed labs and Testing on file Patient to follow diet low in cholesterol, fat, and sodium. Patient is advised to increase Exercise. Patient is recommended to lose weight. Reviewed Meds and discussed common side effects Continue as directed B12 - declines shot but will start on supplement Hyperchol - to work on diet and ex Thrombocytosis - likely reactive but advised we monitor and repeat in 3-6 mo GI concerns - referral to gen surgery Mood - well managed on meds Patient is strongly advised to be compliant with recommendations. Return to Clinic sooner if needed. Patient denies further questions/concerns at this time Assessment/Plan Problem List Items Addressed This Visit ICD-10-CM Gallbladder polyp - Primary K82.4 Relevant Orders Referral to General Surgery MONET (generalized anxiety disorder) F41.1 Depression, major, recurrent, mild (CMS-HCC) F33.0 Gastroesophageal reflux disease without esophagitis K21.9 History of peptic ulcer Z87.11 Low vitamin B12 level R79.89 Relevant Medications cyanocobalamin (Vitamin B-12) 1,000 mcg tablet Other Relevant Orders Vitamin B12 Thrombocytosis D75.839 Relevant Orders CBC and Auto Differential Hypercholesterolemia E78.00 Relevant Orders Comprehensive Metabolic Panel Lipid Panel Other Visit Diagnoses Codes RUQ abdominal pain R10.11 FU in 6 mo with labs at [facility] fasting and med check Referral to gen surgery - dr wtat - gallbladder polyp - pain - possible Ulcer and may need EGD as well documented in this [facility] Work Phone: [phone] History of Present illness Narrative* Sangeeta Ruano PA-C - 12/27/2023 11:00 AM EDT Subjective Patient ID: Yvette Wade is a 23 y.o. female who presents for New Patient Visit (NEW PATIENT VISIT-HASN'T SEEN A PCP IN YEARS STRUGGLING WITH DEPRESSION AND ANXIETY WORSENING IN LAST COUPLE MONTHS. STATES SHE DID HAVE A POLLIP ON HER GALLBLADDER AND WAS GETTING YEARLY SCANS AND NOW IS HAVING PAIN IN RIGHT UPPER QUADRANT FOR COUPLE MONTHS.) HPI 1 Est as new patient 2 med check GERD/hx of bleeding ulcers 4 mm probable gallbladder polyp - per radiology August 2021 - no further eval was needed RUQ x few days Fam hx of cholelithiasis Pt has known gallbladder pain Some improvement with food - more tolerable - makes me question PUD again Depression with anxiety and worsening in the last few months Unsure of trigger Pt denies being on meds in the past for this Seasonal allergies - haydee - PRN EGD- 2016- bleeding ulcers Colon- 2016- 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 Negative for chills and fever. HENT: Negative for congestion, rhinorrhea, sinus pain, sore throat and tinnitus. Eyes: Negative for discharge, redness and visual disturbance. Respiratory: Negative for cough, chest tightness, shortness of breath and wheezing. Cardiovascular: Negative for chest pain, palpitations and leg swelling. Gastrointestinal: Positive for abdominal pain. Negative for constipation, diarrhea, nausea and vomiting. Endocrine: Negative for cold intolerance and heat intolerance. Genitourinary: Negative for flank pain, frequency and urgency. Musculoskeletal: Negative for back pain, gait problem and neck pain. Skin: Negative for rash and wound. Neurological: Negative for dizziness, tremors, syncope, numbness and headaches. Hematological: Does not bruise/bleed easily. Psychiatric/Behavioral: Positive for dysphoric mood. Negative for confusion, sleep disturbance and suicidal ideas. The patient is nervous/anxious. Past Medical History: Diagnosis Date Allergic GERD (gastroesophageal reflux disease) Urinary tract infection Past Surgical History: Procedure Laterality Date ADENOIDECTOMY TONSILLECTOMY WISDOM TOOTH EXTRACTION Family History Problem Relation Name Age of Onset Cholelithiasis Mother Hypertension Father Heart disease Father Diabetes Brother Cholelithiasis Mother's Sister Cholelithiasis Maternal Grandmother Diabetes Paternal Grandfather Social History Tobacco Use Smoking status: Never Passive exposure: Never Smokeless tobacco: Never Vaping Use Vaping status: Some Days Substances: Nicotine, Flavoring Devices: Disposable Passive vaping exposure: Yes Substance Use Topics Alcohol use: Yes Comment: RARE Drug use: Never Allergies Allergen Reactions Peanut Itching Current Outpatient Medications Medication Sig Dispense Refill fexofenadine ODT (Haydee ODT) 30 mg disintegrating tablet Take 1 tablet (30 mg) by mouth once daily. levonorgestrel (Mirena) 21 mcg/24 hr (8 yrs) 52 mg IUD by intrauterine route once daily. omeprazole (PriLOSEC) [address] capsule Take 1 capsule (40 mg) by mouth once daily in the morning. Take before meals. No current facility-administered medications for this visit. Objective BP 115/61 Pulse 61 Ht 1.549 m (5' 1) Wt 84.8 kg (187 lb) BMI 35.33 kg/m Physical Exam Vitals reviewed. Constitutional: Appearance: Normal appearance. She is obese. HENT: Head: Normocephalic. Right Ear: External ear normal. Left Ear: External ear normal. Nose: Nose normal. No congestion or rhinorrhea. Mouth/Throat: Mouth: Mucous membranes are moist. Eyes: Extraocular Movements: Extraocular movements intact. Conjunctiva/sclera: Conjunctivae normal. Pupils: Pupils are equal, round, and reactive to light. Cardiovascular: Rate and Rhythm: Normal rate and regular rhythm. Pulses: Normal pulses. Pulmonary: Effort: Pulmonary effort is normal. Breath sounds: Normal breath sounds. Abdominal: General: Bowel sounds are normal. Palpations: Abdomen is soft. Tenderness: There is abdominal tenderness. There is no right CVA tenderness or left CVA tenderness. Musculoskeletal: General: No tenderness. Normal range of motion. Cervical back: Normal range of motion and neck supple. No tenderness. Skin: General: Skin is warm and dry. Neurological: General: No focal deficit present. Mental Status: She is alert and oriented to person, place, and time. Psychiatric: Mood and Affect: Mood normal. Behavior: Behavior normal. Testing Reviewed US on file Impression MDM 1) COMPLEXITY: 1 UNDIAGNOSED NEW PROBLEM WITH UNCERTAIN PROGNOSIS 2)DATA: TESTS INTERPRETED AND OR ORDERED, TOOK INDEPENDENT HISTORY OR RECORDS REVIEWED 3)RISK: MODERATE RISK DUE TO NATURE OF MEDICAL CONDITIONS/COMORBIDITY OR MEDICATIONS ORDERED OR SURGICAL OR PROCEDURE REFERRAL, . Reviewed labs and Testing on file Patient to follow diet low in cholesterol, fat, and sodium. Patient is advised to increase Exercise. Patient is recommended to lose weight. Reviewed Meds and discussed common side effects Continue as directed Gallbladder polyp and consider cholelithiasis but given hx of PUD and improvement with food I question ulcer - inc PPI to 40 mg daily and we discussed consider need for other meds or testing Will update US Mood - start on celexa and buspar - discussed counseling Labs Consider follow up with SANITARIAN AIDE given her menstrual changes Patient is strongly advised to be compliant with recommendations. Return to Clinic sooner if needed. Patient denies further questions/concerns at this time Assessment/Plan Problem List Items Addressed This Visit ICD-10-CM Gallbladder polyp K82.4 Relevant Orders US abdomen limited MONET (generalized anxiety disorder) F41.1 Relevant Medications citalopram (CeleXA) 20 mg tablet busPIRone (Buspar) 5 mg tablet Other Relevant Orders Thyroid Stimulating Hormone Thyroxine, Free Magnesium Vitamin B12 Depression, major, recurrent, mild (CMS-HCC) F33.0 Relevant Medications citalopram (CeleXA) 20 mg tablet Other Relevant Orders Thyroid Stimulating Hormone Thyroxine, Free Magnesium Vitamin B12 Gastroesophageal reflux disease without esophagitis K21.9 Relevant Medications omeprazole (PriLOSEC) [address] capsule Other Relevant Orders CBC and Auto Differential Comprehensive Metabolic Panel Lipid Panel Iron and TIBC Ferritin History of peptic ulcer Z87.11 Relevant Medications omeprazole (PriLOSEC) [address] capsule Other Relevant Orders Iron and TIBC Ferritin Other Visit Diagnoses Codes RUQ abdominal pain - Primary R10.11 Relevant Orders US abdomen limited Class 2 severe obesity due to excess calories with serious comorbidity and body mass index (BMI) of35.0 to 35.9 in adult (Multi) E66.01, Z68.35 Relevant Orders CBC and Auto Differential Comprehensive Metabolic Panel Lipid Panel Thyroid Stimulating Hormone Thyroxine, Free Iron and TIBC Ferritin Magnesium Vitamin B12 FU in 1-2 mo with labs at [facility] fasting and med check Mood check RUQ US - gallbladder polyp /pain documented in this [facility] Work Phone: Discharge summary Author Toby Rodriguez [facility] Note Date/Time December 02, 2024 11:3 3am [facility] Medical Records Department [address] [facility] [place] [address] Emergency Department Summary 12/02/24 MR#: [id number] Acct: [id number] Name: YVETTE WADE Rep #:[id number] : 2000 24 From: Toby Rodriguez MD PCP: FATIMAH Corbett Status:REG ER Location: ED HPI History of Present Illness Chief Complaint: Nausea/Vomiting Detail of Chief Complaint: Nausea and vomiting since discharge from the emergency room Informant: patient Onset/Context/Timing Onset: Yesterday Context: Sudden Onset Timing: Intermittent and Waxes and wanes Quality: Nausea and vomiting Location: GI Current Severity: Mild Maximum Severity: Moderate Worsened by: Thought yesterday was due to new control patch. She also admits to d Relieved by: Initially Zofran. She states the Zofran and ODT tablets she was prescribed Associated Symptoms Associated Symptoms: Thirst, dry mouth, lightheadedness Narrative Narrative: Patient is a 24-year-old female. She was seen yesterday for presumed adverse reaction to medication. She was treated with IV Zofran. Her symptoms resolved. She was discharged home with prescription for Zofran ODT. She states and spiteof taking the Zofran she continues to have nausea and vomiting. She has had several episodes in and I heaves as well. Predominantly dry heaves now. She denies tobacco use however she commented I do not smoke cigarettes . Asked ifshe smokes marijuana. She does smoke marijuana daily. Last use was 2 days ago. She has had no ill contacts. She denies headache, visual, ocular auditory symptoms. She denies cardiac or respiratory symptoms. She does report diffuse abdominal discomfort with nausea and dry heaves. She states she did have diarrhea the other day. She has had no diarrhea since discharge. She endorses decreased urine output as well. She denies dysuria or hematuria. She did not have a test yesterday. She believes her last normal menstrual period was beginning of this month. She has not noted any rash or lesions on her extremities or torso. Prior similar symptoms: Yes Recent Illness/Hospitalization: Yes [facility] Medical History Hypercholesteremia Thrombocytosis Low vitamin B12 level Depression Abdominal pain Gallbladder polyp Peptic ulcer MONET (generalized anxiety disorder) GERD (gastroesophageal reflux disease) Home Medications ?Medication ?Instructions ?Recorded ?Last Taken ?Type cholecalciferol (vitamin D3) 25 25 mcg PO QDAY 5 11/30/24 History mcg (1,000 unit) capsule citalopram 20 mg tablet (Celexa) 20 mg PO QDAY 5 Unknown History Held on 12/01/24. Instructions: PHARMACY ISSUE fexofenadine 60 mg capsule 60 mg PO Q12H 09/18/2411/12 History mecobalamin (vitamin B12) 1,000 1,000 mcg PO QDAY 01/0511/30/24 History mcg chewable tablet omeprazole 20 mg capsule,delayed 20 mg PO QDAY 5 Unknown History release Held on 12/01/24. Instructions: PHARMACY ISSUE ondansetron 4 mg disintegrating 4 mg PO Q8H PRN PRN Na usea #10 tabs 12/01/24 Unknown Rx tablet Allergy/AdvReac Type Severity Reaction Status Date / Time peanut (peanuts) Allergy Anaphylaxis Verified 12/02/24 08:46 Family History Mother Cholelithiasis Father Heart disease Hypertension Grandfather Rectal cancer Colon cancer Grandmother Colon cancer Surgical History H/O adenoidectomy Hx laparoscopic cholecystectomy Social History Smoking Status: Current every day smoker tobacco type: e-cigarettes alcohol intake: current alcohol intake frequency: holidays/special occasions only Alcohol type: wine ROS ROS ED Constitutional Constitutional ED: Reports sweats; Denies chills, fever(s) or subjective Eyes Eyes: Denies blurry vision, change in vision or diplopia ENT ENT ED: Denies ear pain, rhinorrhea or sore throat Cardiovascular Cardiovascular: Denies chest pain, orthopnea, palpitations, paroxysmal nocturnaldyspnea or racing heartbeat Respiratory/Chest Respiratory/Chest: Denies cough, dyspnea, dyspnea on exertion, orthopnea or paroxysmal nocturnal dyspnea Gastrointestinal Gastrointestinal: Reports abdominal pain, nausea and vomiting; Denies constipation, diarrhea or melena Genitourinary Genitourinary ED: Reports other Details: Decreased urine output ; Denies dysuria, hematuria or urinary frequency Musculoskeletal Musculoskeletal: Denies arthralgias or myalgias Integumentary Denies rash Neurologic Neurologic: Reports weakness; Denies headache(s) or paresthesias Hematologic/Lymphatic Hematologic/Lymphatic: Reports systems reviewed and no addt'l complaints, exceptas documented EXAM Physical Exam Const Vital Signs: 12/02/24 08:44 Temperature 99.0 F Temperature Source Oral Pulse Rate 63 Respiratory Rate 18 Blood Pressure 130/65 H Blood Pressure Mean 86 Pulse Ox 99 Oxygen Delivery Method Room Air Positive well nourished and well developed Constitutional Narrative: Vital signs reveal slight elevation in blood pressure. She is not tachycardic. She appears ill but nontoxic. General Appearance ED: well developed HEENT Reports dry mucous membranes HEENT Narrative: Head is atraumatic and normocephalic. Ears normal. Nares patent without discharge. Posterior pharynx is normal. Uvula is midline. Mouth ED: Yes dry mucous membranes Mouth: dry mucous membranes Eyes PERRL and EOMs intact bilaterally Eyes Narrative: There is no nystagmus. General Eye ED: Negative for pale conjunctiva or scleral icterus Neck no lymphadenopathy, supple and no JVD Resp normal respiratory effort and clear to auscultation bilaterally Cardio regular rate, regular rhythm, S1 normal heart sound, S2 normal heart sound and no murmurs GI non-distended and no masses; Negative for normal to inspection, nondistended, normoactive bowel sounds, non-tender or hepatosplenomegaly Auscultation: hypoactive bowel sounds Palpation: soft and tender other (Diffuse. Patient has scar secondary to cholecystectomy.); Negative for guarding or splenomegaly Back/Spine no CVA tenderness Extremity normal to inspection General Extremety ED: Negative for edema or tenderness General Extremity: Negative for edema Neuro oriented x3 and CN's II-XII intact bilaterally Sensorium / Orientation: alert Psych Psych Narrative: Affect is flat. MDM MDM MDM Narrative Medical decision making narrative: Clinically patient is dehydrated. 1 L of normal saline was ordered. In light of her admitted marijuana use daily will initiate the cyclic vomiting order set since the Zofran ODT is not helping. Will obtain BMP and assess BUN to creatinine ratio as well as renal function. test was ordered since this was not ordered yesterday or recently. In my opinion imaging is not needed. She does have some tenderness but has medically a benign History & Record Review Additional record(s) reviewed:: Prior ED visit and Prior labs Lab Data Attestation: I reviewed the patient's lab results. Lab results narrative: Serum test is negative. Labs: Laboratory Results - last 24 hr 12/02/24 09:06 Sodium 139 Potassium 3.7 Chloride 104 Carbon Dioxide 22.8 Anion Gap 13 BUN 10 Creatinine 0.79 Estim Creat Clear Calc 115.91 Est GFR (MDRD) Non-Af 109 BUN/Creatinine Ratio 12.5 Glucose 111 H Calcium 9.0 Serum , Qual NEGATIVE Treatment and Re-Evaluation :: Patient was reassessed at 1124. She passed p.o. challenge. She feels better. Will discharge to home. She was informed I believe this is due to cannabis hyperemesis syndrome. Discharge Plan Triage Chief Complaint: Nausea/Vomiting ED Provider: Toby Rodriguez Dx/Rx/DC Orders Clinical Impression: Cannabis hyperemesis syndrome concurrent with and due to cannabis abuse, Abdominal pain, Acute dehydration Instructions: ED Cyclic Vomiting Syndrome Prescriptions: No Action citalopram [Celexa] 20 mg tablet 20 mg PO QDAY fexofenadine 60 mg capsule 60 mg PO Q12H mecobalamin (vitamin B12) 1,000 mcg tablet,chewable 1,000 mcg PO QDAY cholecalciferol (vitamin D3) 25 mcg (1,000 unit) capsule 25 mcg PO QDAY omeprazole 20 mg capsule,delayed release(DR/EC) 20 mg PO QDAY ondansetron 4 mg tablet,disintegrating 4 mg PO Q8H PRN PRN (Reason: Nausea) Qty: 10 0RF Primary Care Provider: Sangeeta Ruano Referrals: Sangeeta Ruano, FATIMAH [Primary Care Provider] - As Needed Print Language: Croatian Disposition Disposition: Home, Self Care What to do if you have Problems For any increased pain, shortness of breath, bleeding, nausea or vomiting, chestpain, or any unexpected problems, contact your Primary Care Provider. Call [facility] ([phone]) or report to the closest Emergency Room. Call 911 if necessary. 12/02/24 1133 <Electronically signed by Toby Rodriguez MD> Cosigner Signature (if applicable): CC: FATIMAH Corbett ~ Signed [facility] Work Phone: Evaluation note* Diagnosis Acute UTI- Primary Urinary tract infection, site not specified Dysuria Class 2 severe obesity due to excess calories with serious comorbidity and body mass index (BMI) of 35.0 to 35.9 in adult documented in this encounter [facility] Work Phone: Evaluation note* Diagnosis Gallbladder polyp Cholesterolosis of gallbladder documented in this encounter [facility] Work Phone: Evaluation note* Diagnosis Upper abdominal pain Gastroesophageal reflux disease without esophagitis Esophageal reflux History of peptic ulcer Personal history of peptic ulcer disease documented in this encounter [facility] Work Phone: Evaluation note* Diagnosis Food allergy- Primary Dermatitis due to food taken internally Anal itching Pruritus ani Class 2 severe obesity due to excess calories with serious comorbidity and body mass index (BMI) of 35.0 to 35.9 in adult documented in this encounter [facility] Work Phone: Evaluation note* Diagnosis RUQ abdominal pain Abdominal pain, right upper quadrant Gallbladder polyp Cholesterolosis of gallbladder documented in this encounter [facility] Work Phone: Evaluation note* Diagnosis Gallbladder polyp- Primary Cholesterolosis of gallbladder Low vitamin B12 level Thrombocytosis Essential thrombocythemia Hypercholesterolemia Pure hypercholesterolemia Gastroesophageal reflux disease without esophagitis Esophageal reflux History of peptic ulcer Personal history of peptic ulcer disease Depression, major, recurrent, mild (CMS-HCC) MONET (generalized anxiety disorder) Generalized anxiety disorder RUQ abdominal pain Abdominal pain, right upper quadrant documented in this encounter [facility] Work Phone: Evaluation note* Diagnosis RUQ abdominal pain- Primary Abdominal pain, right upper quadrant Gallbladder polyp Cholesterolosis of gallbladder MONET (generalized anxiety disorder) Generalized anxiety disorder Depression, major, recurrent, mild (CMS-HCC) Gastroesophageal reflux disease without esophagitis Esophageal reflux History of peptic ulcer Personal history of peptic ulcer disease Class 2 severe obesity due to excess calories with serious comorbidity and body mass index (BMI) of 35.0 to 35.9 in adult (Multi) documented in this encounter [facility] Work Phone: Evaluation note* Diagnosis Rhinosinusitis- Primary Unspecified sinusitis (chronic) Acute otitis media, left Unspecified otitis media Acute conjunctivitis of both eyes, unspecified acute conjunctivitis type [facility] Gallbladder polyp- Primary Cholesterolosis of gallbladder documented in this encounter [facility] Work Phone: Evaluation note* Diagnosis Postoperative visit- Primary documented in this encounter [facility] Work Phone: Evaluation note* Diagnosis Thrombocytosis- Primary Essential thrombocythemia Hypercholesterolemia Pure hypercholesterolemia Class 2 severe obesity due to excess calories with serious comorbidity and body mass index (BMI) of 35.0 to 35.9 in adult Gastroesophageal reflux disease without esophagitis Esophageal reflux Depression, major, recurrent, mild (CMS-HCC) MONET (generalized anxiety disorder) Generalized anxiety disorder documented in this encounter [facility] Work Phone: Evaluation note* Diagnosis Thrombocytosis Essential thrombocythemia documented in this encounter [facility] Work Phone: [phone] note* Diagnosis Thrombocytosis Essential thrombocythemia documented in this encounter [facility] Work Phone: Evaluation note* Diagnosis Vitamin B12 deficiency- Primary Other B-complex deficiencies Thrombocytosis Essential thrombocythemia Vitamin D deficiency documented in this encounter [facility] Work Phone: Evaluation note* Diagnosis Encounter for gynecological examination (general) (routine) without abnormal findings- Primary Screening for cervical cancer Screening for malignant neoplasm of the cervix Encounter for screening for human papillomavirus (HPV) Special screening examination for human papillomavirus (HPV) Screen for STD (sexually transmitted disease) Screening examination for venereal disease Encounter for removal of intrauterine contraceptive device Encounter for IUD removal Encounter for removal of intrauterine contraceptive device [facility] Diagnosis Encounter for IUD removal- Primary Encounter for removal of intrauterine contraceptive device [facility] Diagnosis Thrombocytosis Essential thrombocythemia Vitamin B12 deficiency Other B-complex deficiencies Vitamin D deficiency documented in this encounter [facility] Work Phone: Evaluation note* Diagnosis Nausea and vomiting, unspecified vomiting type- Primary Urinary tract infection with hematuria, site unspecified documented in this encounter [facility] Work Phone: Evaluation note* Diagnosis Nausea and vomiting, unspecified vomiting type- Primary MONET (generalized anxiety disorder) Generalized anxiety disorder Depression, major, recurrent, mild Vulvovaginal candidiasis Class 1 obesity due to excess calories with serious comorbidity and body mass index (BMI) of 34.0 to 34.9 in adult documented in this encounter [facility] Work Phone: Evaluation note* Diagnosis Upper abdominal pain Gastroesophageal reflux disease without esophagitis Esophageal reflux History of peptic ulcer Personal history of peptic ulcer disease Thrombocytosis Essential thrombocythemia Hypercholesterolemia Pure hypercholesterolemia documented in this encounter [facility] Work Phone: Evaluation note* Diagnosis Encounter for wellness examination in adult- Primary Hypercholesterolemia Pure hypercholesterolemia Thrombocytosis Essential thrombocythemia Need for influenza vaccination Need for prophylactic vaccination and inoculation against influenza Class 1 obesity due to excess calories with serious comorbidity and body mass index (BMI) of 34.0 to 34.9 in adult documented in this encounter [facility] Work Phone: Evaluation note* Diagnosis Thrombocytosis Essential thrombocythemia Vitamin B12 deficiency Other B-complex deficiencies Vitamin D deficiency Thrombocytosis Essential thrombocythemia Vitamin B12 deficiency Other B-complex deficiencies Vitamin D deficiency documented in this encounter [facility] Work Phone: Hospital Discharge instructionsAdditional Instructions Your labs and platelets are stable and normal. Your petechiae caused from your vomiting. This will resolve with time. Use Zofran as needed. Continue oral fluids for hydration. Discussed with your guest relations officer other control options.[facility] Work Phone: Hospital Discharge instructions* Attachments The following attachments cannot be sent through Care Everywhere. * Nausea and vomiting in adults ED discharge instructions (Croatian) * Urinary tract infection in adults ED discharge instructions (Croatian) [facility] Regipn for referral (narrative)* Consultation (Routine) - Authorized Specialty Diagnoses / Procedures Referred By Tiagoac t Referred To Contact General Surgery Diagnoses Gallbladder polyp Sangeeta Ruano PA-C [address] [place] [address] Referral ID Status Reason Start Date Expiration Date Visits Requested Visits Authorized [id number] Authorized Specialty Services Required 02/11/2024 02/10/2025 1 1 [facility] Work Phone: Revfpe for referral (narrative)No reason for referral [facility]: Reason for visit Narrative* Consultation (Routine) - Authorized Specialty Diagnoses / Procedures Referred By Contac t Referred To Contact General Surgery Diagnoses Gallbladder polyp Sangeeta Ruano PA-C [address] [place] [address] Referral ID Status Reason Start Date Expiration Date Visits Requested Visits Authorized [id number] Authorized Specialty Services Required 02/11/2024 02/10/2025 1 1 [facility] Work Phone: Rewvdb for visit Narrative* Imaging (Routine) - Authorized Specialty Diagnoses / Procedures Referred By Contac t Referred To Contact Radiology Diagnoses Thrombocytosis Procedures CT abdomen pelvis w IV contrast Sangeeta Cooley, HOTEL SERVER-OUTREACH COORDINATOR [address] [place] [address] Phone: tel: fax: Referral ID Status Reason Start Date Expiration Date Visits Requested Visits Authorized [id number] Authorized Perform Procedure 09/01/2024 09/01/2025 1 1 [facility] Work Phone: Reason for visit Narrative* Endoscopy (Routine) - Authorized Specialty Diagnoses / Procedures Referred By Contact Referred To Contact Gastroenterology Diagnoses Upper abdominal pain Procedures Esophagogastroduodenoscopy (EGD) [place] ESOPHAGOGASTRODUODENOSCOPY TRANSORAL DIAGNOSTIC [place] EGD TRANSORAL BIOPSY SINGLE/MULTIPLE Carolynn Mendoza MD [address] [facility] [place] [address] Phone: tel:[phone] fax:[phone] Referral ID Status Reason Start Date Expiration Date V isits Requested Visits Authorized [id number] Authorized 02/25/2024 02/24/2025 1 1 [facility] Work Phone: Advance Directives No Advanced Directives Records FoundDocuments on File Type Date Recorded Patient Flower Buncher Or Picker Expl anation Advance Directives and Living Will Power of Strategic Planning Manager Documents on File Type Date Recorded Patient Flower Buncher Or Picker Expl anation ACP-Advance Directive ACP-Power of Strategic Planning Manager Date Activated Date Inactivated Comments 07/30/2024 11:12 AM Question Answer Comments Plan of Care: Code Status Discussion Not Compl eted Decision Maker: Provider Rationale: Patient condition does not warra nt discussion Date Activated Date Inactivated Comments 07/30/2024 11:12 AM Question Answer Comments Plan of Care: Code Status Discussion Not Compl eted Decision Maker: Provider Rationale: Patient condition does not warra nt discussion Advance Directive Response Recorded Date/ Time Do you have a Healthcare Power of Strategic Planning Manager? No December 01, 2024 11:49am Advance Directive Response Recorded Date/ Time Do you have a Healthcare Power of Strategic Planning Manager? No December 01, 2024 11:49am Do you have a Healthcare Power of Strategic Planning Manager? No December 02, 2024 9:14am Advance Directive Response Recorded Date/ Time Do you have a Healthcare Power of Strategic Planning Manager? No December 01, 2024 11:49am Do you have a Healthcare Power of Strategic Planning Manager? No December 02, 2024 9:14am Do you have a Healthcare Power of Strategic Planning Manager? No January 05, 2025 9:27am Summary Purpose Family History No Family History Records Found Relationship Condition Age at Onset Recorded Date/T gentry mother Cholelithiasis Unknown father Cardiac disease Unknown Hypertension Unknown grandfather Malignant neoplasm of rectum Unknown Malignant neoplasm of colon Unknown grandmother Malignant neoplasm of colon Unknown Reason for Referral Specialty Diagnoses / Procedures Referred By Isak t Referred To Contact Dano Amaya, [address] [place] [address] Referral ID Status Reason Start Date Expiration Date V isits Requested Visits Authorized [id number] Pending Review 02/26/2024 02/25/2025 1 1 Specialty Diagnoses / Procedures Referred By Contact Referred To Contact Gastroenterology Diagnoses Upper abdominal pain Procedures Esophagogastroduodenoscopy (EGD) NJ ESOPHAGOGASTRODUODENOSCOPY TRANSORAL DIAGNOSTIC [place] EGD TRANSORAL BIOPSY SINGLE/MULTIPLE Carolynn Mendoza MD [address] [facility], [place] [address] Referral ID Status Reason Start Date Expiration Date V isits Requested Visits Authorized [id number] Authorized 02/25/2024 02/24/2025 1 1 Specialty Diagnoses / Procedures Referred By Isak pandey Referred To Contact Radiology Diagnoses RUQ abdominal pain Gallbladder polyp Procedures US abdomen limited Sangeeta Ruano, DOROTEO [address] [facility] [address] Referral ID Status Reason Start Date Expiration Date Visits Requested Visits Authorized [id number] Authorized Perform Procedure 12/27/2023 12/26/2024 1 1 Chief Complaint and Reason for Visit Chief Complaint Admit Date Abd Pain September 18, 2024 7:34am ABD PAIN October 08, 2024 12:50 pm Reason for Visit Admit Date Abdominal pain September 18, 2024 7:34am Chief Complaint Admit Date Abd Pain September 18, 2024 7:34am Chief Complaint Admit Date Abd Pain September 18, 2024 7:34am ABD PAIN October 08, 2024 12:50 pm allergic reaction December 01, 2024 11:4 3am Chief Complaint Admit Date Abd Pain September 18, 2024 7:34am ABD PAIN October 08, 2024 12:50 pm allergic reaction December 01, 2024 11:4 3am vomiting December 02, 2024 8:44 am Chief Complaint Admit Date Abd Pain September 18, 2024 7:34am ABD PAIN October 08, 2024 12:50 pm allergic reaction December 01, 2024 11:4 3am vomiting December 02, 2024 8:44 am 3 M FU December 19, 2024 7:4 4am Chief Complaint Admit Date Abd Pain September 18, 2024 7:34am ABD PAIN October 08, 2024 12:50 pm allergic reaction December 01, 2024 11:4 3am vomiting December 02, 2024 8:44 am 3 M FU December 19, 2024 7:4 4am n/v January 05, 2025 8: 24am Reason for Visit Admit Date Abdominal pain September 18, 2024 7:34am Abdominal pain December 19, 2024 7:4 4am Additional Source Comments INFORMATION SOURCE (unrecogn ized section and content) DATE CREATED AUTHOR 03/21/2019 [facility] DATE CREATED AUTHOR AUTHOR'S ORGANIZ ATION 11/30/2019 [employer] DATE CREATED AUTHOR AUTHOR'S ORGANIZ ATION 01/12/2020 [facility] DATE CREATED AUTHOR AUTHOR'S ORGANIZ ATION 08/28/2021 [facility] DATE CREATED AUTHOR AUTHOR'S ORGANIZ ATION 12/31/2023 [facility] DATE CREATED AUTHOR AUTHOR'S ORGANIZ ATION 12/25/2024 [facility] DATE CREATED AUTHOR AUTHOR'S ORGANIZ ATION 01/08/2025 [facility] DATE CREATED AUTHOR AUTHOR'S ORGANIZ ATION 02/23/2025 [facility] DATE CREATED AUTHOR AUTHOR'S ORGANIZ ATION 02/24/2025 [facility] DATE CREATED AUTHOR AUTHOR'S ORGANIZ ATION 03/13/2025 [facility] DATE CREATED AUTHOR AUTHOR'S ORGANIZ ATION 03/22/2025 [facility] <item> Privacy Markings (unrecogniz ed section and content) Section Author: Ольга Pan PROHIBITION ON REDISCLOSURE OF CONFIDENTIAL INFORMATION This notice accompanies a disclosure of information concerning a client made to you with the consent of such client. Reason for Visit (unrecogniz ed section and content) Reason Comments Difficulty Urinating C/O DYSURIA AND URI NARY FREQUENCY X 3 DAYS. OTC AZO TO TREAT. Specialty Diagnoses / Procedures Referred By Contact Referred To Contact Gastroenterology Diagnoses Upper abdominal pain Procedures Esophagogastroduodenoscopy (EGD) [place] ESOPHAGOGASTRODUODENOSCOPY TRANSORAL DIAGNOSTIC [place] EGD TRANSORAL BIOPSY SINGLE/MULTIPLE Carolynn Mendoza MD [address] [facility], [facility] [address] [place] [address] Referral ID Status Reason Start Date Expiration Date V isits Requested Visits Authorized [id number] Authorized 02/25/2024 02/24/2025 1 1 Reason Comments Follow-up C/O ANAL ITCHING ON SEVERAL OCCASIONS AFTER CONSUMING CASHEWS - SUSPECT POSSIBLE ALLERGY. PATIENT WAS INITIALLY TREATING as HEMORRHOIDS BUT NOTHING HELPED SYMPTOMS UNTIL SHE TOOK BENADRYL. PATIENT DID HAVE ALLERGY TESTING WHEN SHE WAS YOUNGER AND WAS RECEIVING ALLERGY INJECTIONS, BUT SHE DOESN'T RECALL BEING TOLD SHE HAD NUT ALLERGY. Specialty Diagnoses / Procedures Referred By Contac t Referred To Contact Radiology Diagnoses RUQ abdominal pain Gallbladder polyp Procedures US abdomen limited Sangeeta Ruano PA-C [address] [place] [address] Referral ID Status Reason Start Date Expiration Date Visits Requested Visits Authorized [id number] Authorized Perform Procedure 12/27/2023 12/26/2024 1 1 Reason Comments Follow-up 1 MONTH F/U LABS + U S ABDOMEN + MED CHECK. Reason Comments New Patient Visit NEW PATIENT VISIT- H ASN'T SEEN A PCP IN YEARS STRUGGLING WITH DEPRESSION AND ANXIETY WORSENING IN LAST COUPLE MONTHS. STATES SHE DID HAVE A POLLIP ON HER GALLBLADDER AND WAS GETTING YEARLY SCANS AND NOW IS HAVING PAIN IN RIGHT UPPER QUADRANT FOR COUPLE MONTHS. Reason Comments Nasal Congestion drainage, cough, sor e throat, left ear pain x 2 weeks, eye matting x 2 days Reason Comments Follow-up 6 MONTH FU + LABS + MED CHECK Reason Comments Thrombocytosis Specialty Diagnoses / Procedures Referred By Isak t Referred To Contact Hematology and Oncology Diagnoses Thrombocytosis Sangeeta Ruano PA-C [address] [place] [place] [address] Phone: tel: fax: Referral ID Status Reason Start Date Expiration Date Visits Requested Visits Authorized [id number] Authorized Specialty Services Required 08/21/2024 08/21/2025 1 1 Reason Comments Follow-up Here to go over labs and ct scans- still has mild lower abd pain- nothing has changed since last visit Reason Comments Well Woman Reason Comments Orders Reason Comments Vomiting Pt was seen at [facility] er er lastnight and dx with gastritis, pt reports not being able to keep anything down and zofran makes her feel worse. Pt c/o cp Reason Comments Follow-up ER FOLLOW UP, ANXIET Y, VOMITING, POSITIVE PHQ 9 Reason Comments Follow-up 6 MO WELLNESS WITH L ABS AND MED CHECK Reason Comments vit B12 deficiency Care Teams (unrecognized sec tion and content) Handle Rounder Operator Relationship Specialty Start Date End Date Sangeeta Ruano PA-C [address] [place] [address] PCP - General Internal Medicine 12/27/23 Handle Rounder Operator Relationship Specialty Start Date End Date Sangeeta Ruano PA-C [address] [place] [address] PCP - General Internal Medicine 12/27/23 Handle Rounder Operator Relationship Specialty Start Date End Date Sangeeta Ruano PA-C [address] [place] [address] PCP - General Internal Medicine 12/27/23 Handle Rounder Operator Relationship Specialty Start Date End Date Sangeeta Ruano PA-C [address] [facility] [place] [address] PCP - General Internal Medicine 12/27/23 Handle Rounder Operator Relationship Specialty Start Date End Date Sangeeta Ruano PA-C [address] [facility] [place] [address] PCP - General Internal Medicine 12/27/23 Handle Rounder Operator Relationship Specialty Start Date End Date Sangeeta Ruano PA-C [address] [facility] [place] [address] PCP - General Internal Medicine 12/27/23 Handle Rounder Operator Relationship Specialty Start Date End Date Sangeeta Ruano PA-C [address] [facility] [place] [address] PCP - General Internal Medicine 12/27/23 Handle Rounder Operator Relationship Specialty Start Date End Date Sangeeta Ruano PA [address] [facility] [place] [address] PCP - General Internal Medicine 07/07/24 Handle Rounder Operator Relationship Specialty Start Date End Date Sangeeta Ruano PA-C [address] [facility] [place] [address] PCP - General Internal Medicine 12/27/23 Carolynn Mendoza MD [address] [facility] [address] [place] [address] Surgeon General Surgery 07/17/24 Handle Rounder Operator Relationship Specialty Start Date End Date Sangeeta Ruano PA-C [address] [place] [address] PCP - General Internal Medicine 08/14/24 Carolynn Mendoza MD [address] [facility], [facility] [address] [place] [address] Surgeon General Surgery 07/17/24 Handle Rounder Operator Relationship Specialty Start Date End Date Sangeeta Ruano PA-C [address] [place] [address] PCP - General Internal Medicine 08/14/24 Carolynn Mendoza MD [address] [facility], [address] [address] Surgeon General Surgery 07/17/24 Handle Rounder Operator Relationship Specialty Start Date End Date Sangeeta Ruano PA-C [address] [place] [address] PCP - General Internal Medicine 08/14/24 Carolynn Mendoza MD [address] [facility], [facility] [address] [place] [address] Surgeon General Surgery 07/17/24 Handle Rounder Operator Relationship Specialty Start Date End Date Sangeeta Ruano PA-C [address] [place] [address] PCP - General Internal Medicine 08/14/24 Carolynn Mendoza MD [address] [facility], [facility] [address] [place] [address] Surgeon General Surgery 07/17/24 Team Status: Active Member Role Status Dates Sangeeta SHERIDAN PA Primary Care Provider Active Team Status: Inactive Member Role Status Dates Sangeeta Ruano PA PA Primary Care Provider Active Start: September 18, 2024 End: September 18, 2024 Sangeeta Ruano PA, PA Referring Provider Active Start: September 18, 2024 End: September 18, 2024 Dr. Denton Taylor DO Attending Provider Active Start: September 18, 2024 End: September 18, 2024 Team Status: Inactive Member Role Status Dates Sangeeta Ruano PA PA Primary Care Provider Active Start: September 18, 2024 End: September 18, 2024 Dr. Dneton Taylor DO Attending Provider Active Start: September 18, 2024 End: September 18, 2024 Dr. Denton Taylor DO Referring Provider Active Start: September 18, 2024 End: September 18, 2024 Team Status: Inactive Member Role Status Dates Sangeeta SHERIDAN PA Primary Care Provider Active Start: October 08, 2024 End: October 08, 2024 Dr. Denton Taylor DO Attending Provider Active Start: October 08, 2024 End: October 08, 2024 Dr. Denton Taylor DO Referring Provider Active Start: October 08, 2024 End: October 08, 2024 Handle Rounder Operator Relationship Specialty Start Date End Date Sangeeta Ruano PA [address] [place] [address] PCP - General Internal Medicine 07/07/24 Handle Rounder Operator Relationship Specialty Start Date End Date Sangeeta Ruano PA [address] [place] [address] PCP - General Internal Medicine 07/07/24 Team Status: Active Member Role/Relationship Status Dates Sangeeta SHERIDAN PA Primary Care Provider Active Team Status: Inactive Member Role/Relationship Status Dates Sangeeta SHERIDAN PA Primary Care Provider Active Start: September 18, 2024 End: September 18, 2024 Sangeeta Ruano PA, PA Referring Provider Active Start: September 18, 2024 End: September 18, 2024 Dr. Denton Taylor DO Attending Provider Active Start: September 18, 2024 End: September 18, 2024 Team Status: Inactive Member Role/Relationship Status Dates Sangeetaalexia Ruano PA, PA Primary Care Provider Active Start: September 18, 2024 End: September 18, 2024 Dr. Denton Taylor DO Attending Provider Active Start: September 18, 2024 End: September 18, 2024 Dr. Denton Taylor DO Referring Provider Active Start: September 18, 2024 End: September 18, 2024 Team Status: Inactive Member Role/Relationship Status Dates Sangeetaalexia Ruano PA, PA Primary Care Provider Active Start: October 08, 2024 End: October 08, 2024 Dr. Denton Taylor DO Attending Provider Active Start: October 08, 2024 End: October 08, 2024 Dr. Denton Taylor DO Referring Provider Active Start: October 08, 2024 End: October 08, 2024 Team Status: Inactive Member Role/Relationship Status Dates Sangeetaalexia Ruano PA, PA Primary Care Provider Active Start: December 01, 2024 End: December 01, 2024 Dr. Phillip Richardson DO Emergency Provider Active Start : December 01, 2024 End: December 01, 2024 Team Status: Inactive Member Role/Relationship Status Dates Sangeeta Bindu PA, PA Primary Care Provider Active Start: December 02, 2024 End: December 02, 2024 Dr. Toby Rodriguez MD Emergency Provider Active Sta rt: December 02, 2024 End: December 02, 2024 Team Status: Inactive Member Role/Relationship Status Dates Sangeetaalexia Ruano PA, PA Primary Care Provider Active Start: December 01, 2024 End: December 01, 2024 Dr. Phillip Richardson DO Attending Provider Active Start : December 01, 2024 End: December 01, 2024 Dr. Phillip Richardson DO Emergency Provider Active Start : December 01, 2024 End: December 01, 2024 Team Status: Inactive Member Role/Relationship Status Dates Sangeetaalexia Ruano PA, PA Primary Care Provider Active Start: December 02, 2024 End: December 02, 2024 Dr. Toby Rodriguez MD Attending Provider Active Sta rt: December 02, 2024 End: December 02, 2024 Dr. Toby Rodriguez MD Emergency Provider Active Sta rt: December 02, 2024 End: December 02, 2024 Team Status: Inactive Member Role/Relationship Status Dates FATIMAH Pantoja Primary Care Provider Active Start: December 19, 2024 End: December 19, 2024 FATIMAH Pantoja Referring Provider Active Start: December 19, 2024 End: December 19, 2024 Dr. Denton Taylor DO Attending Provider Active Start: December 19, 2024 End: December 19, 2024 Handle Rounder Operator Relationship Specialty Start Date End Date Sangeeta Ruano PA-C [address] [place] [address] PCP - General Internal Medicine 08/14/24 Carolynn Mendoza MD [address] [facility], [facility] [address] [place] [address] Surgeon General Surgery 07/17/24 Team Status: Inactive Member Role/Relationship Status Dates FATIMAH Pantoja Primary Care Provider Active Start: January 05, 2025 End: January 05, 2025 Dr. Raza Camacho DO Emergency Provider Active Start: January 05, 2025 End: January 05, 2025 Handle Rounder Operator Relationship Specialty Start Date End Date Sangeeta Ruano PA-C [address] [place] [address] PCP - General Internal Medicine 08/14/24 Carolynn Mendoza MD [address] [facility], [facility] [address] [place] [address] Surgeon General Surgery 07/17/24 Handle Rounder Operator Relationship Specialty Start Date End Date Sangeeta Ruano PA-C [address] [place] [address] PCP - General Internal Medicine 08/14/24 Carolynn Mendoza MD [address] [place] [id number] Surgeon General Surgery 07/17/24 Handle Rounder Operator Relationship Specialty Start Date End Date Sangeeta Ruano PA-C PCP - General Internal Medicine 12/27/23 08/13/24 Handle Rounder Operator Relationship Specialty Start Date End Date Sangeeta Ruano PA-C [address] [place] [address] PCP - General Internal Medicine 08/14/24 Carolynn Mendoza MD [address] [facility], [place] [id number] Surgeon General Surgery 07/17/24 Handle Rounder Operator Relationship Specialty Start Date End Date Sangeeta Ruano PA-C [address] [place] [address] PCP - General Internal Medicine 08/14/24 Carolynn Mendoza MD [address] [place] [id number] Surgeon General Surgery 07/17/24 Source Comments (unrecognize d section and content) In the event this informatio n is protected by the Federal Confidentiality of Alcohol and Drug Abuse Patient Records regulations: The Federal rules restrict any use of the information to criminally investigate or prosecute any alcohol or drug abuse patient.[facility] HospitalIn the event this information is protected by the Federal Confidentiality of Alcohol and Drug Abuse Patient Records regulations: The Federal rules restrict any use of the information to criminally investigate or prosecute any alcohol or drug abuse patient.[facility] HospitalIn the event this information is protected by the Federal Confidentiality of Alcohol and Drug Abuse Patient Records regulations: The Federal rules restrict any use of the information to criminally investigate or prosecute any alcohol or drug abuse patient.[facility] Goals (unrecognized section and content) Goals may be documented in a n alternate sectionGoals may be documented in an alternate sectionGoals may be documented in an alternate sectionGoals may be documented in an alternate sectionGoals may be documented in an alternate sectionGoals may be documented in an alternate section Scheduled Active and Recently Administ ered Medications (unrecognized section and content) Medication Order 01/05/2025 01/06/2025 01/07/2025 cefTRIAXone (Rocephin) 1 g in dextrose (iso) IV 50 mL (COMPLETED) 1 g, intravenous, at 100 mL/hr, Administer over 30 Minutes, Once, On Sun01/06/25 at 2220, For 1 dose, premix bag, Suspected Indication (Select all that apply): Urinary Tract Infection, Type of Therapy: Definitive, No Cultures, Type of Urinary Tract Infection: Uncomplicated, Indications: Urinary Tract Infection 2311 (New Bag - Provider: Sejal Ramos RN)2342 (Stopped - Provider: Sejal Ramos RN) dicyclomine (Bentyl) capsule 20 mg (COMPLETED) 20 mg, oral, Once, On Sun01/06/25 at 2054, For 1 dose 2058 (Given - Provider: Sejal Ramos RN) famotidine (Pepcid) tablet 40 mg (COMPLETED) 40 mg, oral, Once, On Sun01/06/25 at 0, For 1 dose 2339 (Given - Provider: Sejal Ramos RN) iohexol (OMNIPaque) 350 mg iodine/mL solution 69 mL (COMPLETED) 69 mL, intravenous, Once in imaging, Starting on Sun01/06/25 at 2137, For 1 dose 2133 (Given - Provider: Gianni Li) ketorolac (Toradol) injection 15 mg (COMPLETED) 15 mg, intravenous, Once, On Sun01/06/25 at 2044, For 1 dose 2052 (Given - Provider: Sejal Ramos RN) ondansetron (Zofran) injection 4 mg (COMPLETED) 4 mg, intravenous, Once, On Sun01/06/25 at 2044, For 1 dose, When administering via IV Push, administer over 3-5 minutes. 2052 (Given - Provider: Sejal Ramos RN) ondansetron ODT (Zofran-ODT) disintegrating tablet 4 mg (COMPLETED) 4 mg, oral, Once, On Sun01/06/25 at 2329, For 1 dose, Please dispense 2 tablets as a home pack. May take 1 tablet every 8 hours as needed for nausea. 2340 (Given - Provider: Sejal Ramos RN - Comment: home pack of 2 tablets sent home with pt with instructions) promethazine (Phenergan) 12.5 mg in sodium chloride 0.9% 50 mL IV (COMPLETED) 12.5 mg, intravenous, Administer over 15 Minutes, Once, On Sun01/06/25 at 2230, For 1 dose 2253 (New Bag - Provider: Sejal Ramos RN)2311 (Stopped - Provider: Sejal Ramos RN) sodium chloride 0.9 % bolus 1,000 mL (COMPLETED) 1,000 mL, intravenous, at 999 mL/hr, Administer over 1 Hours, Once, On Sun01/06/25 at 2045, For 1 dose 2052 (New Bag - Provider: Sjeal Ramos RN)2230 (Stopped - Provider: Sejal Ramos RN) sodium chloride 0.9 % bolus 1,000 mL (COMPLETED) 1,000 mL, intravenous, at 999 mL/hr, Administer over 1 Hours, Once, On Sun01/06/25 at 2225, For 1 dose 2252 (New Bag - Provider: Sejal Ramos RN) 0001 (Stopped - Provider: Sejal Ramos RN) FOR RECORDS PERTAINING TO PATIENTS WHO ARE OR HAVE BEEN ENROLLED IN A CHEMICAL DEPENDENCY/SUBSTANCEABUSE PROGRAM, SOME INFORMATION MAY BE OMITTED. This clinical summary was aggregated from multiple sources. Caution should be exercised in using it in the provision of clinical care. This summary normalizes information from multiple sources, and as a consequence, information in this document may materially change the coding, format and clinical context of patient data. In addition, data may be omitted in some cases. CLINICAL DECISIONS SHOULD BE BASED ON THE PRIMARY CLINICAL RECORDS. [email or web address] [facility]. provides no warranty or guarantee of the accuracy or completeness of information in this document.
--- NOTE | 2025-04-25 11:30 | CT_ITS ---
PROCEDURE: ABDOMEN/PELVIS W IV CONT ONLY 04/25/2025 REASON FOR EXAM: LUQ ABDOMINAL PAIN TECHNIQUE: Procedure Code: [id number] Modality: CT Procedure: ABDOMEN/PELVIS W IV CONT ONLY Coronal and Sagittal reconstruction series were provided. CONTRAST: Isovue 370 VOLUME: 75 mL One or more dose reduction techniques were used (e.g., Automated exposure control, adjustment of the mA and/or kV according to patient size, use of iterative reconstruction technique. RADIATION DOSE SUMMARY: CTDlvol: 17.41 mGy DLP: 911.49 mGycm COMPARISON: CT abdomen and pelvis January 05, 2025. FINDINGS: Lung bases: Clear. Liver: Unremarkable. Gallbladder: Status post cholecystectomy. No biliary dilation. Spleen: Unremarkable Pancreas: Unremarkable Adrenals: Unremarkable Kidneys: No hydronephrosis. No nephrolithiasis. Bladder: Unremarkable. Reproductive Organs: IUD in place. Bowel: No bowel wall thickening. No bowel obstruction. Appendix: Normal Lymph nodes: No lymphadenopathy. Vasculature: No aneurysm. Peritoneum / Retroperitoneum: No free air or free fluid. Bones: No acute bony abnormalities. CT/Abdomen/Pelvis W IV Cont ONLY IMPRESSION: No acute abdominopelvic abnormalities. Reading Location: [facility]
[2025-04-25 12:00] VITALS: BP 140/75; PULSE 90; RESP 16; O2SAT 99
[2025-04-25 12:35] VITALS: BP 140/75; PULSE 90; RESP 16; TEMP 36.9; O2SAT 99
== END 2025-04-25 12:37 | disposition home or self-care (01) ==
PROVIDERS: Emergency Provider Emergency Medicine; PCP Physician Assistant Medical; Visit Provider Emergency Medicine
DX: R10.9 Unspecified abdominal pain (principal); R19.7 Diarrhea, unspecified; R11.2 Nausea with vomiting, unspecified; G89.29 Other chronic pain; F32.A Depression, unspecified; F41.1 Generalized anxiety disorder; K21.9 Gastro-esophageal reflux disease without esophagitis; F17.290 Nicotine dependence, other tobacco product, uncomplicated; Z87.11 Personal history of peptic ulcer disease; Z90.49 Acquired absence of other specified parts of digestive tract; Z79.899 Other long term (current) drug therapy
CPT/HCPCS: 74177; 80048; 81001; 81025; 83690; 85025; 96361; 96372; 96374; 96375; 99283; A4216; J2405

== ENCOUNTER 2025-04-30 18:08 | Emergency (ER) | payer OTHER, SELFPAY ==
[2025-04-30 18:10] VITALS: BP 140/85; PULSE 70; RESP 20; TEMP 35.9; O2SAT 99; BMI 31.8
[2025-04-30 18:44] LABS: Hematocrit 41.9 % (37-47); Hemoglobin 13.8 g/dL (12.0-15.0); Mean Corp Hgb Conc 32.9 g/dL (32-36); Mean Corpuscular Volume 86.2 fL (81-99); Mean Platelet Vol. 9.5 fl (6.2-12.0); POSITIVE DIFFERENTIAL YES; Platelet Count 677 K/mm3 (150-450); RBC Distribution Width CV 13.8 % (11.6-14.6); RBC Distribution Width SD 43.2 fl (35.1-43.9); Red Blood Count 4.86 M/mm3 (4.2-5.4); White Blood Count 21.3 K/mm3 (4.4-11.0)
[2025-04-30 19:10] LABS: Internal QC Validated? YES +Cl - CLEAR BKGD; Pregnancy, Serum, hCG Quali. NEGATIVE Negative
[2025-04-30 19:29] LABS: AST(SGOT) 18 U/L (<=31); Alanine Aminotransfer ALT/SGPT 23 U/L (<=34); Albumin, Serum 4.2 g/dL (3.5-5.0); Alkaline Phosphatase 61 U/L (35-104); Anion Gap 17 (5-15); BUN 14 mg/dL (4-19); BUN/Creat Ratio 19.7 RATIO (10-20); Calcium,Total 9.0 mg/dL (7.6-11.0); Carbon Dioxide 20.9 mmol/L (21.0-32.0); Chloride 103 mmol/L (98-108); Differential Indicated MANUAL DIFF; Estimated Creatinine Clearance 116.68 ml/min (50-250); Globulin 2.7 g/dL (2.2-4.2); Glucose 160 mg/dL (70-99); Lipase 29 U/L (13-75); Potassium 3.7 mmol/L (3.3-5.1)
[2025-04-30 19:39] LABS: Neutrophil-Band 11 % (0-5); Neutrophil-Segmented 54 % (47-70); Total Cells Counted 100 (MANUAL DIFF)
[2025-04-30] MEDS: Famotidine 200 MG/20 ML MDV 20 MG in 0.9% Normal Saline (Pres. free 8 ML 300 MG IV (19:39)
[2025-04-30 19:41] LABS: Scan Smear per Review Criteria MANUAL DIFF
[2025-04-30 19:44] LABS: Reactive Lymphocyte 2+
[2025-04-30] MEDS: DiphenhydrAMINE 25 MG, ChlorproMAZINE 50 MG in 0.9% Normal Saline (250mL Bag) 247.5 ML 250 MG IV (19:52)
[2025-04-30 20:09] VITALS: PULSE 72; O2SAT 97
[2025-04-30] MEDS: 0.9% Normal Saline (1000mL) 1,000 ML 1000 ML IV (20:59)
[2025-04-30 22:00] VITALS: BP 102/53; PULSE 72; RESP 16; O2SAT 98
--- NOTE | 2025-04-30 23:07 | EDS_ITS ---
HPI History of Present Illness Chief Complaint: Nausea/Vomiting/Diarrhea Detail of Chief Complaint: Nausea vomiting abdominal pain Informant: patient and parent Onset/Context/Timing Onset: Today Context: Sudden Onset Timing: Continuous and Waxes and wanes Quality: Nausea vomiting since 1:00. Now having dry heaves. Location: GI Current Severity: Severe Maximum Severity: Severe Worsened by: Possible cannabis use, mother is concerned she has colitis Relieved by: Nothing Associated Symptoms Associated Symptoms: Pain, nausea vomiting and 1 loose stool Narrative Narrative: Patient is a 24-year-old woman. She has seen Dr. Taylor. Dr. Taylor's note was reviewed. On CAT scan there was concern for colitis. Differential was inflammatory bowel versus infectious. Since that CAT scan she has had a CAT scan that was negative. She was seen by Dr. Nation on 1212. His note, laboratory results and CAT scan results were reviewed. When entered the room patient was violently vomiting. History is very limited. She acknowledges nausea, vomiting and now dry heaves. She had diarrhea patient had blood or mucus in her diarrhea. She denies hematemesis or coffee-ground emesis. She does complain of some mild chills and fever subjectively. She denies headache, visual, ocular auditory symptoms. She denies rhinorrhea, congestion, postnasal drainage sore throat. Denies cough or shortness of breath. She denies dysuria, frequency, urgency or hematuria. She does endorse decreased urine output. She is present on her menses. Patient does admit to cannabis use daily. She was seen by me in November and diagnosed with cannabis hyperemesis syndrome. Prior similar symptoms: Yes Recent Illness/Hospitalization: No PFSH PFSH Medical History Hypercholesteremia Thrombocytosis Low vitamin B12 level Depression Abdominal pain Gallbladder polyp Peptic ulcer MONET (generalized anxiety disorder) GERD (gastroesophageal reflux disease) Home Medications ?Medication ?Instructions ?Recorded ?Last Taken ?Type omeprazole 20 mg capsule,delayed 20 mg PO QDAY 5 01/04/25 History release Held on 12/01/24. Instructions: PHARMACY ISSUE dicyclomine 20 mg tablet 20 mg PO TID PRN abdominal p ain 04/25/25 04/30/25 13:00 Rx #20 tabs ondansetron 4 mg disintegrating 4 mg PO Q8H PRN PRN Na usea #10 tabs 04/25/25 Unknown Rx tablet prednisone 50 mg tablet 50 mg PO DAILY 5 days #5 tab s 04/25/25 Unknown Rx buspirone 5 mg tablet 5 mg PO TID PRN PRN anxiety 04/30/25 Unknown History citalopram 40 mg tablet 40 mg PO DAILY 04/30/25 Unkn own History folic acid 1 mg tablet 1 mg PO DAILY 04/30/25 Unkno wn History methylprednisolone 4 mg tablets in See Rx Instructions PO .COMPLEX 04/30/25 Unknown History a dose pack (Medrol (Billy)) metoclopramide HCl 10 mg tablet 10 mg PO 4X/DAY PRN He adache #20 04/30/25 Unknown Rx tabs Allergy/AdvReac Type Severity Reaction Status Date / Time peanut (peanuts) Allergy Anaphylaxis Verified 04/30/25 18:11 morphine AdvReac Intermediate Other Verified 04/30/25 18:11 Family History Mother Cholelithiasis Father Heart disease Hypertension Grandfather Rectal cancer Colon cancer Grandmother Colon cancer Surgical History H/O adenoidectomy Hx laparoscopic cholecystectomy Social History Smoking Status: Current every day smoker tobacco type: e-cigarettes alcohol intake: current alcohol intake frequency: holidays/special occasions only Alcohol type: wine ROS ROS ED Constitutional Constitutional ED: Reports chills, fever(s) and subjective; Denies sweats or w eight loss Eyes Eyes: Denies blurry vision, change in vision or diplopia ENT ENT ED: Denies ear pain, rhinorrhea or sore throat Cardiovascular Cardiovascular: Denies chest pain, orthopnea, palpitations, paroxysmal nocturnal dyspnea or racing heartbeat Respiratory/Chest Respiratory/Chest: Denies cough, dyspnea, dyspnea on exertion, orthopnea or paroxysmal nocturnal dyspnea Gastrointestinal Gastrointestinal: Reports abdominal pain, nausea and vomiting; Denies constipation, diarrhea or melena Genitourinary Genitourinary ED: Reports LMP (females 10-50) Details: Comment: (Presently); Denies dysuria, hematuria or urinary frequency Musculoskeletal Musculoskeletal: Reports arthralgias and myalgias; Denies back pain Integumentary Denies Abrasions or rash Neurologic Neurologic: Denies headache(s) or paresthesias Psychiatric Psychiatric: Reports anxiety Hematologic/Lymphatic Hematologic/Lymphatic: Reports systems reviewed and no addt'l complaints, except as documented Allergic/Immunologic Allergic/Immunologic ED: Denies mouth swelling or tongue swelling EXAM Physical Exam Const Vital Signs: 04/30/25 18:10 04/30/25 20:09 04/30/25 22:00 Temperature 96.7 F L Temperature Source Temporal Pulse Rate 70 72 72 Respiratory Rate 20 H 16 Blood Pressure 140/85 H 102/53 L Blood Pressure Mean 103 69 Pulse Ox 99 97 98 Oxygen Delivery Method Room Air Room Air Room Air Positive well nourished and well developed Constitutional Narrative: Patient is pale diaphoretic in obvious discomfort. She is actively vomiting. General Appearance ED: well developed and pallor HEENT Reports moist mucous membranes HEENT Narrative: Patient endorses thirst and dry mouth. Eyes PERRL and EOMs intact bilaterally Eyes Narrative: She has conjunctival petechiae from [place] vomiting. General Eye ED: Negative for pale conjunctiva or scleral icterus Neck no lymphadenopathy, supple and no JVD Resp normal respiratory effort and clear to auscultation bilaterally Cardio regular rate, regular rhythm, S1 normal heart sound, S2 normal heart sound and no murmurs GI normal to inspection, nondistended, normoactive bowel sounds, non-distended and no masses; Negative for non-tender or hepatosplenomegaly GI Narrative: Predominately epigastric pain. Back/Spine no CVA tenderness Extremity normal to inspection Extremity Narrative: There is no clubbing, cyanosis. Skin is not mottled. She is diaphoretic. General Extremety ED: Negative for edema or tenderness General Extremity: Negative for edema Neuro oriented x3 and CN's II-XII intact bilaterally Sensorium / Orientation: alert Psych mental status grossly normal Skin no rashes or lesions noted, no wounds and No skin turgor normal General Skin Exam: pallor; Negative for elasticity normal or jaundice MDM MDM MDM Narrative Medical decision making narrative: Patient with nausea vomiting. Prior records were reviewed. She had ER visit April, December and November. She was diagnosed with pain unknown etiology April 25. She was diagnosed with colitis January [address] Crawford. She was diagnosed with cannabis hyperemesis syndrome by [place] on December 02. She was seen day prior for nausea and vomiting by Dr. Basurto. Will obtain CBC to assess H&H and white count. Competence of metabolic panel was obtained to assess renal function, glucose and CO2 anion gap. test was ordered as well per nurse protocol. Lab Data Attestation: I reviewed the patient's lab results. Lab results narrative: White count is elevated 21,000 with shift. H&H is 13.8 and 41.9. H&H is higher today than was on the . Suspect this is due to dehydration. CO2 was 20.9 with an anion gap of 17. Glucose is elevated 160. She does not have a history of diabetes. She has had mildly elevated glucose in the past. Labs: Laboratory Results - last 24 hr 04/30/25 18:33 WBC 21.3 H RBC 4.86 Hgb 13.8 Hct 41.9 MCV 86.2 MCH 28.4 MCHC 32.9 RDW Std Deviation 43.2 RDW Coeff of Ha 13.8 Plt Count 677 H MPV 9.5 Immature Gran % (Auto) Not Reportable Neut % (Auto) Not Reportable Lymph % (Auto) Not Reportable [place] % (Auto) Not Reportable Eos % (Auto) Not Reportable Baso % (Auto) Not Reportable Absolute Neuts (auto) 11.5 H Absolute Lymphs (auto) 5.50 H Total Counted 100 Neutrophils % (Manual) 54 Band Neutrophils % 11 H Lymphocytes % (Manual) 26 Monocytes % (Manual) 5 Eosinophils % (Manual) 3 Metamyelocytes % 1 Nucleated RBC % Not Reportable Diff Path Review May foll Reactive Lymphocytes 2+ Platelet Estimate MKD INC Sodium 140 Potassium 3.7 Chloride 103 Carbon Dioxide 20.9 L Anion Gap 17 H BUN 14 Creatinine 0.73 Estim Creat Clear Calc 116.68 Est GFR (MDRD) Non-Af 118 BUN/Creatinine Ratio 19.7 Glucose 160 H Calcium 9.0 Total Bilirubin 0.40 AST 18 ALT 23 Alkaline Phosphatase 61 Total Protein 6.9 Albumin 4.2 Globulin 2.7 Albumin/Globulin Ratio 1.6 Lipase 29 Serum , Qual NEGATIVE Treatment and Re-Evaluation :: Patient was reassessed at 2304. Patient looks much better. Patient has passed p.o. challenge. Once the present liter that is infusing is completed we will discharge to home she was discharged with prescription for Reglan. She has [place] ODT at home. She was informed that my belief this is due to cannabis hyperemesis syndrome. Discharge Plan Triage Chief Complaint: Nausea/Vomiting/Diarrhea ED Provider: Toby Rodriguez Dx/Rx/DC Orders Clinical Impression: Cannabis hyperemesis syndrome, High anion gap metabolic acidosis, Leukocytosis, Petechiae, Bandemia, Abdominal pain, Acute dehydration Instructions: Cannabis Hyperemesis Syndrome Prescriptions: New metoclopramide HCl 10 mg tablet 10 mg PO 4X/DAY PRN (Reason: Headache) Qty: 20 0RF No Action omeprazole 20 mg capsule,delayed release(DR/EC) 20 mg PO QDAY dicyclomine 20 mg tablet 20 mg PO TID PRN (Reason: abdominal pain) Qty: 20 0RF prednisone 50 mg tablet 50 mg PO DAILY 5 Days Qty: 5 0RF ondansetron 4 mg tablet,disintegrating 4 mg PO Q8H PRN PRN (Reason: Nausea) Qty: 10 0RF buspirone 5 mg tablet 5 mg PO TID PRN PRN (Reason: anxiety) citalopram 40 mg tablet 40 mg PO DAILY folic acid 1 mg tablet 1 mg PO DAILY methylprednisolone [Medrol (Billy)] 4 mg tablets,dose pack See Rx Instructions .ROUTE .COMPLEX Rx Instructions: orally per package directions Primary Care Provider: Jenni Matthews Referrals: Jenni Matthews PA [Primary Care Provider, Medical] - As Needed Activity Restrictions/Additional Instructions: Take the metoclopramide 1/2-hour before breakfast, lunch and dinner and prior to bedtime for the next 5 days. Return if you are not able to eat or drink anything. Return if the pain becomes severe. Print Language: Nepali Disposition Disposition: Home, Self Care
[2025-04-30 23:26] VITALS: BP 111/51; PULSE 61; RESP 16; TEMP 35.9; O2SAT 97
== END 2025-04-30 23:39 | disposition home or self-care (01) ==
PROVIDERS: Emergency Provider Emergency Medicine; PCP Physician Assistant Medical; Visit Provider Emergency Medicine
DX: R11.16 Cannabis hyperemesis syndrome (principal); D72.825 Bandemia; E87.20 Acidosis, unspecified; E86.0 Dehydration; E78.00 Pure hypercholesterolemia, unspecified; K21.9 Gastro-esophageal reflux disease without esophagitis; Z79.899 Other long term (current) drug therapy; F41.1 Generalized anxiety disorder; Z90.49 Acquired absence of other specified parts of digestive tract; F17.290 Nicotine dependence, other tobacco product, uncomplicated; R23.3 Spontaneous ecchymoses; R10.9 Unspecified abdominal pain
CPT/HCPCS: 80053; 83690; 84703; 85025; 96361; 96365; 96375; 99283; A4216; J2405